=== PATIENT | male | born 1945 | race Two or more races ===

== ENCOUNTER 2024-09-05 10:54 | Inpatient (IN) | payer MEDICARE, MEDICAID, SELFPAY ==
[2024-09-05] VITALS (16 sets, daily range): BP systolic 91–151; BP diastolic 48–78; PULSE 74–92; RESP 10–18; TEMP 36.3–36.9; O2SAT 96–100
--- NOTE | 2024-09-05 11:40 | XR_ITS ---
Examination: AP chest single view Technique: AP semiupright portable chest single view Exam date and time: September 01, 2024 1148 hrs. Comparison August 13, 2024 Indications: Failure to thrive Findings: Normal heart size No lobar pneumonia or pulmonary edema Prominent osteopenia Impression: No pneumonia or pulmonary edema
--- NOTE | 2024-09-05 11:41 | EKG_ITS ---
[facility] Test Date: 2024-09-05 Pat Name: DASIA ALEXIS Department: Room: - Gender: Male Barker Operator: : 1945 Requested By: Oumar Larkin Order Number: [id number] Reading MD: Oumar Larkin Measurements Intervals [place] Rate: 84 P: 97 AK: 171 QRS: -7 QRSD: 91 T: 89 QT: 382 QTc: 452 Interpretive Statements SINUS RHYTHM MODERATE ST DEPRESSION [0.05+ mV ST DEPRESSION] No previous ECG available for comparison /store/S0/[id number].pdf
--- NOTE | 2024-09-05 11:41 | PD.EDADULT ---
ED General RME/HPI General Chief complaint: General Adult/Misc Complain Stated complaint: ILL Time Seen by Provider: 09/05/24 11:14 Arrival date/time: 09/05/24 10:54 RME / HPI RME / HPI narrative: 79-year-old male patient with significant history of hypertension, chronic debility, diabetes mellitus, chronic Tracy catheter, was brought in by EMS from senior care regarding failure to thrive. According to the EMS, patient's been refusing to eat for several weeks, and drinking less fluid. Currently patient told me that he is not hungry and not thirsty. Patient denies any chest pain cough fever or any complaints. Patient also denies any abdominal pain. Patient was sent to us by family and facility for PEG tube placement. Patient is full code Related Data Home Medications ?Medication ?Instructions ?Recorded ?Confirmed linagliptin 5 mg tablet (Tradjenta) 5 mg PO QDAY 11/06/21 11/25/23 bisacodyl 10 mg rectal suppository 10 mg MA QDAY PRN 11/25/23 11/25/23 (Dulcolax (bisacodyl)) ferrous sulfate 325 mg (65 mg 325 mg PO BID 11/25/23 11/25/23 iron) tablet glucagon HCl 1 mg solution for 1 mg subcut Q15M PRN 11/25/23 11/25/23 injection (Glucagon (HCl) Emergency Kit) Previous Rx's ?Medication ?Instructions ?Recorded tamsulosin 0.4 mg capsule 0.4 mg PO QDAY #0 caps 09/02/23 ciprofloxacin HCl 500 mg tablet 500 mg PO BID #14 tabs 12/22/23 (Cipro) ciprofloxacin HCl 500 mg tablet 500 mg PO BID #14 tabs 12/22/23 (Cipro) cefuroxime axetil 500 mg tablet 500 mg PO BID #14 tabs 08/13/24 Allergies Allergy/AdvReac Type Severity Reaction Status Date / Time No Known Allergies Allergy Verified 11/25/23 15:04 Review of Systems Review of Systems Narrative Review of Systems: Review of system reviewed and within normal limits except mentioned in HPI ED Exam Narrative Physical exam: VITAL SIGNS: Reviewed. GENERAL APPEARANCE: Alert and interactive, follows commands, no acute distress, cachectic HEAD AND FACE: Non-traumatic. ENT: PERRL, pale conjunctiva, eyelid no trauma, Mucous membrane moist. NECK: Supple, nontender, no nuchal rigidity. CHEST: No tenderness, no crepitus, no paradoxical movement, no retractions. LUNGS: Clear, well ventilated, symmetric, no rales, no wheezing, no ronchi, no stridor, good breath sounds bilaterally. HEART: Regular rate, regular rhythm, no murmur, no gallops. ABDOMEN: Soft, positive bowel sounds, nondistended, no guarding, nontender, no rebound, no masses, RECTAL: Deferred. GENITAL: Deferred. NEUROLOGICAL: Gross motor function intact sensory function intact, Appropriate for age. MUSCULOSKELETAL: low back nontender, full range of motion. 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 SKIN: Color pale, dry, no rash, no lacerations, no abrasions, no contusions. LYMPHATICS: Deferred. Course Quality Measures none Orders Category Date Time Status Patient Condition Routine Admission 09/05/24 13:34 Ordered Bedrest NOW Care 09/05/24 13:39 Active COVID-19 Screening Questionnaire NOW Care 09/05/24 12:50 Active Decision to Admit X1 Care 09/05/24 12:50 Completed EKG (ED ONLY) *Do not use* NOW Care 09/05/24 11:41 Completed NPO NOW Care 09/05/24 12:48 Active Notify provider NEEDED Care 09/05/24 13:34 Active Obtain Written Consent For: .NOW Care 09/05/24 13:26 Active Urinary Catheter QS Care 09/05/24 13:34 Active Consult to Gastroenterology Stat Cons 09/05/24 11:46 Ordered Diet NPO (NOW) Diet 09/05/24 12:48 Completed EKG (ED Only) Stat Exams 09/05/24 11:41 Draft XR chest 1V Stat Exams 09/05/24 11:40 Completed CBC [CBC] Stat Lab 09/05/24 11:49 Completed CMP [Comprehensive Metabolic Panel] Stat Lab 09/05/24 11:49 Completed Mag [Magnesium] Stat Lab 09/05/24 11:49 Completed PTT [Partial Thromboplastin Time] Stat Lab 09/05/24 11:49 Completed UA, C/S IF [Urinalysis, C/S if Indicated] Stat Lab 09/05/24 12:24 Completed Urine Culture Stat Lab 09/05/24 12:24 Received Sodium Chloride 0.9% 1000 ml [Ns] 1,000 ml Med 09/05/24 12:48 Active IV 125 mls/hr Sodium Chloride 0.9% 1000 ml [Ns] 1,000 ml Med 09/05/24 12:48 Discontinued IV 999 mls/hr Code Status Routine Oth 09/05/24 13:34 Ordered Oxygen Delivery PRN RT 09/05/24 13:39 Active Vital Signs Vital signs: Vital Signs Temperature 98.5 F 09/05/24 10:56 Pulse Rate 92 09/05/24 10:56 Respiratory Rate 17 09/05/24 10:56 Blood Pressure 151/78 H 09/05/24 10:56 Pulse Oximetry (%) 99 09/05/24 10:56 Oxygen Delivery Method Room Air 09/05/24 10:56 [facility] Patient data External records reviewed:: [facility] previous records Clinical information provided by:: patient Social determinants that could affect healthcare access:: none Patient has the following chronic illnesses:: Hypertension diabetes mellitus How is presenting disease/condition affected by chronic disease/condition?: exacerbated by Evaluation data The following diagnostics were reviewed and interpreted by me:: lab results, radiology exam(s) and EKG tracing(s) Lab and/or radiology exams considered but not ordered:: None Interpretation Summary: EKG as interpreted by me shows sinus rhythm, ventricular rate of 84 bpm, MA interval 171 MS, no ST segment elevation or depression noted. Urinalysis significant for UTI. CMP significant for chronic kidney disease creatinine today was noted to be 2.8 BUN of 57. I personally reviewed and interpreted the x-ray of this patient. There is no acute abnormalities found, no infiltrates no pneumothorax no hemothorax normal chest x-ray. Review of other structures was without significant abnormal findings also. I additionally reviewed the radiologist report and agree with the interpretation. Medications Medications considered but not ordered:: None Medication administrations:: Medication Administration History Acetaminophen (Acetaminophen 325 Mg Tablet) 650 mg PO Q6H PRN PRN Reason: Fever >101.5 Stop: 10/05/24 13:38 Acetaminophen (Acetaminophen 500 Mg Tablet) 1,000 mg PO Q6H PRN PRN Reason: PAIN SCALE 1-3 (mild Stop: 10/05/24 13:43 Sodium Chloride (Ns) 1,000 mls @ 125 mls/hr IV .Q8H ONE Stop: 09/05/24 20:47 Last Infusion: 09/05/24 14:31 Dose: 0 mls/hr Documented By: Admin: 09/05/24 13:22 Dose: 125 mls/hr Documented By: NANCY Dextrose/Sodium Chloride (D5-Ns) 1,000 mls @ 50 mls/hr IV .Q20H AMANDA Stop: 10/05/24 13:44 Last Admin: 09/05/24 14:29 Dose: 50 mls/hr Documented By: NANCY Ceftriaxone Sodium/Dextrose (Rocephin/D5w 1gm Iv Premix) 50 mls @ 100 mls/hr IV X1 ONE Stop: 09/05/24 15:05 Magnesium Hydroxide (Milk Of Magnesia Susp 30 Ml Udc) 30 ml PO QDAY PRN; Protocol PRN Reason: CONSTIPATION Stop: 10/05/24 13:38 Ondansetron HCl (Ondansetron Inj 2 Mg/Ml Inj 2 Ml) 4 mg IV Q6H PRN; Protocol PRN Reason: NAUSEA OR VOMITING Stop: 10/05/24 13:38 Pantoprazole Sodium (Pantoprazole Inj 40 Mg Vial) 40 mg IVP QDAY AMANDA Stop: 10/06/24 08:59 Discontinued Medications Sodium Chloride (Ns) 1,000 mls @ 999 mls/hr IV .Q1H1M ONE Stop: 09/05/24 13:48 Last Admin: 09/05/24 13:05 Dose: Not Given Documented By: NANCY Non-Admin Reason: Discontinued IV fluid hydration, IV ceftriaxone, patient was placed on n.p.o. Consultations Consultation(s) initiated? (list below): Yes Consultation #1 (Physician, Specialty, Details): Dr. Raymond, GI specialist on-call thank you Dr. Raymond Diagnosis Differential Diagnosis ED Complaint MDM: Dehydration, UTI, failure to thrive Most likely diagnosis given after review of the tests above:: Dehydration UTI failure to thrive chronic kidney disease Admission Indicated Admission indicated?: indicated Explain why admission is indicated or not indicated:: For further management Admission Request Was there a request for admission?: Yes Admission Attestation Admission request attestation: Discussed case with Dr. Fisher] from Hospitalist service regarding admission. Discussed patients ED course, exam findings, labs, and radiology results. The Hospitalist [agrees] to accept the patient for admission. Disposition Plan Disposition Plan: Admit Medical Decision Making MDM Narrative MDM Narrative: 79-year-old male patient with significant history of hypertension, chronic debility, diabetes mellitus, chronic Tracy catheter, was brought in by EMS from senior care regarding failure to thrive. According to the EMS, patient's been refusing to eat for several weeks, and drinking less fluid. Currently patient told me that he is not hungry and not thirsty. Patient denies any chest pain cough fever or any complaints. Patient also denies any abdominal pain. Patient was sent to us by family and facility for PEG tube placement. Patient is full code Patient was seen by Dr. Raymond in the emergency room, and for PEG tube placement. At 5:00 today patient was placed on n.p.o. Differential Diagnosis Differential Diagnosis: Dehydration, UTI, failure to thrive Lab Data 09/05/24 11:49 09/05/24 11:49 Labs: Lab Results 09/05/24 09/05/24 Range/Units 11:49 12:24 WBC 9.5 (3.8-10.6) Thou/mm3 RBC 3.27 L (4.50-5.90) Miln/mm3 Hgb 9.2 L (13.5-16.0) g/dL Hct 28.3 L (41.0-53.0) % MCV 87 (80-100) fL MCH 28.1 (25.0-35.0) pg MCHC 32.5 (31.0-37.0) g/dl RDW Std Deviation 54.8 H (35.1-43.9) fL Plt Count 126 L D (140-440) Thou/mm3 Neut % (Auto) 68 (37-80) % Lymph % (Auto) 23 (10-50) % [place] % (Auto) 6 (0-12) % Eos % (Auto) 2 (0-10) % Baso % (Auto) 1 (0-2.5) % Neut # (Auto) 6.4 (1.8-7.7) Thou/mm3 Lymph # (Auto) 2.2 (1.0-4.8) Thou/mm3 Beckham # (Auto) 0.6 (0.0-0.8) Thou/mm3 Eos # (Auto) 0.2 (0.0-0.5) Thou/mm3 Baso # (Auto) 0.1 (0.0-0.2) Thou/mm3 Immature Gran # (Auto) 0.09 H (0.00-0.00) Thou/mm3 Absolute Nucleated RBC 0.00 (0.00-0.00) Thou/mm3 Immature Gran % 1 H (0-0) % Nucleated RBC % 0 (0) /100 WBC APTT 30.9 (22.0-36.0) Seconds Sodium 139 (136-145) mMol/L Potassium 4.8 (3.4-5.1) mMol/L Chloride 112 H (98-107) mMol/L Carbon Dioxide 15.9 L (20.0-31.0) mMol/L Anion Gap 11 (7-16) BUN 57 H (9-23) mg/dL Creatinine 2.8 H (0.6-1.3) mg/dL Estim Creat Clear Calc Not Performed. eGFR 22 L (60 - ) See Note BUN/Creatinine Ratio 20 (12-20) Ratio Glucose 59 L (74-106) mg/dL Calculated Osmolality 291 (275-295) Calcium 8.9 (8.3-10.6) mg/dL Corrected Calcium 9.6 (8.5-10.1) mg/dL Magnesium 2.0 (1.6-2.6) mg/dL Total Bilirubin 0.3 (0.3-1.2) mg/dL AST < 8 (0-34) U/L ALT < 7 L (10-49) U/L Alkaline Phosphatase 103 (46-116) U/L Total Protein 6.7 (5.7-8.2) gm/dL Albumin 3.1 L (3.4-4.8) gm/dL Globulin 3.6 H (2.3-3.5) gm/dL Albumin/Globulin Ratio 0.9 L (1.2-2.2) Ur Collection Type Catheter Urine Color Yellow (Lt Yel-Yel) Urine Clarity Turbid A (Clear/Hazy) Urine pH 6.0 (5.0-7.0) Ur Specific [place] 1.015 (1.001-1.035) Urine Protein 2+ A (Neg - Trace) Urine Glucose (UA) Negative (Negative) Urine Ketones Trace (Negative) Urine Blood 1+ A (Negative) Urine Nitrite Negative (Negative) Urine Bilirubin Negative (Negative) Urine Urobilinogen (Auto) Negative (0.0-1.0) mg/dL Ur Leukocyte Esterase Positive (Negative) Urine RBC 10 H (0-3) /hpf Urine WBC 359 H (0-5) /hpf Ur Squamous Epith Cells 0 (0-5) /hpf Urine Bacteria Rare (None) Ur Yeast w Hyphae Present A (None) Urine Yeast (Budding) Present A (None) Ur Culture Indicated? Yes Discharge Plan Plan Patient Disposition: Admit Acute Care w/in Hospital Problem List Clinical Impression: Adult failure to thrive, UTI (urinary tract infection), Dehydration
[2024-09-05 11:58] LABS: Basophils # (Auto) 0.1 Thou/mm3 (0.0-0.2); Basophils % (Auto) 1 % (0-2.5); Eosinophils # (Auto) 0.2 Thou/mm3 (0.0-0.5); Eosinophils % (Auto) 2 % (0-10); Hematocrit 28.3 % (41.0-53.0); Hemoglobin 9.2 g/dL (13.5-16.0); Immature Granulocytes % (Auto) 1 % (0-0); Immature Granulocytes Auto 0.09 Thou/mm3 (0.00-0.00); Lymphocytes # (Auto) 2.2 Thou/mm3 (1.0-4.8); Lymphocytes % (Auto) 23 % (10-50); Mean Corpuscular HGB Conc 32.5 g/dl (31.0-37.0); Mean Corpuscular Hemoglobin 28.1 pg (25.0-35.0); Mean Corpuscular Volume 87 fL (80-100); Monocytes # (Auto) 0.6 Thou/mm3 (0.0-0.8); Monocytes % (Auto) 6 % (0-12); Neutrophils # (Auto) 6.4 Thou/mm3 (1.8-7.7); Neutrophils % (Auto) 68 % (37-80); Nucleated Red Blood Cell % 0 /100 WBC (0); Platelet Count 126 Thou/mm3 (140-440); RDW Standard Deviation 54.8 fL (35.1-43.9); Red Blood Count 3.27 Miln/mm3 (4.50-5.90); White Blood Count 9.5 Thou/mm3 (3.8-10.6)
[2024-09-05 12:19] LABS: Partial Thromboplastin Time 30.9 Seconds (22.0-36.0)
[2024-09-05 12:25] LABS: Alanine Aminotransferase < 7 U/L (10-49); Albumin, Serum 3.1 gm/dL (3.4-4.8); Albumin/Globulin Ratio 0.9 (1.2-2.2); Alkaline Phosphatase 103 U/L (46-116); Anion Gap 11 (7-16); Aspartate Amino Transferase < 8 U/L (0-34); BUN/Creatinine Ratio 20 Ratio (12-20); Bilirubin,Total 0.3 mg/dL (0.3-1.2); Blood Urea Nitrogen 57 mg/dL (9-23); Calcium 8.9 mg/dL (8.3-10.6); Calcium (Corrected) 9.6 mg/dL (8.5-10.1); Carbon Dioxide 15.9 mMol/L (20.0-31.0); Chloride 112 mMol/L (98-107); Creatinine (Component) 2.8 mg/dL (0.6-1.3); Globulin 3.6 gm/dL (2.3-3.5); Glucose 59 mg/dL (74-106); Osmolality,Calculated 291 (275-295); Potassium 4.8 mMol/L (3.4-5.1); Sodium 139 mMol/L (136-145); Total Protein 6.7 gm/dL (5.7-8.2); eGFR 22 See Note
[2024-09-05 12:38] LABS: Collection Type, Urine Catheter; Squamous Epithelial Cell,Urine 0 /hpf (0-5)
[2024-09-05] MEDS: SODIUM CHLORIDE 0.9% 1000 ML 1,000 ML 125 ML IV (13:22)
[2024-09-05 13:30] LABS: Bacteria,Urine Rare; Bilirubin,Urine Negative (Negative); Blood,Urine 1+ (Negative); Budding Yeast,Urine Present; Clarity,Urine Turbid (Clear/Hazy); Color,Urine Yellow (Lt Yel-Yel); Culture Indicated,Urine Yes; Glucose, Urine Negative (Negative); Hyphae Yeast Present; Ketones,Urine Trace (Negative); Leukocyte Esterase,Urine Positive (Negative); Nitrite,Urine Negative (Negative); Protein,Urine 2+ (Neg - Trace); RBC,Urine 10 /hpf (0-3); Specific Gravity,Urine 1.015 (1.001-1.035); Urobilinogen,Urine Negative mg/dL (0.0-1.0); WBC,Urine 359 /hpf (0-5)
--- NOTE | 2024-09-05 13:56 | PD.IMCONS ---
HPI Data of Consult Primary Care Provider: Hoa Jeff MD Consult Narrative Reason for consult: Dehydration, acute kidney injury, failure to thrive History of present illness: 79 years old male evaluated at the request of the physician marketing administrative assistant Boby in the emergency room Patient has been not eating at all was transferred from care home to the emergency room He is very dehydrated and cachectic appearing with a BUN of 57 and creatinine of 2.8 and albumin of 3.1 He also has anemia with a hemoglobin 9.2 hematocrit 28.3 and a platelet count 126,000 with a WBC count of 9.5 Patient has a history of hypertension diabetes mellitus type 2 and chronic Tracy catheter and a resident of care home cc:: cc: Review of Systems Review of Systems ROS Unobtainable: unobtainable due to medical condition Past Medical History Surgical History OTHER SURGICAL HX: As in the history of present illness Meds Home Medications and Allergies Home Medications ?Medication ?Instructions ?Recorded ?Confirmed ?Type linagliptin 5 mg tablet (Tradjenta) 5 mg PO QDAY 11/06/21 11/25/23 History bisacodyl 10 mg rectal suppository 10 mg NE QDAY PRN 11/25/23 11/25/23 History (Dulcolax (bisacodyl)) ferrous sulfate 325 mg (65 mg 325 mg PO BID 11/25/23 11/25/23 History iron) tablet glucagon HCl 1 mg solution for 1 mg subcut Q15M PRN 11/25/23 11/25/23 History injection (Glucagon (HCl) Emergency Kit) Allergies Allergy/AdvReac Type Severity Reaction Status Date / Time No Known Allergies Allergy Verified 11/25/23 15:04 Exam Vital Signs Temp Pulse Resp BP Pulse Ox O2 Del Method 98.4 F 82 16 110/61 100 Room Air 09/05/24 12:50 09/05/24 12:50 09/05/24 12:50 09/05/24 12:50 09/05/24 12:50 09/05/24 12:50 Constitutional Comments: Very cachectic appearing dehydrated male patient with scaphoid abdomen and very poor skin turgor Routine Respiratory Exam Comments: Normal to auscultation Routine Abdominal Exam Comments: Soft nontender and scaphoid Results Labs 09/05/24 11:49 09/05/24 11:49 Labs: Short CBC 11/23/24 Range/Units 11:49 WBC 9.5 (3.8-10.6) Thou/mm3 Hgb 9.2 L (13.5-16.0) g/dL Hct 28.3 L (41.0-53.0) % Plt Count 126 L D (140-440) Thou/mm3 BMP 09/05/24 11:49 Sodium 139 Potassium 4.8 Chloride 112 H Carbon Dioxide 15.9 L BUN 57 H Creatinine 2.8 H Glucose 59 L Calcium 8.9 Liver Function 09/05/24 Range/Units 11:49 Total Bilirubin 0.3 (0.3-1.2) mg/dL AST < 8 (0-34) U/L ALT < 7 L (10-49) U/L Alkaline Phosphatase 103 (46-116) U/L Albumin 3.1 L (3.4-4.8) gm/dL Urine 09/05/24 Range/Units 12:24 Urine Color Yellow (Lt Yel-Yel) Urine Clarity Turbid A (Clear/Hazy) Urine pH 6.0 (5.0-7.0) Ur Specific [place] 1.015 (1.001-1.035) Urine Protein 2+ A (Neg - Trace) Urine Glucose (UA) Negative (Negative) Assessment and Plan Additional Assessment & Plan Additional Plan: # Failure to thrive # Acute dehydration # Acute renal failure # Hypoalbuminemia # Chronically ill patient Who is bedridden and not eating Plan Consent will be obtained for percutaneous insertion of gastrostomy tube via fiberoptic esophagus gastroduodenoscopy under intravenous moderate sedation Which has been scheduled for this evening Further evaluation after above Other medical problems include # Essential hypertension # Diabetes mellitus type 2 # Chronic Tracy catheter Thank you once again for the opportunity to participate in the care of this patient
--- NOTE | 2024-09-05 13:58 | PD.RESHP ---
Documentation for date of: 09/05/24 HPI History of Present Illness Chief complaint: Decreased PO intake History of present illness: Mr. Bertin Parry is a 79-year-old male with past medical history significant for diabetes type 2, hypertension, hyperlipidemia, peripheral artery disease with complication of RLE AKA, chronic kidney disease IIIB, BPH, depression who was sent to the ED from SNF due to several weeks duration of decreased PO intake. Due to patient being a poor historian, collateral information was obtained through chart review. Per ED documentation, patient has Patient was sent to ED by family and facility for PEG tube placement for nutritional support. ED course: Vitals on arrival were within normal limits except for a mildly elevated blood pressure 151/78. Labs including a CBC were notable for a H&H of 9.2/28.3%, and a platelet count of 126. Metabolic panel notable for a chloride of 112 and HCO3 of 15.9 and BUN/CR of 57 and 2.8 respectively. eGFR 22. Glucose 59. Albumin low at 3.1. UA positive 1+ blood, 10+ RBC, pyuria of 359 with yeast present. EKG was NSR. Imaging including a chest x-ray was negative for pneumonia or pulmonary edema. GI services were consulted who recommended to keep the patient n.p.o. and will perform a PEG tube placement. Patient was subsequently admitted for failure to thrive and protein-calorie malnutrition. Past Medical History diabetes type 2, hypertension, hyperlipidemia, peripheral artery disease, chronic kidney disease IIIB, BPH, depression: Past Surgical History: s/p RLE AKA 2020, prior urological procedures Allergies: NKDA Family History: Noncontributory Social History: EtOH usage: None Smoking History: None Illicit drug usage: None Living situation: Bed bound, resident at [facility] Review of Systems Review of Systems Systems Reviewed: All systems reviewed, normal except as documented Exam Vital Signs Temp Pulse Resp BP Pulse Ox O2 Del Method 98.4 F 82 16 110/61 100 Room Air 09/05/24 12:50 09/05/24 12:50 09/05/24 12:50 09/05/24 12:50 09/05/24 12:50 09/05/24 12:50 Narrative Exam General: Not in any visible or apparent acute distress, frail and cachectic appearing, alert, pleasant and interactive, hard of hearing HEENT: NC/AT, EOMI, good conjugate gaze, dry mucous membranes CVS: S1S2 Regular rate and rhythm, No murmurs, rubs or gallops Lungs: Normal respiratory effort, no wheezing rhonchi or rales, CTAB Abd: Soft, non-distended, decreased abdominal wall fat pad, scaphoid abdomen Ext: No edema, warm well perfused, decreased muscle tone, RLE AKA Skin: Intact, no rashes, no lesions, no erythema Neuro: AOx3, no gross focal neurological deficits Results: Labs 09/06/24 05:18 09/06/24 05:18 Labs: Short CBC 09/05/24 Range/Units 11:49 WBC 9.5 (3.8-10.6) Thou/mm3 Hgb 9.2 L (13.5-16.0) g/dL Hct 28.3 L (41.0-53.0) % Plt Count 126 L D (140-440) Thou/mm3 BMP 09/05/24 11:49 Sodium 139 Potassium 4.8 Chloride 112 H Carbon Dioxide 15.9 L BUN 57 H Creatinine 2.8 H Glucose 59 L Calcium 8.9 Liver Function 09/05/24 Range/Units 11:49 Total Bilirubin 0.3 (0.3-1.2) mg/dL AST < 8 (0-34) U/L ALT < 7 L (10-49) U/L Alkaline Phosphatase 103 (46-116) U/L Albumin 3.1 L (3.4-4.8) gm/dL Urine 09/05/24 Range/Units 12:24 Urine Color Yellow (Lt Yel-Yel) Urine Clarity Turbid A (Clear/Hazy) Urine pH 6.0 (5.0-7.0) Ur Specific [place] 1.015 (1.001-1.035) Urine Protein 2+ A (Neg - Trace) Urine Glucose (UA) Negative (Negative) Quality Measures Quality Measures VTE prophylaxis Advance care planning discussed with:: patient Medications Home Medications and Allergies Home Medications ?Medication ?Instructions ?Recorded ?Confirmed ?Type linagliptin 5 mg tablet (Tradjenta) 5 mg PO QDAY 11/06/21 09/06/24 History bisacodyl 10 mg rectal suppository 10 mg SC QDAY PRN Constipation 11/25/23 09/06/24 History (Dulcolax (bisacodyl)) ferrous sulfate 325 mg (65 mg 325 mg PO BID 11/25/23 09/06/24 History iron) tablet glucagon HCl 1 mg solution for 1 mg subcut Q15M PRN Hypoglycemia 11/25/23 09/06/24 History injection (Glucagon (HCl) Emergency Kit) mirtazapine 30 mg tablet (Remeron) 30 mg PO HS appetite stimulant 09/06/24 09/06/24 History ondansetron HCl 4 mg tablet 4 mg PO Q6H PRN Nausea And Vomiting 09/06/24 09/06/24 History Allergies Allergy/AdvReac Type Severity Reaction Status Date / Time No Known Allergies Allergy Verified 09/05/24 17:39 Visit Medications Acetaminophen (Acetaminophen 325 Mg Tablet) 650 mg PO Q6H PRN PRN Reason: Fever >101.5 Stop: 10/05/24 13:38 Acetaminophen (Acetaminophen 500 Mg Tablet) 1,000 mg PO Q6H PRN PRN Reason: PAIN SCALE 1-3 (mild Stop: 10/05/24 13:43 Sodium Chloride (Ns) 1,000 mls @ 125 mls/hr IV .Q8H ONE Stop: 09/05/24 20:47 Last Admin: 09/05/24 13:22 Dose: 125 mls/hr Dextrose/Sodium Chloride (D5-Ns) 1,000 mls @ 50 mls/hr IV .Q20H AMANDA Stop: 10/05/24 13:44 Magnesium Hydroxide (Milk Of Magnesia Susp 30 Ml Udc) 30 ml PO QDAY PRN; Protocol PRN Reason: CONSTIPATION Stop: 10/05/24 13:38 Ondansetron HCl (Ondansetron Inj 2 Mg/Ml Inj 2 Ml) 4 mg IV Q6H PRN; Protocol PRN Reason: NAUSEA OR VOMITING Stop: 10/05/24 13:38 Pantoprazole Sodium (Pantoprazole Inj 40 Mg Vial) 40 mg IVP QDAY AMANDA Stop: 10/06/24 08:59 Discontinued Medications Sodium Chloride (Ns) 1,000 mls @ 999 mls/hr IV .Q1H1M ONE Stop: 09/05/24 13:48 Last Admin: 09/05/24 13:05 Dose: Not Given Assessment & Plan Plan Assessment: Mr. Bertin Parry is a 79-year-old male with past medical history significant for diabetes type 2, hypertension, hyperlipidemia, peripheral artery disease with complication of RLE AKA, chronic kidney disease IIIB, BPH, depression who was sent to the ED from SNF due to several weeks duration of decreased PO intake. GI services were consulted due to failure to thrive who recommended the patient be admitted for PEG tube placement for nutritional support. Plan: #Failure to thrive #Protein calorie malnutrition #Severe dehydration #Metabolic acidosis Patient with decreased p.o. intake for several weeks. On exam patient appears to be severely cachectic with decreased muscle wasting. Decreased albumin of 3.1 and BUNs/CR of 57/2.8. Sent from SNF to ED where he was evaluated by GI services who recommended the patient be admitted for PEG tube placement. Plan: N.p.o. in anticipation of PEG tube placement IV fluids (D5 NS at 50 cc/h) Hold anticoagulation until after PEG tube placement. #Acute Kidney Injury on CKD stage 4 Creatinine: 2.8 (baseline is 2.2), likely secondary to dehydration/poor p.o. intake; prerenal etiology (decreased renal perfusion) For essential medications that are renally cleared, adjust dosing daily Avoid Iodinated contrast media to prevent contrast induced nephropathy Avoid Gadolinium-based contrast agents to prevent?nephrogenic systemic fibrosis Avoid Nephrotoxic medications and drugs that may have a detrimental effect on glomerular pefusion Continue fluid resuscitation with D5 NS at 50 cc/h #Asymptomatic Bacteruria Pyuria of 359, patient denies any current symptoms, will defer abx treatment at this time #Normocytic Anemia #Thrombocytopenia H/H on admission:9.2X/28.3%; MCV: 87; Platelets 126 No active bleeding at this time DDX: acute blood loss, hemolysis, chronic inflammation -Continue to monitor, if Hgb < 7.0, consider transfusion #History of Type II Diabetes Mellitus Patient is hypoglycemic with glucose of 59 on admission. - Hold patient's home Diabetes Medications - Follow up QAM CMP glucose level #Hypertension Patient is normotensive. No documented home medications. Will consider starting antihypertensive if patient becomes hypertensive. #BPH -Restart home Tamsulosin #Peripheral Artery Disease with complication of RLE AKA Health Maintenance Fluids Electrolytes Nutrition: D5NS at 50 cc/hr NPO in anticipation of PEG tube Code Status: Full Code DVT Prophylaxis: no chemical anticoagulation GI Prophylaxis: Pantoprazole 40 mg IV qday Disposition: Patient admitted for FTT requiring PEG tube placement I discussed with and supervised the email marketing intern physician who took care of this patient. I personally saw and examined the patient and discussed the assessment and plan with the entire medicine team, including my attending Dr. Linda ELIAS. I agree with the assessment and plan as documented above. Juan C Fisher M.D. Internal Medicine PGY-3 Attending Provider Attestation/Addendum I, Lin Mckeon DO, attest that I was physically present for the osuna portions of the service and evaluated the patient with the resident and I reviewed and discussed the case with the resident and agree with the resident's findings and plans of care as documented above Patient is a 79-year-old male with past medical history of type II diabetes, hypertension, hyperlipidemia, PAD status post right lower extremity above-knee amputation, CKD stage III, BPH [facility] due to decreased oral intake. Patient states that he is not hungry. However, per chart review, family and nursing facility sent patient over for PEG tube placement due to cachexia and poor oral intake. Patient appears very dehydrated with dry oral mucosa. He complains of some pain in his right back due to positioning in bed. However, patient is noted to have cachexia and abdomen is concave. Ribs are prominent. He does not appear to be in any acute distress. Skin turgor is poor. Patient is ANO x 2. He appears to be at baseline. Patient is afebrile and noted to have an acute kidney injury with creatinine of 3.4, baseline is 2.2. He is also noted to have a metabolic acidosis, likely due to starvation ketoacidosis. He is also noted to have some yeast in urine, but he has a urinary catheter and UTI less likely. GI was consulted from ED and plans to place PEG tube at 5 PM. Will keep patient n.p.o. at this time. Admit to [facility]. Continue with IV fluid hydration.
[2024-09-05] MEDS: DEXTROSE 5%-NS 1,000 ML 50 ML IV (14:29)
[2024-09-05] MEDS: cefTRIAXone/D5w 1gm IV premix 50 ML IV (15:27)
--- NOTE | 2024-09-05 17:17 | PC.NURSE ---
got report at 1630 from ED FROM [facility] .AND THEY TRANSFER PATIENT TO OR for peg tube placement patient will come to [facility] floor after he done with peg TUBE PLACEMENT.
--- NOTE | 2024-09-05 17:53 | SUR.PHASEI ---
1747 To PACU able to lift head off of pillow, following simple commands continue to monitor pt vital signs and status.
--- NOTE | 2024-09-05 18:37 | SUR.PHASEI ---
1830 Transfer to room 381 in stable condition, awake and alert tolerating sips of H20, no complaints, no s/s of distress noted , no change to abdomen PEG tube/dressing gauze.
--- NOTE | 2024-09-05 22:18 | PC.NURSE ---
Jevity 1.5 for pt @ 20mls/hr per Dr. Raymond
[2024-09-06] VITALS: BP 129/60; PULSE 73; RESP 15; TEMP 36.6; O2SAT 98
[2024-09-06 04:00] VITALS: BP 121/58; PULSE 76; RESP 16; TEMP 36.3; O2SAT 97
[2024-09-06 05:46] LABS: Basophils % (Auto) 0 % (0-2.5); Eosinophils # (Auto) 0.1 Thou/mm3 (0.0-0.5); Eosinophils % (Auto) 1 % (0-10); Hematocrit 25.6 % (41.0-53.0); Immature Granulocytes % (Auto) 1 % (0-0); Immature Granulocytes Auto 0.09 Thou/mm3 (0.00-0.00); Lymphocytes # (Auto) 1.4 Thou/mm3 (1.0-4.8); Lymphocytes % (Auto) 16 % (10-50); Mean Corpuscular HGB Conc 32.8 g/dl (31.0-37.0); Mean Corpuscular Hemoglobin 28.8 pg (25.0-35.0); Mean Corpuscular Volume 88 fL (80-100); Monocytes # (Auto) 0.5 Thou/mm3 (0.0-0.8); Monocytes % (Auto) 6 % (0-12); Neutrophils # (Auto) 6.4 Thou/mm3 (1.8-7.7); Neutrophils % (Auto) 75 % (37-80); Nucleated Red Blood Cell % 0 /100 WBC (0); Platelet Count 111 Thou/mm3 (140-440); RDW Standard Deviation 55.5 fL (35.1-43.9); Red Blood Count 2.92 Miln/mm3 (4.50-5.90); White Blood Count 8.5 Thou/mm3 (3.8-10.6)
[2024-09-06 06:00] LABS: Hemoglobin 8.4 g/dL (13.5-16.0)
[2024-09-06 06:10] LABS: Anion Gap 9 (7-16); BUN/Creatinine Ratio 19 Ratio (12-20); Blood Urea Nitrogen 49 mg/dL (9-23); Calcium 8.4 mg/dL (8.3-10.6); Carbon Dioxide 18.1 mMol/L (20.0-31.0); Chloride 113 mMol/L (98-107); Creatinine (Component) 2.6 mg/dL (0.6-1.3); Glucose 149 mg/dL (74-106); Magnesium 1.9 mg/dL (1.6-2.6); Osmolality,Calculated 295 (275-295); Phosphorous 3.2 mg/dL (2.4-5.1); Potassium 4.7 mMol/L (3.4-5.1); Sodium 140 mMol/L (136-145); eGFR 24 See Note
[2024-09-06 08:00] VITALS: BP 102/52; PULSE 75; RESP 17; TEMP 36.3; O2SAT 98
[2024-09-06] MEDS: PANTOPRAZOLE INJ 40 MG VIAL IVP (08:18)
[2024-09-06] MEDS: TAMSULOSIN HCL 0.4 MG CAPSULE PO (08:18)
[2024-09-06] MEDS: DEXTROSE 5%-NS 1,000 ML 50 ML IV (08:18)
[2024-09-06 12:00] VITALS: BP 111/55; PULSE 83; RESP 16; TEMP 36.7; O2SAT 98
--- NOTE | 2024-09-06 12:36 | ESPR_ITS ---
<Statement entered by Naresh Davenport MD - 09/06/24 13:52> Senior Resident Attestation: I supervised/discussed management plan with international trade compliance manager physician Dr. Adan, and was involved in the care of this patient. I personally saw and examined the patient and discussed the assessment and plan with the entire medicine team, including my attending. I agree with the assessment and plan as documented. Patient was seen and examined at bedside. No acute overnight events. Patient received PEG tube yesterday and was started on tube feeding. Patient will stay 1 more day for IV fluids hydration due to dehydrated state on arrival. Anticipate discharge tomorrow. Patient's care was discussed with attending physician, Dr. Mckeon. Naresh Davenport MD PGY-2. Documentation for date of: 09/06/24 Subjective Subjective Interval history: Patient seen at bedside this morning. No overnight events. Patient's PEG tube is functional and is currently on tube feeds and getting medication through the PEG tube. Endorse her device given to the patient as he would like some ice cream and he could have some oral intake as well. No other complaints at this time. Will continue to give IV fluid hydration and tube feeds. Exam Vital Signs Temp Pulse Resp BP Pulse Ox O2 Del Method O2 Flow Rate 98.1 F 83 16 111/55 L 98 Room Air 3 09/06/24 12:00 09/06/24 12:00 09/06/24 12:00 09/06/24 12:00 09/06/24 12:00 09/06/24 12:00 09/05/24 17:35 Narrative Exam General: A/O x3, no acute distress, frail, thin, temporal wasting Eyes: PERRL, EOMI. Anicteric, vision grossly intact. Ears: No ear pain, no ear discharge, Hearing grossly intact. Nose: No nasal discharge. Mouth/Throat: Dry mucous membranes, no dentation Neck: Neck supple, non-tender, no cervical lymphadenopathy. Lungs: Clear JOE to auscultation and percussion, No accessory muscle use. Cardio: Normal S1/S2, regular rhythm, no murmurs, no JVD Abdomen: Soft, non-tender, no palpable masses, peristalsis present, no guarding or rebound. PEG tube with abdominal binder covering Extremities: R AKA, no peripheral edema , non-tender, peripheral pulse present L, decreased muscle tone. Skin: No rashes, no lesions, warm to touch. Neuro: No focal neurological deficits. able to move all extremities Objective Labs 09/06/24 05:18 09/06/24 05:18 Labs: Laboratory Results - last 24 hr 09/05/24 09/06/24 12:24 05:18 WBC 8.5 RBC 2.92 L Hgb 8.4 L Hct 25.6 L MCV 88 MCH 28.8 MCHC 32.8 RDW Std Deviation 55.5 H Plt Count 111 L Neut % (Auto) 75 Lymph % (Auto) 16 [place] % (Auto) 6 Eos % (Auto) 1 Baso % (Auto) 0 Neut # (Auto) 6.4 Lymph # (Auto) 1.4 [place] # (Auto) 0.5 Eos # (Auto) 0.1 Baso # (Auto) 0.0 Immature Gran # (Auto) 0.09 H Absolute Nucleated RBC 0.00 Immature Gran % 1 H Nucleated RBC % 0 Sodium 140 Potassium 4.7 Chloride 113 H Carbon Dioxide 18.1 L Anion Gap 9 BUN 49 H Creatinine 2.6 H Estim Creat Clear Calc Not Performed. eGFR 24 L BUN/Creatinine Ratio 19 Glucose 149 H D Calculated Osmolality 295 Calcium 8.4 Phosphorus 3.2 Magnesium 1.9 Ur Collection Type Catheter Urine Color Yellow Urine Clarity Turbid A Urine pH 6.0 Ur Specific [place] 1.015 Urine Protein 2+ A Urine Glucose (UA) Negative Urine Ketones Trace Urine Blood 1+ A Urine Nitrite Negative Urine Bilirubin Negative Urine Urobilinogen (Auto) Negative Ur Leukocyte Esterase Positive Urine RBC 10 H Urine WBC 359 H Ur Squamous Epith Cells 0 Urine Bacteria Rare Ur Yeast w Hyphae Present A Urine Yeast (Budding) Present A Ur Culture Indicated? Yes Quality Measures Quality Measures VTE prophylaxis Advance care planning discussed with:: patient Assessment & Plan Assessment Current Active Medications: Generic Name Dose Route Start Last Admin Trade Name Freq PRN Reason Stop Dose Admin Acetaminophen 650 mg 09/05/24 13:39 Acetaminophen 325 Mg Tablet PO 10/05/24 13:38 Q6H PRN Fever >101.5 Acetaminophen 1,000 mg 09/05/24 13:49 Acetaminophen 500 Mg Tablet PO 10/05/24 13:43 Q6H PRN PAIN SCALE 1-3 (mild Dextrose/Sodium Chloride 1,000 mls @ 50 mls/hr 09/05/24 13:45 11/24/24 08:18 D5-Ns IV 10/05/24 13:44 50 mls/hr .Q20H AMANDA Administration Magnesium Hydroxide 30 ml 09/05/24 13:39 Milk Of Magnesia Susp 30 Ml Udc PO 10/05/24 13:38 QDAY PRN CONSTIPATION Protocol Ondansetron HCl 4 mg 09/05/24 13:39 Ondansetron Inj 2 Mg/Ml Inj 2 Ml IV 10/05/24 13:38 Q6H PRN NAUSEA OR VOMITING Protocol Pantoprazole Sodium 40 mg 09/06/24 09:00 09/06/24 08:18 Pantoprazole Inj 40 Mg Vial IVP 10/06/24 08:59 40 mg QDAY AMANDA Administration Tamsulosin HCl 0.4 mg 09/06/24 09:00 09/06/24 08:18 Tamsulosin Hcl 0.4 Mg Capsule PO 10/06/24 08:59 0.4 mg QDAY AMANDA Administration Plan 79-year-old male with past medical history of BPH, hypertension CKD stage IIIb, DM2, hyperlipidemia, depression, and peripheral artery disease (right lower extremity AKA) was admitted to the hospital on 09/05/2024 for placement of PEG tube given to poor oral intake for the past few weeks and failure to thrive. #Failure to thrive #Dehydration #cachexia ?Patient has had decreased oral intake for the past several weeks ?Patient got PEG tube placed yesterday by GI Plan: ?Will continue IV fluids (D5 at 50 ml/hr) ?Continue tube feeds -Encourage oral intake ?Referral to Registered dietitian ?GI consulted, appreciate recommendations ?Will continue to monitor #ENOC on CKD ?Patient's baseline BUN is around 50 and creatinine 3.4 ?Creatinine 2.6 today and BUN 49 Plan: ?Continue IV fluids (D5 at 50 ml/hr) ?Avoid nephrotoxic agents ?Renally dose medication ?Will continue to monitor #Asymptomatic bacteriuria ?UA was positive for leukocyte esterase and bacteria, but patient has no UTI symptoms ?No need for antibiotics as patient is asymptomatic Plan: ?Will continue to monitor #Normocytic, chronic anemia #Thrombocytopenia ?Patient's baseline hemoglobin is around 8-9 ?Hemoglobin today is 8.4 and platelets 111 Plan: ?Will transfuse if hemoglobin less than 7 ?Will continue to monitor #Hx of DM2 ?Patient's blood sugars have been on the lower end during hospital admission given that he has been having poor oral intake. Plan: ?D5 at 50 mL/h ?will continue to monitor #Hx of HTN ?During hospital admission patient has been normotensive therefore we will hold off on any antihypertensive medication #Hx of depression ?patient's is on mirtazapine 30 mg at bedtime #Hx of hyperlipidemia ?Patient is not on any statin at this time at home #Hx of BPH ?Continue tamsulosin 0.4 mg daily #Hx of peripheral artery disease ?Patient has right lower extremity AKA given to complications from peripheral artery disease Disposition: Patient seen in med surg, continuing IV hydration and tube feeds. Diet: Jevity GI prophylaxis: protonix DVT prophylaxis: SCD Code: Full Case disclosed with Attending Dr. Mckeon and My senior Dr. Davenport PGY2. Jerry Talbert PGY1 Attending Provider Attestation/Addendum Lin Yañez, DO, attest that I was physically present for the osuna portions of the service and evaluated the patient with the resident and I reviewed and discussed the case with the resident and agree with the resident's findings and plans of care as documented above Patient seen and evaluated this AM. Patient states he is doing well, but he also is not hungry. He denies any pain. PEG tube was placed yesterday, tolerated procedure well. PEG tube feeds started and will advance as per RD recs. Will continue with IV fluid hydration. Anticipate DC within next 24- 48hrs
--- NOTE | 2024-09-06 14:57 | PC.SS ---
BRANCH SALES MANAGER met with pt at bedside introduced self and reason for consult. Pt confirmed all demographics on face sheet. Pt stated that he lives with his son Elias Rodriguez who is his medical decision maker [phone], and also helps pt with his ADL's. Pt stated that he is diabetic but not on dialysis, uses wheel chair and a shower chair as a form of DME. Pt stated that his PCP is and would like to go back to [facility] for his SNF.
--- NOTE | 2024-09-06 15:11 | PCS.ST ---
PLATER APPRENTICE conducted swallow eval. PLATER APPRENTICE recommends initiate D1 diet and thin liquids. See report for more details
[2024-09-06 16:00] VITALS: BP 117/57; PULSE 74; RESP 17; TEMP 36.6; O2SAT 100
--- NOTE | 2024-09-06 18:28 | ESPR_ITS ---
Documentation for date of: 09/06/24 Subjective Subjective Interval history: Drop in hemoglobin hematocrit to 8.4 and 25.6 basically from hydration BUN/creatinine improving to 49 and 2.6 PEG tube is working fine and the abdominal site looks good Exam Vital Signs Temp Pulse Resp BP Pulse Ox O2 Del Method O2 Flow Rate 97.8 F 74 17 117/57 L 100 Room Air 3 09/06/24 16:00 09/06/24 16:00 09/06/24 16:00 09/06/24 16:00 09/06/24 16:00 09/06/24 16:00 09/05/24 17:35 Objective Labs 09/06/24 05:18 09/06/24 05:18 Labs: Laboratory Results - last 24 hr 09/06/24 05:18 WBC 8.5 RBC 2.92 L Hgb 8.4 L Hct 25.6 L MCV 88 MCH 28.8 MCHC 32.8 RDW Std Deviation 55.5 H Plt Count 111 L Neut % (Auto) 75 Lymph % (Auto) 16 [place] % (Auto) 6 Eos % (Auto) 1 Baso % (Auto) 0 Neut # (Auto) 6.4 Lymph # (Auto) 1.4 [place] # (Auto) 0.5 Eos # (Auto) 0.1 Baso # (Auto) 0.0 Immature Gran # (Auto) 0.09 H Absolute Nucleated RBC 0.00 Immature Gran % 1 H Nucleated RBC % 0 Sodium 140 Potassium 4.7 Chloride 113 H Carbon Dioxide 18.1 L Anion Gap 9 BUN 49 H Creatinine 2.6 H Estim Creat Clear Calc Not Performed. eGFR 24 L BUN/Creatinine Ratio 19 Glucose 149 H D Calculated Osmolality 295 Calcium 8.4 Phosphorus 3.2 Magnesium 1.9 Impressions Impression: # Failure to thrive requiring PEG placement on enteral hyperalimentation # ENOC on IV hydration improving # Drop in hemoglobin hematocrit due to dehydration Assessment & Plan A&P Narrative # Failure to thrive # Acute dehydration # Acute renal failure # Hypoalbuminemia # Chronically ill patient Who is bedridden and not eating Plan Consent will be obtained for percutaneous insertion of gastrostomy tube via fiberoptic esophagus gastroduodenoscopy under intravenous moderate sedation Which has been scheduled for this evening Further evaluation after above Other medical problems include # Essential hypertension # Diabetes mellitus type 2 # Chronic [place] catheter Thank you once again for the opportunity to participate in the care of this patient Time Spent With Patient Time: Total time spent is greater than 50% in coordination of care (as documented) at patient's floor/unit and/or counseling patient:
[2024-09-06 20:00] VITALS: BP 131/56; PULSE 73; RESP 16; TEMP 36.6; O2SAT 93
[2024-09-06] MEDS: MIRTAZAPINE 15 MG TABLET 30 MG GT (20:17)
[2024-09-07] VITALS: BP 103/58; PULSE 81; RESP 17; TEMP 37.1; O2SAT 95
[2024-09-07] MEDS: DEXTROSE 5%-NS 1,000 ML 50 ML IV (02:03)
[2024-09-07 04:00] VITALS: BP 111/52; PULSE 78; RESP 16; TEMP 36.6; O2SAT 95
[2024-09-07 05:39] LABS: Basophils % (Auto) 0 % (0-2.5); Eosinophils # (Auto) 0.1 Thou/mm3 (0.0-0.5); Eosinophils % (Auto) 1 % (0-10); Hematocrit 24.3 % (41.0-53.0); Immature Granulocytes % (Auto) 1 % (0-0); Immature Granulocytes Auto 0.06 Thou/mm3 (0.00-0.00); Lymphocytes # (Auto) 1.3 Thou/mm3 (1.0-4.8); Lymphocytes % (Auto) 16 % (10-50); Mean Corpuscular HGB Conc 32.5 g/dl (31.0-37.0); Mean Corpuscular Hemoglobin 28.6 pg (25.0-35.0); Mean Corpuscular Volume 88 fL (80-100); Monocytes # (Auto) 0.6 Thou/mm3 (0.0-0.8); Monocytes % (Auto) 7 % (0-12); Neutrophils # (Auto) 6.1 Thou/mm3 (1.8-7.7); Neutrophils % (Auto) 75 % (37-80); Nucleated Red Blood Cell % 0 /100 WBC (0); Platelet Count 89 Thou/mm3 (140-440); RDW Standard Deviation 56.6 fL (35.1-43.9); Red Blood Count 2.76 Miln/mm3 (4.50-5.90); White Blood Count 8.1 Thou/mm3 (3.8-10.6)
[2024-09-07 05:53] LABS: Hemoglobin 7.9 g/dL (13.5-16.0)
[2024-09-07 06:20] LABS: Anion Gap 7 (7-16); BUN/Creatinine Ratio 18 Ratio (12-20); Blood Urea Nitrogen 39 mg/dL (9-23); Carbon Dioxide 16.7 mMol/L (20.0-31.0); Chloride 114 mMol/L (98-107); Creatinine (Component) 2.2 mg/dL (0.6-1.3); Glucose 123 mg/dL (74-106); Magnesium 1.8 mg/dL (1.6-2.6); Osmolality,Calculated 286 (275-295); Phosphorous 1.7 mg/dL (2.4-5.1); Potassium 4.5 mMol/L (3.4-5.1); Sodium 138 mMol/L (136-145); eGFR 30 See Note
[2024-09-07 08:00] VITALS: BP 125/55; PULSE 75; RESP 17; TEMP 36.2; O2SAT 100
[2024-09-07] MEDS: SODIUM BICARB INJ 8.4% 1 mEq/ML VIAL 50 ML 50 MEQ IV (08:54)
[2024-09-07] MEDS: NAPH,KPH MBDB 1 PACKET (1.5 GM) GT (08:54)
[2024-09-07] MEDS: TAMSULOSIN HCL 0.4 MG CAPSULE PO (08:55)
[2024-09-07] MEDS: PANTOPRAZOLE INJ 40 MG VIAL IVP (08:55)
[2024-09-07 09:41] VITALS: BMI 12.2
--- NOTE | 2024-09-07 11:17 | PC.DIETICIAN ---
Dietitian recommendation: Jevity 1.2 start at 20ml/hr, increase as tolerated by 10ml/hr Q10hrs to goal of 50ml/hr via Gtube by pump x24hrs to provide: 1200ml total vol, 1440kcal, 66g protein. If no IVF, give 150ml Q 4hrs water flush and consider reduce to 75ml Q4hrs when TF closer to goal or per MD. Pt currently vomiting today when TF @20ml/hr.
--- NOTE | 2024-09-07 11:17 | PC.NURSE ---
Per discharge will be held today due to patient vomiting
[2024-09-07] MEDS: ONDANSETRON INJ 2 MG/ML INJ 2 ML 4 MG IV (11:27)
[2024-09-07 12:00] VITALS: BP 110/51; PULSE 82; RESP 15; TEMP 36.9; O2SAT 100
--- NOTE | 2024-09-07 13:12 | ESPR_ITS ---
<Statement entered by Naresh Davenport MD - 09/07/24 14:23> Senior Resident Attestation: I supervised/discussed management plan with data analysis intern physician Dr. Adan, and was involved in the care of this patient. I personally saw and examined the patient and discussed the assessment and plan with the entire medicine team, including my attending. I agree with the assessment and plan as documented. Patient was seen and examined at the bedside. No acute overnight events. Yesterday patient was started on PEG tube feeding and was tolerating it well overnight, today morning patient had some minimal oral diet after which he started vomiting, Therefore his discharge was held. Patient's care was discussed with attending physician, Dr. Mckeon. Naresh Davenport MD PGY-2. Documentation for date of: 09/07/24 Subjective Subjective Interval history: Patient was seen at bedside this morning. No overnight events. Patient had some vomiting episodes today later on the morning, therefore his discharge was held to monitor patient. Exam Vital Signs Temp Pulse Resp BP Pulse Ox O2 Del Method O2 Flow Rate 98.4 F 82 15 110/51 L 100 Room Air 3 09/07/24 12:00 09/07/24 12:00 09/07/24 12:00 09/07/24 12:00 09/07/24 12:00 09/07/24 12:00 09/05/24 17:35 Narrative Exam General: A/O x3, no acute distress, frail, thin, temporal wasting Eyes: PERRL, EOMI. Anicteric, vision grossly intact. Ears: No ear pain, no ear discharge, Hearing grossly intact. Nose: No nasal discharge. Mouth/Throat: Dry mucous membranes, no dentation Neck: Neck supple, non-tender, no cervical lymphadenopathy. Lungs: Clear JOE to auscultation and percussion, No accessory muscle use. Cardio: Normal S1/S2, regular rhythm, no murmurs, no JVD Abdomen: Soft, non-tender, no palpable masses, peristalsis present, no guarding or rebound. PEG tube without any bleeding and abdominal binder covering Extremities: R AKA, no peripheral edema , non-tender, peripheral pulse present L, decreased muscle tone. Skin: No rashes, no lesions, warm to touch. Neuro: No focal neurological deficits. able to move all extremities Objective Labs 09/07/24 04:52 09/07/24 04:52 Labs: Laboratory Results - last 24 hr 09/07/24 04:52 WBC 8.1 RBC 2.76 L Hgb 7.9 L Hct 24.3 L MCV 88 MCH 28.6 MCHC 32.5 RDW Std Deviation 56.6 H Plt Count 89 L Neut % (Auto) 75 Lymph % (Auto) 16 [place] % (Auto) 7 Eos % (Auto) 1 Baso % (Auto) 0 Neut # (Auto) 6.1 Lymph # (Auto) 1.3 [place] # (Auto) 0.6 Eos # (Auto) 0.1 Baso # (Auto) 0.0 Immature Gran # (Auto) 0.06 H Absolute Nucleated RBC 0.00 Immature Gran % 1 H Nucleated RBC % 0 Sodium 138 Potassium 4.5 Chloride 114 H Carbon Dioxide 16.7 L Anion Gap 7 BUN 39 H Creatinine 2.2 H Estim Creat Clear Calc Not Performed. eGFR 30 L BUN/Creatinine Ratio 18 Glucose 123 H Calculated Osmolality 286 Calcium 8.0 L Phosphorus 1.7 L Magnesium 1.8 Quality Measures Quality Measures VTE prophylaxis Advance care planning discussed with:: patient Assessment & Plan Assessment Current Active Medications: Generic Name Dose Route Start Last Admin Trade Name Freq PRN Reason Stop Dose Admin Acetaminophen 650 mg 09/05/24 13:39 Acetaminophen 325 Mg Tablet PO 10/05/24 13:38 Q6H PRN Fever >101.5 Acetaminophen 1,000 mg 09/05/24 13:49 Acetaminophen 500 Mg Tablet PO 10/05/24 13:43 Q6H PRN PAIN SCALE 1-3 (mild Dextrose/Sodium Chloride 1,000 mls @ 50 mls/hr 09/05/24 13:45 09/07/24 02:03 D5-Ns IV 10/05/24 13:44 50 mls/hr .Q20H AMANDA Administration Magnesium Hydroxide 30 ml 09/05/24 13:39 Milk Of Magnesia Susp 30 Ml Udc PO 10/05/24 13:38 QDAY PRN CONSTIPATION Protocol Metoclopramide HCl 5 mg 09/07/24 14:00 Metoclopramide Inj 5 Mg/Ml Vial 2 Ml IVP 10/07/24 13:59 Q8HR AMANDA Protocol Mirtazapine 30 mg 09/06/24 21:00 09/06/24 20:17 Mirtazapine 15 Mg Tablet GT 10/06/24 20:59 30 mg HS AMANDA Administration Ondansetron HCl 4 mg 09/05/24 13:39 09/07/24 11:27 Ondansetron Inj 2 Mg/Ml Inj 2 Ml IV 10/05/24 13:38 4 mg Q6H PRN Administration NAUSEA OR VOMITING Protocol Pantoprazole Sodium 40 mg 09/06/24 09:00 09/07/24 08:55 Pantoprazole Inj 40 Mg Vial IVP 10/06/24 08:59 40 mg QDAY AMANDA Administration Tamsulosin HCl 0.4 mg 09/06/24 09:00 09/07/24 08:55 Tamsulosin Hcl 0.4 Mg Capsule PO 10/06/24 08:59 0.4 mg QDAY AMANDA Administration Plan 79-year-old male with past medical history of BPH, hypertension CKD stage IIIb, DM2, hyperlipidemia, depression, and peripheral artery disease (right lower extremity AKA) was admitted to the hospital on 09/05/2024 for placement of PEG tube given to poor oral intake for the past few weeks and failure to thrive. #Failure to thrive #Severe protein calorie malnutrition #Dehydration #cachexia ?Patient has had decreased oral intake for the past several weeks ?Patient got PEG tube placed by GI Plan: ?Stopped IV fluids, continuing tube feeds and free water flushes ?Continue tube feeds -Encourage oral intake ?Referral to Registered dietitian ?GI consulted, appreciate recommendations ?Will continue to monitor #ENOC on CKD ?Patient's baseline BUN is around 50 and creatinine 3.4 ?Creatinine 2.2 today and BUN 39 Plan: ?Stopped IV fluids as patient getting tube feeds and free water flushes ?Avoid nephrotoxic agents ?Renally dose medication ?Will continue to monitor #Non anion gap metabolic acidosis #hypophosphatemia -Bicarb 16.7 and AG 7 -Phos 1.7 Plan: -Sodium bicarb x1 -Neutra phos x1 -Will conitnue to monitor #Asymptomatic bacteriuria ?UA was positive for leukocyte esterase and bacteria, but patient has no UTI symptoms ?No need for antibiotics as patient is asymptomatic Plan: ?Will continue to monitor #Normocytic, chronic anemia #Thrombocytopenia ?Patient's baseline hemoglobin is around 8-9 ?Hemoglobin today is 7.9 and platelets 89 Plan: ?Will transfuse if hemoglobin less than 7 ?Will continue to monitor #Hx of DM2 ?Patient's blood sugars have been on the lower end during hospital admission given that he has been having poor oral intake. Plan: ?Stopped D5 at 50 mL/h -Continue tube feeds ?will continue to monitor #Hx of HTN ?During hospital admission patient has been normotensive therefore we will hold off on any antihypertensive medication #Hx of depression ?patient's is on mirtazapine 30 mg at bedtime #Hx of hyperlipidemia ?Patient is not on any statin at this time at home #Hx of BPH ?Continue tamsulosin 0.4 mg daily #Hx of peripheral artery disease ?Patient has right lower extremity AKA given to complications from peripheral artery disease Disposition: Patient seen in med surg, continuing tube feeds. Diet: Jevity GI prophylaxis: protonix DVT prophylaxis: SCD Code: Full Case disclosed with Attending Dr. Mckeon and My senior Dr. Davenport PGY2. Jerry Talbert PGY1 Attending Provider Attestation/Addendum ILin, DO, attest that I was physically present for the osuna portions of the service and evaluated the patient with the resident and I reviewed and discussed the case with the resident and agree with the resident's findings and plans of care as documented above Patient seen and eval this a.m. Patient was vomiting this morning despite being only on 20 mL/h of PEG tube feedings. Will continue with IV fluids at this time. Will start on Reglan for nausea. Will continue to monitor the patient tolerates PEG tube feedings. Patient is otherwise receiving food for pleasure feeding.
[2024-09-07] MEDS: METOCLOPRAMIDE INJ 5 MG/ML VIAL 2 ML IVP ×2 (13:39→21:28)
--- NOTE | 2024-09-07 15:28 | PC.SS ---
Rounding note: patient not ready for d/c due to nausea and vomiting.
[2024-09-07 16:00] VITALS: BP 106/46; PULSE 89; RESP 18; TEMP 36.5; O2SAT 100
[2024-09-07 20:00] VITALS: BP 138/69; PULSE 95; RESP 19; TEMP 36.9; O2SAT 98
--- NOTE | 2024-09-07 20:56 | PD.IMPROG ---
Documentation for date of: 09/07/24 Subjective Subjective Interval history: Drop in hemoglobin hematocrit is due to hydration with improving BUN/creatinine to 39 and 2.2 Current hemoglobin hematocrit is 7.9 and 24.3 Exam Vital Signs Temp Pulse Resp BP Pulse Ox O2 Del Method O2 Flow Rate 98.5 F 95 19 138/69 H 98 Room Air 3 09/07/24 20:00 09/07/24 20:00 09/07/24 20:00 09/07/24 20:00 09/07/24 20:00 09/07/24 20:00 09/05/24 17:35 Objective Labs 09/07/24 04:52 09/07/24 04:52 Labs: Laboratory Results - last 24 hr 09/07/24 04:52 WBC 8.1 RBC 2.76 L Hgb 7.9 L Hct 24.3 L MCV 88 MCH 28.6 MCHC 32.5 RDW Std Deviation 56.6 H Plt Count 89 L Neut % (Auto) 75 Lymph % (Auto) 16 [place] % (Auto) 7 Eos % (Auto) 1 Baso % (Auto) 0 Neut # (Auto) 6.1 Lymph # (Auto) 1.3 [place] # (Auto) 0.6 Eos # (Auto) 0.1 Baso # (Auto) 0.0 Immature Gran # (Auto) 0.06 H Absolute Nucleated RBC 0.00 Immature Gran % 1 H Nucleated RBC % 0 Sodium 138 Potassium 4.5 Chloride 114 H Carbon Dioxide 16.7 L Anion Gap 7 BUN 39 H Creatinine 2.2 H Estim Creat Clear Calc Not Performed. eGFR 30 L BUN/Creatinine Ratio 18 Glucose 123 H Calculated Osmolality 286 Calcium 8.0 L Phosphorus 1.7 L Magnesium 1.8 Impressions Impression: # Failure to thrive # Dehydration # ENOC # Hypoalbuminemia Continue enteral hyperalimentation Assessment & Plan A&P Narrative # Failure to thrive # Acute dehydration # Acute renal failure # Hypoalbuminemia # Chronically ill patient Who is bedridden and not eating Plan Consent will be obtained for percutaneous insertion of gastrostomy tube via fiberoptic esophagus gastroduodenoscopy under intravenous moderate sedation Which has been scheduled for this evening Further evaluation after above Other medical problems include # Essential hypertension # Diabetes mellitus type 2 # Chronic Tracy catheter Thank you once again for the opportunity to participate in the care of this patient Time Spent With Patient Time: Total time spent is greater than 50% in coordination of care (as documented) at patient's floor/unit and/or counseling patient:
[2024-09-07] MEDS: MIRTAZAPINE 15 MG TABLET 30 MG GT (20:57)
[2024-09-08] VITALS: BP 113/60; PULSE 94; RESP 16; TEMP 37.2; O2SAT 98
[2024-09-08 04:00] VITALS: BP 107/58; PULSE 76; RESP 16; TEMP 37; O2SAT 99
[2024-09-08 05:57] LABS: Basophils % (Auto) 0 % (0-2.5); Eosinophils # (Auto) 0.1 Thou/mm3 (0.0-0.5); Eosinophils % (Auto) 2 % (0-10); Immature Granulocytes % (Auto) 1 % (0-0); Immature Granulocytes Auto 0.07 Thou/mm3 (0.00-0.00); Lymphocytes # (Auto) 1.6 Thou/mm3 (1.0-4.8); Lymphocytes % (Auto) 19 % (10-50); Mean Corpuscular HGB Conc 33.5 g/dl (31.0-37.0); Mean Corpuscular Hemoglobin 29.4 pg (25.0-35.0); Mean Corpuscular Volume 88 fL (80-100); Monocytes # (Auto) 0.6 Thou/mm3 (0.0-0.8); Monocytes % (Auto) 7 % (0-12); Neutrophils # (Auto) 6.2 Thou/mm3 (1.8-7.7); Neutrophils % (Auto) 72 % (37-80); Nucleated Red Blood Cell % 0 /100 WBC (0); Platelet Count 85 Thou/mm3 (140-440); RDW Standard Deviation 55.5 fL (35.1-43.9); Red Blood Count 2.48 Miln/mm3 (4.50-5.90); White Blood Count 8.5 Thou/mm3 (3.8-10.6)
[2024-09-08 06:01] LABS: Hematocrit 21.8 % (41.0-53.0); Hemoglobin 7.3 g/dL (13.5-16.0)
[2024-09-08 06:29] LABS: Anion Gap 6 (7-16); BUN/Creatinine Ratio 21 Ratio (12-20); Blood Urea Nitrogen 40 mg/dL (9-23); Calcium 7.4 mg/dL (8.3-10.6); Carbon Dioxide 20.5 mMol/L (20.0-31.0); Chloride 111 mMol/L (98-107); Creatinine (Component) 1.9 mg/dL (0.6-1.3); Estimated Creatinine Clearance 15.4 mL/min (>60); Glucose 119 mg/dL (74-106); Magnesium 1.5 mg/dL (1.6-2.6); Osmolality,Calculated 284 (275-295); Phosphorous 1.3 mg/dL (2.4-5.1); Potassium 5.1 mMol/L (3.4-5.1); Sodium 137 mMol/L (136-145); eGFR 35 See Note
[2024-09-08] MEDS: METOCLOPRAMIDE INJ 5 MG/ML VIAL 2 ML IVP ×2 (06:29→13:02)
[2024-09-08 08:00] VITALS: BP 100/50; PULSE 75; RESP 16; TEMP 36.8; O2SAT 99
[2024-09-08] MEDS: TAMSULOSIN HCL 0.4 MG CAPSULE PO (08:36)
[2024-09-08] MEDS: PANTOPRAZOLE INJ 40 MG VIAL IVP (08:36)
[2024-09-08] MEDS: SOD PHOS ADDITIVE 22.5 MMOL in SODIUM CHLORIDE 0.9% 500 ML 500 ML 82.778 MMOL IV (08:36)
[2024-09-08] MEDS: Magnesium Sulfate 2 GM Ivpb 2 GM/50 ML BAG IV ×2 (08:37→10:40)
--- NOTE | 2024-09-08 10:25 | ESDS_ITS ---
<Statement entered by Lin Mckeon DO - 09/08/24 14:56> I, Lin Mckeon DO, attest that I was physically present for the osuna portions of the service and evaluated the patient with the resident and I reviewed and discussed the case with the resident and agree with the resident's findings and plans of care as documented above Planned Discharge Date 09/08/24 DS: Providers Provider Date of admission: 09/05/24 13:39 Primary care physician: Hoa Jeff MD Admitting Provider: Lin Mckeon DO Attending Provider on Admission: Lin Mckeon DO Consults: 09/05/24 11:46 Consult to Gastroenterology Stat Comment: Failure to thrive, for PEG tube placement Consulting Provider: Mandeep Raymond 09/05/24 18:17 Referral Nutritional Services Stat Comment: 09/06/24 07:36 Referral Registered Dietitian Stat Comment: Attending Provider on DC: Lin Mckeon DO Discharging Provider: Lin Mckeon DO DS: Diagnosis Problem List Completed Was Problem List Reviewed/Reconciled?: Yes Hospital Course Hospital Course Hospital course: 79-year-old male with past medical history of BPH, hypertension CKD stage IIIb, DM2, hyperlipidemia, depression, and peripheral artery disease (right lower extremity AKA) was admitted to the hospital on 09/05/2024 for placement of PEG tube given to poor oral intake for the past few weeks and failure to thrive. In the ED patient came in with complaints of decreased oral intake for the past few weeks. Initially patient was mildly hypertensive and afebrile. Initial labs were relevant for normocytic normochromic anemia, thrombocytopenia, non-anion gap metabolic acidosis, azotemia, and bacteriuria. Initial imaging included chest x-ray which showed no pneumonia or pulmonary edema, and EKG showed sinus rhythm. GI specialist was consulted for placement of PEG tube which she placed on 09/05/2024 patient tolerated the procedure well. PEG tube was then used for medications and tube feeds. On third day of admission patient experienced some vomiting therefore there was some delay in reaching the goal tube feed rate at this time. After this episode patient did not have any other remained stable throughout his hospital stay. He received IV fluids for his dehydration and goal tube feeds were reached. His electrolytes were corrected. At the time of discharge patient was stable enough to be discharged to a alf facility. Discharge plan: Continue home medications as prescribed. Continue feeding via PEG tube: Jevity 1.2 start at 20ml/hr, increase as tolerated by 10ml/hr Q10hrs to goal of 50ml/hr via Gtube by pump x24hrs to provide: 1200ml total vol, 1440kcal, 66g protein. If no IVF, give 150ml Q 4hrs water flush and consider reduce to 75ml Q4hrs when TF closer to goal or per MD. Pt currently vomiting today when TF @20ml/hr. Follow up with PCP within 2 weeks. Problems list: #Failure to thrive #Severe protein calorie malnutrition #Dehydration #cachexia #ENOC on CKD #Non anion gap metabolic acidosis #hyphosphatemia #Asymptomatic bacteriuria #Normocytic, chronic anemia #Thrombocytopenia #Hx of DM2 #Hx of HTN #Hx of depression #Hx of hyperlipidemia #Hx of BPH #Hx of peripheral artery disease Case disclosed with Attending Dr. Mckeon and My senior Dr. Davenport PGY2. Jerry Talbert PGY1 Status at Discharge Overall status at discharge: patient is progressing back to baseline Time Spent with Patient Time attestation: Total time spent providing and/or coordinating discharge services:>35 min Exam Vital Signs Temp Pulse Resp BP Pulse Ox O2 Del Method O2 Flow Rate 98.2 F 75 16 100/50 L 99 Room Air 3 09/08/24 08:00 09/08/24 08:00 09/08/24 08:00 09/08/24 08:00 09/08/24 08:00 09/08/24 08:00 09/05/24 17:35 Narrative Exam General: A/O x3, no acute distress, frail, thin, temporal wasting Eyes: PERRL, EOMI. Anicteric, vision grossly intact. Ears: No ear pain, no ear discharge, Hearing grossly intact. Nose: No nasal discharge. Mouth/Throat: Dry mucous membranes, no dentation Neck: Neck supple, non-tender, no cervical lymphadenopathy. Lungs: Clear JOE to auscultation and percussion, No accessory muscle use. Cardio: Normal S1/S2, regular rhythm, no murmurs, no JVD Abdomen: Soft, non-tender, no palpable masses, peristalsis present, no guarding or rebound. PEG tube without any bleeding and abdominal binder covering Extremities: R AKA, no peripheral edema , non-tender, peripheral pulse present L, decreased muscle tone. Skin: No rashes, no lesions, warm to touch. Neuro: No focal neurological deficits. able to move all extremities Discharge Plan Plan Patient Disposition: Xfer Skilled Nsg Fac (SNF) Patient condition on transfer: Stable Care Plan Goals: Continue home medications as prescribed. Zofran for nausea as needed every 8 hours. Continue feeding via PEG tube. Follow up with PCP within 2 weeks. Prescriptions/Referrals Prescriptions/Med Rec: New ondansetron 4 mg tablet,disintegrating 4 mg PO Q8H PRN (Reason: nausea and vomiting) Qty: 30 0RF Continued bisacodyl [Dulcolax (bisacodyl)] 10 mg suppository 10 mg SC QDAY PRN (Reason: Constipation) ferrous sulfate 325 mg (65 mg iron) tablet 325 mg PO BID glucagon HCl [Glucagon (HCl) Emergency Kit] 1 mg recon soln 1 mg subcut Q15M PRN (Reason: Hypoglycemia) Rx Instructions: until target blood sugar attained Tradjenta 5 mg tablet 5 mg PO QDAY Patient Comments: take 1 tablet by mouth once daily tamsulosin 0.4 mg Capsule 0.4 mg PO QDAY Qty: 0 0RF mirtazapine [Remeron] 30 mg Tablet 30 mg PO HS ondansetron HCl 4 mg Tablet 4 mg PO Q6H PRN (Reason: Nausea And Vomiting) Referrals: Hoa Jeff MD [Primary Care Provider] - Patient/Caregiver Discharge Instructions Education Materials: Urinary Tract Infections in Men, Dehydration Print Language: Lithuanian Stand Alone Forms: [facility] Award Info., Patient Portal Info Letter Discharge Order Discharge Orders: Discharge (Routine); Ordered 09/08/24 Ordered By: Naresh Davenport Quality Discharge Quality Measures VTE prophylaxis
[2024-09-08 12:00] VITALS: BP 133/60; PULSE 74; RESP 15; TEMP 36.2; O2SAT 99
--- NOTE | 2024-09-08 12:36 | PC.SS ---
Addendum entered by PAPA Hodge 09/08/24 15:13: [facility] confirmed molded goods spot picker time 5pm. Addendum entered by PAPA Hodge 09/08/24 14:32: Contacted [employer] transport services, inform no identified transport company yet. ETA to be 5pm. Updated Angie at [facility]. Sent updated notes via [employer]. Updated special investigation unit investigator as nurse not available. Addendum entered by PAPA Hodge 09/08/24 13:24: Transportation for patient arranged via [employer] reference number:[id number]. Pending ETA. Addendum entered by PAPA Hodge 09/08/24 13:18: Spoke with patient's son Elias, he is agreeable with D/c to [facility] today. Original Note: SS update: patient has d/c orders. Spoke with bed side nurse wants to arrange transport after 4pm back to [facility] as patient was given medications. Updated Angie at [facility]. She is requesting updated notes as patient is a new peg tube. Angie is aware of plan for discharge this evening.
[2024-09-08 16:00] VITALS: BP 122/64; PULSE 83; RESP 17; TEMP 36.7; O2SAT 99
== END 2024-09-08 18:00 | disposition skilled nursing facility (03) | DRG 641 ==
LOC: SERX 13:05 → SERHOLD 14:34 → S3SX 09-07 07:47
PROVIDERS: Nurse Practitioner Family; Specialist; Student in an Organized Health Care Education/Training Program; Admitting Provider Internal Medicine; Emergency Provider Emergency Medicine; PCP Hospitalist; Visit Provider Internal Medicine
PROC: 0DH63UZ Insertion of Feeding Device into Stomach, Percutaneous Approach (ICD-10-PCS; CPT 43246; principal; 2024-09-05 17:30)
DX: E43 Unspecified severe protein-calorie malnutrition (principal); R64 Cachexia; E87.20 Acidosis, unspecified; N17.9 Acute kidney failure, unspecified; N18.4 Chronic kidney disease, stage 4 (severe); E11.22 Type 2 diabetes mellitus with diabetic chronic kidney disease; E11.51 Type 2 diabetes mellitus with diabetic peripheral angiopathy without gangrene; E78.5 Hyperlipidemia, unspecified; F32.A Depression, unspecified; N40.0 Benign prostatic hyperplasia without lower urinary tract symptoms; I12.9 Hypertensive chronic kidney disease with stage 1 through stage 4 chronic kidney disease, or unspecified chronic kidney disease; D63.1 Anemia in chronic kidney disease; Z93.1 Gastrostomy status; D69.6 Thrombocytopenia, unspecified; E86.0 Dehydration; R62.7 Adult failure to thrive; Z89.611 Acquired absence of right leg above knee; E88.09 Other disorders of plasma-protein metabolism, not elsewhere classified; Z74.01 Bed confinement status
CPT/HCPCS: 36415; 71045; 80048; 80053; 81001; 83036; 83735; 84100; 85025; 85730; 87077; 87081; 87086; 87186; 92526; 92610; 93005; 96361; 96365; 99285; A4649; J0689; J0696; J1200; J2250; J2405; J2470; J2765; J3010; J3475; J7030; J7040; J7042; A9270; J0690

== ENCOUNTER → 2024-11-24 | Outpatient (BNVA) | payer MEDICARE, MEDICAID, SELFPAY | END | disposition home or self-care (01) | PROVIDERS: PCP Family Medicine; Referring Provider Family Medicine; Visit Provider Urology | DX: N40.1 Benign prostatic hyperplasia with lower urinary tract symptoms (principal); N13.8 Other obstructive and reflux uropathy; R33.8 Other retention of urine; I12.9 Hypertensive chronic kidney disease with stage 1 through stage 4 chronic kidney disease, or unspecified chronic kidney disease; E11.22 Type 2 diabetes mellitus with diabetic chronic kidney disease; N18.30 Chronic kidney disease, stage 3 unspecified; E78.5 Hyperlipidemia, unspecified; M15.0 Primary generalized (osteo)arthritis; Z99.3 Dependence on wheelchair; K21.9 Gastro-esophageal reflux disease without esophagitis | CPT/HCPCS: 99212; G0463 ==

== ENCOUNTER 2024-11-27 08:28 | Emergency (ER) | payer MEDICARE, MEDICAID, SELFPAY ==
[2024-11-27 08:36] VITALS: BP 175/78; PULSE 81; RESP 16; TEMP 36.8; O2SAT 99
[2024-11-27 09:05] VITALS: PULSE 78; RESP 18; O2SAT 98; BMI 17.2
--- NOTE | 2024-11-27 09:47 | PD.EDMALE ---
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 for evaluation of barrios catheter. Per medics, [facility] staff reported patients urine is cloudy and concerned there may be an infection. While in the ED patient has no complaints. Denies fevers, chills, chest pain, cough, shortness of breath, abdominal pain, nausea, vomiting, diarrhea, or blood in urine. Related Data Home Medications ?Medication ?Instructions ?Recorded ?Confirmed linagliptin 5 mg tablet (Tradjenta) 5 mg PO QDAY 11/06/21 11/24/24 bisacodyl 10 mg rectal suppository 10 mg LA QDAY PRN Constipation 11/25/23 11/24/24 (Dulcolax (bisacodyl)) ferrous sulfate 325 mg (65 mg 325 mg PO BID 11/25/23 11/24/24 iron) tablet glucagon HCl 1 mg solution for 1 mg subcut Q15M PRN Hypoglycemia 11/25/23 11/24/24 injection (Glucagon (HCl) Emergency Kit) mirtazapine 30 mg tablet (Remeron) 30 mg PO HS appetite stimulant 09/06/24 11/24/24 ondansetron HCl 4 mg tablet 4 mg PO Q6H PRN Nausea And Vomiting 09/06/24 11/24/24 Previous Rx's ?Medication ?Instructions ?Recorded ondansetron 4 mg disintegrating 4 mg PO Q8H PRN nausea and 09/08/24 tablet vomiting #30 tabs Allergies Allergy/AdvReac Type Severity Reaction Status Date / Time No Known Allergies Allergy Verified 11/24/24 13:12 Review of Systems Review of Systems Narrative Review of Systems: GEN: No fever, no chills, no weight loss EYES: No discharge, no visual changes, no pain HEENT: No ear pain, no congestion, no sore throat PULM: No shortness of breath, no cough, no congestion CV: No chest pain, no dyspnea on exertion, no palpitations GI: No nausea, no vomiting, no diarrhea, no pain, no constipation : + cloudy urine per NH staff. No frequency, no urgency and no dysuria MUSC/SKEL No joint pain, no back pain SKIN: No rash NEURO: No weakness, no headache Past Medical History Past Medical History CARDIAC: Positive Cardiac Disorders, Peripheral Vascular Disease, Hypercholesterolemia, Aneurysm and Hypertension GASTROINTESTINAL: Positive Gastrointestinal Disorders and Gastroesophageal Reflux Disease GENITOURINARY: Positive Genitourinary Disorders and Benign Prostatic Hyperplasia MUSCULOSKELETAL: Positive Musculoskeletal Disorders, Arthritis and Osteomyelitis ENDOCRINE: Positive Endocrine Disorders and Diabetes Mellitus Type 2 HEMATOLOGIC: Positive Anemia PSYCHO/SOCIAL: Positive Depression Surgical History SURGICAL: Positive Amputation ED Exam Narrative Physical exam: GENERAL APPEARANCE: Well hydrated, well nourished, in no acute distress. VITALS: All vitals were reviewed and the pulse ox is 99% on room air which is normal according to my interpretation. HEENT: Normocephalic, atramatic, EOMI, EACs are patent. There is no bulge or retraction. Throat without erythema or exudate. Moist oromucosa. No jaundice NECK: Supple, no JVD or bruits. CARDIOVASCULAR: Heart regular without S3-S4 or murmur. No rubs or gallops. LUNGS/CHEST: Clear to auscultation bilaterally. No rales, rhonchi, or wheezing. Normal inspection. ABDOMEN: Soft, g-tube in place, nontender, with normal bowel sounds. No pulsatile masses. No rebound, rigidity, or guarding. No incarcerated hernia. Normal inspection and palpation. : Patient had a barrios catheter with about 1,000ml of yellow cloudy urine. EXTREMITIES: No edema, clubbing, or cyanosis. Intact CSM SKIN: Warm and dry without rashes. Normal inspection. MUSCULOSKELETAL: Right AKA. full ROM all extremities. NEURO: Alert and oriented x3. Cranial nerves II through XII grossly intact. There are no other motor or sensory deficits noted. PSYCHIATRIC: Normal mood and affect. No psychosis. Course Quality Measures none Orders Category Date Time Status Barrios [Urinary Catheter] QS Care 11/27/24 11:22 Active Barrios to Hazel Routine Care 11/27/24 09:17 Ordered Saline [Insert IV] NOW Care 11/27/24 09:16 Active ABO/RH Type Stat Lab 11/27/24 10:05 Completed BMP [Basic Metabolic Panel] Stat Lab 11/27/24 10:05 Completed CBC Stat Lab 11/27/24 10:05 Completed PT [Prothrombin Time with INR] Stat Lab 11/27/24 10:05 Completed PTT [Partial Thromboplastin Time] Stat Lab 11/27/24 10:05 Completed UA, C/S IF [Urinalysis, C/S if Indicated] Stat Lab 11/27/24 11:29 Completed Urine Culture Stat Lab 11/27/24 11:29 Received Sodium Chloride 0.9% 500 ml [Ns] 500 ml Med 11/27/24 11:42 Discontinued IV 999 mls/hr Vital Signs Vital signs: Vital Signs Temperature 98.3 F 11/27/24 08:36 Pulse Rate 81 11/27/24 08:36 Respiratory Rate 16 11/27/24 08:36 Blood Pressure 175/78 H 11/27/24 08:36 Pulse Oximetry (%) 99 11/27/24 08:36 Oxygen Delivery Method Room Air 11/27/24 08:36 Urogenital - Male MDM Narrative MDM Narrative:: I, Pauline Melendez, andrew scribing for and in the presence of Dr. Quinteros. WBC count is normal. Hemoglobin of 7.7 and hematocrit of 23.8 which is baseline for him. He also had a chronic renal insufficiency with a BUN of 56 creatinine of 2.1. UA showing pyuria secondary to the indwelling Barrios. But otherwise urine analysis showing rare bacteria. The patient also denied having any bleeding from anywhere. In the emergency department the old Barrios was discontinued and the new Barrios was inserted. By the nursing staff. And it is working very well. I sense that the patient is a little dehydrated. Therefore giving the patient 500 normal saline bolus IV before he is being discharged back to the retirement. Patient data External records reviewed:: [facility] previous records (I reviewed admission from 09/05/2024 through 09/08/2024), EMS form and Shelter records (I reviewed txfer packet from [facility] ) Clinical information provided by:: patient and EMS Social determinants that could affect healthcare access:: housing ([facility] patient ) Patient has the following chronic illnesses:: CHF, CKD, BPH, barrios catheter in place, s/p G-tube, hypertension, diabetes, hyperlipidemia, osteoarthritis How is presenting disease/condition affected by chronic disease/condition?: exacerbated by Evaluation data The following diagnostics were reviewed and interpreted by me:: lab results Lab and/or radiology exams considered but not ordered:: None Interpretation Summary: As noted above Medications / Prescriptions Medications or Prescriptions considered but not ordered:: None Medication administrations:: Medication Administration History Discontinued Medications Sodium Chloride (Ns) 500 mls @ 999 mls/hr IV .Q31M ONE Stop: 11/27/24 12:12 Last Infusion: 11/27/24 12:58 Dose: Infused Documented By: Admin: 11/27/24 11:56 Dose: 999 mls/hr Documented By: RADHA See above Consultations Consultation(s) initiated? (list below): No Diagnosis Urogenital Male Differential Diagnosis: urinary tract infection and other (Barrios catheter malfunction, pyelonephritis) Most likely diagnosis given after review of the tests above:: Malfunction of barrios catheter Chronic kidney insufficiency Chronic anemia Admission Indicated Admission indicated?: not indicated Admission Request Was there a request for admission?: No Disposition Plan Disposition Plan: Discharge (to SNF ) Discharge Attestation Discharge Attestation: The patient and all family members were given an opportunity to ask questions and understood the discharge instructions. Discharge instructions specifically effects, indications for sooner follow up or return to the emergency department, and the expected course of current diagnosis. Patient condition: Stable Discharge Plan Plan Patient Disposition: HOME (Self Care) Disposition Comment: Stable Prescriptions/Referrals Prescriptions/Med Rec: No Action bisacodyl [Dulcolax (bisacodyl)] 10 mg suppository 10 mg LA QDAY PRN (Reason: Constipation) ferrous sulfate 325 mg (65 mg iron) tablet 325 mg PO BID glucagon HCl [Glucagon (HCl) Emergency Kit] 1 mg recon soln 1 mg subcut Q15M PRN (Reason: Hypoglycemia) Rx Instructions: until target blood sugar attained Tradjenta 5 mg tablet 5 mg PO QDAY Patient Comments: take 1 tablet by mouth once daily mirtazapine [Remeron] 30 mg Tablet 30 mg PO HS ondansetron HCl 4 mg Tablet 4 mg PO Q6H PRN (Reason: Nausea And Vomiting) ondansetron 4 mg tablet,disintegrating 4 mg PO Q8H PRN (Reason: nausea and vomiting) Qty: 30 0RF Problem List Clinical Impression: Malfunction of Barrios catheter, Chronic kidney insufficiency, Chronic anemia Patient/Caregiver Discharge Instructions Education Materials: Anemia, CKD Dc, ED Barrios Catheter, Care Additional Instructions: Continue Barrios care per retirement. Follow-up with PMD if any problem. Return to ER if any problem Print Language: Haitian Stand Alone Forms: [employer] Award Info., Patient Portal Info Letter
[2024-11-27 10:12] LABS: Basophils # (Auto) 0.1 Thou/mm3 (0.0-0.2); Basophils % (Auto) 1 % (0-2.5); Eosinophils # (Auto) 0.3 Thou/mm3 (0.0-0.5); Eosinophils % (Auto) 3 % (0-10); Hematocrit 23.8 % (41.0-53.0); Immature Granulocytes % (Auto) 1 % (0-0); Immature Granulocytes Auto 0.04 Thou/mm3 (0.00-0.00); Lymphocytes # (Auto) 2.2 Thou/mm3 (1.0-4.8); Lymphocytes % (Auto) 26 % (10-50); Mean Corpuscular HGB Conc 32.4 g/dl (31.0-37.0); Mean Corpuscular Hemoglobin 29.3 pg (25.0-35.0); Mean Corpuscular Volume 91 fL (80-100); Monocytes # (Auto) 0.6 Thou/mm3 (0.0-0.8); Monocytes % (Auto) 7 % (0-12); Neutrophils # (Auto) 5.3 Thou/mm3 (1.8-7.7); Neutrophils % (Auto) 63 % (37-80); Nucleated Red Blood Cell % 0 /100 WBC (0); Platelet Count 200 Thou/mm3 (140-440); RDW Standard Deviation 46.1 fL (35.1-43.9); Red Blood Count 2.63 Miln/mm3 (4.50-5.90); White Blood Count 8.4 Thou/mm3 (3.8-10.6)
[2024-11-27 10:27] LABS: Anion Gap 7 (7-16); BUN/Creatinine Ratio 27 Ratio (12-20); Blood Urea Nitrogen 56 mg/dL (9-23); Calcium 8.8 mg/dL (8.3-10.6); Carbon Dioxide 20.6 mMol/L (20.0-31.0); Chloride 112 mMol/L (98-107); Creatinine (Component) 2.1 mg/dL (0.6-1.3); Estimated Creatinine Clearance 18.3 mL/min (>60); Glucose 102 mg/dL (74-106); Osmolality,Calculated 294 (275-295); Potassium 5.1 mMol/L (3.4-5.1); Sodium 140 mMol/L (136-145); eGFR 31 See Note
[2024-11-27 10:28] LABS: INR 1.1 (0.9-1.3); Partial Thromboplastin Time 28.2 Seconds (22.0-36.0); Prothrombin Time 11.5 Seconds (9.0-12.2)
[2024-11-27 10:32] LABS: Hemoglobin 7.7 g/dL (13.5-16.0)
[2024-11-27 11:18] VITALS: BP 173/74; PULSE 81; RESP 18; O2SAT 99
[2024-11-27 11:43] LABS: Collection Type, Urine Catheter; Squamous Epithelial Cell,Urine 0 /hpf (0-5)
[2024-11-27] MEDS: SODIUM CHLORIDE 0.9% 500 ML 500 ML 999 ML IV (11:56)
[2024-11-27 12:15] LABS: Bacteria,Urine Rare; Bilirubin,Urine Negative (Negative); Blood,Urine 1+ (Negative); Color,Urine Yellow (Lt Yel-Yel); Glucose, Urine Negative (Negative); Ketones,Urine Negative (Negative); Leukocyte Esterase,Urine Positive (Negative); Nitrite,Urine Negative (Negative); Protein,Urine 2+ (Neg - Trace); RBC,Urine 39 /hpf (0-3); Specific Gravity,Urine 1.013 (1.001-1.035); Urobilinogen,Urine Negative mg/dL (0.0-1.0); WBC,Urine 995 /hpf (0-5)
[2024-11-27 12:47] LABS: Clarity,Urine Cloudy (Clear/Hazy); Culture Indicated,Urine Yes
--- NOTE | 2024-11-27 14:06 | PC.CC ---
Alena LINDSEY was consulted by test and research reactor operator Sara to arrange transportation for the patient back to [facility]. ASW made contact with [facility] and [facility] [phone].
[2024-11-27 15:07] VITALS: BP 174/88; PULSE 83; RESP 18; TEMP 36.6; O2SAT 99
--- NOTE | 2024-11-27 15:17 | PC.NURSE ---
REPORT CALLED TO [facility] AND SPOKE WITH JOSE. TRANSPORT ETA OF 1700.
[2024-11-27 16:59] VITALS: BP 179/80; PULSE 86; RESP 18; TEMP 36.6; O2SAT 98
== END 2024-11-27 17:15 | disposition home or self-care (01) ==
PROVIDERS: Emergency Provider Emergency Medicine; PCP Family Medicine
DX: T83.091A Other mechanical complication of indwelling urethral catheter, initial encounter (principal); I13.0 Hypertensive heart and chronic kidney disease with heart failure and stage 1 through stage 4 chronic kidney disease, or unspecified chronic kidney disease; E11.22 Type 2 diabetes mellitus with diabetic chronic kidney disease; N18.9 Chronic kidney disease, unspecified; D63.1 Anemia in chronic kidney disease; Y84.6 Urinary catheterization as the cause of abnormal reaction of the patient, or of later complication, without mention of misadventure at the time of the procedure
CPT/HCPCS: 51702; 36415; 80048; 81001; 85025; 85610; 85730; 86900; 86901; 87077; 87086; 87186; 96360; 99284; J7040

== ENCOUNTER 2025-03-29 18:59 | Inpatient (IN) | payer MEDICARE, MEDICAID, SELFPAY ==
[2025-03-29 19:06] VITALS: BP 121/65; PULSE 101; RESP 20; TEMP 36.7; O2SAT 96
[2025-03-29 19:08] VITALS: BMI 14.5
[2025-03-29 19:27] VITALS: PULSE 98; RESP 20; O2SAT 97
[2025-03-29 19:30] VITALS: BP 128/76; PULSE 113; RESP 20; TEMP 37.6; O2SAT 95
--- NOTE | 2025-03-29 19:30 | PD.EDWEAK ---
ED Weakness RME/HPI General Chief complaint: Weakness Stated complaint: TREMORS Time Seen by Provider: 03/29/25 19:32 Arrival date/time: 03/29/25 18:59 RME / HPI RME / HPI Narrative: Dr. Fulton?s Main ED Evaluation: 80yo male with a history of CKD, BPH with barrios catheter, DM BIBA from [facility] presents to the ED for a chief complaint of left flank pain. Patient states he started having left flank pain today, reporting he feels constipated. Patient states his last bowel movement was yesterday. Patient denies any N/V, fever, chills or any other associated symptoms. NKA. Related Data Home Medications ?Medication ?Instructions ?Recorded ?Confirmed linagliptin 5 mg tablet (Tradjenta) 5 mg PO QDAY 11/06/21 11/24/24 bisacodyl 10 mg rectal suppository [address] QDAY PRN Constipation 11/25/23 11/24/24 (Dulcolax (bisacodyl)) ferrous sulfate 325 mg (65 mg 325 mg PO BID 11/25/23 11/24/24 iron) tablet glucagon HCl 1 mg solution for 1 mg subcut Q15M PRN Hypoglycemia 11/25/23 11/24/24 injection (Glucagon (HCl) Emergency Kit) mirtazapine 30 mg tablet (Remeron) 30 mg PO HS appetite stimulant 09/06/24 11/24/24 ondansetron HCl 4 mg tablet 4 mg PO Q6H PRN Nausea And Vomiting 09/06/24 11/24/24 Previous Rx's ?Medication ?Instructions ?Recorded ondansetron 4 mg disintegrating 4 mg PO Q8H PRN nausea and 09/08/24 tablet vomiting #30 tabs Allergies Allergy/AdvReac Type Severity Reaction Status Date / Time No Known Allergies Allergy Verified 11/24/24 13:12 Review of Systems Review of Systems Systems Reviewed: All systems reviewed, normal except as documented Past Medical History Past Medical History NEUROLOGIC: Negative Neurological Disorders or Seizures CARDIAC: Positive Cardiac Disorders, Peripheral Vascular Disease, Hypercholesterolemia, Aneurysm and Hypertension; Negative Congestive Heart Failure RESPIRATORY: Negative Chronic Obstructive Pulmonary Disease (COPD) or Asthma GASTROINTESTINAL: Positive Gastrointestinal Disorders and Gastroesophageal Reflux Disease GENITOURINARY: Positive Genitourinary Disorders and Benign Prostatic Hyperplasia; Negative Renal Disease MUSCULOSKELETAL: Positive Musculoskeletal Disorders, Arthritis and Osteomyelitis ENDOCRINE: Positive Endocrine Disorders and Diabetes Mellitus Type 2; Negative Diabetes Mellitus Type 1 HEMATOLOGIC: Positive Anemia; Negative Sickle Cell Disease PSYCHO/SOCIAL: Positive Depression OTHER HISTORY: Negative Blood Transfusions, Blood Transfusion Reaction or Anesthesia Reactions Family History FAMILY HISTORY: Negative Family Cardiac Disorders Surgical History SURGICAL: Positive Amputation Social History SMOKING STATUS: Never smoker SUBSTANCE USE: does not use ED Exam Narrative Physical exam: GEN. APPEARANCE: The patient is alert awake oriented x person, place, situation, but not time; in no distress, lying down comfortably, does not look ill/toxic. Patient has good eye contact. Patient is cooperative. VITALS: All vitals were reviewed and the pulse ox is 96% on room air which is normal according to my interpretation. HEENT: Normocephalic, atraumatic. Pupils are equal and reactive. Oral mucosa is moist. Patent Nares NECK: Supple, nontender, no thyromegaly, no meningismus, no JVD, no step offs CHEST: Symmetrical, atraumatic, and with equal expansion , Nontender on palpation no deformity and no crepitus. CARDIOVASCULAR: Heart regular rhythm no murmur or gallop rub or extra beats. LUNGS: Clear to auscultation bilaterally with symmetrical chest rise. No laboring tachypnea or wheezing. No intercostal subcostal retraction. No rales and no rhonchi. ABDOMEN: Soft, flat, nontender to palpation, no guarding or rebound tenderness. There are no abnormal masses palpated. Active and normal bowel sounds. Barrios catheter adjacent to the scrotum. EXTREMITIES: Nontender. No edema. No cyanosis. Right AKA. SKIN: Warm and dry, no jaundice or rashes noted. MUSCULOSKELETAL: No lubar or midline bony tenderness. There is no CVA tenderness. No paraspinal muscle spasm or tenderness. NEURO: Patient is alert awake oriented x person, place, situation, Cranial nerves II through XII grossly intact. There is no focal neurologic deficits noted. GCS is 15, PNS and [employer] appear grossly intact. PSYCHIATRIC: Patient is in normal mood and affect. Course Quality Measures Possible source: GI tract/intra-abdominal Blood cultures ordered: yes Antibiotic ordered: Yes Pertinent labs: 03/30/25 03/30/25 02:38 04:45 Lactic Acid 5.2 H* mMol/L 4.0 H mMol/L (0.4-2.0) (0.4-2.0) Procalcitonin 33.94 H ng/ml (0.0-0.49) sepsis Orders Category Date Time Status CT Screening NOW Care 03/29/25 20:57 Active Enema Administration NOW Care 03/30/25 00:25 Active Barrios [Urinary Catheter] NOW Care 03/29/25 20:[address] abdomen pelvis w con Stat Exams 03/29/25 20:[address] abdomen pelvis wo con Stat Exams 03/29/25 21:50 Completed KUB [XR abdomen 1V] Stat Exams 03/29/25 19:59 Completed Blood Culture (Lab) Stat Lab 03/30/25 02:43 Received CBC Stat Lab 03/29/25 20:25 Completed CBC Stat Lab 03/30/25 04:45 Results CMP [Comprehensive Metabolic Panel] Stat Lab 03/30/25 04:45 Received Comprehensive Metabolic Panel Stat Lab 03/29/25 20:25 Completed Lactate (Lactic Acid) Stat Lab 03/30/25 02:38 Results Lactate (Lactic Acid) Stat Lab 03/30/25 04:45 Results Partial Thromboplastin Time Stat Lab 03/29/25 20:25 Completed Procalcitonin Stat Lab 03/30/25 02:38 Completed Prothrombin Time with INR Stat Lab 03/29/25 20:25 Completed Troponin I Stat Lab 03/29/25 20:25 Completed Urinalysis Stat Lab 03/29/25 23:00 Completed Acetaminophen Tab [Tylenol ES Tab] Med 03/30/25 04:20 Discontinued 1,000 mg PO X1 ONE Acetaminophen Tab [Tylenol ES Tab] Med 03/30/25 02:24 Discontinued 500 mg PO X1 ONE Magnesium Citrate Liqd [Citrate of Magnesia Liqd] Med 03/30/25 04:26 Discontinued 300 ml PO X1 ONE Piper/Tazo Inj [Zosyn Inj] 4.5 gm Med 03/30/25 05:13 Discontinued Sodium Chloride 0.9% (Pop) [NS 0.9% mini bag] 100 ml IV NOW Ringers Lactated 1000 ml [Lactated Ringers] 1,000 ml Med 03/30/25 05:15 Active IV 125 mls/hr Ringers Lactated 1000 ml [Lactated Ringers] 1,000 ml Med 03/30/25 02:24 Discontinued IV 999 mls/hr Ringers Lactated 500 ml [Lactated Ringers] 500 ml Med 03/29/25 21:48 Discontinued IV 500 mls/hr Ringers Lactated 500 ml [Lactated Ringers] 500 ml Med 03/29/25 23:14 Discontinued IV 500 mls/hr Vancomycin Inj 500 mg Med 03/30/25 05:45 Active Sodium Chloride 0.9% 250 ml [Ns] 250 ml IV X1 Vancomycin Pharmacy to Dose Med 03/30/25 05:15 Pending 1 each IV NOW ONE cefTRIAXone/D5w 1gm IV premix [Rocephin/D5w 1gm IV Med 03/30/25 01:57 Discontinued premix] 1 gm in 50 ml IV NOW Vital Signs Vital signs: Vital Signs Temperature 98.1 F 03/29/25 19:06 Pulse Rate 101 H 03/29/25 19:06 Respiratory Rate 20 03/29/25 19:06 Blood Pressure 121/65 03/29/25 19:06 Pulse Oximetry (%) 96 03/29/25 19:06 Oxygen Delivery Method Room Air 03/29/25 19:06 Weakness MDM Narrative MDM Narrative:: Scribe Attestation: 03/29/25 - Anette Yañez am scribing for and in the presence of Dr. Fulton. CT abdomen pelvis without contrast ordered due to the patient's Creatinine being elevated at 3.4. 0103: Discussed case with Dr. Adan the resident physician, attending Dr. Ocampo from Hospitalist service regarding admission. Discussed patients ED course, exam findings, labs, and radiology results. The Hospitalist requests urology consult. 0214: Patient is now febrile at 101.6 and hypotensive after receiving an enema. 1L LR IVF and Tylenol 500mg PO ordered. 0229: Sepsis alert initiated. Orders made at this time are congruent with ED Adult Sepsis Order List. Re-evaluation is to be completed. 2nd liter of LR started at 0245. Abdomen is still soft. Patient did receive an enema and had a bowel movement, but due to the CT showing stool burden, additional bowel regimen ordered. Repeat labs and blood cultures have been sent. Repeat labs show normal WBC count, HnH 8.0/24.3, and Lactic Acid went down to 4.0. Maintenance IVF, Zosyn, and Vancomycin ordered. We made an attempt to reach out to Dr. Parham for urology consult, but he did not answer. Transfer process initiated. Patient will be signed out to the oncoming team pending transfer for urology, and will likely need GI services for management of patient's severe constipation Patient data External records reviewed:: [facility] previous records (Per chart review, patient was seen here on 11/27/24 for chronic anemia.) Clinical information provided by:: patient Social determinants that could affect healthcare access:: housing (SNF resident) Patient has the following chronic illnesses:: HTN, HLD, PVD, DMII How is presenting disease/condition affected by chronic disease/condition?: uneffected by Evaluation data The following diagnostics were reviewed and interpreted by me:: lab results and radiology exam(s) Lab and/or radiology exams considered but not ordered:: none Interpretation Summary: HnH 9.0/27.8, Creatinine 3.4, BUN 46, Glucose 121, Lactic Acid 5.2, Procalcitonin 33.94, UA positive for UTI. ------- [place] Imaging Report Signed Patient: DASIA ALEXIS [facility]. Record#: [id number] Birthdate: 1945 Age/Sex: 80 / M Location: [facility] ([facility] Attending Dr: Ordering Physician: Courtney Fulton MD Date of Service: 03/29/25 Procedure(s): XR abdomen 1V Accession Number(s): [id number] cc: Harvinder Moore MD; NO PRIMARY/FAMILY,PHYSICIAN; Courtney Fulton MD~ Examination: Abdomen AP single view Technique: AP portable supine abdomen, single view Exam date and time: March 29, 2025 203 hours INDICATIONS: Abdominal pain beginning 2 days ago. FINDINGS: Abundant stool in the right colon and rectosigmoid Small bowel ileus with air distended small bowel loops in the left upper abdomen No free air Severe osteopenia IMPRESSION: Abundant stool in the right colon and rectosigmoid Small bowel ileus Dictated By: Harvinder Moore MD Signed By: <Electronically signed by Harvinder Moore MD in OV> 03/29/25 210 --------- [place] [facility] Report Signed Patient: DASIA ALEXIS [employer]. Record#: [id number] Birthdate: 1945 Age/Sex: 80 / M Location: [facility] Attending Dr: Ordering Physician: Courtney Fulton MD Date of Service: 03/29/25 Procedure(s): CT abdomen pelvis wo con Accession Number(s): [id number] cc: Harvinder Moore MD; NO PRIMARY/FAMILY,PHYSICIAN; Courtney Fulton MD~ Examination: CT abdomen and pelvis without contrast. Coronal 3-D reconstructions. Sagittal 2-D reconstructions. Date and time of exam:March 29, 2025 tensor 9:00 PM Comparison September 03, 2023 INDICATIONS: Tremors abdominal pain today CTDI: vol (mGy): 4.50 DLP: (mGycm): 229 Technique: Axial images of the abdomen have been obtained, 3 mm slice thickness Intravenous contrast material has not been administered. Low dose protocols were performed. One or more of the following dose reduction techniques were used; automated exposure control, adjustment of the mA and/or KV according to patient size, use of iterative reconstruction technique. Findings: No focal liver or splenic lesions Suspicious for tiny gallstones No pancreatic mass Qjwq-is-dhorkcln left hydronephrosis with hyperdense enlarged left ureter axial image 92 History abdominal aortic calcification No pericecal inflammatory change No diverticulitis Large amounts of stool in the rectum with thickening of the rectal wall Transverse prostate dimension 4.5 cm Marked eccentric thickening of the urinary bladder wall on the right side laterally measuring up to 12 mm Severe osteopenia with advanced disc narrowing L5-S1 IMPRESSION: Hjio-yd-swjwvwus left hydronephrosis with sludgelike calculi in the proximal left ureter Large amounts of stool in the rectum with thickening of the rectal wall, differential would include proctitis Moderate prostatomegaly. Marked abnormal eccentric thickening of the urinary bladder wall, consider urinary tract outflow obstruction secondary to prostatomegaly as well as bladder carcinoma Recommend urology consultation Dictated By: Harvinder Moore MD Signed By: <Electronically signed by Harvinder Moore MD in OV> 03/29/25 4913 Medications / Prescriptions Medications or Prescriptions considered but not ordered:: none Medication administrations:: Medication Administration History Lactated Ringer's (Lactated Ringers) 1,000 mls @ 125 mls/hr IV .Q8H ONE Stop: 03/30/25 13:14 Vancomycin HCl 500 mg/ Sodium (Chloride) 250 mls @ 250 mls/hr IV X1 ONE Stop: 03/30/25 06:44 Pharmacy Consult (Vancomycin Pharmacy To Dose 1 Each Each) 1 each IV NOW ONE Stop: 03/30/25 05:16 Discontinued Medications Acetaminophen (Acetaminophen 500 Mg Tablet) 500 mg PO X1 ONE Stop: 03/30/25 02:25 Last Admin: 03/30/25 02:44 Dose: 500 mg Documented By: CG Acetaminophen (Acetaminophen 500 Mg Tablet) 1,000 mg PO X1 ONE Stop: 03/30/25 04:21 Last Admin: 03/30/25 05:38 Dose: 1,000 mg Documented By: CG Lactated Ringer's (Lactated Ringers) 500 mls @ 500 mls/hr IV .Q1H ONE Stop: 03/29/25 22:47 Last Infusion: 03/29/25 23:35 Dose: Infused Documented By: Admin: 03/29/25 22:29 Dose: 500 mls/hr Documented By: CG Lactated Ringer's (Lactated Ringers) 500 mls @ 500 mls/hr IV .Q1H ONE Stop: 03/30/25 00:13 Last Infusion: 03/30/25 00:40 Dose: Infused Documented By: Admin: 03/29/25 23:40 Dose: 500 mls/hr Documented By: CG Ceftriaxone Sodium/Dextrose (Rocephin/D5w 1gm Iv Premix) 1 gm in 50 mls @ 100 mls/hr IV NOW ONE Stop: 03/30/25 02:26 Last Infusion: 03/30/25 03:14 Dose: Infused Documented By: Admin: 03/30/25 02:44 Dose: 100 mls/hr Documented By: CG Lactated Ringer's (Lactated Ringers) 1,000 mls @ 999 mls/hr IV .Q1H1M ONE Stop: 03/30/25 03:24 Last Infusion: 03/30/25 03:46 Dose: Infused Documented By: Admin: 03/30/25 02:45 Dose: 999 mls/hr Documented By: CG Piperacillin Sod/Tazobactam (Sod 4.5 gm/ Sodium Chloride) 100 mls @ 200 mls/hr IV NOW ONE Stop: 03/30/25 05:42 Magnesium Citrate (Magnesium Citrate 300 Ml Btl) 300 ml PO X1 ONE Stop: 03/30/25 04:27 see above Consultations Consultation(s) initiated? (list below): Yes Diagnosis Weakness Differential Diagnosis: other (constipation, obstruction, UTI, less likely ACS due to lack of chest pain) Most likely diagnosis given after review of the tests above:: see clinical impression below Admission Indicated Admission indicated?: not indicated Admission Request Was there a request for admission?: No Disposition Plan Disposition Plan: other (specify) (Signed out to Dr. Bailey at 0600 pending transfer.) Critical Care Time Critical Care Time Critical Care Time: Yes Total Critical Care Time (min.): 40 Attestation: The high probability of sudden, clinically significant deterioration in the patient?s condition required the highest level of my preparedness to intervene urgently. The services I provided to this patient were to treat and/or prevent clinically significant deterioration. Services included the following: chart data review, reviewing nursing notes and/or old charts, documentation time, change management consultant collaboration regarding findings and treatment options, medication orders and management, direct patient care, vital sign assessments and ordering, interpreting and reviewing diagnostic studies and lab tests. Aggregate critical care time includes only time during which I was engaged in work directly related to the patient?s care, as described above, whether at bedside or elsewhere in the Emergency Department. It did not include time spent performing other reported procedures or the services of residents, students, nurses or physician assistants. Discharge Plan Prescriptions/Referrals Prescriptions/Med Rec: No Action bisacodyl [Dulcolax (bisacodyl)] 10 mg suppository [address] QDAY PRN (Reason: Constipation) ferrous sulfate 325 mg (65 mg iron) tablet 325 mg PO BID glucagon HCl [Glucagon (HCl) Emergency Kit] 1 mg recon soln 1 mg subcut Q15M PRN (Reason: Hypoglycemia) Rx Instructions: until target blood sugar attained Tradjenta 5 mg tablet 5 mg PO QDAY Patient Comments: take 1 tablet by mouth once daily mirtazapine [Remeron] 30 mg Tablet 30 mg PO HS ondansetron HCl 4 mg Tablet 4 mg PO Q6H PRN (Reason: Nausea And Vomiting) ondansetron 4 mg tablet,disintegrating 4 mg PO Q8H PRN (Reason: nausea and vomiting) Qty: 30 0RF Referrals: No Primary/Family,Physician [Primary Care Provider] - In 1 week Problem List Clinical Impression: UTI (urinary tract infection), Constipation, Sepsis, Hydronephrosis, Acidosis, Acute on chronic renal failure, Nephrolithiasis, Proctitis Patient/Caregiver Discharge Instructions Print Language: Slovenian
--- NOTE | 2025-03-29 19:59 | XR_ITS ---
Examination: Abdomen AP single view Technique: AP portable supine abdomen, single view Exam date and time: March 29, 20252030 hours INDICATIONS: Abdominal pain beginning 2 days ago. FINDINGS: Abundant stool in the right colon and rectosigmoid Small bowel ileus with air distended small bowel loops in the left upper abdomen No free air Severe osteopenia IMPRESSION: Abundant stool in the right colon and rectosigmoid Small bowel ileus
[2025-03-29 20:46] LABS: Basophils % (Auto) 0 % (0-2.5); Eosinophils % (Auto) 0 % (0-10); Hematocrit 27.8 % (41.0-53.0); Immature Granulocytes % (Auto) 0 % (0-0); Immature Granulocytes Auto 0.03 Thou/mm3 (0.00-0.00); Lymphocytes # (Auto) 0.4 Thou/mm3 (1.0-4.8); Lymphocytes % (Auto) 4 % (10-50); Mean Corpuscular HGB Conc 32.4 g/dl (31.0-37.0); Mean Corpuscular Hemoglobin 28.3 pg (25.0-35.0); Mean Corpuscular Volume 87 fL (80-100); Monocytes # (Auto) 0.1 Thou/mm3 (0.0-0.8); Monocytes % (Auto) 1 % (0-12); Neutrophils # (Auto) 8.5 Thou/mm3 (1.8-7.7); Neutrophils % (Auto) 94 % (37-80); Nucleated Red Blood Cell % 0 /100 WBC (0); Platelet Count 125 Thou/mm3 (140-440); RDW Standard Deviation 50.6 fL (35.1-43.9); Red Blood Count 3.18 Miln/mm3 (4.50-5.90)
[2025-03-29 21:06] LABS: INR 1.1 (0.9-1.3); Partial Thromboplastin Time 30.2 Seconds (22.0-36.0); Prothrombin Time 12.3 Seconds (9.0-12.2)
[2025-03-29 21:09] LABS: Alanine Aminotransferase < 7 U/L (10-49); Albumin/Globulin Ratio 1.2 (1.2-2.2); Alkaline Phosphatase 74 U/L (46-116); Anion Gap 11 (7-16); Aspartate Amino Transferase < 10 U/L (0-34); BUN/Creatinine Ratio 14 Ratio (12-20); Bilirubin,Total 0.6 mg/dL (0.3-1.2); Blood Urea Nitrogen 46 mg/dL (9-23); Calcium 8.3 mg/dL (8.3-10.6); Calcium (Corrected) 9.1 mg/dL (8.5-10.1); Carbon Dioxide 15.3 mMol/L (20.0-31.0); Chloride 113 mMol/L (98-107); Creatinine (Component) 3.4 mg/dL (0.6-1.3); Globulin 2.6 gm/dL (2.3-3.5); Glucose 121 mg/dL (74-106); Osmolality,Calculated 290 (275-295); Potassium 4.6 mMol/L (3.4-5.1); Sodium 139 mMol/L (136-145); Total Protein 5.6 gm/dL (5.7-8.2); Troponin I < 0.020 ng/mL (0.0-0.045); eGFR 18 See Note
--- NOTE | 2025-03-29 21:50 | XR_ITS ---
Examination: CT abdomen and pelvis without contrast. Coronal 3-D reconstructions. Sagittal 2-D reconstructions. Date and time of exam:March 29, 2025 tensor 9:00 PM Comparison September 03, 2023 INDICATIONS: Tremors abdominal pain today CTDI: vol (mGy): 4.50 DLP: (mGycm): 229 Technique: Axial images of the abdomen have been obtained, 3 mm slice thickness Intravenous contrast material has not been administered. Low dose protocols were performed. One or more of the following dose reduction techniques were used; automated exposure control, adjustment of the mA and/or KV according to patient size, use of iterative reconstruction technique. Findings: No focal liver or splenic lesions Suspicious for tiny gallstones No pancreatic mass Xcvo-zx-[id number] left hydronephrosis with hyperdense enlarged left ureter axial image 92 History abdominal aortic calcification No pericecal inflammatory change No diverticulitis Large amounts of stool in the rectum with thickening of the rectal wall Transverse prostate dimension 4.5 cm Marked eccentric thickening of the urinary bladder wall on the right side laterally measuring up to 12 mm Severe osteopenia with advanced disc narrowing L5-S1 IMPRESSION: Slri-bb-dlugmqzb left hydronephrosis with sludgelike calculi in the proximal left ureter Large amounts of stool in the rectum with thickening of the rectal wall, differential would include proctitis Moderate prostatomegaly. Marked abnormal eccentric thickening of the urinary bladder wall, consider urinary tract outflow obstruction secondary to prostatomegaly as well as bladder carcinoma Recommend urology consultation
[2025-03-29] MEDS: RINGERS LACTATED 500 ML 500 ML IV ×2 (22:29→23:40)
--- NOTE | 2025-03-29 22:44 | PC.NURSE ---
barrios bag changed at this time, urine collected and sent to lab
[2025-03-29 23:34] LABS: Collection Type, Urine Catheter; Squamous Epithelial Cell,Urine 0 /hpf (0-5)
[2025-03-29 23:46] LABS: Bacteria,Urine 4+; Bilirubin,Urine Negative (Negative); Blood,Urine 3+ (Negative); Glucose, Urine Negative (Negative); Ketones,Urine Negative (Negative); Leukocyte Esterase,Urine Positive (Negative); Nitrite,Urine Negative (Negative); Protein,Urine 3+ (Neg - Trace); RBC,Urine 365 /hpf (0-3); Specific Gravity,Urine 1.013 (1.001-1.035); Urobilinogen,Urine Negative mg/dL (0.0-1.0); WBC,Urine 282 /hpf (0-5)
[2025-03-29 23:52] LABS: Color,Urine Brown (Lt Yel-Yel)
[2025-03-29 23:53] LABS: Clarity,Urine Cloudy (Clear/Hazy)
[2025-03-30] VITALS (102 sets, daily range): BP systolic 61–131; BP diastolic 39–77; PULSE 73–133; RESP 7–99; TEMP 36.7–38.9; O2SAT 75–100
--- NOTE | 2025-03-30 | XR_ITS ---
Examination: IR fluoroscopically guided placement percutaneous nephrostomy drainage catheter, left Ultrasound guided needle access left renal collecting system Fluoroscopy Left nephrostogram AP abdomen single view Date and time of procedure: March 30, 2025 1246 hours INDICATIONS: Left hydronephrosis sepsis secondary to proximal left ureteral calculi Informed consent provided. A timeout was completed verifying correct patient, procedure, site and positioning. Technique: Appropriate area is marked. The patient's site was prepped and draped in sterile fashion Maximal sterile barrier technique utilized, including hand hygiene Local anesthesia was obtained with 1% lidocaine. Ultrasound utilized to confirm dilated left renal collecting system Utilizing ultrasonographic guidance successful 21-gauge needle puncture into the left renal collecting system 0.18 wire guide is introduced through the needle into the dilated left renal collecting system 5 [place] catheter placed over the wire guide 0.35 wire guide then introduced into the renal collecting system followed by dilators and a 10 [place] percutaneous nephrostomy drainage catheter Hand-injection 10 cc Cystografin demonstrates satisfactory position of the nephrostomy catheter Estimated blood loss 2 cc Impression: Successful IR fluoroscopically guided placement of nephrostomy drainage catheter, left Fluoroscopy 1.3 minutes seconds 1 spot fluoroscopic abdomen films
--- NOTE | 2025-03-30 00:56 | PC.NURSE ---
Rectal temp checked- 101.6. Pericare provided and new brief.
[2025-03-30] MEDS: ACETAMINOPHEN 500 MG TABLET PO (02:44)
[2025-03-30] MEDS: cefTRIAXone/D5w 1gm IV premix 1 GM/50 ML BAG IV (02:44)
[2025-03-30] MEDS: RINGERS LACTATED 1000 ML 1,000 ML 999 ML IV (02:45)
[2025-03-30 03:10] LABS: Lactate (Lactic Acid) 5.2 mMol/L (0.4-2.0)
[2025-03-30 03:29] LABS: Procalcitonin 33.94 ng/ml (0.0-0.49)
[2025-03-30 05:07] LABS: Basophils % (Auto) 0 % (0-2.5); Eosinophils % (Auto) 0 % (0-10); Hematocrit 24.3 % (41.0-53.0); Immature Granulocytes % (Auto) 0 % (0-0); Immature Granulocytes Auto 0.03 Thou/mm3 (0.00-0.00); Lymphocytes # (Auto) 0.2 Thou/mm3 (1.0-4.8); Lymphocytes % (Auto) 4 % (10-50); Mean Corpuscular HGB Conc 32.9 g/dl (31.0-37.0); Mean Corpuscular Hemoglobin 28.8 pg (25.0-35.0); Mean Corpuscular Volume 87 fL (80-100); Monocytes # (Auto) 0.1 Thou/mm3 (0.0-0.8); Monocytes % (Auto) 1 % (0-12); Neutrophils # (Auto) 6.4 Thou/mm3 (1.8-7.7); Neutrophils % (Auto) 95 % (37-80); Nucleated Red Blood Cell % 0 /100 WBC (0); RDW Standard Deviation 50.2 fL (35.1-43.9); Red Blood Count 2.78 Miln/mm3 (4.50-5.90); White Blood Count 6.7 Thou/mm3 (3.8-10.6)
[2025-03-30 05:08] LABS: Platelet Count 72 Thou/mm3 (140-440)
[2025-03-30] MEDS: ACETAMINOPHEN 500 MG TABLET 1000 MG PO (05:38)
--- NOTE | 2025-03-30 05:54 | PC.NURSE ---
[facility] CONTACTED FOR POSSIBLE TRANSFER INQUIRED IF THEY HAVE UROLOGY THEY STATED THEY DID- FAXED OVER PROVIDER NOTES AND IMAGING REPORT. TRANSFER CENTER STATED THEY RECEIVED PACKET. ROSEY FROM TRANSFER CENTER REQUESTING TO SPEAK TO MD MARIE. CALL FORWARDED
[2025-03-30 05:58] LABS: Reflex Lactate? Y
[2025-03-30] MEDS: MAGNESIUM CITRATE 300 ML BTL PO (06:05)
[2025-03-30] MEDS: PIPER/TAZO INJ 4.5 GM in SODIUM CHLORIDE 0.9% (POP) 100 ML IV (06:08)
[2025-03-30 06:12] LABS: Alanine Aminotransferase < 7 U/L (10-49); Albumin, Serum 2.4 gm/dL (3.4-4.8); Alkaline Phosphatase 79 U/L (46-116); Anion Gap 14 (7-16); Aspartate Amino Transferase 15 U/L (0-34); BUN/Creatinine Ratio 14 Ratio (12-20); Bilirubin,Total 0.4 mg/dL (0.3-1.2); Blood Urea Nitrogen 46 mg/dL (9-23); Calcium 7.4 mg/dL (8.3-10.6); Calcium (Corrected) 8.7 mg/dL (8.5-10.1); Chloride 115 mMol/L (98-107); Creatinine (Component) 3.4 mg/dL (0.6-1.3); Globulin 2.3 gm/dL (2.3-3.5); Glucose 72 mg/dL (74-106); Osmolality,Calculated 295 (275-295); Potassium 4.5 mMol/L (3.4-5.1); Sodium 143 mMol/L (136-145); Total Protein 4.7 gm/dL (5.7-8.2); eGFR 18 See Note
[2025-03-30] MEDS: RINGERS LACTATED 1000 ML 1,000 ML 125 ML IV (06:26)
[2025-03-30 06:33] LABS: Carbon Dioxide 13.8 mMol/L (20.0-31.0)
--- NOTE | 2025-03-30 06:37 | PD.EDADDENDU ---
Emergency Room Addendum Addendum Narrative: 0600: Care assumed from Dr. Fulton, the previous shift emergency physician. Past medical, surgical, social and family history reviewed. Vitals and home medications reviewed. I will assume the care of the patient at this time, pending urology transfer. Please refer to the emergency department record for history and examination from initial visit.?The following addendum documentation note is intended to reflect any pending information, findings, or radiology results not included in the patient?s initial chart. EMS notes reviewed by me. During transport, vital signs were within normal limits, BS 135. Nursing notes reviewed by me. Vital signs reviewed by me. [facility] medical records reviewed by me. Patient has known history of BPH with urinary obstruction and LUTS, barrios catheter, CKD, diabetes, hypertension, hyperlipidemia, osteoarhtitis. 0648: A Sepsis alert was initiated at 0229 hours and patient has received 2.5L of IV Lactated Ringers. At this time patients blood pressure is 75/45. Plan to start Levophed. 0841: I spoke with urologist Dr. Parham. Discussed patients PMHx, HPI, ED course, exam findings, labs, and radiology results. States he will review patients chart. 1125: I spoke with urologist Dr. Parham. States he has yet to review patient chart and will call back. 1135: I spoke with linen supervisor Dr. Dumont. Discussed patients PMHx, HPI, ED course, exam findings, labs, and radiology results. States he will discuss case with urologist Dr. Parham and assess the patient in the ED. 1205: Broomcorn Grader Dr. Dumont reports discussing the case with urologist Dr. Parham, who recommended placement of a nephrostomy tube. IR Dr. Moore has been consulted and agrees with nephrostomy tube placement. The patient will be admitted to the ICU for further management. Critical Care Time Critical Care Time Critical Care Time: Yes Total Critical Care Time (min.): 90 Attestation: The high probability of sudden, clinically significant deterioration in the patient's condition required the highest level of my preparedness to intervene urgently. The services I provided to this patient were to treat and/or prevent clinically significant deterioration. Services included the following: chart data review, reviewing nursing notes and/or old charts, documentation time, car sales consultant collaboration regarding findings and treatment options, medication orders and management, direct patient care, vital sign assessments and ordering, interpreting and reviewing diagnostic studies and lab tests. Aggregate critical care time includes only time during which I was engaged in work directly related to the patient's care, as described above, whether at bedside or elsewhere in the Emergency Department. It did not include time spent performing other reported procedures or the services of residents, students, nurses or physician assistants.
--- NOTE | 2025-03-30 06:38 | PC.NURSE ---
vs taken. RN at bedside when bp was checked. kalia care provided. nw brief and linen change. pt having small soft dark bm
[2025-03-30] MEDS: VANCOMYCIN/NS 750 MG IVPB 750 MG/150 ML BAG 120 MG IV (06:50)
--- NOTE | 2025-03-30 07:23 | PC.NURSE ---
notified that SBP was less than 90, new orders received
--- NOTE | 2025-03-30 07:41 | PC.NURSE ---
Patient BP 61/39. Patient arousable to name. Dr. Bailey informed of BP and negative stool occult. Per MD man to start sepsis protocol levophed drip. Verified drip with pharmacy
[2025-03-30] MEDS: Norepinephrine/D5W 8mg/250ml 8 MG/250 ML BAG 3.827 MG IV (07:44)
[2025-03-30] MEDS: ONDANSETRON INJ 2 MG/ML INJ 2 ML 4 MG IVP (07:45)
[2025-03-30 07:50] LABS: Base Excess -14 (-3-3); HCO3 11 mEq/L (20-26); Inspired Oxygen, FIO2 21 %; O2 Saturation 99 % (91-98); PCO2 21 mmHg (32.0-48.0); PO2 109 mmHg (83-108); pH, Arterial 7.31 (7.35-7.45)
[2025-03-30 07:54] LABS: Allen Test Not Performed; Puncture Site Site Not Noted
[2025-03-30 08:02] LABS: Reflex Lactate? Y
[2025-03-30 08:07] LABS: Lactic Acid, 3 HR 2.8 mMol/L (0.4-2.0)
[2025-03-30 08:45] LABS: OBS Performed By LOPEV7; OBS QC OK? Yes; Occult Blood, Stool Negative (Negative)
--- NOTE | 2025-03-30 09:27 | PC.NURSE ---
Emergency titration ended. Patient maintaining BP with MAP >65. Patient is alert and oriented, responds to name. Blood pressure 105/51 currently, heart rate 94. Dr. Parham has been consulted for patient. Plan of care ongoing.
[2025-03-30 10:56] LABS: Slide Review Platelets confirmed
--- NOTE | 2025-03-30 12:52 | XR_ITS ---
Examination: AP chest single view Technique one AP portable upright chest single view Date and time: March 30, 2025 1450 hours Comparison September 05, 2024 INDICATIONS: Post central line placement FINDINGS: Left internal jugular central line tip SVC satisfactory position No significant cardiac enlargement No pneumothorax Minor atelectasis at the right lung base IMPRESSION: Left internal jugular central line tip SVC satisfactory position
--- NOTE | 2025-03-30 12:54 | PC.NURSE ---
Central line placed by Resident Sabine, with Dr. Dumont at bedside. 20cm 3lumen central line placed to left IJ. Patient tolerated procedure well. Patient to have Chest Xray to verify placement. Patient going to IR for nephrostomy tube insertion.
--- NOTE | 2025-03-30 13:00 | ESOP_ITS ---
<Statement entered by Bianca Dumont MD - 03/31/25 19:54> I was present for the critical and osuna portions of the procedure and was immediately available to provide assistance. Procedures Procedure Date / Time 03/30/25 832 Procedure Narrative Procedure Narrative: PROCEDURE: Left IJ vascular catheter INDICATION: Septic shock requiring high dose Norepinephrine infusin PROCEDURE LEAD SOFTWARE TEST ENGINEER : Dr Acevedo ATTENDING PHYSICIAN : Dr Dumont CONSENT : Informed consent was obtained from sonElias, with discussion regarding the procedure, or treatment. I explained the following to the designee: a. Nature of the procedure or treatment and who will perform the procedure or treatment b. Necessity for procedure and the possible benefits. c. Risks and complications (most common and serious) d. Alternative treatments and the risks, benefits and side effects of each (including no treatment). e. Likelihood of the patient achieving his/her goals without this procedure and surgery treatment f. Problems that might occur during the recuperation g. Conflicts of interest, if any PROCEDURE SUMMARY: The Central Line Venous Catheter Insertion Practices form was completed. Starting with the first handwash prior to starting sterile technique. A time out was performed . My hands were washed immediately prior to the procedure. I wore a surgical cap, mask with protective eyewear, full gown and sterile gloves throughout the procedure. The patient was placed in Trendelenburg position. Using ultrasound right IJ was visualised, but non-compressible, possible thrombus or stenosis. Left IJ was subsequently visualised and compressible. LEFT neck region was prepped using chlorhexidine scrub and draped in sterile fashion using a full drape and sterile probe cover and sterile gel employed. The medial and lateral heads of the sternocliedomastoid muscle were identified as was the carotid pulse. The Left Internal Jugular vein was identified using the ultrasound. Anesthesia was achieved over the vein using 1% lidocaine. Using real-time out of plane guidance, the introducer needle was inserted into the Left Internal Jugular Vein by ultrasound. A small incision was made at the skin surface with a scalpel and the introducer needle was exchanged for a dilator over the guidewire. After appropriate dilation was obtained, the dilator was exchanged over the wire for a central venous catheter. The wire was removed and the catheter was sutured in place at 0.2 - 0.3 cm. A sterile sobraview shield was placed over the catheter at the insertion site. The patient tolerated the procedure without any hemodynamic compromise. At time of procedure completion, all ports aspirated and flushed properly. Estimated blood loss is ~ 2 ml. Post-procedure chest x-ray confirmed appropriate placement Under the supervision of my attending Dr Julia Acevedo MD (PGY1)
--- NOTE | 2025-03-30 13:24 | ESHP_ITS ---
<Statement entered by Bianca Dumont MD - 03/30/25 18:27> TOTAL CC TIME: 65 MIN I saw and evaluated the patient. I reviewed the resident?s note and agree with findings and plan as documented in the resident?s note. Upon my evaluation, this patient had a high probability of imminent or life- threatening deterioration due to septi shokc cwhich required my direct attention, intervention, and personal management. This time is exclusive of time spent on procedures, which are documented separately if performed. due to pyelonephritis and obstructive hydro of L kidney d/w urology and radiologist radiologist will place nephrostomy tube ICU will admit - place on merrem pt has received 3l IVF check SVI on NICOM and will consider additional IVFs depending on response to bolus f/u clx results trend serial LAs Documentation for date of: 03/30/25 HPI History of Present Illness Chief complaint: Left Flank Pain History of present illness: HPI: Patient is Mosotho-speaking and history facilitated by registered healthcare director script. 80-year-old male with past medical history of BPH with indwelling barrios catheter, primary hypertension, CKD stage IIIb, NIDDM type 2, hyperlipidemia, depression,peripheral artery disease (right lower extremity AKA) and PEG tube insitu presenting with left flank pain. Patient is a resident at [facility]. According to patient yesterday night he began having left flank pain 9/10, constant, no radiation, and no relief with Tylenol. Denied any fever, sick contacts, recent travel, vomiting, diarrhea, chest pain/pressure and palpitations. He has monthly barrios catheter changes at Dr. Parham's office Patient was hospitalized August last year for failure to thrive and PEG tube was placed for nutritional needs. ED course: BP 121/65, pulse 1 1, RR 20, temp 101.6 F, SpO2 96% on room air Labs significant for Hb 8, PLT 72, BUN 46, CR 3.4, lactic acid 5.2, Pro-Jeffy 33.94. Urinalysis significant for cloudy, brown, 3+ blood, leukocyte esterase +9-82 WBC. Abdomen x-ray showed abundant stool in colon and small bowel ileus. Abdomen/pelvis CT showed mild to moderate left hydronephrosis with sludge like calculi in proximal left ureter. In the ED patient received Ringer's lactate 2L IVF bolus, acetaminophen 1.53 p.o. x 1, magnesium citrate 300 mL p.o. x 1, Zosyn 4.5G IV x 1, vancomycin 750 Mg IV x 1 and norepinephrine infusion. Patient will be admitted to the ICU for treatment of management of urosepsis requiring IV vasopressors. Past medical history: BPH s/p indwelling Barrios catheter Primary hypertension CKD stage IIIb NIDDM type 2 Hyperlipidemia Depression PAD s/p right AKA Protein calorie malnutrition s/p PEG tube Medication list: Bisacodyl as needed Ferrous sulfate Mirtazapine 30 Mg p.o. 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 Patient is a resident at [facility]. Bedbound at baseline since right 2019. Denied any drug, alcohol and smoking history Family History: No significant Review of Systems Review of Systems Narrative Review of Systems: GENERAL: Denies fever/chills or diaphoresis. HEENT: Denies headaches or visual changes. Denies discharge. Neuro: Denies unusual weakness or difficulty speaking. CARDIO: Denies chest pain or palpitations. PULM: Denies SOB, coughing or wheezing. GI: Denies abdominal pain, N/V/C/D. Constipation URO: Denies burning/itching/pain/urinary changes. MSK/EXT/SKIN: Denies joint/skeletal/muscle pain, issues/changes in upper or lower extremities, itchiness, or superficial pain. PSYCH: Cooperative, pleasant mood & affect. The rest of the review of systems is otherwise negative. Exam Vital Signs Temp Pulse Resp BP Pulse Ox O2 Del Method 98.1 F 94 18 121/60 96 Room Air 03/30/25 11:35 03/30/25 13:20 03/30/25 13:20 03/30/25 13:20 03/30/25 13:20 03/30/25 13:20 Narrative Exam Constitutional Alert, oriented x 2, Person and place and mild distress. Elderly male, bitemporal wasting, cachectic. HEENT Vision grossly intact. Patent nares. Trachea midline Respiratory Chest normal on inspection and clear auscultation bilaterally on anterior and posterior chest wall. Left IJ catheter. Exit site clean Cardiovascular S1 and S2 audible, RRR. No murmurs carotid bruit. No gross JVD. Abdominal Soft and non tender to palpation in all quadrants. BS + PEG tube in situ, exit site clean. Genitourinary No bladder tenderness, no flank pain. Normal to palpation Musculoskeletal Extremities tone within normal limits. No LE edema. Right AKA noted Neurological CN II - XII grossly intact. Extremity motor and sensation grossly intact. Skin Warm, dry and intact. Right buttock pressure ulcer. Psychiatric Patient has good affect, is cooperative Results: Labs 03/30/25 04:45 03/30/25 04:45 Labs: Short CBC 03/29/25 03/30/25 Range/Units 20:25 04:45 WBC 9.0 6.7 (3.8-10.6) Thou/mm3 Hgb 9.0 L 8.0 L (13.5-16.0) g/dL Hct 27.8 L 24.3 L (41.0-53.0) % Plt Count 125 L 72 L D (140-440) Thou/mm3 BMP 03/29/25 03/30/25 20:25 04:45 Sodium 139 143 Potassium 4.6 4.5 Chloride 113 H 115 H Carbon Dioxide 15.3 L 13.8 L* BUN 46 H 46 H Creatinine 3.4 H 3.4 H Glucose 121 H 72 L Calcium 8.3 7.4 L Cardiac Enzymes 03/29/25 Range/Units 20:25 Troponin I < 0.020 (0.0-0.045) ng/mL Liver Function 03/29/25 03/30/25 Range/Units 20:25 04:45 Total Bilirubin 0.6 0.4 (0.3-1.2) mg/dL AST < 10 15 (0-34) U/L ALT < 7 L < 7 L (10-49) U/L Alkaline Phosphatase 74 79 (46-116) U/L Albumin 3.0 L 2.4 L D (3.4-4.8) gm/dL Urine 03/29/25 Range/Units 23:00 Urine Color Brown A (Lt Yel-Yel) Urine Clarity Cloudy A (Clear/Hazy) Urine pH 8.0 H (5.0-7.0) Ur Specific Hayden 1.013 (1.001-1.035) Urine Protein 3+ A (Neg - Trace) Urine Glucose (UA) Negative (Negative) ABG Interpretation ABG results: 03/30/25 07:35 ABG pH 7.31 L ABG pCO2 21 L ABG pO2 109 H ABG HCO3 11 L ABG O2 Saturation 99 H ABG Base Excess -14 L Quality Measures Quality Measures sepsis Current suspected stage: septic shock (LA >4 and/or hypotension) Sepsis reassessment completed at (date): 03/30/25 Sepsis reassessment completed at (time): 17:42 Possible source: GI tract/intra-abdominal Blood cultures ordered: yes Antibiotic ordered: Yes Advance care planning discussed with:: patient and other Medications Home Medications and Allergies Home Medications ?Medication ?Instructions ?Recorded ?Confirmed ?Type linagliptin 5 mg tablet (Tradjenta) 5 mg PO QDAY 11/0611/24/24 History bisacodyl 10 mg rectal suppository [address] QDAY PRN C onstipation 11/25/23 11/24/24 History (Dulcolax (bisacodyl)) ferrous sulfate 325 mg (65 mg 325 mg PO BID 11/25/23 0 11/24/24 History iron) tablet glucagon HCl 1 mg solution for 1 mg subcut Q15M PRN Hy poglycemia 11/25/23 11/24/24 History injection (Glucagon (HCl) Emergency Kit) mirtazapine 30 mg tablet (Remeron) 30 mg PO HS appetit e stimulant 09/06/24 11/24/24 History ondansetron HCl 4 mg tablet 4 mg PO Q6H PRN Nausea And Vomiting 09/06/24 11/24/24 History Allergies Allergy/AdvReac Type Severity Reaction Status Date / Time No Known Allergies Allergy Verified 11/24/24 13:12 Visit Medications Norepinephrine/Dextrose (Levophed In D5w 8mg/250ml) 8 mg in 250 mls @ 3.827 mls/hr IV .Q24H PRN; Protocol PRN Reason: PER PROTOCOL Stop: 04/29/25 07:37 Last Titration: 03/30/25 10:00 Dose: 0.13 mcg/kg/min, 9.951 mls/hr Lactated Ringer's (Lactated Ringers) 1,000 mls @ 150 mls/hr IV .Q6H40M AMANDA Stop: 04/29/25 12:14 Meropenem 500 mg/ Sodium (Chloride) 50 mls @ 100 mls/hr IV Q12HR AMANDA Stop: 04/06/25 20:59 Ondansetron HCl (Ondansetron Inj 2 Mg/Ml Inj 2 Ml) 4 mg IVP Q6H PRN; Protocol PRN Reason: NAUSEA OR VOMITING Stop: 04/29/25 12:14 Pharmacy Consult (Vancomycin Pharmacy To Dose 1 Each Each) 1 each IV X1 PRN PRN Reason: PROTOCOL Stop: 04/29/25 05:14 Pharmacy Consult (Pharmacy Renal Dose Adjustment 1 Ea) 1 each XX PRN PRN PRN Reason: CONSULT Stop: 04/29/25 12:14 Discontinued Medications Acetaminophen (Acetaminophen 500 Mg Tablet) 500 mg PO X1 ONE Stop: 03/30/25 02:25 Last Admin: 03/30/25 02:44 Dose: 500 mg Acetaminophen (Acetaminophen 500 Mg Tablet) 1,000 mg PO X1 ONE Stop: 03/30/25 04:21 Last Admin: 03/30/25 05:38 Dose: 1,000 mg Lactated Ringer's (Lactated Ringers) 500 mls @ 500 mls/hr IV .Q1H ONE Stop: 03/29/25 22:47 Last Infusion: 03/29/25 23:35 Dose: Infused Lactated Ringer's (Lactated Ringers) 500 mls @ 500 mls/hr IV .Q1H ONE Stop: 03/30/25 00:13 Last Infusion: 03/30/25 00:40 Dose: Infused Ceftriaxone Sodium/Dextrose (Rocephin/D5w 1gm Iv Premix) 1 gm in 50 mls @ 100 mls/hr IV NOW ONE Stop: 03/30/25 02:26 Last Infusion: 03/30/25 03:14 Dose: Infused Lactated Ringer's (Lactated Ringers) 1,000 mls @ 999 mls/hr IV .Q1H1M ONE Stop: 03/30/25 03:24 Last Infusion: 03/30/25 03:46 Dose: Infused Piperacillin Sod/Tazobactam (Sod 4.5 gm/ Sodium Chloride) 100 mls @ 200 mls/hr IV NOW ONE Stop: 03/30/25 05:42 Last Infusion: 03/30/25 07:00 Dose: Infused Lactated Ringer's (Lactated Ringers) 1,000 mls @ 125 mls/hr IV .Q8H ONE Stop: 03/30/25 13:14 Last Infusion: 03/30/25 11:21 Dose: Infused Vancomycin HCl 500 mg/ Sodium (Chloride) 250 mls @ 250 mls/hr IV X1 ONE Stop: 03/30/25 06:44 Last Admin: 03/30/25 10:01 Dose: Not Given Vancomycin/Sodium Chloride (Vancomycin/Ns 750 Mg Ivpb) 750 mg in 150 mls @ 120 mls/hr IV X1 ONE Stop: 03/30/25 07:44 Last Infusion: 03/30/25 08:05 Dose: Infused Norepinephrine/Dextrose (Levophed In D5w 8mg/250ml) 8 mg in 250 mls @ 3.827 mls/hr IV .Q24H PRN; Protocol PRN Reason: PER PROTOCOL Stop: 04/29/25 06:47 Norepinephrine Bitartrate (Levophed In Ns 16mg/250ml) 16 mg in 250 mls @ 1.914 mls/hr IV .Q24H PRN; Protocol PRN Reason: PER PROTOCOL Stop: 04/29/25 12:18 Magnesium Citrate (Magnesium Citrate 300 Ml Btl) 300 ml PO X1 ONE Stop: 03/30/25 04:27 Last Admin: 03/30/25 06:05 Dose: 300 ml Ondansetron HCl (Ondansetron Inj 2 Mg/Ml Inj 2 Ml) 4 mg IVP X1 ONE; Protocol Stop: 03/30/25 07:39 Last Admin: 03/30/25 07:45 Dose: 4 mg Assessment & Plan Plan 80-year-old male with past medical history of BPH with indwelling barrios catheter, primary hypertension, CKD stage IIIb, NIDDM type 2, hyperlipidemia, depression,peripheral artery disease (right lower extremity AKA) and PEG tube insitu presenting with left flank pain. Patient will be admitted to the ICU for treatment of management of urosepsis requiring IV vasopressors. NEURO Likely Dementia Dx: Patient oriented to person and place, but appears confused at times Rx: General measures to prevent hospital induced delirium. History of Depression Pending medication reconciliation CVS Septic shock Dx: MAP less than 65 requiring vasopressors and source of infection UTI. Lactic acid 5.2 Rx: Titrate norepinephrine for MAP >65, Ringer's lactate at 150 cc/hour, meropenem 500 Mg IV every 12 hourly [renally dosed] RRx: NICOM, fluid bolus as necessary History of primary hypertension Antihypertensives on hold in setting of shock. PULM No acute problems GI/Hep Protein calorie malnutrition s/p PEG tube Dx: Albumin 2.4. Patient chronically on tube feeds Rx: Dietitian referral. Free water flushes via PEG tube at 50 cc/oh RENAL Obstructive uropathy DDx: Secondary to sludgelike calculi proximal left ureter Dx: CT abdomen pelvis fluids solitary calculus proximal left ureter Rx: Percutaneous nephrostomy placement by IR. Urine culture. Urology, Dr. Parham consulted RRX: Monitor nephrostomy for output. Follow-up on urology recommendations. ENOC on CKD stage IIIb DDx: Secondary to obstructive uropathy Dx: Baseline CR 1.9?2.1. On admission CR 3.4 Rx: Lactated Ringer's IVF at 150 cc/hour. Nephrology, Dr Shay consulted. Appreciate recommendations Lactic acidosis NAGMA DDx: Sepsis, laxative use, large-volume IVF Dx: Lactic acid 5.2 down trended to 2.8. pH 7.31, pCO2 21, bicarb 11 Rx: Trend lactic acid RRX: Follow-up on lactic acid and give IVF bolus as necessary. HEME/ONC Normocytic Anemia DDx: CHARBEL, malnutrition, anemia of chronic disease Dx: Hb 8 Rx: Monitor for signs of bleeding on CBC Thrombocytopenia DDx: Chronic inflammation Rx: Monitor for signs of bleeding and CBC ENDO T2 IDDM Rx: Sliding scale q6hrly HLD Rx: Medication on hold as patient NPO ID Septic Shock secondary to UTI See CVS and renal MSK/DERM Gluteal ulcer Rx: Wound care referral. ICU Health maintenance: Dispo: Admit to ICU for septic shock secondary to obstructive uropathy Diet: N.p.o. DVT ppx: SCDs GI ppx: Protonix 40mg qD IV lines: 2 pIV Central line: Left IJ [ placed on 03/30/25 Arterial line: No Barrios: Yes Code status: FULL CODE Plan of care discussed with Attending Dr. Julia Acevedo MD PGY 1 Disclaimer: This note was dictated by speech recognition. Minor errors in textile machinery sales representative may be present due to voice recognition software.
--- NOTE | 2025-03-30 13:26 | XR_ITS ---
Examination: Ultrasound-guided needle access right renal collecting system Date and Time: March 30, 2025 1333 hours INDICATIONS: Obstructive left hydronephrosis, need for percutaneous nephrostomy drainage tube placement today. Technique: Informed consent provided. Timeout performed. Skin prepped over the left flank and sterile drape applied. Maximum sterile barrier technique utilized, hand hygiene, sterile ultrasound technique 1% lidocaine administered for local anesthesia. Ultrasound thyroid apparatus utilized to confirm dilated left renal collecting system Utilizing ultrasonographic guidance successful 21-gauge needle placement into the dilated left renal collecting system Ultrasound images recorded and stored. Estimated blood loss 0 cc The patient tolerated the procedure well, in satisfactory and stable condition a completion of the procedure Impression: Successful ultrasound guided needle access left renal collecting system
--- NOTE | 2025-03-30 13:38 | PC.NURSE ---
Called Report to LESIA Barney in ICU. Patient to be transferred to ICU after IR left nephrostomy tube placement. IR made aware. No further questions
[2025-03-30] MEDS: LIDOCAINE INJ PF 1% 30 ML VIAL INFL (13:48)
[2025-03-30] MEDS: RINGERS LACTATED 1000 ML 1,000 ML 150 ML IV (15:14)
[2025-03-30] MEDS: RINGERS LACTATED 1000 ML 500 ML 999 ML IV (18:29)
[2025-03-30] MEDS: DEXTROSE 50%-WATER INJ 50 ML SYRINGE IVP (18:42)
[2025-03-30] MEDS: MEROPENEM INJ 500 MG in SODIUM CHLORIDE 0.9% (Popper) 50 ML 100 MG IV (20:43)
[2025-03-31] VITALS (113 sets, daily range): BP systolic 70–146; BP diastolic 38–75; PULSE 87–116; RESP 10–95; TEMP 36.2–37; O2SAT 86–100; BMI 14.7
--- NOTE | 2025-03-31 01:00 | PC.NURSE ---
Updated Dr Lidia Marx on pt condition and lack of urine output and increasing levophed dose. No further orders at this time
[2025-03-31] MEDS: DEXTROSE 50%-WATER INJ 50 ML SYRINGE IVP (05:51)
[2025-03-31 06:00] LABS: Alanine Aminotransferase 16 U/L (10-49); Albumin, Serum 2.6 gm/dL (3.4-4.8); Alkaline Phosphatase 65 U/L (46-116); Anion Gap 12 (7-16); Aspartate Amino Transferase 41 U/L (0-34); BUN/Creatinine Ratio 13 Ratio (12-20); Bilirubin,Total 0.5 mg/dL (0.3-1.2); Blood Urea Nitrogen 52 mg/dL (9-23); Calcium 7.5 mg/dL (8.3-10.6); Calcium (Corrected) 8.6 mg/dL (8.5-10.1); Carbon Dioxide 15.5 mMol/L (20.0-31.0); Chloride 112 mMol/L (98-107); Creatinine (Component) 3.9 mg/dL (0.6-1.3); Estimated Creatinine Clearance 8.7 mL/min (>60); Globulin 2.6 gm/dL (2.3-3.5); Glucose 68 mg/dL (74-106); Magnesium 1.9 mg/dL (1.6-2.6); Osmolality,Calculated 289 (275-295); Phosphorous 3.5 mg/dL (2.4-5.1); Potassium 4.5 mMol/L (3.4-5.1); Sodium 139 mMol/L (136-145); Total Protein 5.2 gm/dL (5.7-8.2); Vancomycin,Random 10.4 mcg/mL; eGFR 15 See Note
[2025-03-31 06:03] LABS: Basophils # (Auto) 0.1 Thou/mm3 (0.0-0.2); Basophils % (Auto) 0 % (0-2.5); Eosinophils % (Auto) 0 % (0-10); Hematocrit 27.8 % (41.0-53.0); Hemoglobin 9.2 g/dL (13.5-16.0); Immature Granulocytes % (Auto) 6 % (0-0); Immature Granulocytes Auto 2.03 Thou/mm3 (0.00-0.00); Lymphocytes # (Auto) 0.9 Thou/mm3 (1.0-4.8); Lymphocytes % (Auto) 3 % (10-50); Mean Corpuscular HGB Conc 33.1 g/dl (31.0-37.0); Mean Corpuscular Hemoglobin 28.5 pg (25.0-35.0); Mean Corpuscular Volume 86 fL (80-100); Monocytes # (Auto) 0.5 Thou/mm3 (0.0-0.8); Monocytes % (Auto) 2 % (0-12); Neutrophils # (Auto) 29.9 Thou/mm3 (1.8-7.7); Neutrophils % (Auto) 89 % (37-80); Nucleated Red Blood Cell % 0 /100 WBC (0); RDW Standard Deviation 50.4 fL (35.1-43.9); Red Blood Count 3.23 Miln/mm3 (4.50-5.90); White Blood Count 33.6 Thou/mm3 (3.8-10.6)
[2025-03-31 06:05] LABS: Platelet Count 40 Thou/mm3 (140-440)
[2025-03-31] MEDS: Norepinephrine/D5W 8mg/250ml 8 MG/250 ML BAG 16.074 MG IV (06:45)
[2025-03-31] MEDS: MEROPENEM INJ 500 MG in SODIUM CHLORIDE 0.9% (Popper) 50 ML 100 MG IV ×2 (08:50→20:51)
[2025-03-31] MEDS: CITRIC ACID/SODIUM CITR 15 ML UDC (BICITRA) 30 ML GT ×2 (08:50→20:51)
--- NOTE | 2025-03-31 09:57 | PC.NURSE ---
Unable to do nephrostogram due to Dr. Moore being out. RN notified.
--- NOTE | 2025-03-31 10:05 | ESPR_ITS ---
Documentation for date of: 03/31/25 Subjective Subjective Interval history: Patient is Armenian-speaking and history facilitated by registered healthcare sustainable design coordinator. 80-year-old male with past medical history of BPH with indwelling barrios catheter, primary hypertension, CKD stage IIIb, NIDDM type 2, hyperlipidemia, depression,peripheral artery disease (right lower extremity AKA) and PEG tube insitu presenting with left flank pain. Patient is a resident at [facility]. According to patient yesterday night he began having left flank pain 9/10, constant, no radiation, and no relief with Tylenol. Denied any fever, sick contacts, recent travel, vomiting, diarrhea, chest pain/pressure and palpitations. He has monthly barrios catheter changes at Dr. Parham's office Patient was hospitalized August last year for failure to thrive and PEG tube was placed for nutritional needs. ED course: BP 121/65, pulse 1 1, RR 20, temp 101.6 F, SpO2 96% on room air Labs significant for Hb 8, PLT 72, BUN 46, CR 3.4, lactic acid 5.2, Pro-Jeffy 33.94. Urinalysis significant for cloudy, brown, 3+ blood, leukocyte esterase +9-82 WBC. Abdomen x-ray showed abundant stool in colon and small bowel ileus. Abdomen/pelvis CT showed mild to moderate left hydronephrosis with sludge like calculi in proximal left ureter. In the ED patient received Ringer's lactate 2L IVF bolus, acetaminophen 1.53 p.o. x 1, magnesium citrate 300 mL p.o. x 1, Zosyn 4.5G IV x 1, vancomycin 750 Mg IV x 1 and norepinephrine infusion. Patient will be admitted to the ICU for treatment of management of urosepsis requiring IV vasopressors. 03/31/2025: No events overnight. Levophed infusion ongoing. This morning patient alert and oriented x 3, denies any flank pain, nausea, vomiting. WBC increased to 33.6 from 6.7, PLT decreased to 40 from 72, bicarb improved to 15.5 from 13.8, LA downtrended to 2.8 from 4, CR increased to 3.9 from 3.3. Blood culture grew GNR preliminary, urine culture pending. Minimal output from left nephrostomy in past 24 hours. Started on Bicitra 30 mL GT twice daily, Ringer's lactate 500 cc IVF bolus, continue meropenem 500 Mg IV twice daily, continue to wean Levophed as tolerated, for left nephrostogram as per urology recommendations. Exam Vital Signs Temp Pulse Resp BP Pulse Ox O2 Del Method 98.1 F 90 28 H 113/63 96 Room Air 03/31/25 08:00 03/31/25 08:00 03/31/25 08:00 03/31/25 08:00 03/31/25 08:00 03/31/25 08:00 Narrative Exam Constitutional Alert, oriented x 3, Person and place and comfortable. Elderly male, bitemporal wasting, cachectic. HEENT Vision grossly intact. Patent nares. Trachea midline Respiratory Chest normal on inspection and clear auscultation bilaterally on anterior and posterior chest wall. Left IJ catheter. Exit site clean Cardiovascular S1 and S2 audible, RRR. No murmurs carotid bruit. No gross JVD. Abdominal Soft and non tender to palpation in all quadrants. BS + PEG tube in situ, exit site clean. Genitourinary No bladder tenderness, no flank pain. Normal to palpation. Left nephrostomy tube in situ, minimal purulent/sanguinous drainage Musculoskeletal Extremities tone within normal limits. No LE edema. Right AKA noted Neurological CN II - XII grossly intact. Extremity motor and sensation grossly intact. Skin Warm, dry and intact. Right buttock pressure ulcer. Psychiatric Patient has good affect, is cooperative Objective Labs 03/31/25 04:39 03/31/25 04:48 Labs: Laboratory Results - last 24 hr 03/30/25 03/31/25 03/31/25 04:45 04:39 04:48 WBC 33.6 H D RBC 3.23 L Hgb 9.2 L Hct 27.8 L MCV 86 MCH 28.5 MCHC 33.1 RDW Std Deviation 50.4 H Plt Count 40 L D Neut % (Auto) 89 H Lymph % (Auto) 3 L [place]illion % (Auto) 2 Eos % (Auto) 0 Baso % (Auto) 0 Neut # (Auto) 29.9 H Lymph # (Auto) 0.9 L [place]illion # (Auto) 0.5 Eos # (Auto) 0.0 Baso # (Auto) 0.1 Immature Gran # (Auto) 2.03 H Absolute Nucleated RBC 0.00 Immature Gran % 6 H Nucleated RBC % 0 Sodium 139 Potassium 4.5 Chloride 112 H Carbon Dioxide 15.5 L Anion Gap 12 BUN 52 H Creatinine 3.9 H D Estim Creat Clear Calc 8.7 L eGFR 15 L BUN/Creatinine Ratio 13 Glucose 68 L Calculated Osmolality 289 Calcium 7.5 L Corrected Calcium 8.6 Phosphorus 3.5 Magnesium 1.9 Total Bilirubin 0.5 AST 41 H ALT 16 Alkaline Phosphatase 65 Total Protein 5.2 L Albumin 2.6 L Globulin 2.6 Albumin/Globulin Ratio 1.0 L Random Vancomycin 10.4 Misc Test Result Platelets confirmed ABG Interpretation ABG results: 03/30/25 07:35 ABG pH 7.31 L ABG pCO2 21 L ABG pO2 109 H ABG HCO3 11 L ABG O2 Saturation 99 H ABG Base Excess -14 L Quality Measures Quality Measures sepsis Current suspected stage: septic shock (LA >4 and/or hypotension) IVF 30 ml/kg given for lactic acid >4 and/or hypotension: yes Vasopressors initiated: Yes Sepsis reassessment completed at (date): 03/31/25 Sepsis reassessment completed at (time): 15:05 Possible source: GI tract/intra-abdominal Blood cultures ordered: yes Antibiotic ordered: Yes Advance care planning discussed with:: patient and child Assessment & Plan Assessment Current Active Medications: Generic Name Dose Route Start Last Admin Trade Name Freq PRN Reason Stop Dose Admin Acetaminophen 650 mg 03/30/25 15:53 Acetaminophen Carmita 325 Mg/10 Ml Udc PO 04/29/25 15:52 Q4HR PRN Pain Or Fever > 100.3 Citric Acid/Sodium Citrate 30 ml 03/31/25 09:00 03/31/25 08:50 Citric Acid/Sodium Citr 15 Ml Udc (Bicitra) GT 04/30/25 08:59 30 ml BID AMANDA Administration Dextrose 50 ml 03/30/25 17:10 Dextrose 50%-Water Inj 50 Ml Syringe IV 04/29/25 17:09 Q15MIN PRN BG <50 OR BG <70 & pt unresponsive Glucagon 1 mg 03/30/25 17:10 Glucagon Inj 1 Mg Vial IM Q15MIN PRN BG <70, and no IV access Norepinephrine/Dextrose 8 mg in 250 mls @ 3.827 mls/hr 03/30/25 07:38 03/31/25 09:52 Levophed In D5w 8mg/250ml IV 04/29/25 07:37 0.13 mcg/kg/min .Q24H PRN 9.951 mls/hr PER PROTOCOL Titration Protocol 0.05 MCG/KG/MIN Meropenem 500 mg/ Sodium 50 mls @ 100 mls/hr 03/30/25 21:00 03/31/25 08:50 Chloride IV 04/06/25 20:59 100 mls/hr Q12HR AMANDA Administration Vancomycin/Sodium Chloride 750 mg in 150 mls @ 120 mls/hr 03/31/25 10:00 Vancomycin/Ns 750 Mg Ivpb IV 03/31/25 11:14 X1 ONE Insulin Human Lispro 0 unit 03/30/25 18:00 03/31/25 05:29 Insulin Lispro (Admelog) 1 Unit/0.01 Ml Unit SC 04/29/25 17:59 Not Given Q6HR [facility] Protocol Multivitamins/Minerals 15 ml 03/31/25 10:00 Multivitamin 15 Ml Udc GT 04/30/25 09:59 QDAY [facility] Ondansetron HCl 4 mg 03/30/25 12:15 Ondansetron Inj 2 Mg/Ml Inj 2 Ml IVP 04/29/25 12:14 Q6H PRN NAUSEA OR VOMITING Protocol Pharmacy Consult 1 each 03/30/25 12:15 Pharmacy Renal Dose Adjustment 1 Ea XX 04/29/25 12:14 PRN PRN CONSULT Thiamine HCl 100 mg 03/31/25 10:00 Thiamine Inj 100 Mg/Ml Vial 2 Ml IVP 04/30/25 09:59 QDAY [facility] Plan 80-year-old male with past medical history of BPH with indwelling barrios catheter, primary hypertension, CKD stage IIIb, NIDDM type 2, hyperlipidemia, depression,peripheral artery disease (right lower extremity AKA) and PEG tube insitu presenting with left flank pain. Patient will be admitted to the ICU for treatment of management of urosepsis requiring IV vasopressors. NEURO Likely Dementia Dx: Patient oriented to person and place, but appears confused at times Rx: General measures to prevent hospital induced delirium. History of Depression Not on any medication at home CVS Septic shock?resolving Dx: MAP less than 65 requiring vasopressors and source of infection pyelonephritis, bacteremia. Lactic acid 5.2?>2.8 Rx: Titrate norepinephrine for MAP >65, meropenem 500 Mg IV every 12 hourly [renally dosed] started on [03/30? RRx: If norepinephrine requirements increase, will consider adding vasopressin for resistant shock History of primary hypertension Antihypertensives on hold in setting of shock. PULM No acute problems GI/Hep Protein calorie malnutrition s/p PEG tube Dx: Albumin 2.4. Patient chronically on tube feeds Rx: To resume tube feeds at 20 mL/hour from 10 and to advance 10 mL every 8 hours to achieve goal of 50 mL/h x 24 hours. Water flushes 30 mL/h. As per dietitian recommendations. RENAL Obstructive uropathy s/p left nephrostomy on 03/30 DDx: Secondary to sludgelike calculi proximal left ureter Dx: CT abdomen pelvis fluids solitary calculus proximal left ureter. Normal sanguinous/pus like discharge from nephrostomy over past 24 hours Rx: For left nephrostogram as per urology recommendations. RRX: Dependent on nephrostogram results, for possible left ureteral anterograde stent placement as per urology. Urology, Dr. Parham consulted. Appreciate recommendations ENOC on CKD stage IIIb DDx: Secondary to obstructive uropathy Dx: Baseline CR 1.9?2.1. On admission CR 3.4?>3.9 Rx: 500 cc LR IVF bolus. Nephrology, Dr Shay consulted. Appreciate recommendations Lactic acidosis?resolved NAGMA?resolving DDx: Sepsis, laxative use, large-volume IVF Dx: Lactic acid 5.2 down trended to 2.8. pH 7.31, pCO2 21, bicarb 11?>15.5 Rx: Bicitra 30 mL GT twice daily as per nephrology recommendations RRX: Monitor on renal panel? HEME/ONC Normocytic Anemia DDx: CHARBEL, malnutrition, anemia of chronic disease Dx: Hb 8?>9.2 Rx: Monitor for signs of bleeding on CBC Thrombocytopenia DDx: Chronic inflammation, sepsis Dx: Plt 72?>40 Rx: Monitor for signs of bleeding and CBC ENDO T2 IDDM Rx: Sliding scale q6hrly HLD Rx: Medication on hold as patient NPO ID GNR bacteremia DDx: Secondary to pyelonephritis Dx: Blood culture grew GNR preliminary Rx: Continue renal dosed Meropenem 500 mg IV Q12 hourly started on [03/30? Septic Shock secondary to pyelonephritis, bacteremia See CVS and renal MSK/DERM Gluteal ulcer Rx: Wound care as per wound care nurse. ICU Health maintenance: Dispo: Admit to ICU for septic shock secondary to GNR bacteremia and pyelonephritis Diet: To resume tube feeds from Dinner DVT ppx: SCDs GI ppx: Protonix 40mg qD IV lines: 2 pIV Central line: Left IJ [ placed on 03/30/25 Arterial line: No Barrios: Yes Code status: FULL CODE Plan of care discussed with Attending Dr. Julia Acevedo MD PGY 1
[2025-03-31] MEDS: VANCOMYCIN/NS 750 MG IVPB 750 MG/150 ML BAG 120 MG IV (10:33)
[2025-03-31] MEDS: THIAMINE INJ 100 MG/ML VIAL 2 ML IVP (10:33)
[2025-03-31] MEDS: MULTIVITAMIN 15 ML UDC GT (10:33)
--- NOTE | 2025-03-31 11:32 | PC.DIETICIAN ---
Nutrition prescription Glucerna 1.2 at 20 ml/hr via PEG tube by pump. Advance 10 ml every 8 hrs to goal rate of 50 ml/hr x 24 hrs. If no IV fluids, water flushes of 30 ml/hr (or per MD).
[2025-03-31 11:38] LABS: Slide Review Platelets confirmed
[2025-03-31] MEDS: RINGERS LACTATED 1000 ML 500 ML 999 ML IV (11:38)
--- NOTE | 2025-03-31 13:02 | ESCONSULT_ITS ---
HPI Data of Consult Consult date: 03/31/25 Requesting Physician: Kimo Acevedo MD Admitting Provider: Kimo Acevedo MD Attending Provider: Kimo Acevedo MD Primary Care Provider: Physician No Primary/Family Consult Narrative Reason for consult: ENOC History of present illness: HPI is limited as patient is poor historian at this time-chart review done. Currently seen ICU. Erick is a 80 y/o male with PMHx of BPH with indwelling barrios catheter, primary hypertension, CKD stage IIIb, NIDDM type 2, hyperlipidemia, depression,peripheral artery disease (right lower extremity AKA) and PEG tube who is currently in the ICU requiring vasopressors for shock. Pt was recently hospitalized in August for failure to thrive and had PEG placement by Dr. Raymond. Pt sees Dr. Parham, urology, outpatient for BPH management and pt has chronic indwelling barrios. Pt currently had nephrostomy placement during this admission for postobstructive uropathy 2/2 possible calculus in L proximal ureter. ED Course: Pt presented with a BP 121/65, pulse 1 1, RR 20, temp 101.6 F, SpO2 96% on room air. He was worked up and was found to have a Hgb 8, PLT 72, BUN 46, CR 3.4, lactic acid 5.2, Pro-Jeffy 33.94. Urinalysis significant for cloudy, brown, 3+ blood, leukocyte esterase +9-82 WBC. Abdomen x-ray showed abundant stool in colon and small bowel ileus. Abdomen/pelvis CT showed mild to moderate left hydronephrosis with sludge like calculi in proximal left ureter. In the ED patient received Ringer's lactate 2L IVF bolus, acetaminophen 1.53 p.o. x 1, magnesium citrate 300 mL p.o. x 1, Zosyn 4.5G IV x 1, vancomycin 750 Mg IV x 1 and norepinephrine infusion. Pt was then admitted to ICU for shock. PMHx: As above Surgeries: G tube placement, L BKA Meds: Pending Med Rec Allergies: NKDA Family Hx: Limited at this time Social Hx: Coming from [facility], no significant EtOH or IV/PO drug use, unsure of smoking hx cc:: cc: Kimo Acevedo MD Review of Systems Review of Systems Narrative Review of Systems: 12 Point ROS is limited at this time due to patient being poor historian Past Medical History Past Medical History NEUROLOGIC: Negative Neurological Disorders or Seizures CARDIAC: Positive Cardiac Disorders, Peripheral Vascular Disease, Hypercholesterolemia, Aneurysm and Hypertension; Negative Congestive Heart Failure RESPIRATORY: Negative Chronic Obstructive Pulmonary Disease (COPD) or Asthma GASTROINTESTINAL: Positive Gastrointestinal Disorders and Gastroesophageal Reflux Disease GENITOURINARY: Positive Genitourinary Disorders, Renal Disease and Benign Prostatic Hyperplasia MUSCULOSKELETAL: Positive Musculoskeletal Disorders, Arthritis and Osteomyelitis ENDOCRINE: Positive Endocrine Disorders and Diabetes Mellitus Type 2; Negative Diabetes Mellitus Type 1 HEMATOLOGIC: Positive Anemia; Negative Sickle Cell Disease PSYCHO/SOCIAL: Positive Depression OTHER HISTORY: Negative Blood Transfusions, Blood Transfusion Reaction or Anesthesia Reactions Family History FAMILY HISTORY: Negative Family Cardiac Disorders Surgical History SURGICAL: Positive Amputation Social History SMOKING STATUS: Former smoker SUBSTANCE USE: does not use Exam Vital Signs Temp Pulse Resp BP Pulse Ox O2 Del Method 98.6 F 92 29 H 104/48 L 91 L Room Air 03/31/25 12:00 03/31/25 12:30 03/31/25 12:30 03/31/25 12:30 03/31/25 12:30 03/31/25 08:00 Narrative Exam General: AAOx3, NAD, anorexic, emirati speaking male, weak, frail-in ICU HEENT: dry mucous membranes, conjunctiva clear, EOMI, PERRLA, Cardiovascular: S1, S2, radial pulses +2 bilat, RRR, ESM heard possible MARC Pulmonary: CTAB bilat no cough, no wheezing GI: No tenderness to light or deep palpitation, no guarding, rigidity, rebound tenderness or distension. PEG tube Extremities: L BKA, weak musculature, no pitting edema in RLE , dorsalis pedis pulses +2 bilaterally Left nephrostomy tube, Barrios catheter Neuro: Awake. Psych: Good judgement, thought and behavior Results Labs 03/31/25 04:39 03/31/25 04:48 Labs: Short CBC 03/31/25 Range/Units 04:39 WBC 33.6 H D (3.8-10.6) Thou/mm3 Hgb 9.2 L (13.5-16.0) g/dL Hct 27.8 L (41.0-53.0) % Plt Count 40 L D (140-440) Thou/mm3 BMP 03/31/25 04:48 Sodium 139 Potassium 4.5 Chloride 112 H Carbon Dioxide 15.5 L BUN 52 H Creatinine 3.9 H D Glucose 68 L Calcium 7.5 L Liver Function 03/31/25 Range/Units 04:48 Total Bilirubin 0.5 (0.3-1.2) mg/dL AST 41 H (0-34) U/L ALT 16 (10-49) U/L Alkaline Phosphatase 65 (46-116) U/L Albumin 2.6 L (3.4-4.8) gm/dL ABG Interpretation ABG results: 03/30/25 07:35 ABG pH 7.31 L ABG pCO2 21 L ABG pO2 109 H ABG HCO3 11 L ABG O2 Saturation 99 H ABG Base Excess -14 L Quality Measures Quality Measures sepsis Current suspected stage: sepsis Possible source: GI tract/intra-abdominal Blood cultures ordered: yes Antibiotic ordered: Yes Advance care planning discussed with:: patient Medications Home Medications and Allergies Home Medications ?Medication ?Instructions ?Recorded ?Confirmed ?Type linagliptin 5 mg tablet (Tradjenta) 5 mg PO QDAY 11/0603/30/25 History bisacodyl 10 mg rectal suppository 10 mg PA QDAY PRN C onstipation 11/25/23 03/30/25 History (Dulcolax (bisacodyl)) ferrous sulfate 325 mg (65 mg 325 mg PO BID 11/25/23 0 03/30/25 History iron) tablet glucagon HCl 1 mg solution for 1 mg subcut Q15M PRN Hy poglycemia 11/25/23 03/30/25 History injection (Glucagon (HCl) Emergency Kit) mirtazapine 30 mg tablet (Remeron) 30 mg PO HS appetit e stimulant 09/06/24 03/30/25 History ondansetron HCl 4 mg tablet 4 mg PO Q6H PRN Nausea And Vomiting 09/06/24 03/30/25 History Allergies Allergy/AdvReac Type Severity Reaction Status Date / Time No Known Allergies Allergy Verified 11/24/24 13:12 Visit Medications Acetaminophen (Acetaminophen Carmita 325 Mg/10 Ml Udc) 650 mg PO Q4HR PRN PRN Reason: Pain Or Fever > 100.3 Stop: 04/29/25 15:52 Citric Acid/Sodium Citrate (Citric Acid/Sodium Citr 15 Ml Udc (Bicitra)) 30 ml GT BID AMANDA Stop: 04/30/25 08:59 Last Admin: 03/31/25 08:50 Dose: 30 ml Dextrose (Dextrose 50%-Water Inj 50 Ml Syringe) 50 ml IV Q15MIN PRN PRN Reason: BG <50 OR BG <70 & pt unresponsive Stop: 04/29/25 17:09 Glucagon (Glucagon Inj 1 Mg Vial) 1 mg IM Q15MIN PRN PRN Reason: BG <70, and no IV access Norepinephrine/Dextrose (Levophed In D5w 8mg/250ml) 8 mg in 250 mls @ 3.827 mls/hr IV .Q24H PRN; Protocol PRN Reason: PER PROTOCOL Stop: 04/29/25 07:37 Last Titration: 03/31/25 10:30 Dose: 0.15 mcg/kg/min, 11.481 mls/hr Meropenem 500 mg/ Sodium (Chloride) 50 mls @ 100 mls/hr IV Q12HR COUNTS INCLUDE 234 BEDS AT THE [facility] Stop: 04/06/25 20:59 Last Admin: 03/31/25 08:50 Dose: 100 mls/hr Insulin Human Lispro (Insulin Lispro (Admelog) 1 Unit/0.01 Ml Unit) 0 unit SC Q6HR AMANDA; Protocol Stop: 04/29/25 17:59 Last Admin: 03/31/25 11:40 Dose: Not Given Multivitamins/Minerals (Multivitamin 15 Ml Udc) 15 ml GT QDAY COUNTS INCLUDE 234 BEDS AT THE [facility] Stop: 04/30/25 09:59 Last Admin: 03/31/25 10:33 Dose: 15 ml Ondansetron HCl (Ondansetron Inj 2 Mg/Ml Inj 2 Ml) 4 mg IVP Q6H PRN; Protocol PRN Reason: NAUSEA OR VOMITING Stop: 04/29/25 12:14 Pharmacy Consult (Pharmacy Renal Dose Adjustment 1 Ea) 1 each XX PRN PRN PRN Reason: CONSULT Stop: 04/29/25 12:14 Thiamine HCl (Thiamine Inj 100 Mg/Ml Vial 2 Ml) 100 mg IVP QDAY COUNTS INCLUDE 234 BEDS AT THE [facility] Stop: 04/30/25 09:59 Last Admin: 03/31/25 10:33 Dose: 100 mg Discontinued Medications Acetaminophen (Acetaminophen 500 Mg Tablet) 500 mg PO X1 ONE Stop: 03/30/25 02:25 Last Admin: 03/30/25 02:44 Dose: 500 mg Acetaminophen (Acetaminophen 500 Mg Tablet) 1,000 mg PO X1 ONE Stop: 03/30/25 04:21 Last Admin: 03/30/25 05:38 Dose: 1,000 mg Dextrose (Dextrose 50%-Water Inj 50 Ml Syringe) 50 ml IVP X1 ONE Stop: 03/30/25 18:32 Last Admin: 03/30/25 18:42 Dose: 50 ml Dextrose (Dextrose 50%-Water Inj 50 Ml Syringe) 50 ml IVP X1 ONE Stop: 03/31/25 05:40 Last Admin: 03/31/25 05:51 Dose: 50 ml Lactated Ringer's (Lactated Ringers) 500 mls @ 500 mls/hr IV .Q1H ONE Stop: 03/29/25 22:47 Last Infusion: 03/29/25 23:35 Dose: Infused Lactated Ringer's (Lactated Ringers) 500 mls @ 500 mls/hr IV .Q1H ONE Stop: 03/30/25 00:13 Last Infusion: 03/30/25 00:40 Dose: Infused Ceftriaxone Sodium/Dextrose (Rocephin/D5w 1gm Iv Premix) 1 gm in 50 mls @ 100 mls/hr IV NOW ONE Stop: 03/30/25 02:26 Last Infusion: 03/30/25 03:14 Dose: Infused Lactated Ringer's (Lactated Ringers) 1,000 mls @ 999 mls/hr IV .Q1H1M ONE Stop: 03/30/25 03:24 Last Infusion: 03/30/25 03:46 Dose: Infused Piperacillin Sod/Tazobactam (Sod 4.5 gm/ Sodium Chloride) 100 mls @ 200 mls/hr IV NOW ONE Stop: 03/30/25 05:42 Last Infusion: 03/30/25 07:00 Dose: Infused Lactated Ringer's (Lactated Ringers) 1,000 mls @ 125 mls/hr IV .Q8H ONE Stop: 03/30/25 13:14 Last Infusion: 03/30/25 11:21 Dose: Infused Vancomycin HCl 500 mg/ Sodium (Chloride) 250 mls @ 250 mls/hr IV X1 ONE Stop: 03/30/25 06:44 Last Admin: 03/30/25 10:01 Dose: Not Given Vancomycin/Sodium Chloride (Vancomycin/Ns 750 Mg Ivpb) 750 mg in 150 mls @ 120 mls/hr IV X1 ONE Stop: 03/30/25 07:44 Last Infusion: 03/30/25 08:05 Dose: Infused Norepinephrine/Dextrose (Levophed In D5w 8mg/250ml) 8 mg in 250 mls @ 3.827 mls/hr IV .Q24H PRN; Protocol PRN Reason: PER PROTOCOL Stop: 04/29/25 06:47 Lactated Ringer's (Lactated Ringers) 1,000 mls @ 150 mls/hr IV .Q6H40M AMANDA Stop: 04/29/25 12:14 Last Admin: 03/30/25 15:14 Dose: 150 mls/hr Norepinephrine Bitartrate (Levophed In Ns 16mg/250ml) 16 mg in 250 mls @ 1.914 mls/hr IV .Q24H PRN; Protocol PRN Reason: PER PROTOCOL Stop: 04/29/25 12:18 Lactated Ringer's (Lactated Ringers) 1,000 mls @ 999 mls/hr IV .Q1H1M ONE Stop: 03/30/25 18:11 Last Admin: 03/30/25 18:30 Dose: Not Given Lactated Ringer's (Lactated Ringers) 500 mls @ 999 mls/hr IV .Q31M ONE Stop: 03/30/25 17:45 Last Admin: 03/30/25 18:29 Dose: 999 mls/hr Vancomycin/Sodium Chloride (Vancomycin/Ns 750 Mg Ivpb) 750 mg in 150 mls @ 120 mls/hr IV X1 ONE Stop: 03/31/25 11:14 Last Admin: 03/31/25 10:33 Dose: 120 mls/hr Lactated Ringer's (Lactated Ringers) 500 mls @ 999 mls/hr IV .Q31M ONE Stop: 03/31/25 11:21 Last Admin: 03/31/25 11:38 Dose: 999 mls/hr Lidocaine HCl (Lidocaine Inj Pf 1% 30 Ml Vial) 3 ml INFL X1 ONE Stop: 03/30/25 13:31 Last Admin: 03/30/25 13:48 Dose: 3 ml Magnesium Citrate (Magnesium Citrate 300 Ml Btl) 300 ml PO X1 ONE Stop: 03/30/25 04:27 Last Admin: 03/30/25 06:05 Dose: 300 ml Ondansetron HCl (Ondansetron Inj 2 Mg/Ml Inj 2 Ml) 4 mg IVP X1 ONE; Protocol Stop: 03/30/25 07:39 Last Admin: 03/30/25 07:45 Dose: 4 mg Pharmacy Consult (Vancomycin Pharmacy To Dose 1 Each Each) 1 each IV X1 PRN PRN Reason: PROTOCOL Stop: 04/29/25 05:14 Assessment & Plan Plan Assessment 80-year-old male with past medical history of BPH with indwelling barrios catheter, primary hypertension, CKD stage IIIb, NIDDM type 2, hyperlipidemia, depression,peripheral artery disease (right lower extremity AKA) and PEG tube insitu presenting with left flank pain. Patient will be admitted to the ICU for treatment of management of urosepsis requiring IV vasopressors. #ENOC on CKD stage IIIb #Obstructive uropathy #Lactic acidosis #NAGMA #GNR bacteremia #Oliguria # ? Mixed acid base disorder Secondary to sludgelike calculi proximal left ureter Percutaneous nephrostomy placement by IR. Previous urine cultures have shown Pseudomonas, E. coli, Proteus, Enterococcus Patient has also been MRSA positive in the past Current blood cultures show GNR bacteremia 2 out of 2 bottles Urine output less than 400 cc BUN/creatinine of 52 and 3.9 -> Postrenal Last Lactate 2.8 Metabolic acidosis likely related to lactate despite no anion gap on labs but lactate strongly suggests AG Pt is not having significant compensation from a respiratory stand point Expected PCO2 compensation should be 27-31 despite it only being 21 on ABG Plan: ? Urology consulted, appreciate recs ? Monitor UOP ? Urine lytes and creatinine ? Trend CMP and lytes ? Follow-up urine culture ? Follow-up blood cultures ? Avoid nephrotoxic agents ? Renally dose medicines ? Recommend 1 L bolus if pt is fluid responsive based on NICOM ? Bicitra 30 mL BID GT #Normocytic Anemia #Thrombocytopenia #T2 IDDM #HLD #Septic Shock secondary to UTI #Gluteal ulcer #Likely Dementia #History of Depression #Septic shock #History of primary hypertension #Protein calorie malnutrition s/p PEG tube #Failure to thrive #Anorexic Patient seen and care discussed with my attending physician, Dr. Jaspal Hutchison, PGY-1 Attending Provider Attestation/Addendum Patient seen and examined with resident physician Dr. Pennington, Note reviewed, agree with findings and recommendations. Patient with ENOC secondary to sepsis//obstructive uropathy. Patient had left nephrostomy tube. Dr. Munguia on the case. He has a feeding tube for failure to thrive. Continue with free water flushes, fluids. Will follow him closely. No need for dialysis. Thank you Dr. Dumont for allowing me to participate in the care of Mr. Denton
[2025-03-31 14:11] LABS: Chloride,Urine Random 34.3 mMol/L (55.0-125.0); Creatinine,Random Urine 71 mg/dL (30-125); Potassium,Urine Random 40 mMol/L (12-62); Sodium,Urine Random 35.8 mMol/L (20.0-110.0)
--- NOTE | 2025-03-31 14:38 | PC.SS ---
SS follow up note; Patient is medically cleared, however pending [facility] clearance to discharge back home.
--- NOTE | 2025-03-31 15:14 | PC.SS ---
RACKMAN conducted bedside contact with the patient conduct initial assessment and to discuss discharge planning.? At bedside with patient was son, Elias Rodriguez .? Son provided information for assessment and discharge planning.? 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 Patient utilizes a wheelchair to assist with mobility. ?Patient does not utilize oxygen at the facility.? Patient requires assistance with the completion of ADL?s.? Patient?s medical surrogate decision maker is son, Elias Rodriguez.? Facility PCP is Dr. Jeff.? The patient does not participate with dialysis.? Discharge plan is for the patient to return to [facility] at the time of discharge.? Patient does possess coverage for transport.? registered nurse surgical services to assist arranging transportation at the time of discharge.? No further intervention required at this time, social organization professor will be available to address any further concerns.? Next of Kin: Elias Rodriguez D/C Plan: SNF
--- NOTE | 2025-03-31 15:15 | PC.SS ---
POWER GENERATION EQUIPMENT REPAIRER informed by ICU resident that patient might be a candidate for dialysis. Decision pending. Nephrology consulting, Dr. Shay.
[2025-04-01] VITALS (123 sets, daily range): BP systolic 77–135; BP diastolic 36–77; PULSE 85–124; RESP 11–98; TEMP 36.2–36.9; O2SAT 71–100
[2025-04-01 05:34] LABS: Basophils # (Auto) 0.2 Thou/mm3 (0.0-0.2); Basophils % (Auto) 1 % (0-2.5); Eosinophils % (Auto) 0 % (0-10); Hematocrit 23.8 % (41.0-53.0); Immature Granulocytes % (Auto) 34 % (0-0); Immature Granulocytes Auto 10.87 Thou/mm3 (0.00-0.00); Lymphocytes # (Auto) 0.9 Thou/mm3 (1.0-4.8); Lymphocytes % (Auto) 3 % (10-50); Mean Corpuscular HGB Conc 34.9 g/dl (31.0-37.0); Mean Corpuscular Hemoglobin 29.5 pg (25.0-35.0); Mean Corpuscular Volume 85 fL (80-100); Monocytes # (Auto) 0.4 Thou/mm3 (0.0-0.8); Monocytes % (Auto) 1 % (0-12); Neutrophils # (Auto) 19.7 Thou/mm3 (1.8-7.7); Neutrophils % (Auto) 62 % (37-80); Nucleated Red Blood Cell % 0 /100 WBC (0); RDW Standard Deviation 48.1 fL (35.1-43.9); Red Blood Count 2.81 Miln/mm3 (4.50-5.90)
[2025-04-01 06:02] LABS: Hemoglobin 8.3 g/dL (13.5-16.0)
[2025-04-01 06:06] LABS: Alanine Aminotransferase 17 U/L (10-49); Albumin, Serum 2.4 gm/dL (3.4-4.8); Alkaline Phosphatase 90 U/L (46-116); Anion Gap 8 (7-16); Aspartate Amino Transferase 32 U/L (0-34); BUN/Creatinine Ratio 15 Ratio (12-20); Bilirubin,Total 0.5 mg/dL (0.3-1.2); Blood Urea Nitrogen 58 mg/dL (9-23); Calcium 7.4 mg/dL (8.3-10.6); Calcium (Corrected) 8.7 mg/dL (8.5-10.1); Carbon Dioxide 17.7 mMol/L (20.0-31.0); Chloride 110 mMol/L (98-107); Creatinine (Component) 3.9 mg/dL (0.6-1.3); Estimated Creatinine Clearance 8.9 mL/min (>60); Globulin 2.3 gm/dL (2.3-3.5); Glucose 101 mg/dL (74-106); Magnesium 1.9 mg/dL (1.6-2.6); Osmolality,Calculated 288 (275-295); Potassium 4.2 mMol/L (3.4-5.1); Sodium 136 mMol/L (136-145); Total Protein 4.7 gm/dL (5.7-8.2); eGFR 15 See Note
[2025-04-01 06:07] LABS: Platelet Count 28 Thou/mm3 (140-440)
--- NOTE | 2025-04-01 07:48 | ESCONSULT_ITS ---
RE: DASIA ALEXIS : 1945 DATE OF CONSULTATION: 03/31/2025 CHIEF COMPLAINT: 1. Weakness. 2. Tremors. 3. Urosepsis. 4. Status post perineal urethrostomy done by another urologist. 5. Chronic kidney disease. 6. Left hydronephrosis, status post placement of percutaneous nephrostomy. HISTORY OF PRESENT ILLNESS: This is an 80-year-old gentleman. He has a history of chronic kidney disease, BPH with Tracy catheter, diabetes mellitus, according to from [facility], came to the emergency room with the chief complaint of left uriel pain. He denies any nausea, vomiting, fever, chills, and any associated symptoms. Past medical history, family history, review of the systems, personal history, please refer to patient's history form dated 03/29/2025. On examination, the patient is not verbal, unable to give the answers. I have reviewed his records from his previous admissions and I have also reviewed emergency room records. PHYSICAL EXAMINATION: VITAL SIGNS: Stable. Pulse oximetry is 96% on room air. GENERAL APPEARANCE: The patient is awake and alert. HEENT: Normocephalic, atraumatic. Eyes: No anemia or jaundice. NECK: Supple. Trachea is central. CHEST: Symmetrical. HEART: Regular rate and rhythm. ABDOMEN: Soft and nontender. No masses. Liver, spleen, and kidney not palpable. He has left upper cutaneous nephrostomy, which is not draining. GENITALIA: Status post perineal urethrostomy. The patient had CAT scan of the abdomen and pelvis done, reviewed by me. He has hydronephrosis, mild to moderate left with sludge like calculus in the proximal left ureter. The patient had placement of percutaneous nephrostomy, left. It is not draining. It was irrigated. There was some sludge coming. VARIOUS LABS: WBC is 9, hemoglobin 9. Serum sodium is 139, BUN is 11, creatinine is 3.4, GFR is 18. RECOMMENDATION: 1. Treat with antibiotics according to the culture and sensitivity. 2. Nephrostogram. 3. Followup appointment in Urology office. The patient is going to have consultation with the double corner cutter. At this time from urology point of view is nephrostomy, if the patient is stable, then he is going to be scheduled for cystoscopy, possible placement of left ureteral stent as an outpatient basis. I will review his nephrostogram. If the nephrostomy tube is not in a proper position, he may need repositioning of nephrostomy tube. DT: 10:11:55 TT: 12:38:00 Ref: - TID: [id number] MTDD
--- NOTE | 2025-04-01 08:31 | PD.RESPRO ---
Documentation for date of: 04/01/25 Subjective Subjective Interval history: Patient is Andorran-speaking and history facilitated by registered healthcare interpreter and translator. 80-year-old male with past medical history of BPH with indwelling barrios catheter, primary hypertension, CKD stage IIIb, NIDDM type 2, hyperlipidemia, depression,peripheral artery disease (right lower extremity AKA) and PEG tube insitu presenting with left flank pain. Patient is a resident at [facility]. According to patient yesterday night he began having left flank pain 9/10, constant, no radiation, and no relief with Tylenol. Denied any fever, sick contacts, recent travel, vomiting, diarrhea, chest pain/pressure and palpitations. He has monthly barrios catheter changes at Dr. Parham's office Patient was hospitalized August last year for failure to thrive and PEG tube was placed for nutritional needs. ED course: BP 121/65, pulse 1 1, RR 20, temp 101.6 F, SpO2 96% on room air Labs significant for Hb 8, PLT 72, BUN 46, CR 3.4, lactic acid 5.2, Pro-Jeffy 33.94. Urinalysis significant for cloudy, brown, 3+ blood, leukocyte esterase +9-82 WBC. Abdomen x-ray showed abundant stool in colon and small bowel ileus. Abdomen/pelvis CT showed mild to moderate left hydronephrosis with sludge like calculi in proximal left ureter. In the ED patient received Ringer's lactate 2L IVF bolus, acetaminophen 1.53 p.o. x 1, magnesium citrate 300 mL p.o. x 1, Zosyn 4.5G IV x 1, vancomycin 750 Mg IV x 1 and norepinephrine infusion. Patient will be admitted to the ICU for treatment of management of urosepsis requiring IV vasopressors. 03/31/2025: No events overnight. Levophed infusion ongoing. This morning patient alert and oriented x 3, denies any flank pain, nausea, vomiting. WBC increased to 33.6 from 6.7, PLT decreased to 40 from 72, bicarb improved to 15.5 from 13.8, LA downtrended to 2.8 from 4, CR increased to 3.9 from 3.3. Blood culture grew GNR preliminary, urine culture pending. Minimal output from left nephrostomy in past 24 hours. Started on Bicitra 30 mL GT twice daily, Ringer's lactate 500 cc IVF bolus, continue meropenem 500 Mg IV twice daily, continue to wean Levophed as tolerated, for left nephrostogram as per urology recommendations. 04/01/2025: Overnight patient had diarrhea. Currently on Norel at 0.03, tube feeds at 50 cc/hour with free water flushes at 75 cc/12. Urine output 60 cc from Barrios/24 hours, 100 cc from nephrostomy/24 hours. Today patient only complained of diarrhea, however desatted into the 70s and had to be placed on HFNC and 25L, FiO2 40%. WBC decreased to 32 from 33.6, Hb decreased to 8.3 from 9.2, PLT decreased to 28 from 40, Cr. stabe at 3.9, Bun increased to 58 from 52, Bicarb increased to 17.7 from 15.2, Phos decreased to 2 from 3.5, globulin 2.3. Blood culture grew E. coli pansensitive to all tested antibiotics. Chest x-ray showed bilateral flash pulmonary edema. Repleted with K-Phos 15 mm x 1, de-escalated meropenem to ceftriaxone 2 g IV daily, emergent placement of right femoral dialysis catheter and hemodialysis. Patient's son, Elias Rodriguez updated about today's events. Exam Vital Signs Temp Pulse Resp BP Pulse Ox O2 Del Method O2 Flow Rate 98.1 F 121 H 32 H 99/52 L 90 L Oxy Mask 4 04/01/25 04:00 04/01/25 07:43 04/01/25 07:43 04/01/25 06:15 04/01/25 06:15 04/01/25 04:00 04/01/25 04:00 Narrative Exam Constitutional Alert, oriented x 3, Person and place and comfortable. Elderly male, bitemporal wasting, cachectic. HEENT Vision grossly intact. Patent nares. Trachea midline Respiratory Chest normal on inspection and bilateral crackles On anterior and posterior chest wall. Left IJ catheter. Exit site clean Cardiovascular S1 and S2 audible, RRR. No murmurs carotid bruit. No gross JVD. Abdominal Soft and non tender to palpation in all quadrants. BS + PEG tube in situ, exit site clean. Genitourinary No bladder tenderness, no flank pain. Normal to palpation. Left nephrostomy tube in situ, minimal purulent/sanguinous drainage. Right hemodialysis catheter in situ. Exit site clean Musculoskeletal. Extremities tone within normal limits. No LE edema. Right AKA noted Neurological CN II - XII grossly intact. Extremity motor and sensation grossly intact. Skin Warm, dry and intact. Right buttock pressure ulcer. Psychiatric Patient has good affect, is cooperative Objective Labs 04/03/25 04:55 04/03/25 04:55 Labs: Laboratory Results - last 24 hr 03/31/25 03/31/25 04/01/25 04:39 13:20 04:20 WBC 32.0 H RBC 2.81 L Hgb 8.3 L Hct 23.8 L MCV 85 MCH 29.5 MCHC 34.9 RDW Std Deviation 48.1 H Plt Count 28 L* D Neut % (Auto) 62 Lymph % (Auto) 3 L [place] % (Auto) 1 Eos % (Auto) 0 Baso % (Auto) 1 Neut # (Auto) 19.7 H Lymph # (Auto) 0.9 L [place] # (Auto) 0.4 Eos # (Auto) 0.0 Baso # (Auto) 0.2 Immature Gran # (Auto) 10.87 H Absolute Nucleated RBC 0.00 Immature Gran % 34 H Nucleated RBC % 0 Sodium 136 Potassium 4.2 Chloride 110 H Carbon Dioxide 17.7 L Anion Gap 8 BUN 58 H Creatinine 3.9 H Estim Creat Clear Calc 8.9 L eGFR 15 L BUN/Creatinine Ratio 15 Glucose 101 Calculated Osmolality 288 Calcium 7.4 L Corrected Calcium 8.7 Phosphorus 2.0 L Magnesium 1.9 Total Bilirubin 0.5 AST 32 ALT 17 Alkaline Phosphatase 90 D Total Protein 4.7 L Albumin 2.4 L Globulin 2.3 Albumin/Globulin Ratio 1.0 L Ur Random Creatinine 71 Ur Random Sodium 35.8 Ur Random Potassium 40 Ur Random Chloride 34.3 L Misc Test Result Platelets confirmed ABG Interpretation ABG results: 03/30/25 07:35 ABG pH 7.31 L ABG pCO2 21 L ABG pO2 109 H ABG HCO3 11 L ABG O2 Saturation 99 H ABG Base Excess -14 L Quality Measures Quality Measures sepsis Current suspected stage: septic shock (LA >4 and/or hypotension) IVF 30 ml/kg given for lactic acid >4 and/or hypotension: yes Vasopressors initiated: Yes Sepsis reassessment completed at (date): 04/01/25 Sepsis reassessment completed at (time): 17:19 Possible source: GI tract/intra-abdominal Blood cultures ordered: yes Antibiotic ordered: Yes Advance care planning discussed with:: patient and child Assessment & Plan Assessment Current Active Medications: Generic Name Dose Route Start Last Admin Trade Name Freq PRN Reason Stop Dose Admin Acetaminophen 650 mg 03/30/25 15:53 Acetaminophen Carmita 325 Mg/10 Ml Udc PO 04/29/25 15:52 Q4HR PRN Pain Or Fever > 100.3 Citric Acid/Sodium Citrate 30 ml 03/31/25 09:00 03/31/25 20:51 Citric Acid/Sodium Citr 15 Ml Udc (Bicitra) GT 04/30/25 08:59 30 ml BID AMANDA Administration Dextrose 50 ml 03/30/25 17:10 Dextrose 50%-Water Inj 50 Ml Syringe IV 04/29/25 17:09 Q15MIN PRN BG <50 OR BG <70 & pt unresponsive Glucagon 1 mg 03/30/25 17:10 Glucagon Inj 1 Mg Vial IM Q15MIN PRN BG <70, and no IV access Norepinephrine/Dextrose 8 mg in 250 mls @ 3.827 mls/hr 03/30/25 07:38 04/01/25 06:00 Levophed In D5w 8mg/250ml IV 04/29/25 07:37 0.03 mcg/kg/min .Q24H PRN 2.296 mls/hr PER PROTOCOL Titration Protocol 0.05 MCG/KG/MIN Ceftriaxone Sodium 2 gm/ 50 mls @ 100 mls/hr 04/01/25 09:00 Sodium Chloride IV 04/08/25 08:59 QDAY [facility] Sodium Phosphate 15 mmol/ 255 mls @ 62.5 mls/hr 04/01/25 07:22 Sodium Chloride IV 04/01/25 11:26 X1 ONE Insulin Human Lispro 0 unit 03/30/25 18:00 04/01/25 06:15 Insulin Lispro (Admelog) 1 Unit/0.01 Ml Unit SC 04/29/25 17:59 Not Given Q6HR [facility] Protocol Multivitamins/Minerals 15 ml 03/31/25 10:00 03/31/25 10:33 Multivitamin 15 Ml Udc GT 04/30/25 09:59 15 ml QDAY AMANDA Administration Ondansetron HCl 4 mg 03/30/25 12:15 Ondansetron Inj 2 Mg/Ml Inj 2 Ml IVP 04/29/25 12:14 Q6H PRN NAUSEA OR VOMITING Protocol Pharmacy Consult 1 each 03/30/25 12:15 Pharmacy Renal Dose Adjustment 1 Ea XX 04/29/25 12:14 PRN PRN CONSULT Thiamine HCl 100 mg 03/31/25 10:00 03/31/25 10:33 Thiamine Inj 100 Mg/Ml Vial 2 Ml IVP 04/30/25 09:59 100 mg QDAY AMANDA Administration Plan 80-year-old male with past medical history of BPH with indwelling barrios catheter, primary hypertension, CKD stage IIIb, NIDDM type 2, hyperlipidemia, depression,peripheral artery disease (right lower extremity AKA) and PEG tube insitu presenting with left flank pain. Patient will be admitted to the ICU for treatment of management of urosepsis requiring IV vasopressors. NEURO Likely Dementia Dx: Patient oriented to person and place, but appears confused at times Rx: General measures to prevent hospital induced delirium. History of Depression Not on any medication at home CVS Septic shock?resolving Dx: MAP less than 65 requiring vasopressors and source of infection pyelonephritis, bacteremia. Lactic acid 5.2?>2.8.Blood culture grew E. coli pansensitive to all tested antibiotics Rx: Titrate norepinephrine for MAP >65, meropenem 500 Mg IV every 12 hourly [renally dosed] [03/30?04/01]. De-escalated antibiotics to ceftriaxone gram IV daily [04/01?. Blood culture grew E. coli pansensitive to all antibiotics RRx: For Left nephrostogram to assess functioning of drain History of primary hypertension Antihypertensives on hold in setting of shock. PULM Acute respiratory failure with hypoxia secondary to flash pulmonary edema DDx: Secondary to excessive IV fluids and obstructive uropathy Dx: Chest x-ray showed bilateral/pulmonary edema Rx: HFNC, titrate as necessary. Emergent hemodialysis RRx: Titrate HFNC after hemodialysis. Repeat CXR tomorrow GI/Hep Protein calorie malnutrition s/p PEG tube Dx: Albumin 2.4. Patient chronically on tube feeds Rx: COntinue tube feeds at 50 mL/h x 24 hours. Water flushes 75 mL/h. As per dietitian recommendations. RENAL Obstructive uropathy s/p left nephrostomy on 03/30 DDx: Secondary to sludgelike calculi proximal left ureter Dx: CT abdomen pelvis fluids solitary calculus proximal left ureter. Normal sanguinous/pus like discharge from nephrostomy over past 24 hours Rx: For left nephrostogram as per urology recommendations. Nephrostogram scheduled for tomorrow as per Dr. Moore. Dr. Moore also requested platelet transfusion prior to procedure. RRX: Dependent on nephrostogram results, for possible left ureteral anterograde stent placement as per urology. Urology, Dr. Parham consulted. Appreciate recommendations ENOC on CKD stage IIIb DDx: Secondary to obstructive uropathy, ATN Dx: Baseline CR 1.9?2.1. On admission CR 3.4?>3.9 ->3.9 Rx: Nephrology, Dr Shay consulted. Appreciate recommendations RRx: For emergent hemodialysis due to acute respiratory failure with hypoxia secondary to flash pulmonary edema and patient unable to produce urine. NAGMA?resolving DDx: Sepsis, large-volume IVF Dx: Lactic acid 5.2 down trended to 2.8. pH 7.31, pCO2 21, bicarb 11?>15.5 Rx: Bicitra 30 mL GT twice daily as per nephrology recommendations RRX: Monitor on renal panel Hypophosphatemia DDx: Early signs of refeeding syndrome Tx: Phos 2, Mg 1.9 Rx: Repleted with K-Phos 15 mmol x 1 RRx: Follow potassium tomorrow HEME/ONC Normocytic Anemia DDx: CHARBEL, malnutrition, anemia of chronic disease, Multiple myeloma, CLL Dx: Hb 8?>9.2 Rx: Monitor for signs of bleeding on CBC RRx: If patient improves from this acute illness, for outpatient workup of anemia Thrombocytopenia DDx: Chronic inflammation, sepsis, Multiple myeloma, MDS Dx: Plt 72?>40 -> 38 Rx: Monitor for signs of bleeding and CBC RRx: If patient improves from this acute illness, for outpatient workup of thrombocytopenia ENDO T2 IDDM Rx: Sliding scale q6hrly HLD Rx: Medication on hold as patient NPO ID E. coli bacteremia DDx: Secondary to pyelonephritis Dx: Blood culture grew E. coli pansensitive to tested antibiotics Rx: Meropenem 500 mg IV Q12 hourly started on [03/30?04/01]. De-escalated to ceftriaxone 2 g IV daily on [04/01? Septic Shock secondary to pyelonephritis, bacteremia?resolving See CVS and renal MSK/DERM Gluteal ulcer Rx: Wound care as per wound care nurse. ICU Health maintenance: Dispo: Admit to ICU for septic shock secondary to E. coli bacteremia and pyelonephritis. Emergent hemodialysis Diet: Tube feeds as per dietitian DVT ppx: SCDs GI ppx: Protonix 40mg qD IV lines: 2 pIV Central line: Left IJ [ placed on 03/30/25, right , femoral HD catheter [placed on 04/01/2025 Arterial line: No Barrios: Yes Code status: FULL CODE Plan of care discussed with Attending Dr. Kiera Acevedo MD PGY 1 Attending Provider Attestation/Addendum Patient seen and examined with the above resident, Kimo Acevedo MD. I agree with the findings, assessment, and plan of care as documented except for any differences below. Patient with worsening renal failure superimposed on septic shock. Additional fluid challenge failed, barrios flushed, and likely reflection of reduced GFR. He had continued decline overnight in respiratory status which progressed through the day. Chest film completed this AM shows bilateral worsening infiltrates, favor fluid overload given inability of renal clearance. Renal contacted for HD for pulmonary edema/ volume overload. Nephrostomy drain to be exchanged today potentially as likely source of shock. Remains on stable antibiotic regimen at this time. Patient placed on HHHFNC and will monitor closely after HD for need for intubation/ MV. Patient remains decisional and though he is aware of need for HD, he remains adamant on pursuing any care that could be helpful for him even in the short term. His son Elias is primary surrogate in case of worsening. Will continue to wean off low dose vasopressors as tolerated. Patient gave verbal understanding of ongoing plan of care and remains agreeable at this time. Total critical care time: I personally spent 45 minutes for review of physiologic parameters, directing plan of care, coordination of care with other specialists, and counseling patient at bedside. This is exclusive of time spent teaching housestaff or performing any separate billable procedures. Patient remains at high risk for further morbidity and mortality warranting close monitoring and care only available in the ICU. Critical care services required for acute renal failure, septic shock, and acute hypoxic respiratory failure.
[2025-04-01 08:42] LABS: Slide Review Platelets confirmed
--- NOTE | 2025-04-01 08:49 | XR_ITS ---
Examination: AP chest single view TECHNIQUE: AP portable upright chest single view Date and time: April 01, 2025 0900 hours Comparison March 30, 2025 INDICATIONS: Hypoxia shortness of breath today FINDINGS: Interval significant bilateral pneumonia Mild enlargement cardiac contour with prominent vascular congestion Left internal jugular central line tip SVC Layered right pleural disease Severe osteopenia IMPRESSION: Interval extensive bilateral pneumonia Mild associated heart failure
[2025-04-01] MEDS: Norepinephrine/D5W 8mg/250ml 8 MG/250 ML BAG 2.296 MG IV (09:09)
[2025-04-01] MEDS: SOD PHOS ADDITIVE 15 MMOL in SODIUM CHLORIDE 0.9% 250 ML 250 ML 62.5 MMOL IV (09:39)
[2025-04-01] MEDS: cefTRIAXone 2 GM in SODIUM CHLORIDE 0.9% (Popper) 50 ML IV (09:40)
[2025-04-01] MEDS: CITRIC ACID/SODIUM CITR 15 ML UDC (BICITRA) 30 ML GT ×2 (09:41→21:33)
[2025-04-01] MEDS: MULTIVITAMIN 15 ML UDC GT (09:41)
[2025-04-01] MEDS: THIAMINE INJ 100 MG/ML VIAL 2 ML IVP (09:41)
[2025-04-01] MEDS: SODIUM CHLORIDE 0.9% 1000 ML 1,000 ML 999 ML IV (09:44)
[2025-04-01 10:15] LABS: INR 1.3 (0.9-1.3); Partial Thromboplastin Time 48.3 Seconds (22.0-36.0)
[2025-04-01] MEDS: ONDANSETRON INJ 2 MG/ML INJ 2 ML 4 MG IVP (10:31)
[2025-04-01 12:55] LABS: Path Review Blood Smear Sent to Pathologist
--- NOTE | 2025-04-01 15:28 | ESPR_ITS ---
Documentation for date of: 04/01/25 Subjective Subjective Interval history: Patient examined at bedside today. No acute overnight events. Patient reports he is doing well and needs to get changed. His sodium today is 136, potassium 4.2, BUN/creatinine 58 and 3.9 respectively, bicarb 18, white count 32, hemoglobin 8.3, platelet 28. Urine output 60 mL. Phosphorus 2.0, magnesium 1.9, calcium 8.7. No complaints at this time. Exam Vital Signs Temp Pulse Resp BP Pulse Ox O2 Del Method O2 Flow Rate 98.5 F 104 H 35 H 99/57 L 91 L Oxy Mask 40 04/01/25 11:45 04/01/25 15:09 04/01/25 15:09 04/01/25 15:00 04/01/25 15:09 04/01/25 04:00 04/01/25 15:09 FiO2 100 04/01/25 15:09 Narrative Exam General: AAOx3, NAD, anorexic, dutch speaking male, weak, frail-in ICU HEENT: dry mucous membranes, conjunctiva clear, EOMI, PERRLA, Cardiovascular: S1, S2, radial pulses +2 bilat, RRR, ESM heard possible MARC Pulmonary: CTAB bilat no cough, no wheezing GI: No tenderness to light or deep palpitation, no guarding, rigidity, rebound tenderness or distension. PEG tube Extremities: L BKA, weak musculature, no pitting edema in RLE , dorsalis pedis pulses +2 bilaterally Left nephrostomy tube, Barrios catheter Neuro: Awake. Psych: Good judgement, thought and behavior Objective Labs 04/01/25 20:55 04/01/25 04:20 Labs: Laboratory Results - last 24 hr 04/01/25 04:20 WBC 32.0 H RBC 2.81 L Hgb 8.3 L Hct 23.8 L MCV 85 MCH 29.5 MCHC 34.9 RDW Std Deviation 48.1 H Plt Count 28 L* D Neut % (Auto) 62 Lymph % (Auto) 3 L [place] % (Auto) 1 Eos % (Auto) 0 Baso % (Auto) 1 Neut # (Auto) 19.7 H Lymph # (Auto) 0.9 L [place] # (Auto) 0.4 Eos # (Auto) 0.0 Baso # (Auto) 0.2 Immature Gran # (Auto) 10.87 H Absolute Nucleated RBC 0.00 Immature Gran % 34 H Nucleated RBC % 0 Smear Path Review Sent to Pathologist PT 14.0 H INR 1.3 APTT 48.3 H D Sodium 136 Potassium 4.2 Chloride 110 H Carbon Dioxide 17.7 L Anion Gap 8 BUN 58 H Creatinine 3.9 H Estim Creat Clear Calc 8.9 L eGFR 15 L BUN/Creatinine Ratio 15 Glucose 101 Calculated Osmolality 288 Calcium 7.4 L Corrected Calcium 8.7 Phosphorus 2.0 L Magnesium 1.9 Total Bilirubin 0.5 AST 32 ALT 17 Alkaline Phosphatase 90 D Total Protein 4.7 L Albumin 2.4 L Globulin 2.3 Albumin/Globulin Ratio 1.0 L Misc Test Result Platelets confirmed ABG Interpretation ABG results: 03/30/25 07:35 ABG pH 7.31 L ABG pCO2 21 L ABG pO2 109 H ABG HCO3 11 L ABG O2 Saturation 99 H ABG Base Excess -14 L Quality Measures Quality Measures sepsis Current suspected stage: sepsis Possible source: GI tract/intra-abdominal Blood cultures ordered: yes Antibiotic ordered: Yes Advance care planning discussed with:: patient Assessment & Plan Assessment Current Active Medications: Generic Name Dose Route Start Last Admin Trade Name Freq PRN Reason Stop Dose Admin Acetaminophen 650 mg 03/30/25 15:53 Acetaminophen Carmita 325 Mg/10 Ml Udc PO 04/29/25 15:52 Q4HR PRN Pain Or Fever > 100.3 Citric Acid/Sodium Citrate 30 ml 03/31/25 09:00 04/01/25 09:41 Citric Acid/Sodium Citr 15 Ml Udc (Bicitra) GT 04/30/25 08:59 30 ml BID AMANDA Administration Dextrose 50 ml 03/30/25 17:10 Dextrose 50%-Water Inj 50 Ml Syringe IV 04/29/25 17:09 Q15MIN PRN BG <50 OR BG <70 & pt unresponsive Epoetin Kishore 10,000 unit 04/01/25 17:00 Epoetin Kishore-Epbx Inj 10,000 Unit/Ml Vial (Non-Esrd) SC 04/01/25 17:01 X1 ONE Glucagon 1 mg 03/30/25 17:10 Glucagon Inj 1 Mg Vial IM Q15MIN PRN BG <70, and no IV access Norepinephrine/Dextrose 8 mg in 250 mls @ 3.827 mls/hr 03/30/25 07:38 04/01/25 15:00 Levophed In D5w 8mg/250ml IV 04/29/25 07:37 0.03 mcg/kg/min .Q24H PRN 2.296 mls/hr PER PROTOCOL Titration Protocol 0.05 MCG/KG/MIN Ceftriaxone Sodium 2 gm/ 50 mls @ 100 mls/hr 04/01/25 09:00 04/01/25 09:40 Sodium Chloride IV 04/08/25 08:59 100 mls/hr QDAY AMANDA Administration Albumin Human 25 gm in 100 mls @ 100 mls/min 04/01/25 15:21 Albuminar-25 Ivpb IV 04/04/25 15:20 PRN PRN DIALYSIS Insulin Human Lispro 0 unit 03/30/25 18:00 04/01/25 11:44 Insulin Lispro (Admelog) 1 Unit/0.01 Ml Unit SC 04/29/25 17:59 Not Given Q6HR AMANDA Protocol Multivitamins/Minerals 15 ml 03/31/25 10:00 04/01/25 09:41 Multivitamin 15 Ml Udc GT 04/30/25 09:59 15 ml QDAY AMANDA Administration Ondansetron HCl 4 mg 03/30/25 12:15 04/01/25 10:31 Ondansetron Inj 2 Mg/Ml Inj 2 Ml IVP 04/29/25 12:14 4 mg Q6H PRN Administration NAUSEA OR VOMITING Protocol Pharmacy Consult 1 each 03/30/25 12:15 Pharmacy Renal Dose Adjustment 1 Ea XX 04/29/25 12:14 PRN PRN CONSULT Thiamine HCl 100 mg 03/31/25 10:00 04/01/25 09:41 Thiamine Inj 100 Mg/Ml Vial 2 Ml IVP 04/30/25 09:59 100 mg QDAY AMANDA Administration Plan Assessment 80-year-old male with past medical history of BPH with indwelling barrios catheter, primary hypertension, CKD stage IIIb, NIDDM type 2, hyperlipidemia, depression,peripheral artery disease (right lower extremity AKA) and PEG tube insitu presenting with left flank pain. Patient will be admitted to the ICU for treatment of management of urosepsis requiring IV vasopressors. #ENOC on CKD stage IIIb #Obstructive uropathy #Lactic acidosis #NAGMA #E coli bacteremia #Anuric #Hypophosphatemia Secondary to sludgelike calculi proximal left ureter Percutaneous nephrostomy placement by IR. Previous urine cultures have shown Pseudomonas, E. coli, Proteus, Enterococcus Patient has also been MRSA positive in the past Current blood cultures show GNR bacteremia 2 out of 2 bottles Urine output less than 400 cc BUN/creatinine of 52 and 3.9 -> Postrenal Last Lactate 2.8 Metabolic acidosis likely related to lactate despite no anion gap on labs but lactate strongly suggests AG Pt is not having significant compensation from a respiratory stand point Expected PCO2 compensation should be 27-31 despite it only being 21 on ABG 04/01/2025: Urine output 60 mL Nephrostomy bag not draining Patient may need nephrostogram for evaluation of nephrostomy tube FeNa: 1.4 Patient will need 14 days of antibiotics for bacteremia as it is E. coli, which has some resistance We will wait to see if patient will improve before considering dialysis Plan: ? Urology consulted, appreciate recs ? Monitor UOP ? Trend CMP and lytes ? Avoid nephrotoxic agents ? Renally dose medicines ? Bicitra 30 mL BID GT #Normocytic Anemia #Thrombocytopenia #T2 IDDM #HLD #Septic Shock secondary to UTI #Gluteal ulcer #Likely Dementia #History of Depression #Septic shock #History of primary hypertension #Protein calorie malnutrition s/p PEG tube #Failure to thrive #Anorexic Patient seen and care discussed with my attending physician, Dr. Jaspal Hutchison, PGY-1 Attending Provider Attestation/Addendum Patient seen and examined with resident physician Dr. Pennington. Note reviewed, agree with findings and recommendations. Patient currently seen in ICU. Did not make any urine. Went into fluid overload. Decided to proceed with dialysis. Vas-Cath placed by ICU team. Hemodialysis for 2 hours,qb 200m 2K, ultrafiltration 1 L, Epogen 6000, no heparin ordered. Plan of care discussed with the dialysis nurse. Please see dialysis flowsheet for further details. Next dialysis scheduled for tomorrow
--- NOTE | 2025-04-01 16:52 | ESOP_ITS ---
<Statement entered by Boaz Qureshi MD - 04/03/25 18:58> Attending Attestation: I was present for the entire procedure. No acute complications. Patient tolerated procedure well. Minimal blood loss. Procedures Procedure Date / Time 04/01/251651 Procedure Narrative Procedure Narrative: INDICATION: Emergent Hemodialysis PROCEDURE VEHICLE DETAILER: Dr. Acevedo ATTENDING PHYSICIAN: Dr. Qureshi Ultrasound Used: Y CONSENT: From Son, Elias Rodriguez During the informed consent discussion regarding the procedure, or treatment, I explained the following to the designee: a. Nature of the procedure or treatment and who will perform the procedure or treatment. b. Necessity for procedure and the possible benefits. c. Risks and complications (most common and serious). d. Alternative treatments and the risks, benefits and side effects of each (including no treatment). e. Likelihood of the patient achieving his/her goals without this procedure and surgery treatment. f. Problems that might occur during the recuperation. g. Conflicts of interest, if any PROCEDURE SUMMARY: The [facility] Central Line Insertion Practices form was completed by an independent observer (RN) starting with the first handwash prior to starting sterile technique. A time out was performed. My hands were washed immediately prior to the procedure. I wore a surgical cap, mask with protective eyewear, sterile gown and sterile gloves throughout the procedure. The RIGHT inguinal region was prepped using chlorhexidine scrub and draped in sterile fashion using a full drape and sterile probe cover and sterile gel employed. The femoral pulse was identified. Anesthesia was achieved using 1% lidocaine. Using ultrasound guidance throughout the procedure, the introducer needle was inserted medial to the femoral artery, inferior to the inguinal crease and into the femoral vein. Venous blood was withdrawn. The syringe was removed and a guidewire was advanced into the introducer needle. A small incision was made at the skin surface with a scalpel and the introducer needle was exchanged for a dilator over the guidewire. After appropriate dilation was obtained, the dilator was exchanged over the wire for a 20cm hemodialysis catheter. The wire was removed and the catheter was sutured in place at skin. A sterile sorbaview shield was placed over the catheter at the insertion site. The patient tolerated the procedure without any hemodynamic compromise. At time of procedure completion, all ports aspirated and flushed properly. Estimated blood loss is 10ml. Supervised by Attending Acid Treater Dr. Kiera Acevedo MD PGY 1
--- NOTE | 2025-04-01 17:16 | PC.NURSE ---
BP TRENDING DOWN, PT DENIES ALL S/S OF HYPOTENSIUON. WILL ADMIN PRN ALBUMIN PER MD ORDERS AND CONT. TO MONITOR
[2025-04-01] MEDS: ALBUMIN HUMAN 25% IVPB 25 GM/100 ML BTL IV (17:17)
[2025-04-01 17:38] LABS: Hepatitis A Antibody IgM Non Reactive (Non React); Hepatitis B Core Antibody IgM Non Reactive (Non React); Hepatitis B Surface Ab NonReact(Not Immune) (Immune); Hepatitis B Surface Antigen Non Reactive (Non React); Hepatitis C Antibody Non Reactive (Non React)
[2025-04-01] MEDS: EPOETIN ALFA-EPBX INJ 10,000 UNIT/ML VIAL (NON-ESRD) 10000 UNIT SC (17:49)
[2025-04-01] MEDS: HEPARIN SOD INJ 1000 UNIT/ML VIAL 10 ML 3000 UNIT INDWELLCAT (19:03)
[2025-04-01 20:51] LABS: Base Excess -2 (-3-3); HCO3 21 mEq/L (20-26); Inspired Oxygen, FIO2 100 %; O2 Saturation 92 % (91-98); PCO2 28 mmHg (32.0-48.0); pH, Arterial 7.49 (7.35-7.45)
[2025-04-01 20:56] LABS: Allen Test Not Performed; Puncture Site Right Brachial
[2025-04-01 20:57] LABS: PO2 58 mmHg (83-108)
[2025-04-01] MEDS: MethylPREDNISolone SOD SUCC 62.5 MG/ML 2ML VIAL 125 MG IVP (20:58)
[2025-04-01] MEDS: SODIUM CHLORIDE 0.9% 500 ML 500 ML 100 ML IV (21:08)
[2025-04-01] MEDS: CEFEPIME INJ 1 GM in SODIUM CHLORIDE 0.9% (Popper) 50 ML IV (21:11)
[2025-04-01 21:23] LABS: Basophils % (Auto) 0 % (0-2.5); Eosinophils % (Auto) 0 % (0-10); Hematocrit 21.5 % (41.0-53.0); Immature Granulocytes % (Auto) 0 % (0-0); Immature Granulocytes Auto 0.12 Thou/mm3 (0.00-0.00); Lymphocytes # (Auto) 0.8 Thou/mm3 (1.0-4.8); Lymphocytes % (Auto) 2 % (10-50); Mean Corpuscular HGB Conc 34.9 g/dl (31.0-37.0); Mean Corpuscular Hemoglobin 28.4 pg (25.0-35.0); Mean Corpuscular Volume 81 fL (80-100); Monocytes # (Auto) 0.4 Thou/mm3 (0.0-0.8); Monocytes % (Auto) 1 % (0-12); Neutrophils # (Auto) 37.2 Thou/mm3 (1.8-7.7); Neutrophils % (Auto) 96 % (37-80); Nucleated Red Blood Cell % 0 /100 WBC (0); RDW Standard Deviation 46.4 fL (35.1-43.9); Red Blood Count 2.64 Miln/mm3 (4.50-5.90)
[2025-04-01 21:30] LABS: Hemoglobin 7.5 g/dL (13.5-16.0); Platelet Count 24 Thou/mm3 (140-440); White Blood Count 38.6 Thou/mm3 (3.8-10.6)
[2025-04-01 21:41] LABS: Path Review Blood Smear Sent to Pathologist; Slide Review Platelets confirmed
[2025-04-01 21:46] LABS: B-Type Natriuretic Peptide 1586 pg/mL (0-100)
[2025-04-01 21:56] LABS: Alanine Aminotransferase 17 U/L (10-49); Albumin, Serum 2.7 gm/dL (3.4-4.8); Albumin/Globulin Ratio 1.2 (1.2-2.2); Alkaline Phosphatase 132 U/L (46-116); Anion Gap 12 (7-16); Aspartate Amino Transferase 28 U/L (0-34); BUN/Creatinine Ratio 14 Ratio (12-20); Bilirubin,Total 0.8 mg/dL (0.3-1.2); Blood Urea Nitrogen 34 mg/dL (9-23); Calcium 7.7 mg/dL (8.3-10.6); Calcium (Corrected) 8.7 mg/dL (8.5-10.1); Chloride 105 mMol/L (98-107); Creatinine (Component) 2.5 mg/dL (0.6-1.3); Estimated Creatinine Clearance 13.8 mL/min (>60); Globulin 2.2 gm/dL (2.3-3.5); Glucose 141 mg/dL (74-106); Osmolality,Calculated 287 (275-295); Potassium 3.4 mMol/L (3.4-5.1); Sodium 139 mMol/L (136-145); Total Protein 4.9 gm/dL (5.7-8.2); eGFR 25 See Note
[2025-04-01 22:31] LABS: C-Reactive Protein 18.4 mg/dL (0.0-0.9); Procalcitonin 85.88 ng/ml (0.0-0.49)
[2025-04-01] MEDS: VANCOMYCIN/NS 1 GM IVPB 200 ML IV (22:31)
[2025-04-02] VITALS (123 sets, daily range): BP systolic 71–173; BP diastolic 41–81; PULSE 66–134; RESP 17–27; TEMP 35.9–36.7; O2SAT 85–100; BMI 14.5
[2025-04-02] MEDS: ETOMIDATE INJ 2 MG/ML VIAL 10 ML 12 MG IV (00:11)
--- NOTE | 2025-04-02 00:11 | XR_ITS ---
Examination: AP chest single view Technique one AP portable semiupright chest single view Date and time: April 02, 2025 0024 hours Comparison April 01, 2025 INDICATIONS: Pneumonia ARDS this week, hypoxic respiratory failure postintubation FINDINGS: Worsening extensive bilateral lung opacity Endotracheal tube tip 4.6 cm above [place]. Left internal jugular central line tip SVC satisfactory position Mild prominence left ventricle Layered right pleural fluid Gastrostomy tube overlies the stomach IMPRESSION: Significant worsening of pneumonia ARDS pattern Endotracheal tube tip 4.6 cm above rosal[place]
[2025-04-02] MEDS: ROCURONIUM INJ 10 MG/ML VIAL 10 ML 40 MG IVP (00:12)
[2025-04-02] MEDS: PROPOFOL 1,000 MG IVPB 1,000 MG/100 ML VIAL 1.239 MG IV (00:24)
[2025-04-02] MEDS: fentaNYL 2,500 MCG/250 ML BAG 2,500 MCG/250 ML BAG IV (00:25)
--- NOTE | 2025-04-02 00:47 | ESOP_ITS ---
Procedures Procedure Date / Time 04/02/25 0015 Procedural Time Out Time out performed: yes Intubation Indication(s): acute Resp Failure Informed consent obtained: procedure done urgently Time out done, and the following verified: correct patient, side and site, procedure, patient position and implants and/or equipment Sedative: etomidate Mg given: 12 Paralytic: rocuronium Mg given: 40 Laryngoscope: fiber optic video scope Assist device used: fiber optic device ET tube size: 7.5 ET tube uncuffed: No Tube secured depth (cm): 23 Tube secured location: lips Tube placement confirmation: visualized tube passing through cords, equal breath sounds bilaterally, no breath sounds over epigastrium and confirmation by capnometry Patient tolerated procedure: well and no complications EBL(ml): 0 Intubation complications: none Additional comments: Rapid Sequence Intubation was conducted. The patient received 12 mg of etomidate for induction and 40mg of rocuronium for adequate paralysis. Cricoid pressure was applied during intubation. Using a fiberoptic videoscope and a size 7.5 endotracheal tube with stylet, the patient was intubated on the 1 attempt. The stylet was removed and cuff balloon was inflated. Appropriate endotracheal tube position was confirmed by direct visualization of vocal cord passage, fogging of the tube, CO2 colormetric indicator and symmetric breath sounds. The tube was secured at 23 cm at the lips. Post intubation chest x-ray was taken and showed good positioning of endotracheal tube. Case disclosed with Attending Dr. Kirstin Talbert PGY1 Disclaimer: Even though this this note was dictated by speech recognition and even though it was carefully revised there may still be minor errors in sales executive insurance due to voice recognition software.
--- NOTE | 2025-04-02 00:47 | PD.EVENT ---
Documentation for date of: 04/02/25 Event Note Event Note: Assessment & Plan: An 80-year-old M with Hx of urinary obstruction, CKD now on hemodialysis, PAD admitted to the hospital with septic shock secondary to pyelonephritis and E. coli bacteremia had progressively deteriorated respiratory status requiring HFNC> BiPAP therapy with resultant hypoxemia. ABG did reveal PaO2 58 with SpO2 ranging in mid 80s despite BiPAP therapy. Plan to intubate with mechanical ventilation for hypoxia to prevent organ dysfunction. CXR did reveal extensive bilateral infiltrates consistent with ARDS. In the setting of persistent septic shock with newly developing infiltrates and patient's deteriorating condition will escalate the antibiotic coverage to cefepime 2 g every 12 hours, add vancomycin and metronidazole. Will repeat blood urine and sputum cultures. Continue Levophed for vasopressor support. Goals of care were discussed with patient and his family at bedside and decided to proceed with mechanical intubation for acute hypoxemic respiratory failure.
[2025-04-02 01:20] LABS: Base Excess -5 (-3-3); HCO3 22 mEq/L (20-26); O2 Saturation 90 % (91-98); PCO2 53 mmHg (32.0-48.0); PO2 69 mmHg (83-108); pH, Arterial 7.23 (7.35-7.45)
[2025-04-02 01:43] LABS: Allen Test Performed/OK; Inspired Oxygen, FIO2 100 %; Puncture Site Right Radial
[2025-04-02 04:03] LABS: Lactate (Lactic Acid) 1.3 mMol/L (0.4-2.0)
[2025-04-02 04:06] LABS: Basophils # (Auto) 0.1 Thou/mm3 (0.0-0.2); Basophils % (Auto) 1 % (0-2.5); Eosinophils % (Auto) 0 % (0-10); Hematocrit 21.4 % (41.0-53.0); Immature Granulocytes % (Auto) 0 % (0-0); Immature Granulocytes Auto 0.01 Thou/mm3 (0.00-0.00); Lymphocytes # (Auto) 0.3 Thou/mm3 (1.0-4.8); Lymphocytes % (Auto) 1 % (10-50); Mean Corpuscular HGB Conc 33.6 g/dl (31.0-37.0); Mean Corpuscular Hemoglobin 28.3 pg (25.0-35.0); Mean Corpuscular Volume 84 fL (80-100); Monocytes # (Auto) 0.5 Thou/mm3 (0.0-0.8); Monocytes % (Auto) 2 % (0-12); Neutrophils # (Auto) 27.9 Thou/mm3 (1.8-7.7); Neutrophils % (Auto) 97 % (37-80); Nucleated Red Blood Cell % 0 /100 WBC (0); RDW Standard Deviation 49.1 fL (35.1-43.9); Red Blood Count 2.54 Miln/mm3 (4.50-5.90); White Blood Count 28.8 Thou/mm3 (3.8-10.6)
--- NOTE | 2025-04-02 04:19 | PD.EDADDENDU ---
Emergency Room Addendum Addendum Narrative: [id number]: Asked to supervise intubation in ICU Room 251 for a patient with BL PNA who is now hypoxic due to respiratory failure. Patient is new to dialysis and decompensated very quckly during treatment. Patient responds well to positive pressure. Intubation successfully performed by resident at 0014. Refer to resident's procedure note for full procedure details.
[2025-04-02 04:39] LABS: Base Excess -5 (-3-3); HCO3 22 mEq/L (20-26); Inspired Oxygen, FIO2 100 %; O2 Saturation 100 % (91-98); PCO2 48 mmHg (32.0-48.0); PO2 130 mmHg (83-108); pH, Arterial 7.27 (7.35-7.45)
[2025-04-02 04:47] LABS: Allen Test Performed/OK; Puncture Site Right Radial
--- NOTE | 2025-04-02 05:00 | XR_ITS ---
Examination: AP chest single view Technique one AP portable semiupright chest single view Date and time: 2024, 0651 hours Comparison April 05, 2025, 0024 hours INDICATIONS: Hypoxia, hypoxic respiratory failure, pneumonia or ARDS on earlier chest films this week FINDINGS: Severe bilateral lung opacity Layering right pleural fluid Endotracheal tube tip 4.3 cm above [place] Left internal jugular central line tip SVC satisfactory position, no pneumothorax Prominent osteopenia No significant cardiac enlargement IMPRESSION: Severe bilateral pneumonia/ARDS pattern again noted
[2025-04-02 05:03] LABS: Hemoglobin 7.2 g/dL (13.5-16.0)
[2025-04-02 05:04] LABS: Platelet Count 22 Thou/mm3 (140-440)
[2025-04-02 05:11] LABS: Slide Review Platelets confirmed
[2025-04-02 05:24] LABS: Alanine Aminotransferase 17 U/L (10-49); Albumin, Serum 2.4 gm/dL (3.4-4.8); Albumin/Globulin Ratio 1.2 (1.2-2.2); Alkaline Phosphatase 136 U/L (46-116); Anion Gap 13 (7-16); Aspartate Amino Transferase 24 U/L (0-34); BUN/Creatinine Ratio 16 Ratio (12-20); Bilirubin,Total 0.4 mg/dL (0.3-1.2); Blood Urea Nitrogen 44 mg/dL (9-23); Calcium 7.2 mg/dL (8.3-10.6); Calcium (Corrected) 8.5 mg/dL (8.5-10.1); Carbon Dioxide 19.1 mMol/L (20.0-31.0); Chloride 107 mMol/L (98-107); Creatinine (Component) 2.7 mg/dL (0.6-1.3); Estimated Creatinine Clearance 12.7 mL/min (>60); Glucose 236 mg/dL (74-106); Osmolality,Calculated 296 (275-295); Phosphorous 3.6 mg/dL (2.4-5.1); Potassium 3.6 mMol/L (3.4-5.1); Sodium 139 mMol/L (136-145); Total Protein 4.4 gm/dL (5.7-8.2); eGFR 23 See Note
[2025-04-02] MEDS: INSULIN LISPRO (AdmeLOG) 1 UNIT/0.01 ML UNIT SC ×2 (06:44→18:40)
[2025-04-02 06:58] LABS: Vancomycin,Random 23.2 mcg/mL
--- NOTE | 2025-04-02 07:00 | XR_ITS ---
Examination: IR fluoroscopically guided left nephrostomy tube placement Ultrasound-guided needle axis right renal collecting system Fluoroscopy AP abdomen single view Nephrostogram Exam date and time: April 02, 2025 1528 hours INDICATIONS: Patient's nephrostomy drainage tube has been pulled out of the renal collecting system and needs to be replaced, obstruction left kidney secondary to stones in the proximal left ureter, sepsis TECHNIQUE AND FINDINGS: Informed consent provided. Timeout performed. Skin prepped over the left flank and sterile drape applied maximum barrier sterile technique and hygiene ultrasound sterile technique 1% lidocaine administered for local anesthesia The patient's partially pulled out nephrostomy tube is completely removed Ultrasound utilized to confirm mildly dilated left renal collecting system Ultrasound images recorded and stored Utilizing ultrasonographic guidance successful 21-gauge needle puncture into the left renal collecting system 0.18 wire guide introduced through the needle followed by a 5 [place] catheter, 0.35 wire guide several dilators and a 10 [place] nephrostomy drainage tube in proper position Hand injection of 10 cc Cystografin demonstrate satisfactory position of the nephrostomy catheter within the left renal collecting system Estimated blood loss 7 cc Patient in stable condition at completion procedure Fluoroscopy 0.2 minute radiation dose 28.86 mg 1 spot fluoroscopic abdomen film IMPRESSION: Successful IR fluoroscopically guided left nephrostomy drainage tube placement
--- NOTE | 2025-04-02 08:04 | XR_ITS ---
Examination: Nuclear medicine kidney imaging flow and function multiple studies Date and time: April 02, 2025 1536 hours INDICATIONS: 80-year-old male with benign prostatic hypertrophy chronic kidney disease stage III B, peripheral artery disease TECHNIQUE AND FINDINGS: Intravenous administration 9.0 mCi technetium 99m MAG3 Flow to the right and left kidneys but no renal function IMPRESSION: No right or left renal function
[2025-04-02] MEDS: CITRIC ACID/SODIUM CITR 15 ML UDC (BICITRA) 30 ML GT ×2 (09:04→21:34)
[2025-04-02] MEDS: VASOPRESSIN IN NS IVPB 20 UNIT/100 ML BAG 9 UNIT IV (09:05)
[2025-04-02] MEDS: THIAMINE INJ 100 MG/ML VIAL 2 ML IVP (09:05)
[2025-04-02] MEDS: MULTIVITAMIN 15 ML UDC GT (09:05)
[2025-04-02] MEDS: HYDROCORTISONE SOD SUCC INJ 100 MG VIAL IV (09:08)
--- NOTE | 2025-04-02 10:35 | ESPR_ITS ---
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 80-year-old male with past medical history of BPH with indwelling barrios catheter, primary hypertension, CKD stage IIIb, NIDDM type 2, hyperlipidemia, depression,peripheral artery disease (right lower extremity AKA) and PEG tube insitu presenting with left flank pain. Patient is a resident at [facility]. According to patient yesterday night he began having left flank pain 9/10, constant, no radiation, and no relief with Tylenol. Denied any fever, sick contacts, recent travel, vomiting, diarrhea, chest pain/pressure and palpitations. He has monthly barrios catheter changes at Dr. Parham's office Patient was hospitalized August last year for failure to thrive and PEG tube was placed for nutritional needs. ED course: BP 121/65, pulse 1 1, RR 20, temp 101.6 F, SpO2 96% on room air Labs significant for Hb 8, PLT 72, BUN 46, CR 3.4, lactic acid 5.2, Pro-Jeffy 33.94. Urinalysis significant for cloudy, brown, 3+ blood, leukocyte esterase +9-82 WBC. Abdomen x-ray showed abundant stool in colon and small bowel ileus. Abdomen/pelvis CT showed mild to moderate left hydronephrosis with sludge like calculi in proximal left ureter. In the ED patient received Ringer's lactate 2L IVF bolus, acetaminophen 1.53 p.o. x 1, magnesium citrate 300 mL p.o. x 1, Zosyn 4.5G IV x 1, vancomycin 750 Mg IV x 1 and norepinephrine infusion. Patient will be admitted to the ICU for treatment of management of urosepsis requiring IV vasopressors. 03/31/2025: No events overnight. Levophed infusion ongoing. This morning patient alert and oriented x 3, denies any flank pain, nausea, vomiting. WBC increased to 33.6 from 6.7, PLT decreased to 40 from 72, bicarb improved to 15.5 from 13.8, LA downtrended to 2.8 from 4, CR increased to 3.9 from 3.3. Blood culture grew GNR preliminary, urine culture pending. Minimal output from left nephrostomy in past 24 hours. Started on Bicitra 30 mL GT twice daily, Ringer's lactate 500 cc IVF bolus, continue meropenem 500 Mg IV twice daily, continue to wean Levophed as tolerated, for left nephrostogram as per urology recommendations. 04/01/2025: Overnight patient had diarrhea. Currently on Norel at 0.03, tube feeds at 50 cc/hour with free water flushes at 75 cc/12. Urine output 60 cc from Barrios/24 hours, 100 cc from nephrostomy/24 hours. Today patient only complained of diarrhea, however desatted into the 70s and had to be placed on HFNC and 25L, FiO2 40%. WBC decreased to 32 from 33.6, Hb decreased to 8.3 from 9.2, PLT decreased to 28 from 40, Cr. stabe at 3.9, Bun increased to 58 from 52, Bicarb increased to 17.7 from 15.2, Phos decreased to 2 from 3.5, globulin 2.3. Blood culture grew E. coli pansensitive to all tested antibiotics. Chest x-ray showed bilateral flash pulmonary edema. Repleted with K-Phos 15 mm x 1, de-escalated meropenem to ceftriaxone 2 g IV daily, emergent placement of right femoral dialysis catheter and hemodialysis. Patient's son, Elias Rodriguez updated about today's events. 04/02/2025: Overnight patient became hypoxic on BiPAP, on ABG pH 7.49, pCO2 28, pO2 58. NO urine output in past 24hours. Subsequently was intubated and mechanically ventillated. Sedation with Fentanyl and Propofol, Levophed at 0.05. This morning patient seen and examined in ICU. Repeat ABG pH 7.27, pCO2 48, PaO2 135. WBC decreased to 28.8 from 38.6 , Hb decreased to 7.2 from 7.5, plt decreased to 22 from 28, bicarb decreased to 19.1 from 22, BNP 1586, Procal 85.8. Chest X-ray showed B/L pulmonary consolidation and flash pulmonary edema. Scheduled for IR Lt Nephrostogram today, NM Renal scan, Switched antibiotics to Cefepime and Vancomycin x 1. Discontinued Propofol. Hemodialysis today with 1L UF. Exam Vital Signs Temp Pulse Resp BP Pulse Ox O2 Del Method O2 Flow Rate 97.1 F 82 22 H 91/55 L 99 Mechanical Ventilation 40 04/02/25 10:33 04/02/25 10:33 04/02/25 10:33 04/02/25 10:33 04/02/25 10:33 04/02/25 08:00 04/01/25 19:36 FiO2 60 04/02/25 09:49 Narrative Exam Constitutional Se Elderly male, bitemporal wasting, cachectic. HEENT Vision grossly intact. Patent nares. Trachea midline Respiratory Chest normal on inspection and bilateral crackles On anterior and posterior chest wall. Left IJ catheter. Exit site clean Cardiovascular S1 and S2 audible, RRR. No murmurs carotid bruit. No gross JVD. Abdominal Soft and non tender to palpation in all quadrants. BS + PEG tube in situ, exit site clean. Genitourinary No bladder tenderness, no flank pain. Normal to palpation. Left nephrostomy tube in situ, no drainage. Right hemodialysis catheter in situ. Exit site clean Musculoskeletal. Extremities tone within normal limits. No LE edema. Right AKA noted Neurological CN II - XII grossly intact. Extremity motor and sensation grossly intact. Skin Warm, dry and intact. Right buttock pressure ulcer. Psychiatric Patient has good affect, is cooperative Objective Labs 04/04/25 04:27 04/04/25 04:27 Labs: Laboratory Results - last 24 hr 04/01/25 04/01/25 04/01/25 04:20 20:42 20:55 WBC 38.6 H* D RBC 2.64 L Hgb 7.5 L Hct 21.5 L* MCV 81 MCH 28.4 MCHC 34.9 RDW Std Deviation 46.4 H Plt Count 24 L* Neut % (Auto) 96 H Lymph % (Auto) 2 L [place] % (Auto) 1 Eos % (Auto) 0 Baso % (Auto) 0 Neut # (Auto) 37.2 H Lymph # (Auto) 0.8 L [place] # (Auto) 0.4 Eos # (Auto) 0.0 Baso # (Auto) 0.0 Immature Gran # (Auto) 0.12 H Absolute Nucleated RBC 0.00 Immature Gran % 0 Nucleated RBC % 0 Smear Path Review Sent to Pathologist Sent to Pathologist Puncture Site Right Brachial ABG pH 7.49 H D ABG pCO2 28 L ABG pO2 58 L* D ABG HCO3 21 ABG O2 Saturation 92 ABG Base Excess -2 FiO2 100 Sodium 139 Potassium 3.4 D Chloride 105 Carbon Dioxide 22.0 Anion Gap 12 BUN 34 H Creatinine 2.5 H D Estim Creat Clear Calc 13.8 L eGFR 25 L BUN/Creatinine Ratio 14 Glucose 141 H Calculated Osmolality 287 Lactic Acid 2.0 Calcium 7.7 L Corrected Calcium 8.7 Phosphorus Magnesium Total Bilirubin 0.8 AST 28 ALT 17 Alkaline Phosphatase 132 H D C-Reactive Prot, Quant 18.4 H B-Natriuretic Peptide 1586 H* Total Protein 4.9 L Albumin 2.7 L Globulin 2.2 L Albumin/Globulin Ratio 1.2 Procalcitonin 85.88 H Random Vancomycin Hepatitis A IgM Ab Non Reactive Hep Bs Antigen Non Reactive Hep Bs Antibody NonReact(Not Immune) L Hep B Core IgM Ab Non Reactive Hepatitis C Antibody Non Reactive Misc Test Result Platelets confirmed Blood Type Antibody Screen Crossmatch Blood Bank Wristband ID Blood Bank Comment 04/02/25 04/02/25 04/02/25 00:13 03:55 04:23 WBC 28.8 H D RBC 2.54 L Hgb 7.2 L Hct 21.4 L* MCV 84 MCH 28.3 MCHC 33.6 RDW Std Deviation 49.1 H Plt Count 22 L* Neut % (Auto) 97 H Lymph % (Auto) 1 L [place] % (Auto) 2 Eos % (Auto) 0 Baso % (Auto) 1 Neut # (Auto) 27.9 H Lymph # (Auto) 0.3 L [place] # (Auto) 0.5 Eos # (Auto) 0.0 Baso # (Auto) 0.1 Immature Gran # (Auto) 0.01 H Absolute Nucleated RBC 0.00 Immature Gran % 0 Nucleated RBC % 0 Smear Path Review Puncture Site Right Radial Right Radial ABG pH 7.23 L D 7.27 L ABG pCO2 53 H D 48 ABG pO2 69 L 130 H D ABG HCO3 22 22 ABG O2 Saturation 90 L 100 H ABG Base Excess -5 L -5 L FiO2 100 100 Sodium 139 Potassium 3.6 Chloride 107 Carbon Dioxide 19.1 L Anion Gap 13 BUN 44 H Creatinine 2.7 H Estim Creat Clear Calc 12.7 L eGFR 23 L BUN/Creatinine Ratio 16 Glucose 236 H D Calculated Osmolality 296 H Lactic Acid 1.3 Calcium 7.2 L Corrected Calcium 8.5 Phosphorus 3.6 Magnesium 2.0 Total Bilirubin 0.4 AST 24 ALT 17 Alkaline Phosphatase 136 H C-Reactive Prot, Quant B-Natriuretic Peptide Total Protein 4.4 L Albumin 2.4 L Globulin 2.0 L Albumin/Globulin Ratio 1.2 Procalcitonin Random Vancomycin 23.2 Hepatitis A IgM Ab Hep Bs Antigen Hep Bs Antibody Hep B Core IgM Ab Hepatitis C Antibody Misc Test Result Platelets confirmed Blood Type A Positive Antibody Screen NEGATIVE Crossmatch See Detail Blood Bank Wristband ID Yes Blood Bank Comment PLATP Ready ABG Interpretation ABG results: 03/30/25 04/01/25 04/02/25 07:35 20:42 00:13 ABG pH 7.31 L 7.49 H D 7.23 L D ABG pCO2 21 L 28 L 53 H D ABG pO2 109 H 58 L* D 69 L ABG HCO3 11 L 21 22 ABG O2 Saturation 99 H 92 90 L ABG Base Excess -14 L -2 -5 L 04/02/25 04:23 ABG pH 7.27 L ABG pCO2 48 ABG pO2 130 H D ABG HCO3 22 ABG O2 Saturation 100 H ABG Base Excess -5 L Quality Measures Quality Measures sepsis Current suspected stage: septic shock (LA >4 and/or hypotension) IVF 30 ml/kg given for lactic acid >4 and/or hypotension: yes Vasopressors initiated: Yes Sepsis reassessment completed at (date): 04/02/25 Sepsis reassessment completed at (time): 17:29 Possible source: GI tract/intra-abdominal Blood cultures ordered: yes Antibiotic ordered: Yes Advance care planning discussed with:: patient and child Assessment & Plan Assessment Current Active Medications: Generic Name Dose Route Start Last Admin Trade Name Freq PRN Reason Stop Dose Admin Acetaminophen 650 mg 03/30/25 15:53 Acetaminophen Carmita 325 Mg/10 Ml Udc PO 04/29/25 15:52 Q4HR PRN Pain Or Fever > 100.3 Citric Acid/Sodium Citrate 30 ml 03/31/25 09:00 04/02/25 09:04 Citric Acid/Sodium Citr 15 Ml Udc (Bicitra) GT 04/30/25 08:59 30 ml BID AMANDA Administration Dextrose 50 ml 03/30/25 17:10 Dextrose 50%-Water Inj 50 Ml Syringe IV 04/29/25 17:09 Q15MIN PRN BG <50 OR BG <70 & pt unresponsive Epoetin Kishore 10,000 unit 04/02/25 13:00 Epoetin Kishore-Epbx Inj 10,000 Unit/Ml Vial (Non-Esrd) IV 04/02/25 13:01 X1 ONE Glucagon 1 mg 03/30/25 17:10 Glucagon Inj 1 Mg Vial IM Q15MIN PRN BG <70, and no IV access Heparin Sodium (Porcine) 3,000 unit 04/01/25 18:09 04/01/25 19:03 Heparin Sod Inj 1000 Unit/Ml Vial 10 Ml INDWELLCAT 04/15/25 18:08 3,000 unit PRN PRN Administration DIALYSIS Hydrocortisone Sodium Succinate 50 mg 04/02/25 12:00 Hydrocortisone Sod Succ Inj 100 Mg Vial IV 05/02/25 11:59 Q6HR AMANDA Norepinephrine/Dextrose 8 mg in 250 mls @ 3.827 mls/hr 03/30/25 07:38 04/02/25 07:00 Levophed In D5w 8mg/250ml IV 04/29/25 07:37 0.05 mcg/kg/min .Q24H PRN 3.827 mls/hr PER PROTOCOL Titration Protocol 0.05 MCG/KG/MIN Albumin Human 25 gm in 100 mls @ 100 mls/min 04/01/25 15:21 04/01/25 17:17 Albuminar-25 Ivpb IV 04/04/25 15:20 100 mls/min PRN PRN Administration DIALYSIS Cefepime HCl 1 gm/ Sodium 50 mls @ 100 mls/hr 04/01/25 20:57 04/01/25 21:11 Chloride IV 04/08/25 20:53 100 mls/hr Q24H AMANDA Administration Protocol Fentanyl Citrate 2,500 mcg in 250 mls @ 2.5 mls/hr 04/02/25 00:15 04/02/25 07:00 Sublimaze Inj 2,500 Mcg/250 Ml Bag IV 04/07/25 00:14 125 mcg/hr .Q24H PRN 12.5 mls/hr PER PROTOCOL Titration Protocol 25 MCG/HR Vasopressin/Sodium Chloride 20 unit in 100 mls @ 9 mls/hr 04/02/25 08:00 04/02/25 09:05 Vasostrict/Ns Ivpb IV 05/02/25 07:59 0.03 unit/min .Q11H7M PRN 9 mls/hr PER PROTOCOL Administration Protocol 0.03 UNIT/MIN Insulin Human Lispro 0 unit 03/30/25 18:00 04/02/25 06:44 Insulin Lispro (Admelog) 1 Unit/0.01 Ml Unit SC 04/29/25 17:59 2 unit Q6HR AMANDA Administration Protocol Multivitamins/Minerals 15 ml 03/31/25 10:00 04/02/25 09:05 Multivitamin 15 Ml Udc GT 04/30/25 09:59 15 ml QDAY AMANDA Administration Ondansetron HCl 4 mg 03/30/25 12:15 04/01/25 10:31 Ondansetron Inj 2 Mg/Ml Inj 2 Ml IVP 04/29/25 12:14 4 mg Q6H PRN Administration NAUSEA OR VOMITING Protocol Pharmacy Consult 1 each 03/30/25 12:15 Pharmacy Renal Dose Adjustment 1 Ea XX 04/29/25 12:14 PRN PRN CONSULT Pharmacy Consult 1 each 04/02/25 09:00 04/02/25 09:05 Vancomycin Pharmacy To Dose 1 Each Each IV 05/02/25 08:59 Not Given QDAY AMANDA Thiamine HCl 100 mg 03/31/25 10:00 04/02/25 09:05 Thiamine Inj 100 Mg/Ml Vial 2 Ml IVP 04/30/25 09:59 100 mg QDAY AMANDA Administration Plan 80-year-old male with past medical history of BPH with indwelling barrios catheter, primary hypertension, CKD stage IIIb, NIDDM type 2, hyperlipidemia, depression,peripheral artery disease (right lower extremity AKA) and PEG tube insitu presenting with left flank pain. Patient will be admitted to the ICU for treatment of management of urosepsis requiring IV vasopressors. NEURO Chemical sedation Rx: Discontinued propofol infusion. Continue with fentanyl RASS -2 RRx: For SAT in am Likely Dementia Dx: Patient oriented to person and place, but appears confused at times Rx: General measures to prevent hospital induced delirium. History of Depression Not on any medication at home CVS Septic shock?resolving Dx: MAP less than 65 requiring vasopressors and source of infection pyelonephritis, bacteremia. Lactic acid 5.2?>2.8.Blood culture grew E. coli pansensitive to all tested antibiotics Rx: Titrate norepinephrine for MAP >65, meropenem 500 Mg IV every 12 hourly [renally dosed] [03/30?04/01]. De-escalated antibiotics to ceftriaxone gram IV daily [04/01]. Started on cefepime 1 g IV daily on [04/01? RRx: For Left nephrostogram to assess functioning of drain History of primary hypertension Antihypertensives on hold in setting of shock. PULM Acute respiratory failure with hypoxia secondary to flash pulmonary edema on mechanical ventilation. DDx: Secondary to excessive IV fluids and obstructive uropathy Dx: Chest x-ray showed bilateral/pulmonary edema. On ACMV, TV 450, RR 22, PEEP 8, FiO2 60% Rx: For Hemodialysis as per Nephrology. RRx: ABG and Chest X-ray in AM GI/Hep Protein calorie malnutrition s/p PEG tube Dx: Albumin 2.4. Patient chronically on tube feeds Rx: COntinue tube feeds at 50 mL/h x 24 hours. Water flushes 30 mL/h. As per dietitian recommendations. RENAL Obstructive uropathy s/p left nephrostomy on 03/30 DDx: Secondary to sludgelike calculi proximal left ureter Dx: CT abdomen pelvis fluids solitary calculus proximal left ureter. Normal sanguinous/pus like discharge from nephrostomy over past 24 hours Rx: For left nephrostogram as per urology recommendations. For platelet transfusion then left nephrostogram. RRX: Dependent on nephrostogram results, for possible left ureteral anterograde stent placement as per urology. Urology, Dr. Parham consulted. Appreciate recommendations ENOC on CKD stage IIIb DDx: Secondary to obstructive uropathy, ATN Dx: Baseline CR 1.9?2.1. On admission CR 3.4?>3.9 ->3.9. NO urine output in 24 hours Rx: Nephrology, Dr Shay consulted. Appreciate recommendations RRx: For hemodialysis today with 1L ultrafiltration. NM renal perfusion scan NAGMA?resolving DDx: Sepsis, large-volume IVF Dx: Lactic acid 5.2 down trended to 2.8. pH 7.31, pCO2 21, bicarb 11?>15.5 - >19.1 Rx: Bicitra 30 mL GT twice daily as per nephrology recommendations RRX: Monitor on renal panel HEME/ONC Normocytic Anemia DDx: CHARBEL, malnutrition, anemia of chronic disease, Multiple myeloma, CLL Dx: Hb 8?>9.2 Rx: Monitor for signs of bleeding on CBC RRx: If patient improves from this acute illness, for outpatient workup of anemia Thrombocytopenia DDx: Chronic inflammation, sepsis, Multiple myeloma, MDS Dx: Plt 72?>40 -> 38 ->22 Rx: Monitor for signs of bleeding and CBC RRx: If patient improves from this acute illness, for outpatient workup of thrombocytopenia Leukokcytosis DDx: See ID Dx: Wbc 38.6 -> 28.8 ->28.4 ENDO T2 IDDM Rx: Sliding scale q6hrly HLD Rx: Medication on hold as patient NPO ID E. coli bacteremia DDx: Secondary to pyelonephritis Dx: Blood culture grew E. coli pansensitive to tested antibiotics Rx: Meropenem 500 mg IV Q12 hourly started on [03/30?04/01]. De-escalated to ceftriaxone 2 g IV daily on [04/01?04/01]. Started on cefepime 1 g IV daily on [04/01? Septic Shock secondary to pyelonephritis, bacteremia?resolving See CVS and renal MSK/DERM Gluteal ulcer Rx: Wound care as per wound care nurse. ICU Health maintenance: Dispo: Admit to ICU for septic shock secondary to E. coli bacteremia and pyelonephritis. Pending NM renal scan Diet: Tube feeds as per dietitian DVT ppx: SCDs GI ppx: Protonix 40mg qD Mechanical ventilattion: Yes, Mode: ACVC, VT 450, R 26, PEEP8, FiO2 60% Sedation: Yes, Fentanyl (RAAS - 2) IV lines: 2 pIV Central line: Left IJ [ placed on 03/30/25, right , femoral HD catheter [placed on 04/01/2025 Arterial line: No Barrios: Yes Code status: FULL CODE Plan of care discussed with Attending Dr. Kiera Acevedo MD PGY 1 Attending Provider Attestation/Addendum Patient seen and examined with above resident, Kimo Acevedo MD. I agree with the findings, assessment, and plan of care as documented except for any differences below. Patient with continued decompensation overnight despite emergent hemodialysis for volume removal. Patient subsequently required mechanical ventilation overnight with intubation. We did adjust parameters including PEEP to optimize recruitment to compensate for pulmonary edema. Plan will be to repeat hemodialysis with more aggressive fluid removal. Discussion with nephrology determined that the patient is not an outpatient candidate for long-term hemodialysis and this has been explained to the patient's family at bedside though in the acute phase we will continue to push to try to optimize him for potential recovery in the short-term. Patient's family is aware that they may need to discuss alternative outcomes and allow patient's family to come and visit if he does not show progress in the next 24 to 48 hours. Patient has been started on empiric antibiotics though favor pulmonary edema given rapid response to therapy with positive pressure ventilation. Though this may be early evolving ARDS which remains to be seen. Patient's hemodynamics continue to improve and he is no longer requiring vasopressor support. Patient is tolerating tube feeds. We did consider aspiration as a potential etiology though there is no evidence of this by report of choking or gurgling or other inability to protect his airway. He was appropriately speaking in full sentences and maintained his normal voice yesterday suggesting adequate protection of his airway prior to decompensation of his respiratory status. Renal function unfortunately seems to be permanent. Significant fluid shows no significant flow. We will request IR to change nephrostomy tube today to ensure that there is adequate drainage of any potential fluid collection within the renal pelvis that may be the source of his ongoing infection and septic shock. Will reassess in the next 24 hours for ability to begin weaning from mechanical relation as patient is successfully dialyzed and optimized from an infectious standpoint as well. Total critical care time: I personally spent 50 minutes for review of physiologic parameters, directing plan of care throughout the day, coordination of care with other subspecialist, and counseling patient's family at bedside. This is exclusive of time spent teaching housestaff performing any separate billable procedures. Patient continues to require close monitoring and care only available in the ICU with increased risk for further morbidity and mortality. Critical care services required for acute hypoxic respiratory failure, acute renal failure, and healthcare associated pneumonia.
--- NOTE | 2025-04-02 12:43 | PC.SS ---
SS follow up note; Patient is medically cleared, however is pending [facility] clearance. Patient will discharge home when medically cleared.
--- NOTE | 2025-04-02 15:08 | PC.SS ---
SS received call from Angie at [facility] who was requesting updated information. SS has sent updated inquiry using [employer].
[2025-04-02] MEDS: HEPARIN SOD LOCK SYR 100 UNIT/ML 500 UNIT STFIELD (15:30)
--- NOTE | 2025-04-02 15:44 | ESPR_ITS ---
Documentation for date of: 04/02/25 Subjective Subjective Interval history: 04/01/2025 patient examined at bedside today. No acute overnight events. Patient reports he is doing well and needs to get changed. His sodium today is 136, potassium 4.2, BUN/creatinine 58 and 3.9 respectively, bicarb 18, white count 32, hemoglobin 8.3, platelet 28. Urine output 60 mL. Phosphorus 2.0, magnesium 1.9, calcium 8.7. No complaints at this time. 04/02/2025 patient evaluated in ICU, currently intubated, patient was intubated due to worsening acute hypoxic respiratory failure secondary ARDS/pneumonia. Currently requiring pressors, nephrostomy tube in place, but patient has produced minimal urine output, either in the nephrostomy tube or in the Barrios's, collectively amounting to 100 cc over last 24 hours. ICU team plans to do pyelogram, will order NM renal scan to evaluate renal function. Sodium 139, potassium 3.6, carbon oxide 19.1, BUN 44, creatinine 2.7. Exam Vital Signs Temp Pulse Resp BP Pulse Ox O2 Del Method O2 Flow Rate 96.8 F 82 22 H 109/58 L 98 Mechanical Ventilation 40 04/02/25 12:00 04/02/25 14:22 04/02/25 10:33 04/02/25 14:22 04/02/25 14:22 04/02/25 12:00 04/01/25 19:36 FiO2 60 04/02/25 14:22 Narrative Exam General: Currently intubated and mechanically ventilated, on sedation HEENT: dry mucous membranes, conjunctiva clear, EOMI, PERRLA, Cardiovascular: S1, S2, radial pulses +2 bilat, RRR, ESM heard possible MARC Pulmonary: CTAB bilat no cough, no wheezing GI: No tenderness to light or deep palpitation, no guarding, rigidity, rebound tenderness or distension. PEG tube Extremities: L BKA, weak musculature, no pitting edema in RLE , dorsalis pedis pulses +2 bilaterally Left nephrostomy tube, Barrios catheter Neuro: Unable to assess due to sedation Psych: Unable to assess Objective Labs 04/04/25 04:27 04/04/25 04:27 Labs: Laboratory Results - last 24 hr 04/01/25 04/01/25 04/01/25 04:20 20:42 20:55 WBC 38.6 H* D RBC 2.64 L Hgb 7.5 L Hct 21.5 L* MCV 81 MCH 28.4 MCHC 34.9 RDW Std Deviation 46.4 H Plt Count 24 L* Neut % (Auto) 96 H Lymph % (Auto) 2 L Garvin % (Auto) 1 Eos % (Auto) 0 Baso % (Auto) 0 Neut # (Auto) 37.2 H Lymph # (Auto) 0.8 L Garvin # (Auto) 0.4 Eos # (Auto) 0.0 Baso # (Auto) 0.0 Immature Gran # (Auto) 0.12 H Absolute Nucleated RBC 0.00 Immature Gran % 0 Nucleated RBC % 0 Smear Path Review Sent to Pathologist Puncture Site Right Brachial ABG pH 7.49 H D ABG pCO2 28 L ABG pO2 58 L* D ABG HCO3 21 ABG O2 Saturation 92 ABG Base Excess -2 FiO2 100 Sodium 139 Potassium 3.4 D Chloride 105 Carbon Dioxide 22.0 Anion Gap 12 BUN 34 H Creatinine 2.5 H D Estim Creat Clear Calc 13.8 L eGFR 25 L BUN/Creatinine Ratio 14 Glucose 141 H Calculated Osmolality 287 Lactic Acid 2.0 Calcium 7.7 L Corrected Calcium 8.7 Phosphorus Magnesium Total Bilirubin 0.8 AST 28 ALT 17 Alkaline Phosphatase 132 H D C-Reactive Prot, Quant 18.4 H B-Natriuretic Peptide 1586 H* Total Protein 4.9 L Albumin 2.7 L Globulin 2.2 L Albumin/Globulin Ratio 1.2 Procalcitonin 85.88 H Random Vancomycin Hepatitis A IgM Ab Non Reactive Hep Bs Antigen Non Reactive Hep Bs Antibody NonReact(Not Immune) L Hep B Core IgM Ab Non Reactive Hepatitis C Antibody Non Reactive Misc Test Result Platelets confirmed Blood Type Antibody Screen Crossmatch Blood Bank Wristband ID Blood Bank Comment 04/02/25 04/02/25 04/02/25 00:13 03:55 04:23 WBC 28.8 H D RBC 2.54 L Hgb 7.2 L Hct 21.4 L* MCV 84 MCH 28.3 MCHC 33.6 RDW Std Deviation 49.1 H Plt Count 22 L* Neut % (Auto) 97 H Lymph % (Auto) 1 L Garvin % (Auto) 2 Eos % (Auto) 0 Baso % (Auto) 1 Neut # (Auto) 27.9 H Lymph # (Auto) 0.3 L Garvin # (Auto) 0.5 Eos # (Auto) 0.0 Baso # (Auto) 0.1 Immature Gran # (Auto) 0.01 H Absolute Nucleated RBC 0.00 Immature Gran % 0 Nucleated RBC % 0 Smear Path Review Puncture Site Right Radial Right Radial ABG pH 7.23 L D 7.27 L ABG pCO2 53 H D 48 ABG pO2 69 L 130 H D ABG HCO3 22 22 ABG O2 Saturation 90 L 100 H ABG Base Excess -5 L -5 L FiO2 100 100 Sodium 139 Potassium 3.6 Chloride 107 Carbon Dioxide 19.1 L Anion Gap 13 BUN 44 H Creatinine 2.7 H Estim Creat Clear Calc 12.7 L eGFR 23 L BUN/Creatinine Ratio 16 Glucose 236 H D Calculated Osmolality 296 H Lactic Acid 1.3 Calcium 7.2 L Corrected Calcium 8.5 Phosphorus 3.6 Magnesium 2.0 Total Bilirubin 0.4 AST 24 ALT 17 Alkaline Phosphatase 136 H C-Reactive Prot, Quant B-Natriuretic Peptide Total Protein 4.4 L Albumin 2.4 L Globulin 2.0 L Albumin/Globulin Ratio 1.2 Procalcitonin Random Vancomycin 23.2 Hepatitis A IgM Ab Hep Bs Antigen Hep Bs Antibody Hep B Core IgM Ab Hepatitis C Antibody Misc Test Result Platelets confirmed Blood Type A Positive Antibody Screen NEGATIVE Crossmatch See Detail Blood Bank Wristband ID Yes Blood Bank Comment PLATP Ready ABG Interpretation ABG results: 03/30/25 04/01/25 04/02/25 07:35 20:42 00:13 ABG pH 7.31 L 7.49 H D 7.23 L D ABG pCO2 21 L 28 L 53 H D ABG pO2 109 H 58 L* D 69 L ABG HCO3 11 L 21 22 ABG O2 Saturation 99 H 92 90 L ABG Base Excess -14 L -2 -5 L 04/02/25 04:23 ABG pH 7.27 L ABG pCO2 48 ABG pO2 130 H D ABG HCO3 22 ABG O2 Saturation 100 H ABG Base Excess -5 L Quality Measures Quality Measures sepsis Current suspected stage: sepsis Possible source: GI tract/intra-abdominal Blood cultures ordered: yes Antibiotic ordered: Yes Advance care planning discussed with:: patient Assessment & Plan Assessment Current Active Medications: Generic Name Dose Route Start Last Admin Trade Name Freq PRN Reason Stop Dose Admin Acetaminophen 650 mg 03/30/25 15:53 Acetaminophen Carmita 325 Mg/10 Ml Udc PO 04/29/25 15:52 Q4HR PRN Pain Or Fever > 100.3 Citric Acid/Sodium Citrate 30 ml 03/31/25 09:00 04/02/25 09:04 Citric Acid/Sodium Citr 15 Ml Udc (Bicitra) GT 04/30/25 08:59 30 ml BID AMANDA Administration Dextrose 50 ml 03/30/25 17:10 Dextrose 50%-Water Inj 50 Ml Syringe IV 04/29/25 17:09 Q15MIN PRN BG <50 OR BG <70 & pt unresponsive Glucagon 1 mg 03/30/25 17:10 Glucagon Inj 1 Mg Vial IM Q15MIN PRN BG <70, and no IV access Heparin Sodium (Porcine) 3,000 unit 04/01/25 18:09 04/01/25 19:03 Heparin Sod Inj 1000 Unit/Ml Vial 10 Ml INDWELLCAT 04/15/25 18:08 3,000 unit PRN PRN Administration DIALYSIS Hydrocortisone Sodium Succinate 50 mg 04/02/25 12:00 Hydrocortisone Sod Succ Inj 100 Mg Vial IV 05/02/25 11:59 Q6HR AMANDA Norepinephrine/Dextrose 8 mg in 250 mls @ 3.827 mls/hr 03/30/25 07:38 04/02/25 13:00 Levophed In D5w 8mg/250ml IV 04/29/25 07:37 0.05 mcg/kg/min .Q24H PRN 3.827 mls/hr PER PROTOCOL Titration Protocol 0.05 MCG/KG/MIN Albumin Human 25 gm in 100 mls @ 100 mls/min 04/01/25 15:21 04/01/25 17:17 Albuminar-25 Ivpb IV 04/04/25 15:20 100 mls/min PRN PRN Administration DIALYSIS Cefepime HCl 1 gm/ Sodium 50 mls @ 100 mls/hr 04/01/25 20:57 04/01/25 21:11 Chloride IV 04/08/25 20:53 100 mls/hr Q24H AMANDA Administration Protocol Fentanyl Citrate 2,500 mcg in 250 mls @ 2.5 mls/hr 04/02/25 00:15 04/02/25 13:00 Sublimaze Inj 2,500 Mcg/250 Ml Bag IV 04/07/25 00:14 125 mcg/hr .Q24H PRN 12.5 mls/hr PER PROTOCOL Titration Protocol 25 MCG/HR Vasopressin/Sodium Chloride 20 unit in 100 mls @ 9 mls/hr 04/02/25 08:00 04/02/25 09:05 Vasostrict/Ns Ivpb IV 05/02/25 07:59 0.03 unit/min .Q11H7M PRN 9 mls/hr PER PROTOCOL Administration Protocol 0.03 UNIT/MIN Insulin Human Lispro 0 unit 03/30/25 18:00 04/02/25 06:44 Insulin Lispro (Admelog) 1 Unit/0.01 Ml Unit SC 04/29/25 17:59 2 unit Q6HR AMANDA Administration Protocol Multivitamins/Minerals 15 ml 03/31/25 10:00 04/02/25 09:05 Multivitamin 15 Ml Udc GT 04/30/25 09:59 15 ml QDAY AMANDA Administration Ondansetron HCl 4 mg 03/30/25 12:15 04/01/25 10:31 Ondansetron Inj 2 Mg/Ml Inj 2 Ml IVP 04/29/25 12:14 4 mg Q6H PRN Administration NAUSEA OR VOMITING Protocol Pharmacy Consult 1 each 03/30/25 12:15 Pharmacy Renal Dose Adjustment 1 Ea XX 04/29/25 12:14 PRN PRN CONSULT Pharmacy Consult 1 each 04/02/25 09:00 04/02/25 09:05 Vancomycin Pharmacy To Dose 1 Each Each IV 05/02/25 08:59 Not Given QDAY AMANDA Thiamine HCl 100 mg 03/31/25 10:00 04/02/25 09:05 Thiamine Inj 100 Mg/Ml Vial 2 Ml IVP 04/30/25 09:59 100 mg QDAY AMANDA Administration Plan Assessment 80-year-old male with past medical history of BPH with indwelling barrios catheter, primary hypertension, CKD stage IIIb, NIDDM type 2, hyperlipidemia, depression,peripheral artery disease (right lower extremity AKA) and PEG tube insitu presenting with left flank pain. Patient will be admitted to the ICU for treatment of management of urosepsis requiring IV vasopressors. #ENOC on CKD stage IIIb #Obstructive uropathy #Lactic acidosis #NAGMA #E coli bacteremia #Anuric #Hypophosphatemia Secondary to sludgelike calculi proximal left ureter Percutaneous nephrostomy placement by JI. Previous urine cultures have shown Pseudomonas, E. coli, Proteus, Enterococcus Patient has also been MRSA positive in the past Current blood cultures show GNR bacteremia 2 out of 2 bottles Urine output less than 400 cc BUN/creatinine of 52 and 3.9 -> Postrenal Last Lactate 2.8 Metabolic acidosis likely related to lactate despite no anion gap on labs but lactate strongly suggests AG Pt is not having significant compensation from a respiratory stand point Expected PCO2 compensation should be 27-31 despite it only being 21 on ABG 04/01/2025: Urine output 60 mL Nephrostomy bag not draining Patient may need nephrostogram for evaluation of nephrostomy tube FeNa: 1.4 Patient will need 14 days of antibiotics for bacteremia as it is E. coli, which has some resistance We will wait to see if patient will improve before considering dialysis 04/02/2025 patient evaluated in ICU, currently intubated, patient was intubated due to worsening acute hypoxic respiratory failure secondary ARDS/pneumonia. Currently requiring pressors, nephrostomy tube in place, but patient has produced minimal urine output, either in the nephrostomy tube or in the Barrios's, collectively amounting to 100 cc over last 24 hours. ICU team plans to do pyelogram, will order NM renal scan to evaluate renal function. Sodium 139, potassium 3.6, carbon oxide 19.1, BUN 44, creatinine 2.7. Plan: ? Urology consulted, appreciate recs ? Monitor UOP ? Trend CMP and lytes ? Avoid nephrotoxic agents ? Renally dose medicines ? Bicitra 30 mL BID GT ? Follow-up nuclear medicine renal scan #Normocytic Anemia #Thrombocytopenia #T2 IDDM #HLD #Septic Shock secondary to UTI #Gluteal ulcer #Likely Dementia #History of Depression #Septic shock #History of primary hypertension #Protein calorie malnutrition s/p PEG tube #Failure to thrive #Anorexic Patient seen and care discussed with my attending physician, Dr. Jaspal Suárez PGY 2 Attending Provider Attestation/Addendum Patient seen and examined with resident physician Dr. Suárez. Note reviewed, agree with findings and recommendations. Patient currently seen in ICU. Did not make any urine. Went into fluid overload. Decided to proceed with dialysis. Vas-Cath placed by ICU team. This is his second session. Hemodialysis for 2.5 hours,qb 200m 2K, ultrafiltration 1-2 L, Epogen 6000, no heparin ordered. Plan of care discussed with the dialysis nurse. Please see dialysis flowsheet for further details. Next dialysis scheduled for tomorrow Plan of care discussed with ICU team
[2025-04-02] MEDS: LIDOCAINE INJ PF 1% 5 ML VIAL 2 ML INFL (15:54)
[2025-04-02] MEDS: fentaNYL 2,500 MCG/250 ML BAG 2,500 MCG/250 ML BAG 30 MCG IV (18:36)
[2025-04-02] MEDS: HYDROCORTISONE SOD SUCC INJ 100 MG VIAL 50 MG IV (18:40)
[2025-04-02] MEDS: EPOETIN ALFA-EPBX INJ 10,000 UNIT/ML VIAL (NON-ESRD) 10000 UNIT IV (19:14)
[2025-04-02] MEDS: HEPARIN SOD INJ 1000 UNIT/ML VIAL 10 ML 3000 UNIT INDWELLCAT (21:22)
[2025-04-02] MEDS: CEFEPIME INJ 1 GM in SODIUM CHLORIDE 0.9% (Popper) 50 ML IV (21:34)
[2025-04-03] VITALS (85 sets, daily range): BP systolic 85–168; BP diastolic 51–85; PULSE 68–109; RESP 4–24; TEMP 36.2–37.6; O2SAT 87–100
[2025-04-03] MEDS: HYDROCORTISONE SOD SUCC INJ 100 MG VIAL 50 MG IV ×5 (00:18→23:22)
[2025-04-03 04:36] LABS: Base Excess 5 (-3-3); HCO3 27 mEq/L (20-26); Inspired Oxygen, FIO2 50 %; O2 Saturation 101 % (91-98); PCO2 30 mmHg (32.0-48.0); PO2 179 mmHg (83-108); pH, Arterial 7.56 (7.35-7.45)
[2025-04-03 04:38] LABS: Allen Test Performed/OK; Puncture Site Right Radial
--- NOTE | 2025-04-03 05:00 | XR_ITS ---
Examination: AP chest single view TECHNIQUE: AP portable semiupright chest single view Date and time: April 03, 2025 0711 hours Comparison April 02, 2025 INDICATIONS: Hypoxic respiratory failure, pneumonia and ARDS this week FINDINGS: Again noted is severe bilateral lung opacity No significant cardiac enlargement Endotracheal tube tip 4.3 cm above Twyla Left internal jugular central line tip SVC satisfactory position No pneumothorax IMPRESSION: No significant change in severe pneumonia/ARDS pattern
[2025-04-03] MEDS: fentaNYL 2,500 MCG/250 ML BAG 2,500 MCG/250 ML BAG 10 MCG IV (05:12)
[2025-04-03] MEDS: INSULIN LISPRO (AdmeLOG) 1 UNIT/0.01 ML UNIT SC ×4 (05:55→23:22)
[2025-04-03 06:13] LABS: Basophils # (Auto) 0.2 Thou/mm3 (0.0-0.2); Basophils % (Auto) 1 % (0-2.5); Eosinophils # (Auto) 0.1 Thou/mm3 (0.0-0.5); Eosinophils % (Auto) 0 % (0-10); Hematocrit 25.2 % (41.0-53.0); Hemoglobin 8.9 g/dL (13.5-16.0); Immature Granulocytes % (Auto) 1 % (0-0); Immature Granulocytes Auto 0.27 Thou/mm3 (0.00-0.00); Lymphocytes # (Auto) 0.5 Thou/mm3 (1.0-4.8); Lymphocytes % (Auto) 2 % (10-50); Mean Corpuscular HGB Conc 35.3 g/dl (31.0-37.0); Mean Corpuscular Hemoglobin 28.7 pg (25.0-35.0); Mean Corpuscular Volume 81 fL (80-100); Monocytes # (Auto) 0.7 Thou/mm3 (0.0-0.8); Monocytes % (Auto) 2 % (0-12); Neutrophils # (Auto) 26.7 Thou/mm3 (1.8-7.7); Neutrophils % (Auto) 94 % (37-80); Nucleated Red Blood Cell # 0.03 Thou/mm3 (0.00-0.00); Nucleated Red Blood Cell % 0 /100 WBC (0); RDW Standard Deviation 44.1 fL (35.1-43.9); White Blood Count 28.4 Thou/mm3 (3.8-10.6)
[2025-04-03 06:23] LABS: Platelet Count 32 Thou/mm3 (140-440)
[2025-04-03 06:43] LABS: Alanine Aminotransferase 15 U/L (10-49); Albumin, Serum 2.5 gm/dL (3.4-4.8); Albumin/Globulin Ratio 1.1 (1.2-2.2); Alkaline Phosphatase 135 U/L (46-116); Anion Gap 10 (7-16); Aspartate Amino Transferase 15 U/L (0-34); BUN/Creatinine Ratio 12 Ratio (12-20); Bilirubin,Total 0.8 mg/dL (0.3-1.2); Blood Urea Nitrogen 26 mg/dL (9-23); Calcium 7.6 mg/dL (8.3-10.6); Calcium (Corrected) 8.8 mg/dL (8.5-10.1); Carbon Dioxide 27.7 mMol/L (20.0-31.0); Chloride 101 mMol/L (98-107); Creatinine (Component) 2.1 mg/dL (0.6-1.3); Estimated Creatinine Clearance 17.3 mL/min (>60); Globulin 2.2 gm/dL (2.3-3.5); Glucose 175 mg/dL (74-106); Magnesium 1.9 mg/dL (1.6-2.6); Osmolality,Calculated 286 (275-295); Phosphorous 1.6 mg/dL (2.4-5.1); Potassium 3.4 mMol/L (3.4-5.1); Sodium 139 mMol/L (136-145); Total Protein 4.7 gm/dL (5.7-8.2); Vancomycin,Random 20.3 mcg/mL; eGFR 31 See Note
[2025-04-03 06:55] LABS: Slide Review Platelets confirmed
--- NOTE | 2025-04-03 07:20 | PD.RESPRO ---
Documentation for date of: 04/03/25 Subjective Subjective Interval history: Patient is [place]-speaking and history facilitated by registered healthcare hourly sign language interpreter. 80-year-old male with past medical history of BPH with indwelling barrios catheter, primary hypertension, CKD stage IIIb, NIDDM type 2, hyperlipidemia, depression,peripheral artery disease (right lower extremity AKA) and PEG tube insitu presenting with left flank pain. Patient is a resident at [facility]. According to patient yesterday night he began having left flank pain 9/10, constant, no radiation, and no relief with Tylenol. Denied any fever, sick contacts, recent travel, vomiting, diarrhea, chest pain/pressure and palpitations. He has monthly barrios catheter changes at Dr. Parham's office Patient was hospitalized August last year for failure to thrive and PEG tube was placed for nutritional needs. ED course: BP 121/65, pulse 1 1, RR 20, temp 101.6 F, SpO2 96% on room air Labs significant for Hb 8, PLT 72, BUN 46, CR 3.4, lactic acid 5.2, Pro-Jeffy 33.94. Urinalysis significant for cloudy, brown, 3+ blood, leukocyte esterase +9-82 WBC. Abdomen x-ray showed abundant stool in colon and small bowel ileus. Abdomen/pelvis CT showed mild to moderate left hydronephrosis with sludge like calculi in proximal left ureter. In the ED patient received Ringer's lactate 2L IVF bolus, acetaminophen 1.53 p.o. x 1, magnesium citrate 300 mL p.o. x 1, Zosyn 4.5G IV x 1, vancomycin 750 Mg IV x 1 and norepinephrine infusion. Patient will be admitted to the ICU for treatment of management of urosepsis requiring IV vasopressors. 03/31/2025: No events overnight. Levophed infusion ongoing. This morning patient alert and oriented x 3, denies any flank pain, nausea, vomiting. WBC increased to 33.6 from 6.7, PLT decreased to 40 from 72, bicarb improved to 15.5 from 13.8, LA downtrended to 2.8 from 4, CR increased to 3.9 from 3.3. Blood culture grew GNR preliminary, urine culture pending. Minimal output from left nephrostomy in past 24 hours. Started on Bicitra 30 mL GT twice daily, Ringer's lactate 500 cc IVF bolus, continue meropenem 500 Mg IV twice daily, continue to wean Levophed as tolerated, for left nephrostogram as per urology recommendations. 04/01/2025: Overnight patient had diarrhea. Currently on Norel at 0.03, tube feeds at 50 cc/hour with free water flushes at 75 cc/12. Urine output 60 cc from Barrios/24 hours, 100 cc from nephrostomy/24 hours. Today patient only complained of diarrhea, however desatted into the 70s and had to be placed on HFNC and 25L, FiO2 40%. WBC decreased to 32 from 33.6, Hb decreased to 8.3 from 9.2, PLT decreased to 28 from 40, Cr. stabe at 3.9, Bun increased to 58 from 52, Bicarb increased to 17.7 from 15.2, Phos decreased to 2 from 3.5, globulin 2.3. Blood culture grew E. coli pansensitive to all tested antibiotics. Chest x-ray showed bilateral flash pulmonary edema. Repleted with K-Phos 15 mm x 1, de-escalated meropenem to ceftriaxone 2 g IV daily, emergent placement of right femoral dialysis catheter and hemodialysis. Patient's son, Elias Rodriguez updated about today's events. 04/02/2025: Overnight patient became hypoxic on BiPAP, on ABG pH 7.49, pCO2 28, pO2 58. NO urine output in past 24hours. Subsequently was intubated and mechanically ventillated. Sedation with Fentanyl and Propofol, Levophed at 0.05. This morning patient seen and examined in ICU. Repeat ABG pH 7.27, pCO2 48, PaO2 135. WBC decreased to 28.8 from 38.6 , Hb decreased to 7.2 from 7.5, plt decreased to 22 from 28, bicarb decreased to 19.1 from 22, BNP 1586, Procal 85.8. Chest X-ray showed B/L pulmonary consolidation and flash pulmonary edema. Scheduled for IR Lt Nephrostogram today, NM Renal scan, Switched antibiotics to Cefepime and Vancomycin x 1. Discontinued Propofol. Hemodialysis today with 1L UF. 04/03/2025: Overnight patient was weaned off of Levophed, fentanyl was titrated to 100 mcg/hour, hemodialysis with 1.5L UF and 1 PRBC infusion. This morning SAT was successful and patient weaned off of fentanyl infusion, following commands, cough and gag reflex intact. Also had SBT on pressure support, subsequently switched back to ACMV. Hb improved to 8.9 from 7.2, WBC improved to 28.4 from 28.8, PLT increased to 32 from 22, K3.4, Phos 1.6, CR improved to 2.1 from 2.7, BUN improved to 26 from 44. ABG this a.m. pH 7.56, [id number], PO2 179. Chest x-ray this morning showed bilateral pulmonary edema with some areas of consolidation?minimal improvement from yesterday. Plan for today to attempt SBT again after hemodialysis. Exam Vital Signs Temp Pulse Resp BP Pulse Ox O2 Del Method O2 Flow Rate 98.2 F 85 22 H 116/62 100 Mechanical Ventilation 40 04/03/25 03:15 04/03/25 06:00 04/02/25 21:37 04/03/25 06:00 04/03/25 06:00 04/03/25 03:15 04/02/25 21:37 FiO2 50 04/03/25 05:59 Narrative Exam Constitutional Alert, following commands, tracking. Elderly male, bitemporal wasting, cachectic. HEENT Vision grossly intact. Patent nares. Trachea midline Respiratory Chest normal on inspection and bilateral crackles On anterior and posterior chest wall. Left IJ catheter. Exit site clean. On ACMV VT 450, PEEP 6, FiO2 45, RR 16 Cardiovascular S1 and S2 audible, RRR. No murmurs carotid bruit. No gross JVD. Abdominal Soft and non tender to palpation in all quadrants. BS + PEG tube in situ, exit site clean. Genitourinary No bladder tenderness, no flank pain. Normal to palpation. Stage 1 pressure ulcer on right groin. Left nephrostomy tube in situ, no drainage. Right hemodialysis catheter in situ. Exit site clean Musculoskeletal. Extremities tone within normal limits. No LE edema. Right AKA noted Neurological CN II - XII grossly intact. Extremity motor and sensation grossly intact. Skin Warm, dry and intact. Right buttock pressure ulcer. Objective Labs 04/04/25 04:27 04/04/25 04:27 Labs: Laboratory Results - last 24 hr 04/02/25 04/03/25 04/03/25 03:55 04:25 04:55 WBC 28.4 H RBC 3.10 L Hgb 8.9 L D Hct 25.2 L MCV 81 MCH 28.7 MCHC 35.3 RDW Std Deviation 44.1 H Plt Count 32 L D Neut % (Auto) 94 H Lymph % (Auto) 2 L Waller % (Auto) 2 Eos % (Auto) 0 Baso % (Auto) 1 Neut # (Auto) 26.7 H Lymph # (Auto) 0.5 L Waller # (Auto) 0.7 Eos # (Auto) 0.1 Baso # (Auto) 0.2 Immature Gran # (Auto) 0.27 H Absolute Nucleated RBC 0.03 H Immature Gran % 1 H Nucleated RBC % 0 Puncture Site Right Radial ABG pH 7.56 H D ABG pCO2 30 L D ABG pO2 179 H D ABG HCO3 27 H ABG O2 Saturation 101 H ABG Base Excess 5 H FiO2 50 Sodium 139 Potassium 3.4 Chloride 101 Carbon Dioxide 27.7 Anion Gap 10 BUN 26 H Creatinine 2.1 H D Estim Creat Clear Calc 17.3 L eGFR 31 L BUN/Creatinine Ratio 12 Glucose 175 H D Calculated Osmolality 286 Calcium 7.6 L Corrected Calcium 8.8 Phosphorus 1.6 L Magnesium 1.9 Total Bilirubin 0.8 AST 15 ALT 15 Alkaline Phosphatase 135 H Total Protein 4.7 L Albumin 2.5 L Globulin 2.2 L Albumin/Globulin Ratio 1.1 L Random Vancomycin 20.3 Misc Test Result Platelets confirmed Blood Type A Positive Antibody Screen NEGATIVE Crossmatch See Detail Blood Bank Wristband ID Yes Blood Bank Comment PLATP Ready ABG Interpretation ABG results: 03/30/25 04/01/25 04/02/25 07:35 20:42 00:13 ABG pH 7.31 L 7.49 H D 7.23 L D ABG pCO2 21 L 28 L 53 H D ABG pO2 109 H 58 L* D 69 L ABG HCO3 11 L 21 22 ABG O2 Saturation 99 H 92 90 L ABG Base Excess -14 L -2 -5 L 04/02/25 04/03/25 04:23 04:25 ABG pH 7.27 L 7.56 H D ABG pCO2 48 30 L D ABG pO2 130 H D 179 H D ABG HCO3 22 27 H ABG O2 Saturation 100 H 101 H ABG Base Excess -5 L 5 H Quality Measures Quality Measures sepsis Current suspected stage: sepsis Possible source: GI tract/intra-abdominal Blood cultures ordered: yes Antibiotic ordered: Yes Advance care planning discussed with:: patient and child Assessment & Plan Assessment Current Active Medications: Generic Name Dose Route Start Last Admin Trade Name Freq PRN Reason Stop Dose Admin Acetaminophen 650 mg 04/03/25 07:14 Acetaminophen Carmita 325 Mg/10 Ml Udc GT 04/29/25 15:52 Q4HR PRN Pain Or Fever > 100 Dextrose 50 ml 03/30/25 17:10 Dextrose 50%-Water Inj 50 Ml Syringe IV 04/29/25 17:09 Q15MIN PRN BG <50 OR BG <70 & pt unresponsive Glucagon 1 mg 03/30/25 17:10 Glucagon Inj 1 Mg Vial IM Q15MIN PRN BG <70, and no IV access Heparin Sodium (Porcine) 3,000 unit 04/01/25 18:09 04/02/25 21:22 Heparin Sod Inj 1000 Unit/Ml Vial 10 Ml INDWELLCAT 04/15/25 18:08 3,000 unit PRN PRN Administration DIALYSIS Hydrocortisone Sodium Succinate 50 mg 04/02/25 12:00 04/03/25 05:12 Hydrocortisone Sod Succ Inj 100 Mg Vial IV 05/02/25 11:59 50 mg Q6HR AMANDA Administration Norepinephrine/Dextrose 8 mg in 250 mls @ 3.827 mls/hr 03/30/25 07:38 04/03/25 04:33 Levophed In D5w 8mg/250ml IV 04/29/25 07:37 0 mcg/kg/min .Q24H PRN 0 mls/hr PER PROTOCOL Titration Protocol 0.05 MCG/KG/MIN Albumin Human 25 gm in 100 mls @ 100 mls/min 04/01/25 15:21 04/02/25 20:00 Albuminar-25 Ivpb IV 04/04/25 15:20 Infused PRN PRN Infusion DIALYSIS Cefepime HCl 1 gm/ Sodium 50 mls @ 100 mls/hr 04/01/25 20:57 04/02/25 21:34 Chloride IV 04/08/25 20:53 100 mls/hr Q24H AMANDA Administration Protocol Fentanyl Citrate 2,500 mcg in 250 mls @ 2.5 mls/hr 04/02/25 00:15 04/03/25 06:00 Sublimaze Inj 2,500 Mcg/250 Ml Bag IV 04/07/25 00:14 100 mcg/hr .Q24H PRN 10 mls/hr PER PROTOCOL Titration Protocol 25 MCG/HR Potassium Phosphate 15 mmol in 250 mls @ 62.5 mls/hr 04/03/25 07:14 Pot Phos 15 Mmol In Ns 250 Ml IV 04/03/25 15:13 Q4H AMANDA Insulin Human Lispro 0 unit 03/30/25 18:00 04/03/25 05:55 Insulin Lispro (Admelog) 1 Unit/0.01 Ml Unit SC 04/29/25 17:59 1 unit Q6HR AMANDA Administration Protocol Multivitamins/Minerals 15 ml 03/31/25 10:00 04/02/25 09:05 Multivitamin 15 Ml Udc GT 04/30/25 09:59 15 ml QDAY AMANDA Administration Ondansetron HCl 4 mg 03/30/25 12:15 04/01/25 10:31 Ondansetron Inj 2 Mg/Ml Inj 2 Ml IVP 04/29/25 12:14 4 mg Q6H PRN Administration NAUSEA OR VOMITING Protocol Pharmacy Consult 1 each 03/30/25 12:15 Pharmacy Renal Dose Adjustment 1 Ea XX 04/29/25 12:14 PRN PRN CONSULT Pharmacy Consult 1 each 04/02/25 09:00 04/02/25 09:05 Vancomycin Pharmacy To Dose 1 Each Each IV 05/02/25 08:59 Not Given QDAY AMANDA Thiamine HCl 100 mg 03/31/25 10:00 04/02/25 09:05 Thiamine Inj 100 Mg/Ml Vial 2 Ml IVP 04/30/25 09:59 100 mg QDAY AMANDA Administration Plan 80-year-old male with past medical history of BPH with indwelling barrios catheter, primary hypertension, CKD stage IIIb, NIDDM type 2, hyperlipidemia, depression,peripheral artery disease (right lower extremity AKA) and PEG tube insitu presenting with left flank pain. Patient will be admitted to the ICU for treatment of management of urosepsis requiring IV vasopressors. NEURO Chemical sedation discontinued Rx: Completely discontinued fentanyl Likely Dementia Dx: Oriented and following commands. Rx: General measures to prevent hospital induced delirium. History of Depression Not on any medication at home CVS Septic shock?resolved Dx: Currently MAP in the 70s off of norepinephrine Rx: Levophed discontinued overnight. Meropenem 500 Mg IV every 12 hourly [renally dosed] [03/30?04/01]. De-escalated antibiotics to ceftriaxone gram IV daily [04/01]. Continue cefepime 1 g IV daily on [04/01? History of primary hypertension Antihypertensives on hold in setting of shock. PULM Acute respiratory failure with hypoxia secondary to flash pulmonary edema on mechanical ventilation. DDx: Secondary to excessive IV fluids and obstructive uropathy Dx: Chest x-ray showed bilateral/pulmonary edema, repeat chest x-ray showed minimal change. On ACMV, TV 450, RR 22, PEEP 8, FiO2 60%. SBT today after dialysis Rx: For Hemodialysis as per Nephrology. To reattempt SBT after dialysis RRx: After HD to attempt SBT and possible extubation GI/Hep Protein calorie malnutrition s/p PEG tube Dx: Albumin 2.4. Patient chronically on tube feeds Rx: COntinue tube feeds at 50 mL/h x 24 hours. Water flushes 30 mL/h. As per dietitian recommendations. RENAL Obstructive uropathy s/p left nephrostomy on 03/30 DDx: Secondary to sludgelike calculi proximal left ureter Dx: CT abdomen pelvis fluids solitary calculus proximal left ureter. No drainage from nephrostomy over 24 hours. On 04/02 patient had left nephrostogram which showed displaced nephrostomy tube, a new tube was subsequently placed. Rx: For outpatient ureteral stent as per urology RRX: Urology, Dr. Parham consulted. Appreciate recommendations ENOC on CKD stage IIIb on hemodialysis DDx: Secondary to obstructive uropathy, ATN Dx: Baseline CR 1.9?2.1. On admission CR 3.4?>3.9 ->3.9->2.1. NO urine output in 24 hours. Nuclear medicine renal scan showed absent renal function and bilateral kidneys. Rx: Nephrology, Dr Shay consulted. Appreciate recommendations RRx: For hemodialysis today with 1L ultrafiltration. HEME/ONC Normocytic Anemia DDx: CHARBEL, malnutrition, anemia of chronic disease, Multiple myeloma, CLL Dx: Hb 8?>9.2 - >7.2 -> 8.9. 1 unit PRBC infusion on 04/02 Rx: Monitor for signs of bleeding on CBC RRx: If patient improves from this acute illness, for outpatient workup of anemia Thrombocytopenia DDx: Chronic inflammation, sepsis, Multiple myeloma, MDS Dx: Plt 72?>40 -> 38 ->22 -> 32. 1 unit PLT infusion on 04/02 Rx: Monitor for signs of bleeding and CBC RRx: If patient improves from this acute illness, for outpatient workup of thrombocytopenia Leukokcytosis DDx: See ID Dx: Wbc 38.6 -> 28.8 ->28.4-> 28.4 ENDO T2 IDDM Rx: Sliding scale q6hrly HLD Rx: Medication on hold as patient NPO ID E. coli bacteremia DDx: Secondary to pyelonephritis Dx: Blood culture grew E. coli pansensitive to tested antibiotics Rx: Meropenem 500 mg IV Q12 hourly started on [03/30?04/01]. De-escalated to ceftriaxone 2 g IV daily on [04/01?04/01]. Continue cefepime 1 g IV daily on [04/01? Septic Shock secondary to pyelonephritis, bacteremia?resolving See CVS and renal MSK/DERM Gluteal ulcer Rx: Wound care as per wound care nurse. ICU Health maintenance: Dispo: Admit to ICU for septic shock secondary to E. coli bacteremia and pyelonephritis. HD as per nephro, for SBT and possible extubation this afternoon Diet: Tube feeds as per dietitian DVT ppx: SCDs GI ppx: Protonix 40mg qD Mechanical ventilattion: Yes, Mode: ACVC, VT 450, R 26, PEEP6, FiO2 45% Sedation: No IV lines: 2 pIV Central line: Left IJ [ placed on 03/30/25, right , femoral HD catheter [placed on 04/01/2025 Arterial line: No Barrios: Yes , Left Nephrostomy Code status: FULL CODE Plan of care discussed with Attending Dr. Kiera Acevedo MD PGY 1 Attending Provider Attestation/Addendum Patient seen and examined with the above resident, Kimo Acevedo MD. I agree with the findings, assessment, and plan of care as documented separately differences below. Patient progressing well with improved gas change and able to be weaned down and tolerated spontaneous breathing trial today. However will await additional fluid removal and optimization of electrolytes and acid-base post hemodialysis for potential extubation. Dialysis well-tolerated on vasopressors with continued plan of greater than 1 L. However later in the day and we will defer extubation to tomorrow after repeat SBT. Patient remains off sedation and appears comfortable he is tolerating tube feeds. Patient with no other events overnight. He will need to be considered for long-term remote hemodialysis, will coordinate this with renal as whether or not this is option for the family to consider at this point. Patient does have significant chronic comorbidities and limited quality of life and this would further complicate his situation with need for regular hemodialysis in outpatient setting which may not be safe for staff and the patient likewise. Will continue to try to optimize to wean from mechanical ventilation/we can have a uriel discussion with the patient and his family altogether in the coming days. Chest x-ray does show improvement but continues to have significant pulmonary edema warranting ongoing dialysis and ultrafiltration. In interim, we will continue to maintain on empiric antibiotics with placement on cefepime for both E. coli bacteremia possible superimposed bacterial pneumonia with healthcare associated organisms such as Pseudomonas. Total critical care time: I personally spent 40 minutes for review of physiologic parameters, directing plan of care throughout the day, coordination of care with other subspecialists, and counseling patient's family at bedside. This is exclusive of time spent teaching housestaff performing any separate billable procedures. Patient remains at significant risk for further morbidity and mortality warranting close monitoring and care only available in the ICU. Critical care services required for acute hypoxic respiratory failure, healthcare associated pneumonia, E. coli bacteremia secondary to pyelonephritis status post nephrostomy drain, and acute renal failure.
[2025-04-03] MEDS: THIAMINE INJ 100 MG/ML VIAL 2 ML IVP (09:15)
[2025-04-03] MEDS: MULTIVITAMIN 15 ML UDC GT (09:15)
[2025-04-03] MEDS: POT PHOS 15 mMol in NS 250 ML 15 MMOL/250 ML BAG 62.5 MMOL IV ×2 (09:15→12:30)
--- NOTE | 2025-04-03 09:36 | PD.RESPRO ---
Documentation for date of: 04/03/25 Subjective Subjective Interval history: 04/01/2025 patient examined at bedside today. No acute overnight events. Patient reports he is doing well and needs to get changed. His sodium today is 136, potassium 4.2, BUN/creatinine 58 and 3.9 respectively, bicarb 18, white count 32, hemoglobin 8.3, platelet 28. Urine output 60 mL. Phosphorus 2.0, magnesium 1.9, calcium 8.7. No complaints at this time. 04/02/2025 patient evaluated in ICU, currently intubated, patient was intubated due to worsening acute hypoxic respiratory failure secondary ARDS/pneumonia. Currently requiring pressors, nephrostomy tube in place, but patient has produced minimal urine output, either in the nephrostomy tube or in the Barrios's, collectively amounting to 100 cc over last 24 hours. ICU team plans to do pyelogram, will order NM renal scan to evaluate renal function. Sodium 139, potassium 3.6, carbon oxide 19.1, BUN 44, creatinine 2.7. 04/03/2025, patient seen in ICU, currently sedated and mechanically ventilated, critical care team plans to extubate the patient in the afternoon. Nuclear medical scan yesterday showed absence of renal function in the right and left kidney. Urine output only 75 mL, initiate renal replacement therapy, dialysis orders placed. Sodium 139, potassium 3.4, BUN 26, creatinine 2.1 Exam Vital Signs Temp Pulse Resp BP Pulse Ox O2 Del Method O2 Flow Rate 97.7 F 97 22 H 135/71 H 92 L Mechanical Ventilation 40 04/03/25 07:00 04/03/25 09:30 04/02/25 21:37 04/03/25 09:30 04/03/25 09:30 04/03/25 07:00 04/02/25 21:37 FiO2 45 04/03/25 08:00 Narrative Exam General: Currently intubated and mechanically ventilated, on sedation HEENT: dry mucous membranes, conjunctiva clear, EOMI, PERRLA, Cardiovascular: S1, S2, radial pulses +2 bilat, RRR, ESM heard possible MARC Pulmonary: CTAB bilat no cough, no wheezing GI: No tenderness to light or deep palpitation, no guarding, rigidity, rebound tenderness or distension. PEG tube Extremities: L BKA, weak musculature, no pitting edema in RLE , dorsalis pedis pulses +2 bilaterally Left nephrostomy tube, Barrios catheter Neuro: Unable to assess due to sedation Psych: Unable to assess Objective Labs 04/04/25 04:27 04/04/25 04:27 Labs: Laboratory Results - last 24 hr 04/02/25 04/03/25 04/03/25 03:55 04:25 04:55 WBC 28.4 H RBC 3.10 L Hgb 8.9 L D Hct 25.2 L MCV 81 MCH 28.7 MCHC 35.3 RDW Std Deviation 44.1 H Plt Count 32 L D Neut % (Auto) 94 H Lymph % (Auto) 2 L [place] % (Auto) 2 Eos % (Auto) 0 Baso % (Auto) 1 Neut # (Auto) 26.7 H Lymph # (Auto) 0.5 L [place] # (Auto) 0.7 Eos # (Auto) 0.1 Baso # (Auto) 0.2 Immature Gran # (Auto) 0.27 H Absolute Nucleated RBC 0.03 H Immature Gran % 1 H Nucleated RBC % 0 Puncture Site Right Radial ABG pH 7.56 H D ABG pCO2 30 L D ABG pO2 179 H D ABG HCO3 27 H ABG O2 Saturation 101 H ABG Base Excess 5 H FiO2 50 Sodium 139 Potassium 3.4 Chloride 101 Carbon Dioxide 27.7 Anion Gap 10 BUN 26 H Creatinine 2.1 H D Estim Creat Clear Calc 17.3 L eGFR 31 L BUN/Creatinine Ratio 12 Glucose 175 H D Calculated Osmolality 286 Calcium 7.6 L Corrected Calcium 8.8 Phosphorus 1.6 L Magnesium 1.9 Total Bilirubin 0.8 AST 15 ALT 15 Alkaline Phosphatase 135 H Total Protein 4.7 L Albumin 2.5 L Globulin 2.2 L Albumin/Globulin Ratio 1.1 L Random Vancomycin 20.3 Misc Test Result Platelets confirmed Blood Type A Positive Antibody Screen NEGATIVE Crossmatch See Detail Blood Bank Wristband ID Yes Blood Bank Comment PLATP Ready ABG Interpretation ABG results: 03/30/25 04/01/25 04/02/25 07:35 20:42 00:13 ABG pH 7.31 L 7.49 H D 7.23 L D ABG pCO2 21 L 28 L 53 H D ABG pO2 109 H 58 L* D 69 L ABG HCO3 11 L 21 22 ABG O2 Saturation 99 H 92 90 L ABG Base Excess -14 L -2 -5 L 04/02/25 04/03/25 04:23 04:25 ABG pH 7.27 L 7.56 H D ABG pCO2 48 30 L D ABG pO2 130 H D 179 H D ABG HCO3 22 27 H ABG O2 Saturation 100 H 101 H ABG Base Excess -5 L 5 H Quality Measures Quality Measures sepsis Current suspected stage: sepsis Possible source: GI tract/intra-abdominal Blood cultures ordered: yes Antibiotic ordered: Yes Advance care planning discussed with:: patient Assessment & Plan Assessment Current Active Medications: Generic Name Dose Route Start Last Admin Trade Name Freq PRN Reason Stop Dose Admin Acetaminophen 650 mg 04/03/25 07:14 Acetaminophen Carmita 325 Mg/10 Ml Udc GT 04/29/25 15:52 Q4HR PRN Pain Or Fever > 100 Dextrose 50 ml 03/30/25 17:10 Dextrose 50%-Water Inj 50 Ml Syringe IV 04/29/25 17:09 Q15MIN PRN BG <50 OR BG <70 & pt unresponsive Epoetin Kishore 10,000 unit 04/03/25 13:00 Epoetin Kishore-Epbx Inj 10,000 Unit/Ml Vial (Esrd) IV 04/03/25 13:01 X1 ONE Glucagon 1 mg 03/30/25 17:10 Glucagon Inj 1 Mg Vial IM Q15MIN PRN BG <70, and no IV access Heparin Sodium (Porcine) 3,000 unit 04/01/25 18:09 04/02/25 21:22 Heparin Sod Inj 1000 Unit/Ml Vial 10 Ml INDWELLCAT 04/15/25 18:08 3,000 unit PRN PRN Administration DIALYSIS Hydrocortisone Sodium Succinate 50 mg 04/02/25 12:00 04/03/25 05:12 Hydrocortisone Sod Succ Inj 100 Mg Vial IV 05/02/25 11:59 50 mg Q6HR AMANDA Administration Norepinephrine/Dextrose 8 mg in 250 mls @ 3.827 mls/hr 03/30/25 07:38 04/03/25 04:33 Levophed In D5w 8mg/250ml IV 04/29/25 07:37 0 mcg/kg/min .Q24H PRN 0 mls/hr PER PROTOCOL Titration Protocol 0.05 MCG/KG/MIN Albumin Human 25 gm in 100 mls @ 100 mls/min 04/01/25 15:21 04/02/25 20:00 Albuminar-25 Ivpb IV 04/04/25 15:20 Infused PRN PRN Infusion DIALYSIS Cefepime HCl 1 gm/ Sodium 50 mls @ 100 mls/hr 04/01/25 20:57 04/02/25 21:34 Chloride IV 04/08/25 20:53 100 mls/hr Q24H AMANDA Administration Protocol Potassium Phosphate 15 mmol in 250 mls @ 62.5 mls/hr 04/03/25 07:14 04/03/25 09:15 Pot Phos 15 Mmol In Ns 250 Ml IV 04/03/25 15:13 62.5 mls/hr Q4H AMANDA Administration Fentanyl Citrate 2,500 mcg in 250 mls @ 2.5 mls/hr 04/03/25 07:35 Sublimaze Inj 2,500 Mcg/250 Ml Bag IV 04/07/25 00:14 .Q24H PRN PER PROTOCOL Protocol 25 MCG/HR Insulin Human Lispro 0 unit 03/30/25 18:00 04/03/25 05:55 Insulin Lispro (Admelog) 1 Unit/0.01 Ml Unit SC 04/29/25 17:59 1 unit Q6HR AMANDA Administration Protocol Multivitamins/Minerals 15 ml 03/31/25 10:00 04/03/25 09:15 Multivitamin 15 Ml Udc GT 04/30/25 09:59 15 ml QDAY AMANDA Administration Ondansetron HCl 4 mg 03/30/25 12:15 04/01/25 10:31 Ondansetron Inj 2 Mg/Ml Inj 2 Ml IVP 04/29/25 12:14 4 mg Q6H PRN Administration NAUSEA OR VOMITING Protocol Pharmacy Consult 1 each 03/30/25 12:15 Pharmacy Renal Dose Adjustment 1 Ea XX 04/29/25 12:14 PRN PRN CONSULT Pharmacy Consult 1 each 04/02/25 09:00 04/02/25 09:05 Vancomycin Pharmacy To Dose 1 Each Each IV 05/02/25 08:59 Not Given QDAY AMANDA Thiamine HCl 100 mg 03/31/25 10:00 04/03/25 09:15 Thiamine Inj 100 Mg/Ml Vial 2 Ml IVP 04/30/25 09:59 100 mg QDAY AMANDA Administration Plan Assessment 80-year-old male with past medical history of BPH with indwelling barrios catheter, primary hypertension, CKD stage IIIb, NIDDM type 2, hyperlipidemia, depression,peripheral artery disease (right lower extremity AKA) and PEG tube insitu presenting with left flank pain. Patient will be admitted to the ICU for treatment of management of urosepsis requiring IV vasopressors. # Acute tubular necrosis #Obstructive uropathy #Lactic acidosis #NAGMA #E coli bacteremia #Anuric #Hypophosphatemia Secondary to sludgelike calculi proximal left ureter Percutaneous nephrostomy placement by IR. Previous urine cultures have shown Pseudomonas, E. coli, Proteus, Enterococcus Patient has also been MRSA positive in the past Current blood cultures show GNR bacteremia 2 out of 2 bottles Urine output less than 400 cc BUN/creatinine of 52 and 3.9 -> Postrenal Last Lactate 2.8 Metabolic acidosis likely related to lactate despite no anion gap on labs but lactate strongly suggests AG Pt is not having significant compensation from a respiratory stand point Expected PCO2 compensation should be 27-31 despite it only being 21 on ABG Absent renal function right and left kidney on nuclear medical scan Plan: ? Urology consulted, appreciate recs ? Monitor UOP ? Trend CMP and lytes ? Avoid nephrotoxic agents ? Renally dose medicines ? Bicitra 30 mL BID GT ? Follow-up nuclear medicine renal scan #Normocytic Anemia #Thrombocytopenia #T2 IDDM #HLD #Septic Shock secondary to UTI #Gluteal ulcer #Likely Dementia #History of Depression #Septic shock #History of primary hypertension #Protein calorie malnutrition s/p PEG tube #Failure to thrive #Anorexic Patient seen and care discussed with my attending physician, Dr. Jaspal Suárez PGY 2 Attending Provider Attestation/Addendum Patient seen and examined with resident physician Dr. Suárez. Note reviewed, agree with findings and recommendations. Patient currently seen in ICU. Did not make any urine. Went into fluid overload. Decided to proceed with dialysis. Vas-Cath placed by ICU team. This is his third session. Hemodialysis for 3 hours,qb 200m 2K, ultrafiltration 1-2 L, Epogen 6000, no heparin ordered. Plan of care discussed with the dialysis nurse. Please see dialysis flowsheet for further details. Renal scan showed ATN. Next dialysis scheduled for Saturday. Plan of care discussed with ICU team
[2025-04-03] MEDS: PANTOPRAZOLE INJ 40 MG VIAL IVP (12:31)
[2025-04-03] MEDS: EPOETIN ALFA-EPBX INJ 10,000 UNIT/ML VIAL (ESRD) 10000 UNIT IV (12:33)
[2025-04-03] MEDS: ALBUMIN HUMAN 25% IVPB 25 GM/100 ML BTL IV (15:49)
[2025-04-03] MEDS: HEPARIN SOD INJ 1000 UNIT/ML VIAL 10 ML 3000 UNIT INDWELLCAT (16:34)
[2025-04-03] MEDS: CEFEPIME INJ 1 GM in SODIUM CHLORIDE 0.9% (Popper) 50 ML IV (20:38)
[2025-04-03] MEDS: DEXMEDETOMIDINE 400 MCG IVPB 400 MCG/100 ML BAG IV (23:17)
[2025-04-04] VITALS (67 sets, daily range): BP systolic 95–136; BP diastolic 54–69; PULSE 71–94; RESP 14–32; TEMP 37–37.4; O2SAT 89–100
--- NOTE | 2025-04-04 05:00 | XR_ITS ---
Examination: AP chest single view Technique one AP portable semiupright chest single view Date and time: April 04, 2025 at 0521 hours Comparison April 03, 2025 INDICATIONS: Hypoxia, hypoxic respiratory failure, extensive pneumonia or ARDS pattern on earlier chest films FINDINGS: Severe bilateral lung opacity Layering right pleural fluid Mild enlargement cardiac contour. Tracheal tube tip 21 mm above the rosalina Left internal jugular central line tip SVC satisfactory position IMPRESSION: No significant change in severe bilateral pneumonia ARDS pattern
[2025-04-04 05:11] LABS: Base Excess 4 (-3-3); HCO3 27 mEq/L (20-26); Inspired Oxygen, FIO2 65 %; O2 Saturation 97 % (91-98); PCO2 33 mmHg (32.0-48.0); PO2 71 mmHg (83-108); pH, Arterial 7.51 (7.35-7.45)
[2025-04-04 05:12] LABS: Puncture Site Right Brachial
[2025-04-04 05:14] LABS: Allen Test Performed/OK
[2025-04-04] MEDS: HYDROCORTISONE SOD SUCC INJ 100 MG VIAL 50 MG IV ×4 (05:45→23:42)
[2025-04-04] MEDS: INSULIN LISPRO (AdmeLOG) 1 UNIT/0.01 ML UNIT SC ×4 (05:45→23:50)
[2025-04-04 06:05] LABS: Basophils # (Auto) 0.2 Thou/mm3 (0.0-0.2); Basophils % (Auto) 1 % (0-2.5); Eosinophils % (Auto) 0 % (0-10); Hematocrit 26.5 % (41.0-53.0); Immature Granulocytes % (Auto) 2 % (0-0); Lymphocytes # (Auto) 0.8 Thou/mm3 (1.0-4.8); Lymphocytes % (Auto) 3 % (10-50); Mean Corpuscular Hemoglobin 28.9 pg (25.0-35.0); Mean Corpuscular Volume 85 fL (80-100); Monocytes # (Auto) 0.7 Thou/mm3 (0.0-0.8); Monocytes % (Auto) 3 % (0-12); Neutrophils # (Auto) 24.2 Thou/mm3 (1.8-7.7); Neutrophils % (Auto) 92 % (37-80); Nucleated Red Blood Cell # 0.11 Thou/mm3 (0.00-0.00); Nucleated Red Blood Cell % 0 /100 WBC (0); RDW Standard Deviation 47.9 fL (35.1-43.9); Red Blood Count 3.11 Miln/mm3 (4.50-5.90); White Blood Count 26.2 Thou/mm3 (3.8-10.6)
[2025-04-04 06:06] LABS: Platelet Count 31 Thou/mm3 (140-440)
[2025-04-04 06:14] LABS: Alanine Aminotransferase 12 U/L (10-49); Albumin, Serum 2.8 gm/dL (3.4-4.8); Albumin/Globulin Ratio 1.3 (1.2-2.2); Alkaline Phosphatase 139 U/L (46-116); Anion Gap 8 (7-16); Aspartate Amino Transferase 14 U/L (0-34); BUN/Creatinine Ratio 14 Ratio (12-20); Bilirubin,Total 0.7 mg/dL (0.3-1.2); Blood Urea Nitrogen 27 mg/dL (9-23); Carbon Dioxide 29.1 mMol/L (20.0-31.0); Chloride 101 mMol/L (98-107); Estimated Creatinine Clearance 20.8 mL/min (>60); Globulin 2.1 gm/dL (2.3-3.5); Glucose 181 mg/dL (74-106); Magnesium 1.9 mg/dL (1.6-2.6); Osmolality,Calculated 285 (275-295); Phosphorous 2.7 mg/dL (2.4-5.1); Potassium 3.8 mMol/L (3.4-5.1); Sodium 138 mMol/L (136-145); Total Protein 4.9 gm/dL (5.7-8.2); Vancomycin,Random 15.9 mcg/mL; eGFR 33 See Note
[2025-04-04 06:46] LABS: Slide Review Platelets confirmed
--- NOTE | 2025-04-04 07:31 | PD.NEPHPROG ---
Documentation for date of: 04/04/25 Subjective Subjective Interval history: Erick is a 80 y/o male with PMHx of BPH with indwelling barrios catheter, primary hypertension, CKD stage IIIb, NIDDM type 2, hyperlipidemia, depression,peripheral artery disease (right lower extremity AKA) and PEG tube who is currently in the ICU requiring vasopressors for shock. Pt was recently hospitalized in August for failure to thrive and had PEG placement by Dr. Raymond. Pt sees Dr. Parham, urology, outpatient for BPH management and pt has chronic indwelling barrios. Pt currently had nephrostomy placement during this admission for postobstructive uropathy 2/2 possible calculus in L proximal ureter. 04/01/2025 patient examined at bedside today. No acute overnight events. Patient reports he is doing well and needs to get changed. His sodium today is 136, potassium 4.2, BUN/creatinine 58 and 3.9 respectively, bicarb 18, white count 32, hemoglobin 8.3, platelet 28. Urine output 60 mL. Phosphorus 2.0, magnesium 1.9, calcium 8.7. No complaints at this time. 04/02/2025 patient evaluated in ICU, currently intubated, patient was intubated due to worsening acute hypoxic respiratory failure secondary ARDS/pneumonia. Currently requiring pressors, nephrostomy tube in place, but patient has produced minimal urine output, either in the nephrostomy tube or in the Barrios's, collectively amounting to 100 cc over last 24 hours. ICU team plans to do pyelogram, will order NM renal scan to evaluate renal function. Sodium 139, potassium 3.6, carbon oxide 19.1, BUN 44, creatinine 2.7. 04/03/2025, patient seen in ICU, currently sedated and mechanically ventilated, critical care team plans to extubate the patient in the afternoon. Nuclear medical scan yesterday showed absence of renal function in the right and left kidney. Urine output only 75 mL, initiate renal replacement therapy, dialysis orders placed. Sodium 139, potassium 3.4, BUN 26, creatinine 2.1 04/04/2025 patient currently seen in ICU. Remains on the ventilator. Did discuss with ICU team that patient is not a candidate for outpatient dialysis and goals of care needs to be discussed. He has failure to thrive with feeding tube, contractures and is mostly bedbound. Cannot sit in the dialysis unit chair 3 times weekly 3 hours. Next dialysis scheduled for tomorrow. Review of Systems Review of Systems ROS Unobtainable: unobtainable due to medical condition and due to endotracheal tube Exam Vital Signs Temp Pulse Resp BP Pulse Ox O2 Del Method O2 Flow Rate 37.4 C 91 16 103/55 L 92 L Mechanical Ventilation 40 04/04/25 00:00 04/04/25 06:16 04/03/25 16:59 04/04/25 06:16 04/04/25 06:16 04/03/25 16:00 04/03/25 16:59 FiO2 65 04/04/25 06:16 Narrative Exam General: Currently intubated and mechanically ventilated, on sedation HEENT: dry mucous membranes, conjunctiva clear, EOMI, PERRLA, Cardiovascular: S1, S2, radial pulses +2 bilat, RRR, ESM heard possible MARC Pulmonary: CTAB bilat no cough, no wheezing GI: No tenderness to light or deep palpitation, no guarding, rigidity, rebound tenderness or distension. PEG tube Extremities: L BKA, weak musculature, no pitting edema in RLE , dorsalis pedis pulses +2 bilaterally Left nephrostomy tube, Barrios catheter Neuro: Unable to assess due to sedation Psych: Unable to assess Objective Labs 04/07/25 05:09 04/07/25 05:09 Labs: Laboratory Results - last 24 hr 04/04/25 04/04/25 04:27 04:59 WBC 26.2 H RBC 3.11 L Hgb 9.0 L Hct 26.5 L MCV 85 MCH 28.9 MCHC 34.0 RDW Std Deviation 47.9 H Plt Count 31 L Neut % (Auto) 92 H Lymph % (Auto) 3 L [place] % (Auto) 3 Eos % (Auto) 0 Baso % (Auto) 1 Neut # (Auto) 24.2 H Lymph # (Auto) 0.8 L [place] # (Auto) 0.7 Eos # (Auto) 0.0 Baso # (Auto) 0.2 Immature Gran # (Auto) 0.40 H Absolute Nucleated RBC 0.11 H Immature Gran % 2 H Nucleated RBC % 0 Puncture Site Right Brachial ABG pH 7.51 H ABG pCO2 33 ABG pO2 71 L D ABG HCO3 27 H ABG O2 Saturation 97 ABG Base Excess 4 H FiO2 65 Sodium 138 Potassium 3.8 Chloride 101 Carbon Dioxide 29.1 Anion Gap 8 BUN 27 H Creatinine 2.0 H Estim Creat Clear Calc 20.8 L eGFR 33 L BUN/Creatinine Ratio 14 Glucose 181 H Calculated Osmolality 285 Calcium 8.0 L Corrected Calcium 9.0 Phosphorus 2.7 Magnesium 1.9 Total Bilirubin 0.7 AST 14 ALT 12 Alkaline Phosphatase 139 H Total Protein 4.9 L Albumin 2.8 L Globulin 2.1 L Albumin/Globulin Ratio 1.3 Random Vancomycin 15.9 Misc Test Result Platelets confirmed ABG Interpretation ABG results: 03/30/25 04/01/25 04/02/25 07:35 20:42 00:13 ABG pH 7.31 L 7.49 H D 7.23 L D ABG pCO2 21 L 28 L 53 H D ABG pO2 109 H 58 L* D 69 L ABG HCO3 11 L 21 22 ABG O2 Saturation 99 H 92 90 L ABG Base Excess -14 L -2 -5 L 04/02/25 04/03/25 04/04/25 04:23 04:25 04:59 ABG pH 7.27 L 7.56 H D 7.51 H ABG pCO2 48 30 L D 33 ABG pO2 130 H D 179 H D 71 L D ABG HCO3 22 27 H 27 H ABG O2 Saturation 100 H 101 H 97 ABG Base Excess -5 L 5 H 4 H Assessment & Plan Additional Assessment & Plan Additional Plan: 80-year-old male with past medical history of BPH with indwelling barrios catheter, primary hypertension, CKD stage IIIb, NIDDM type 2, hyperlipidemia, depression,peripheral artery disease (right lower extremity AKA) and PEG tube insitu presenting with left flank pain. Patient will be admitted to the ICU for treatment of management of urosepsis requiring IV vasopressors. # Acute tubular necrosis #Obstructive uropathy #Lactic acidosis #NAGMA #E coli bacteremia #Anuric #Hypophosphatemia Secondary to sludgelike calculi proximal left ureter Percutaneous nephrostomy placement by IR. Previous urine cultures have shown Pseudomonas, E. coli, Proteus, Enterococcus Patient has also been MRSA positive in the past Current blood cultures show GNR bacteremia 2 out of 2 bottles Urine output less than 400 cc BUN/creatinine of 52 and 3.9 -> Postrenal Last Lactate 2.8 Metabolic acidosis likely related to lactate despite no anion gap on labs but lactate strongly suggests AG Pt is not having significant compensation from a respiratory stand point Expected PCO2 compensation should be 27-31 despite it only being 21 on ABG Absent renal function right and left kidney on nuclear medical scan Plan: ? Urology consulted, appreciate recs ? Monitor UOP ? Trend CMP and lytes ? Avoid nephrotoxic agents ? Renally dose medicines ? Bicitra 30 mL BID GT ? nuclear medicine renal scan--ATN Next dialysis scheduled for tomorrow. Outpatient dialysis not a candidate- #Normocytic Anemia #Thrombocytopenia #T2 IDDM #HLD #Septic Shock secondary to UTI #Gluteal ulcer #Likely Dementia #History of Depression #Septic shock #History of primary hypertension #Protein calorie malnutrition s/p PEG tube #Failure to thrive #Anorexic
[2025-04-04] MEDS: PANTOPRAZOLE INJ 40 MG VIAL IVP (10:01)
[2025-04-04] MEDS: THIAMINE INJ 100 MG/ML VIAL 2 ML IVP (10:01)
[2025-04-04] MEDS: MULTIVITAMIN 15 ML UDC GT (10:01)
--- NOTE | 2025-04-04 13:15 | ESPR_ITS ---
Documentation for date of: 04/04/25 Subjective Subjective Interval history: Patient is Mold[place]-speaking and history facilitated by registered healthcare triple valve mechanic. 80-year-old male with past medical history of BPH with indwelling barrios catheter, primary hypertension, CKD stage IIIb, NIDDM type 2, hyperlipidemia, depression,peripheral artery disease (right lower extremity AKA) and PEG tube insitu presenting with left flank pain. Patient is a resident at [facility]. According to patient yesterday night he began having left flank pain 9/10, constant, no radiation, and no relief with Tylenol. Denied any fever, sick contacts, recent travel, vomiting, diarrhea, chest pain/pressure and palpitations. He has monthly barrios catheter changes at Dr. Parham's office. Patient was hospitalized August last year for failure to thrive and PEG tube was placed for nutritional needs. ED course: BP 121/65, pulse 1 1, RR 20, temp 101.6 F, SpO2 96% on room air Labs significant for Hb 8, PLT 72, BUN 46, CR 3.4, lactic acid 5.2, Pro-Jeffy 33.94. Urinalysis significant for cloudy, brown, 3+ blood, leukocyte esterase +9-82 WBC. Abdomen x-ray showed abundant stool in colon and small bowel ileus. Abdomen/pelvis CT showed mild to moderate left hydronephrosis with sludge like calculi in proximal left ureter. In the ED patient received Ringer's lactate 2L IVF bolus, acetaminophen 1.53 p.o. x 1, magnesium citrate 300 mL p.o. x 1, Zosyn 4.5G IV x 1, vancomycin 750 Mg IV x 1 and norepinephrine infusion. Patient will be admitted to the ICU for treatment of management of urosepsis requiring IV vasopressors. 03/31/2025: No events overnight. Levophed infusion ongoing. This morning patient alert and oriented x 3, denies any flank pain, nausea, vomiting. WBC increased to 33.6 from 6.7, PLT decreased to 40 from 72, bicarb improved to 15.5 from 13.8, LA downtrended to 2.8 from 4, CR increased to 3.9 from 3.3. Blood culture grew GNR preliminary, urine culture pending. Minimal output from left nephrostomy in past 24 hours. Started on Bicitra 30 mL GT twice daily, Ringer's lactate 500 cc IVF bolus, continue meropenem 500 Mg IV twice daily, continue to wean Levophed as tolerated, for left nephrostogram as per urology recommendations. 04/01/2025: Overnight patient had diarrhea. Currently on Norel at 0.03, tube feeds at 50 cc/hour with free water flushes at 75 cc/12. Urine output 60 cc from Barrios/24 hours, 100 cc from nephrostomy/24 hours. Today patient only complained of diarrhea, however desatted into the 70s and had to be placed on HFNC and 25L, FiO2 40%. WBC decreased to 32 from 33.6, Hb decreased to 8.3 from 9.2, PLT decreased to 28 from 40, Cr. stabe at 3.9, Bun increased to 58 from 52, Bicarb increased to 17.7 from 15.2, Phos decreased to 2 from 3.5, globulin 2.3. Blood culture grew E. coli pansensitive to all tested antibiotics. Chest x-ray showed bilateral flash pulmonary edema. Repleted with K-Phos 15 mm x 1, de-escalated meropenem to ceftriaxone 2 g IV daily, emergent placement of right femoral dialysis catheter and hemodialysis. Patient's son, Elias Rodriguez updated about today's events. 04/02/2025: Overnight patient became hypoxic on BiPAP, on ABG pH 7.49, pCO2 28, pO2 58. NO urine output in past 24hours. Subsequently was intubated and mechanically ventillated. Sedation with Fentanyl and Propofol, Levophed at 0.05. This morning patient seen and examined in ICU. Repeat ABG pH 7.27, pCO2 48, PaO2 135. WBC decreased to 28.8 from 38.6 , Hb decreased to 7.2 from 7.5, plt decreased to 22 from 28, bicarb decreased to 19.1 from 22, BNP 1586, Procal 85.8. Chest X-ray showed B/L pulmonary consolidation and flash pulmonary edema. Scheduled for IR Lt Nephrostogram today, NM Renal scan, Switched antibiotics to Cefepime and Vancomycin x 1. Discontinued Propofol. Hemodialysis today with 1L UF. 04/03/2025: Overnight patient was weaned off of Levophed, fentanyl was titrated to 100 mcg/hour, hemodialysis with 1.5L UF and 1 PRBC infusion. This morning SAT was successful and patient weaned off of fentanyl infusion, following commands, cough and gag reflex intact. Also had SBT on pressure support, subsequently switched back to ACMV. Hb improved to 8.9 from 7.2, WBC improved to 28.4 from 28.8, PLT increased to 32 from 22, K3.4, Phos 1.6, CR improved to 2.1 from 2.7, BUN improved to 26 from 44. ABG this a.m. pH 7.56, [id number], PO2 179. Chest x-ray this morning showed bilateral pulmonary edema with some areas of consolidation?minimal improvement from yesterday. Plan for today to attempt SBT again after hemodialysis. 04/04/2025: Patient was seen and examined at bedside this AM. No acute events overnight. PSV spontaneous breathing trial today after ~4L fluid removal with HD over last 3 days. Dialysis well-tolerated on vasopressors. Patient remains off sedation and appears comfortable, and tolerating tube feeds. Chest x-ray does shows significant pulmonary edema despite ongoing dialysis and ultrafiltration, possible underlying ARDS vs. alveolar hemorrhage. Holding off bronchoscopy for now until final decision from family. Per Nephrology, patient is not a candidate for long-term remote hemodialysis, will coordinate this with son/family. Son shows full comprehension of poor prognosis and that patient has significant chronic comorbidities and limited quality of life. In interim, we will continue to treat with cefepime for both E. coli bacteremia possible superimposed bacterial pneumonia with healthcare associated organisms such as Pseudomonas, as well as try to optimize to wean from mechanical ventilation. Exam Vital Signs Temp Pulse Resp BP Pulse Ox O2 Del Method O2 Flow Rate 99.3 F 84 16 116/65 93 L Mechanical Ventilation 40 04/04/25 00:00 04/04/25 12:00 04/03/25 16:59 04/04/25 12:00 04/04/25 12:00 04/04/25 08:00 04/03/25 16:59 FiO2 70 04/04/25 12:00 Narrative Exam Constitutional Alert, following commands, tracking. Elderly male, bitemporal wasting, cachectic. HEENT Vision grossly intact. Patent nares. Trachea midline Respiratory Chest normal on inspection and bilateral crackles On anterior and posterior chest wall. Left IJ catheter. Exit site clean. On ACMV VT 450, PEEP 6, FiO2 45, RR 16 Cardiovascular S1 and S2 audible, RRR. No murmurs carotid bruit. No gross JVD. Abdominal Soft and non tender to palpation in all quadrants. BS + PEG tube in situ, exit site clean. Genitourinary No bladder tenderness, no flank pain. Normal to palpation. Stage 1 pressure ulcer on right groin. Left nephrostomy tube in situ, no drainage. Right hemodialysis catheter in situ. Exit site clean Musculoskeletal. Extremities tone within normal limits. No LE edema. Right AKA noted Neurological CN II - XII grossly intact. Extremity motor and sensation grossly intact. Skin Warm, dry and intact. Right buttock pressure ulcer. Objective Labs 04/04/25 04:27 04/04/25 04:27 Labs: Laboratory Results - last 24 hr 04/04/25 04/04/25 04:27 04:59 WBC 26.2 H RBC 3.11 L Hgb 9.0 L Hct 26.5 L MCV 85 MCH 28.9 MCHC 34.0 RDW Std Deviation 47.9 H Plt Count 31 L Neut % (Auto) 92 H Lymph % (Auto) 3 L [place] % (Auto) 3 Eos % (Auto) 0 Baso % (Auto) 1 Neut # (Auto) 24.2 H Lymph # (Auto) 0.8 L [place] # (Auto) 0.7 Eos # (Auto) 0.0 Baso # (Auto) 0.2 Immature Gran # (Auto) 0.40 H Absolute Nucleated RBC 0.11 H Immature Gran % 2 H Nucleated RBC % 0 Puncture Site Right Brachial ABG pH 7.51 H ABG pCO2 33 ABG pO2 71 L D ABG HCO3 27 H ABG O2 Saturation 97 ABG Base Excess 4 H FiO2 65 Sodium 138 Potassium 3.8 Chloride 101 Carbon Dioxide 29.1 Anion Gap 8 BUN 27 H Creatinine 2.0 H Estim Creat Clear Calc 20.8 L eGFR 33 L BUN/Creatinine Ratio 14 Glucose 181 H Calculated Osmolality 285 Calcium 8.0 L Corrected Calcium 9.0 Phosphorus 2.7 Magnesium 1.9 Total Bilirubin 0.7 AST 14 ALT 12 Alkaline Phosphatase 139 H Total Protein 4.9 L Albumin 2.8 L Globulin 2.1 L Albumin/Globulin Ratio 1.3 Random Vancomycin 15.9 Misc Test Result Platelets confirmed ABG Interpretation ABG results: 03/30/25 04/01/25 04/02/25 07:35 20:42 00:13 ABG pH 7.31 L 7.49 H D 7.23 L D ABG pCO2 21 L 28 L 53 H D ABG pO2 109 H 58 L* D 69 L ABG HCO3 11 L 21 22 ABG O2 Saturation 99 H 92 90 L ABG Base Excess -14 L -2 -5 L 04/02/25 04/03/25 04/04/25 04:23 04:25 04:59 ABG pH 7.27 L 7.56 H D 7.51 H ABG pCO2 48 30 L D 33 ABG pO2 130 H D 179 H D 71 L D ABG HCO3 22 27 H 27 H ABG O2 Saturation 100 H 101 H 97 ABG Base Excess -5 L 5 H 4 H Quality Measures Quality Measures sepsis Current suspected stage: sepsis Possible source: GI tract/intra-abdominal Blood cultures ordered: yes Antibiotic ordered: Yes Advance care planning discussed with:: patient and child Assessment & Plan Assessment Current Active Medications: Generic Name Dose Route Start Last Admin Trade Name Freq PRN Reason Stop Dose Admin Acetaminophen 650 mg 04/03/25 07:14 Acetaminophen Carmita 325 Mg/10 Ml Udc GT 04/29/25 15:52 Q4HR PRN Pain Or Fever > 100 Dextrose 50 ml 03/30/25 17:10 Dextrose 50%-Water Inj 50 Ml Syringe IV 04/29/25 17:09 Q15MIN PRN BG <50 OR BG <70 & pt unresponsive Glucagon 1 mg 03/30/25 17:10 Glucagon Inj 1 Mg Vial IM Q15MIN PRN BG <70, and no IV access Heparin Sodium (Porcine) 3,000 unit 04/01/25 18:09 04/03/25 16:34 Heparin Sod Inj 1000 Unit/Ml Vial 10 Ml INDWELLCAT 04/15/25 18:08 3,000 unit PRN PRN Administration DIALYSIS Hydrocortisone Sodium Succinate 50 mg 04/02/25 12:00 04/04/25 12:55 Hydrocortisone Sod Succ Inj 100 Mg Vial IV 05/02/25 11:59 50 mg Q6HR AMANDA Administration Norepinephrine/Dextrose 8 mg in 250 mls @ 3.827 mls/hr 03/30/25 07:38 04/03/25 04:33 Levophed In D5w 8mg/250ml IV 04/29/25 07:37 0 mcg/kg/min .Q24H PRN 0 mls/hr PER PROTOCOL Titration Protocol 0.05 MCG/KG/MIN Albumin Human 25 gm in 100 mls @ 100 mls/min 04/01/25 15:21 04/03/25 15:52 Albuminar-25 Ivpb IV 04/04/25 15:20 Infused PRN PRN Infusion DIALYSIS Cefepime HCl 1 gm/ Sodium 50 mls @ 100 mls/hr 04/01/25 20:57 04/03/25 20:38 Chloride IV 04/08/25 20:53 100 mls/hr Q24H AMANDA Administration Protocol Dexmedetomidine/Sodium Chloride 400 mcg in 100 mls @ 2.18 mls/hr 04/03/25 22:59 04/04/25 07:00 Precedex Ivpb IV 05/03/25 22:58 0 mcg/kg/hr .Q24H PRN 0 mls/hr Per PROTOCOL Titration Protocol 0.2 MCG/KG/HR Insulin Human Lispro 0 unit 03/30/25 18:00 04/04/25 12:56 Insulin Lispro (Admelog) 1 Unit/0.01 Ml Unit SC 04/29/25 17:59 1 unit Q6HR AMANDA Administration Protocol Multivitamins/Minerals 15 ml 03/31/25 10:00 04/04/25 10:01 Multivitamin 15 Ml Udc GT 04/30/25 09:59 15 ml QDAY AMANDA Administration Ondansetron HCl 4 mg 03/30/25 12:15 04/01/25 10:31 Ondansetron Inj 2 Mg/Ml Inj 2 Ml IVP 04/29/25 12:14 4 mg Q6H PRN Administration NAUSEA OR VOMITING Protocol Pantoprazole Sodium 40 mg 04/03/25 10:45 04/04/25 10:01 Pantoprazole Inj 40 Mg Vial IVP 05/03/25 10:44 40 mg QDAY AMANDA Administration Pharmacy Consult 1 each 03/30/25 12:15 Pharmacy Renal Dose Adjustment 1 Ea XX 04/29/25 12:14 PRN PRN CONSULT Thiamine HCl 100 mg 03/31/25 10:00 04/04/25 10:01 Thiamine Inj 100 Mg/Ml Vial 2 Ml IVP 04/30/25 09:59 100 mg QDAY AMANDA Administration Plan Mr Rodriguez is a 80-year-old male with past medical history of BPH with indwelling barrios catheter, primary hypertension, CKD stage IIIb, NIDDM type 2, hyperlipidemia, depression,peripheral artery disease (right lower extremity AKA) and PEG tube insitu presenting with left flank pain. Patient will be admitted to the ICU for treatment of management of acute hypoxic respiratory failure, healthcare associated pneumonia, E. coli bacteremia secondary to pyelonephritis status post nephrostomy drain, and acute renal failure. NEURO Age-related Dementia History of Depression Dx: Oriented and following commands. Rx: - General measures to prevent hospital induced delirium. - PRN precedex for agitation CVS Septic shock?resolved Dx: Currently MAP in the 70s off of norepinephrine Meropenem 500 Mg IV every 12 hourly [renally dosed] [03/30?04/01]. Rx: - Levophed discontinued - Continue cefepime 1 g IV daily on [04/01? History of primary hypertension Antihypertensives on hold in setting of shock. PULM Acute respiratory failure with hypoxia secondary to flash pulmonary edema on mechanical ventilation. Dx: - Chest x-ray showed bilateral/pulmonary edema - 04/03 Repeat chest x-ray : minimal change. On ACMV, TV 450, RR 22, PEEP 8, FiO2 60%. SBT today after dialysis - 04/04 CXR : significant pulmonary edema despite ongoing dialysis and ultrafiltration, possible underlying ARDS vs. alveolar hemorrhage. Rx: - HD as per Nephrology. Patient requires pressors for HD, is not a candidate for outpatient HD, per Dr Shay - Failed SBT on PSV today - Will repeat HD session tomorrow 04/05 - Holding off bronchoscopy for now until final decision from family. - Family informed of poor prognosis. Pending final decision re: transitioning to comfort, as patient is not a candidate for long-term remote HD. GI/Hep Protein calorie malnutrition s/p PEG tube Dx: Albumin 2.4. Patient chronically on tube feeds Rx: - Continue tube feeds at 50 mL/h x 24 hours. - Water flushes 30 mL/h. As per dietitian recommendations. RENAL Obstructive uropathy s/p left nephrostomy on 03/30 Acute renal failure CKD IIIb -> ESRD on hemodialysis DDx: - Secondary to sludgelike calculi proximal left ureter - CT abdomen pelvis fluids solitary calculus proximal left ureter. No drainage from nephrostomy over 24 hours. - Baseline CR 1.9?2.1. On admission CR 3.4?>3.9 ->3.9->2.1. NO urine output in 24 hours. - On 04/02 patient had left nephrostogram which showed displaced nephrostomy tube, a new tube was subsequently placed. Rx: - Minimal drainage in the nephrostomy tube, will continue to flush and monitor for any output - Dr. Parham consulted. Appreciate recommendations . Per Urology, outpatient ureteral stent will be needed - Nuclear medicine renal scan showed absent renal function and bilateral kidneys. - Nephrology Dr Shay following, appreciate recommendations re: HD, patient is not a candidate for outpatient dialysis. Son and family informed, pending final decision regarding transitioning to comfort. HEME/ONC Normocytic Anemia Dx: - Multifactorial: CHARBEL, malnutrition, anemia of chronic disease, Multiple myeloma, CLL - MCV 80s and Hb 8?> 9.2 - >7.2 -> 8.9 -> 9 Rx: - Monitor for signs of bleeding on CBC - Likely exacerbated by acute illness, underlying chronic anemia of malnutrition. - Patient did receive EPO x 1 during HD (04/02) + 1 unit PRBC (04/02). Will continue to monitor CBC closely Thrombocytopenia Dx: - Chronic inflammation, sepsis, Multiple myeloma, MDS - Plt 72?>40 -> 38 ->22 -> 32. 1 unit PLT infusion on 04/02 Rx: - Monitor for signs of bleeding and CBC - Platelets trending in the 30s, possible alveolar hemorrhage on chest x-ray, will monitor CBC closely Leukocytosis Dx: - Wbc 38 -> 28 - -> 26 Rx: Likely in the setting of sepsis from E. coli bacteremia Continue cefepime ENDO T2 IDDM Rx: Sliding scale q6hrly HLD Rx: Medication on hold as patient NPO ID E. coli bacteremia DDx: Secondary to pyelonephritis Dx: Blood culture grew E. coli pansensitive to tested antibiotics Rx: Meropenem 500 mg IV Q12 hourly started on [03/30?04/01]. De-escalated to ceftriaxone 2 g IV daily on [04/01?04/01]. Continue cefepime 1 g IV daily on [04/01? Septic Shock secondary to pyelonephritis, bacteremia?resolving See CVS and renal MSK/DERM Gluteal ulcer Rx: Wound care as per wound care nurse. ICU Health maintenance: Dispo: Admit to ICU for septic shock, renal failure. Not a candidate for HD. Pending final decision by family re: switching to comfort care Diet: Tube feeds as per dietitian DVT ppx: SCDs GI ppx: Protonix 40mg qD Mechanical ventilattion: Yes, Mode: ACVC, VT 450, R 26, PEEP6, FiO2 45% Sedation: No IV lines: 2 pIV Central line: Left IJ [ placed on 03/30/25, right , femoral HD catheter [placed on 04/01/2025 Arterial line: No Barrios: Yes , Left Nephrostomy Code status: FULL CODE Plan of care discussed with attending Dr Qureshi, - Elías Reyes M.D. PGY2 Disclaimer: Minor errors in education site manager may be present as this note was dictated using voice recognition software. Attending Provider Attestation/Addendum Patient seen and examined with above resident, Elías Reyes MD. I agree with the findings, assessment, and plan of care as documented except for any differences below. Patient with worsening bilateral infiltrates on chest x-ray this morning. Appears to be recurrent despite aggressive volume removal with hemodialysis. PEEP was increased to optimize driving pressures and ensure adequate rate recruitment. Suspicion however of potential alternate etiologies including aspiration or diffuse alveolar hemorrhage in setting of thrombocytopenia. However, at this point patient remains a poor candidate for long-term renal replacement therapy even at patient. This was extensively discussed with nephrology given his significant comorbidities he would not be an ideal candidate to continue to pursue this despite surviving acute hospitalization. Patient is on scheduled for hemodialysis tomorrow with hopes that aggressive fluid removal and continue antibiotics with resolution of his septic shock and improvement in pulmonary edema may lead to ability to wean/extubate. However, family has been contacted with his son Elias, as the primary decision-maker who has been updated on plan of care including both short-term and long-term goals. With this in mind, he will contact additional family members in town to help determine ultimate goals of care as far as desired to pursue short-term use of renal replacement therapy for aggressive weaning from mechanical ventilation with no anticipation the patient will likely still demise as an outpatient without renal therapy versus placement into long- term acute care which will also limit his quality of life further from the sharp decline he has had due to his underlying comorbidities. We will await his response before proceeding, we will consider bronchoscopy should they pursue continued aggressive means. Total critical care time: I personally spent 40 minutes for review of physiologic parameters, direct the plan of care throughout the day, coordination of care with other subspecialists, and counseling patient's family. This is exclusive of time spent teaching and started performing any separate billable procedures. Patient requires critical care services for acute hypoxic respiratory failure, septic shock, pyelonephritis secondary to ureteral obstruction from renal calculi status post nephrostomy, and acute renal failure. Patient remains at significant risk for further morbidity and mortality warranting close monitoring care only available in the intensive care unit.
[2025-04-04] MEDS: CEFEPIME INJ 1 GM in SODIUM CHLORIDE 0.9% (Popper) 50 ML IV (20:49)
[2025-04-05] VITALS (48 sets, daily range): BP systolic 100–153; BP diastolic 50–76; PULSE 67–105; RESP 7–30; TEMP 36.2–37.2; O2SAT 87–100; BMI 17.2
[2025-04-05 04:26] LABS: Base Excess 4 (-3-3); HCO3 28 mEq/L (20-26); Inspired Oxygen, FIO2 45 %; O2 Saturation 99 % (91-98); PCO2 36 mmHg (32.0-48.0); PO2 100 mmHg (83-108)
[2025-04-05 04:27] LABS: Allen Test Performed/OK; Puncture Site Right Radial
--- NOTE | 2025-04-05 05:00 | XR_ITS ---
Examination: AP chest single view TECHNIQUE: AP portable semiupright chest single view Date and time: April 05, 2025 0513 hours Comparison April 04, 2025 INDICATIONS: Hypoxic respiratory failure, pneumonia or ARDS pattern this week post intubation FINDINGS: Severe bilateral lung opacity Endotracheal tube tip approximately 24 mm above the rosalina Mildly large cardiac contour Left internal jugular central line tip SVC, no pneumothorax IMPRESSION: No significant change in severe pneumonia/ARDS pattern
[2025-04-05 05:45] LABS: Basophils # (Auto) 0.1 Thou/mm3 (0.0-0.2); Basophils % (Auto) 0 % (0-2.5); Eosinophils % (Auto) 0 % (0-10); Hematocrit 26.4 % (41.0-53.0); Hemoglobin 9.2 g/dL (13.5-16.0); Immature Granulocytes % (Auto) 3 % (0-0); Immature Granulocytes Auto 0.64 Thou/mm3 (0.00-0.00); Lymphocytes # (Auto) 0.9 Thou/mm3 (1.0-4.8); Lymphocytes % (Auto) 4 % (10-50); Mean Corpuscular HGB Conc 34.8 g/dl (31.0-37.0); Mean Corpuscular Hemoglobin 29.1 pg (25.0-35.0); Mean Corpuscular Volume 84 fL (80-100); Monocytes # (Auto) 0.4 Thou/mm3 (0.0-0.8); Monocytes % (Auto) 2 % (0-12); Neutrophils # (Auto) 23.1 Thou/mm3 (1.8-7.7); Neutrophils % (Auto) 92 % (37-80); Nucleated Red Blood Cell # 0.13 Thou/mm3 (0.00-0.00); Nucleated Red Blood Cell % 1 /100 WBC (0); RDW Standard Deviation 47.5 fL (35.1-43.9); Red Blood Count 3.16 Miln/mm3 (4.50-5.90); White Blood Count 25.1 Thou/mm3 (3.8-10.6)
[2025-04-05] MEDS: HYDROCORTISONE SOD SUCC INJ 100 MG VIAL 50 MG IV ×3 (05:48→17:21)
[2025-04-05] MEDS: INSULIN LISPRO (AdmeLOG) 1 UNIT/0.01 ML UNIT SC ×3 (05:48→17:19)
[2025-04-05 05:54] LABS: Platelet Count 34 Thou/mm3 (140-440)
[2025-04-05 06:05] LABS: Alanine Aminotransferase 13 U/L (10-49); Albumin, Serum 2.6 gm/dL (3.4-4.8); Albumin/Globulin Ratio 1.2 (1.2-2.2); Alkaline Phosphatase 167 U/L (46-116); Anion Gap 10 (7-16); Aspartate Amino Transferase 18 U/L (0-34); BUN/Creatinine Ratio 18 Ratio (12-20); Bilirubin,Total 0.8 mg/dL (0.3-1.2); Blood Urea Nitrogen 48 mg/dL (9-23); Calcium (Corrected) 9.1 mg/dL (8.5-10.1); Carbon Dioxide 27.5 mMol/L (20.0-31.0); Chloride 99 mMol/L (98-107); Creatinine (Component) 2.6 mg/dL (0.6-1.3); Estimated Creatinine Clearance 15.5 mL/min (>60); Globulin 2.2 gm/dL (2.3-3.5); Glucose 212 mg/dL (74-106); Magnesium 1.9 mg/dL (1.6-2.6); Osmolality,Calculated 290 (275-295); Phosphorous 3.2 mg/dL (2.4-5.1); Potassium 4.2 mMol/L (3.4-5.1); Sodium 136 mMol/L (136-145); Total Protein 4.8 gm/dL (5.7-8.2); eGFR 24 See Note
[2025-04-05 06:47] LABS: Slide Review Platelets confirmed
--- NOTE | 2025-04-05 07:57 | PD.RESPRO ---
Documentation for date of: 04/05/25 Subjective Subjective Interval history: Patient is Nauruan-speaking and history facilitated by registered healthcare diplomatic interpreter/translator. 80-year-old male with past medical history of BPH with indwelling barrios catheter, primary hypertension, CKD stage IIIb, NIDDM type 2, hyperlipidemia, depression,peripheral artery disease (right lower extremity AKA) and PEG tube insitu presenting with left flank pain. Patient is a resident at [facility]. According to patient yesterday night he began having left flank pain 9/10, constant, no radiation, and no relief with Tylenol. Denied any fever, sick contacts, recent travel, vomiting, diarrhea, chest pain/pressure and palpitations. He has monthly barrios catheter changes at Dr. Parham's office. Patient was hospitalized August last year for failure to thrive and PEG tube was placed for nutritional needs. ED course: BP 121/65, pulse 1 1, RR 20, temp 101.6 F, SpO2 96% on room air Labs significant for Hb 8, PLT 72, BUN 46, CR 3.4, lactic acid 5.2, Pro-Jeffy 33.94. Urinalysis significant for cloudy, brown, 3+ blood, leukocyte esterase +9-82 WBC. Abdomen x-ray showed abundant stool in colon and small bowel ileus. Abdomen/pelvis CT showed mild to moderate left hydronephrosis with sludge like calculi in proximal left ureter. In the ED patient received Ringer's lactate 2L IVF bolus, acetaminophen 1.53 p.o. x 1, magnesium citrate 300 mL p.o. x 1, Zosyn 4.5G IV x 1, vancomycin 750 Mg IV x 1 and norepinephrine infusion. Patient will be admitted to the ICU for treatment of management of urosepsis requiring IV vasopressors. 03/31/2025: No events overnight. Levophed infusion ongoing. This morning patient alert and oriented x 3, denies any flank pain, nausea, vomiting. WBC increased to 33.6 from 6.7, PLT decreased to 40 from 72, bicarb improved to 15.5 from 13.8, LA downtrended to 2.8 from 4, CR increased to 3.9 from 3.3. Blood culture grew GNR preliminary, urine culture pending. Minimal output from left nephrostomy in past 24 hours. Started on Bicitra 30 mL GT twice daily, Ringer's lactate 500 cc IVF bolus, continue meropenem 500 Mg IV twice daily, continue to wean Levophed as tolerated, for left nephrostogram as per urology recommendations. 04/01/2025: Overnight patient had diarrhea. Currently on Norel at 0.03, tube feeds at 50 cc/hour with free water flushes at 75 cc/12. Urine output 60 cc from Barrios/24 hours, 100 cc from nephrostomy/24 hours. Today patient only complained of diarrhea, however desatted into the 70s and had to be placed on HFNC and 25L, FiO2 40%. WBC decreased to 32 from 33.6, Hb decreased to 8.3 from 9.2, PLT decreased to 28 from 40, Cr. stabe at 3.9, Bun increased to 58 from 52, Bicarb increased to 17.7 from 15.2, Phos decreased to 2 from 3.5, globulin 2.3. Blood culture grew E. coli pansensitive to all tested antibiotics. Chest x-ray showed bilateral flash pulmonary edema. Repleted with K-Phos 15 mm x 1, de-escalated meropenem to ceftriaxone 2 g IV daily, emergent placement of right femoral dialysis catheter and hemodialysis. Patient's son, Elias Rodriguez updated about today's events. 04/02/2025: Overnight patient became hypoxic on BiPAP, on ABG pH 7.49, pCO2 28, pO2 58. NO urine output in past 24hours. Subsequently was intubated and mechanically ventillated. Sedation with Fentanyl and Propofol, Levophed at 0.05. This morning patient seen and examined in ICU. Repeat ABG pH 7.27, pCO2 48, PaO2 135. WBC decreased to 28.8 from 38.6 , Hb decreased to 7.2 from 7.5, plt decreased to 22 from 28, bicarb decreased to 19.1 from 22, BNP 1586, Procal 85.8. Chest X-ray showed B/L pulmonary consolidation and flash pulmonary edema. Scheduled for IR Lt Nephrostogram today, NM Renal scan, Switched antibiotics to Cefepime and Vancomycin x 1. Discontinued Propofol. Hemodialysis today with 1L UF. 04/03/2025: Overnight patient was weaned off of Levophed, fentanyl was titrated to 100 mcg/hour, hemodialysis with 1.5L UF and 1 PRBC infusion. This morning SAT was successful and patient weaned off of fentanyl infusion, following commands, cough and gag reflex intact. Also had SBT on pressure support, subsequently switched back to ACMV. Hb improved to 8.9 from 7.2, WBC improved to 28.4 from 28.8, PLT increased to 32 from 22, K3.4, Phos 1.6, CR improved to 2.1 from 2.7, BUN improved to 26 from 44. ABG this a.m. pH 7.56, FVX650, PO2 179. Chest x-ray this morning showed bilateral pulmonary edema with some areas of consolidation?minimal improvement from yesterday. Plan for today to attempt SBT again after hemodialysis. 04/04/2025: Patient was seen and examined at bedside this AM. No acute events overnight. PSV spontaneous breathing trial today after ~4L fluid removal with HD over last 3 days. Dialysis well-tolerated on vasopressors. Patient remains off sedation and appears comfortable, and tolerating tube feeds. Chest x-ray does shows significant pulmonary edema despite ongoing dialysis and ultrafiltration, possible underlying ARDS vs. alveolar hemorrhage. Holding off bronchoscopy for now until final decision from family. Per Nephrology, patient is not a candidate for long-term remote hemodialysis, will coordinate this with son/family. Son shows full comprehension of poor prognosis and that patient has significant chronic comorbidities and limited quality of life. In interim, we will continue to treat with cefepime for both E. coli bacteremia possible superimposed bacterial pneumonia with healthcare associated organisms such as Pseudomonas, as well as try to optimize to wean from mechanical ventilation. 04/04/2025: Overnight patient had 1+ bowel movement, 10 cc output from nephrostomy. Patient seen and examined at bedside this morning, responsive to voice and following commands. SBT with successful extubation and 12.01. Labs showed Hb 9.2, WBC 25.1, PLT 34, chest x-ray showed bilateral fluffy opacities, most likely pulmonary edema and some aspect of ARDS. Goals of care had with SonElias this morning who agreed to switch patient to DNR/DNI after extubation and final session of hemodialysis today. WIll continue Cefepime for E.coli bacteremia and coverage for pseudomonas. Tube feeds stopped at 1300, will resume in 6 hours. Exam Vital Signs Temp Pulse Resp BP Pulse Ox O2 Del Method O2 Flow Rate 98.6 F 89 16 153/75 H 100 Mechanical Ventilation 45 04/05/25 04:00 04/05/25 06:16 04/03/25 16:59 04/05/25 06:00 04/05/25 06:16 04/05/25 04:00 04/05/25 00:00 FiO2 35 04/05/25 07:00 Narrative Exam Constitutional Alert, following commands, tracking. Elderly male, bitemporal wasting, cachectic. HEENT Vision grossly intact. Patent nares. Trachea midline Respiratory Chest normal on inspection and bilateral crackles On anterior and posterior chest wall. Left IJ catheter. Exit site clean. On 6L oxymask Cardiovascular S1 and S2 audible, RRR. No murmurs carotid bruit. No gross JVD. Abdominal Soft and non tender to palpation in all quadrants. BS + PEG tube in situ, exit site clean. Genitourinary No bladder tenderness, no flank pain. Normal to palpation. Stage 1 pressure ulcer on right groin. Left nephrostomy tube in situ, no drainage. Right hemodialysis catheter in situ. Exit site clean Musculoskeletal. Extremities tone within normal limits. No LE edema. Right AKA noted Neurological CN II - XII grossly intact. Extremity motor and sensation grossly intact. Skin Warm, dry and intact. Right buttock pressure ulcer. Objective Labs 04/07/25 05:09 04/07/25 05:09 Labs: Laboratory Results - last 24 hr 04/05/25 04/05/25 04:20 05:08 WBC 25.1 H RBC 3.16 L Hgb 9.2 L Hct 26.4 L MCV 84 MCH 29.1 MCHC 34.8 RDW Std Deviation 47.5 H Plt Count 34 L Neut % (Auto) 92 H Lymph % (Auto) 4 L Mcdonough % (Auto) 2 Eos % (Auto) 0 Baso % (Auto) 0 Neut # (Auto) 23.1 H Lymph # (Auto) 0.9 L Mcdonough # (Auto) 0.4 Eos # (Auto) 0.0 Baso # (Auto) 0.1 Immature Gran # (Auto) 0.64 H Absolute Nucleated RBC 0.13 H Immature Gran % 3 H Nucleated RBC % 1 H Puncture Site Right Radial ABG pH 7.50 H ABG pCO2 36 ABG pO2 100 D ABG HCO3 28 H ABG O2 Saturation 99 H ABG Base Excess 4 H FiO2 45 Sodium 136 Potassium 4.2 Chloride 99 Carbon Dioxide 27.5 Anion Gap 10 BUN 48 H Creatinine 2.6 H D Estim Creat Clear Calc 15.5 L eGFR 24 L BUN/Creatinine Ratio 18 Glucose 212 H Calculated Osmolality 290 Calcium 8.0 L Corrected Calcium 9.1 Phosphorus 3.2 Magnesium 1.9 Total Bilirubin 0.8 AST 18 ALT 13 Alkaline Phosphatase 167 H D Total Protein 4.8 L Albumin 2.6 L Globulin 2.2 L Albumin/Globulin Ratio 1.2 Misc Test Result Platelets confirmed ABG Interpretation ABG results: 03/30/25 04/01/25 04/02/25 07:35 20:42 00:13 ABG pH 7.31 L 7.49 H D 7.23 L D ABG pCO2 21 L 28 L 53 H D ABG pO2 109 H 58 L* D 69 L ABG HCO3 11 L 21 22 ABG O2 Saturation 99 H 92 90 L ABG Base Excess -14 L -2 -5 L 04/02/25 04/03/25 04/04/25 04:23 04:25 04:59 ABG pH 7.27 L 7.56 H D 7.51 H ABG pCO2 48 30 L D 33 ABG pO2 130 H D 179 H D 71 L D ABG HCO3 22 27 H 27 H ABG O2 Saturation 100 H 101 H 97 ABG Base Excess -5 L 5 H 4 H 04/05/25 04:20 ABG pH 7.50 H ABG pCO2 36 ABG pO2 100 D ABG HCO3 28 H ABG O2 Saturation 99 H ABG Base Excess 4 H Quality Measures Quality Measures sepsis Current suspected stage: sepsis (resolved) Possible source: GI tract/intra-abdominal Blood cultures ordered: yes Antibiotic ordered: Yes Advance care planning discussed with:: patient and child Assessment & Plan Assessment Current Active Medications: Generic Name Dose Route Start Last Admin Trade Name Freq PRN Reason Stop Dose Admin Acetaminophen 650 mg 04/03/25 07:14 Acetaminophen Carmita 325 Mg/10 Ml Udc GT 04/29/25 15:52 Q4HR PRN Pain Or Fever > 100 Dextrose 50 ml 03/30/25 17:10 Dextrose 50%-Water Inj 50 Ml Syringe IV 04/29/25 17:09 Q15MIN PRN BG <50 OR BG <70 & pt unresponsive Epoetin Kishore 10,000 unit 04/05/25 13:00 Epoetin Kishore-Epbx Inj 10,000 Unit/Ml Vial (Esrd) IV 04/05/25 13:01 X1 ONE Glucagon 1 mg 03/30/25 17:10 Glucagon Inj 1 Mg Vial IM Q15MIN PRN BG <70, and no IV access Heparin Sodium (Porcine) 3,000 unit 04/01/25 18:09 04/03/25 16:34 Heparin Sod Inj 1000 Unit/Ml Vial 10 Ml INDWELLCAT 04/15/25 18:08 3,000 unit PRN PRN Administration DIALYSIS Hydrocortisone Sodium Succinate 50 mg 04/02/25 12:00 04/05/25 05:48 Hydrocortisone Sod Succ Inj 100 Mg Vial IV 05/02/25 11:59 50 mg Q6HR AMANDA Administration Norepinephrine/Dextrose 8 mg in 250 mls @ 3.827 mls/hr 03/30/25 07:38 04/03/25 04:33 Levophed In D5w 8mg/250ml IV 04/29/25 07:37 0 mcg/kg/min .Q24H PRN 0 mls/hr PER PROTOCOL Titration Protocol 0.05 MCG/KG/MIN Cefepime HCl 1 gm/ Sodium 50 mls @ 100 mls/hr 04/01/25 20:57 04/04/25 21:30 Chloride IV 04/08/25 20:53 Infused Q24H AMANDA Infusion Protocol Dexmedetomidine/Sodium Chloride 400 mcg in 100 mls @ 2.18 mls/hr 04/03/25 22:59 04/04/25 07:00 Precedex Ivpb IV 05/03/25 22:58 0 mcg/kg/hr .Q24H PRN 0 mls/hr Per PROTOCOL Titration Protocol 0.2 MCG/KG/HR Insulin Human Lispro 0 unit 03/30/25 18:00 04/05/25 05:48 Insulin Lispro (Admelog) 1 Unit/0.01 Ml Unit SC 04/29/25 17:59 1 unit Q6HR AMANDA Administration Protocol Multivitamins/Minerals 15 ml 03/31/25 10:00 04/04/25 10:01 Multivitamin 15 Ml Udc GT 04/30/25 09:59 15 ml QDAY AMANDA Administration Ondansetron HCl 4 mg 03/30/25 12:15 04/01/25 10:31 Ondansetron Inj 2 Mg/Ml Inj 2 Ml IVP 04/29/25 12:14 4 mg Q6H PRN Administration NAUSEA OR VOMITING Protocol Pantoprazole Sodium 40 mg 04/03/25 10:45 04/04/25 10:01 Pantoprazole Inj 40 Mg Vial IVP 05/03/25 10:44 40 mg QDAY AMANDA Administration Pharmacy Consult 1 each 03/30/25 12:15 Pharmacy Renal Dose Adjustment 1 Ea XX 04/29/25 12:14 PRN PRN CONSULT Thiamine HCl 100 mg 03/31/25 10:00 04/04/25 10:01 Thiamine Inj 100 Mg/Ml Vial 2 Ml IVP 04/30/25 09:59 100 mg QDAY AMANDA Administration Plan Mr Rodriguez is a 80-year-old male with past medical history of BPH with indwelling barrios catheter, primary hypertension, CKD stage IIIb, NIDDM type 2, hyperlipidemia, depression,peripheral artery disease (right lower extremity AKA) and PEG tube insitu presenting with left flank pain. Patient will be admitted to the ICU for treatment of management of acute hypoxic respiratory failure, healthcare associated pneumonia, E. coli bacteremia secondary to pyelonephritis status post nephrostomy drain, and acute renal failure. NEURO Age-related Dementia History of Depression Dx: Oriented and following commands. Rx: - General measures to prevent hospital induced delirium. - PRN precedex for agitation CVS History of primary hypertension Antihypertensives on hold due to normotension PULM Acute respiratory failure with hypoxia secondary to flash pulmonary edema and possible ARDS Dx: - Chest x-ray showed bilateral/pulmonary edema - 04/03 Repeat chest x-ray : minimal change. On ACMV, TV 450, RR 22, PEEP 8, FiO2 60%. SBT today after dialysis - 04/04 CXR : significant pulmonary edema despite ongoing dialysis and ultrafiltration, possible underlying ARDS vs. alveolar hemorrhage. - 04/05 CXR: Significant bilateral fluffy opacities in bilateral lung [place], central more than peripheral?improved from previous film ? A/a gradient 104.5, P/F ratio 285.7?mild ARDS Rx: - HD as per Nephrology. Patient requires pressors for HD, is not a candidate for outpatient HD, per Dr Shay - For final session of HD today after extubation. Inpatient hospice measures to be started after discussion with family GI/Hep Protein calorie malnutrition s/p PEG tube Dx: Albumin 2.4. Patient chronically on tube feeds Rx: - Discontinued tube feeds at 1300, to resume at 1900. RENAL Obstructive uropathy s/p left nephrostomy on 03/30 Acute renal failure CKD IIIb -> ESRD on hemodialysis DDx: - Secondary to sludgelike calculi proximal left ureter - CT abdomen pelvis fluids solitary calculus proximal left ureter. No drainage from nephrostomy over 24 hours. - Baseline CR 1.9?2.1. On admission CR 3.4?>3.9 ->3.9->2.1. NO urine output in 24 hours. - On 04/02 patient had left nephrostogram which showed displaced nephrostomy tube, a new tube was subsequently placed. Rx: - Minimal drainage in the nephrostomy tube, will continue to flush and monitor for any output - Dr. Parham consulted. Appreciate recommendations . Per Urology, outpatient ureteral stent will be needed - Nuclear medicine renal scan showed absent renal function and bilateral kidneys. - Nephrology Dr Shay following, appreciate recommendations re: HD, patient is not a candidate for outpatient dialysis. Son and family agreed for final session of dialysis today before switching to comfort measures HEME/ONC Normocytic Anemia Dx: - Multifactorial: CHARBEL, malnutrition, anemia of chronic disease, Multiple myeloma, CLL - MCV 80s and Hb 8?> 9.2 - >7.2 -> 8.9 -> 9 Rx: - Monitor for signs of bleeding on CBC - Likely exacerbated by acute illness, underlying chronic anemia of malnutrition. - Patient did receive EPO x 1 during HD (04/02) + 1 unit PRBC (04/02). Will continue to monitor CBC closely Thrombocytopenia Dx: - Chronic inflammation, sepsis, Multiple myeloma, MDS - Plt 72?>40 -> 38 ->22 -> 32. 1 unit PLT infusion on 04/02 Rx: - Monitor for signs of bleeding and CBC - Platelets trending in the 30s, possible alveolar hemorrhage on chest x-ray, will monitor CBC closely Leukocytosis Dx: - Wbc 38 -> 28 - -> 26 -> 25.1 Rx: Likely in the setting of sepsis from E. coli bacteremia Continue cefepime ENDO T2 IDDM Rx: Sliding scale q6hrly HLD Rx: Medication on hold as patient NPO ID E. coli bacteremia DDx: Secondary to pyelonephritis Dx: Blood culture grew E. coli pansensitive to tested antibiotics Rx: Meropenem 500 mg IV Q12 hourly started on [03/30?04/01]. De-escalated to ceftriaxone 2 g IV daily on [04/01?04/01]. D5 cefepime 1 g IV daily on [04/01? Septic Shock secondary to pyelonephritis, bacteremia?resolving See CVS and renal MSK/DERM Gluteal ulcer Rx: Wound care as per wound care nurse. ICU Health maintenance: Dispo: Admit to ICU for septic shock, renal failure. For final session of HD today before switching to comfort care Diet: Tube feeds as per dietitian DVT ppx: SCDs GI ppx: Protonix 40mg qD Mechanical ventilattion: No Sedation: No IV lines: 2 pIV Central line: Left IJ [ placed on 03/30/25, right , femoral HD catheter [placed on 04/01/2025 Arterial line: No Barrios: Yes , Left Nephrostomy Code status: FULL CODE Plan of care discussed with Attending Dr. Kiera Acevedo MD PGY 1 Disclaimer: This note was dictated by speech recognition. Minor errors in workers compensation claims supervisor may be present due to voice recognition software. Attending Provider Attestation/Addendum Patient seen and examined with above resident, Kimo Acevedo MD. I agree with the findings, assessment, and plan of care as document except for any differences below. Patient with slow gradual improvement. However limitation of his care with is likely due to need for hemodialysis for which she is unfortunately not an outpatient candidate. The likelihood of recovery seems very limited based on nuclear med scan showing no renal function at this time. He has not been making urine. Nephrostomy drainage has been minimal and likely related to infection edema. This has been explained extensively to the patient's son Elias who is a surrogate decision maker. Be transition to DNI/DNR we have now determined with the family that the patient will after extubation. Possible need for transition to hospice should the patient survive. Remain available for transition to comfort care as needed. He is following commands and but is unable to communicate initially we will extubate him today around to discuss goals of care with his family and determine final plan of care. Patient's pressor requirements have resolved. Remains on appropriate antibiotics. Will monitor closely with final HD session today. We have been holding his antihypertensives and he has yet to require midodrine or resumption of pressors during dialysis this afternoon. This will likely buy him a few days to week and should he continue to do well as it did postextubation, will need to talk to family about potential discharge with hospice tomorrow. Total critical care time: I personally spent 40 minutes for review of physiologic parameters, directing plan of care throughout the day, coordination of care with other subspecialists, and counseling patient family at bedside. This is exclusive of time spent teaching house staff or performing any separate billable procedures. Patient continues to be at significant risk for further morbidity and mortality warranting close monitoring and care only available in the ICU. Patient required critical care services for acute renal failure on hemodialysis, acute hypoxic respiratory failure secondary to E. coli bacteremia and probable pyelonephritis status post nephrostomy drain, and resolved septic shock.
--- NOTE | 2025-04-05 08:44 | ESPR_ITS ---
Documentation for date of: 04/05/25 Subjective Subjective Interval history: 04/01/2025 patient examined at bedside today. No acute overnight events. Patient reports he is doing well and needs to get changed. His sodium today is 136, potassium 4.2, BUN/creatinine 58 and 3.9 respectively, bicarb 18, white count 32, hemoglobin 8.3, platelet 28. Urine output 60 mL. Phosphorus 2.0, magnesium 1.9, calcium 8.7. No complaints at this time. 04/02/2025 patient evaluated in ICU, currently intubated, patient was intubated due to worsening acute hypoxic respiratory failure secondary ARDS/pneumonia. Currently requiring pressors, nephrostomy tube in place, but patient has produced minimal urine output, either in the nephrostomy tube or in the Barrios's, collectively amounting to 100 cc over last 24 hours. ICU team plans to do pyelogram, will order NM renal scan to evaluate renal function. Sodium 139, potassium 3.6, carbon oxide 19.1, BUN 44, creatinine 2.7. 04/03/2025, patient seen in ICU, currently sedated and mechanically ventilated, critical care team plans to extubate the patient in the afternoon. Nuclear medical scan yesterday showed absence of renal function in the right and left kidney. Urine output only 75 mL, initiate renal replacement therapy, dialysis orders placed. Sodium 139, potassium 3.4, BUN 26, creatinine 2.1 04/05/2025 patient evaluated with bedside, off sedation but stays intubated and mechanically ventilated, able to respond with eye movement. Patient will receive hemodialysis today, pending goals of care per critical care team, as patient is a poor candidate for outpatient hemodialysis unable to sit in chair for 3 hours. Exam Vital Signs Temp Pulse Resp BP Pulse Ox O2 Del Method O2 Flow Rate 97.1 F 84 16 130/64 100 Mechanical Ventilation 45 04/05/25 08:00 04/05/25 08:00 04/03/25 16:59 04/05/25 08:00 04/05/25 08:00 04/05/25 04:00 04/05/25 00:00 FiO2 35 04/05/25 07:00 Narrative Exam General: Currently intubated and mechanically ventilated, off sedation HEENT: dry mucous membranes, conjunctiva clear, EOMI, PERRLA, Cardiovascular: S1, S2, radial pulses +2 bilat, RRR, ESM heard possible MARC Pulmonary: CTAB bilat no cough, no wheezing GI: No tenderness to light or deep palpitation, no guarding, rigidity, rebound tenderness or distension. PEG tube Extremities: L BKA, weak musculature, no pitting edema in RLE , dorsalis pedis pulses +2 bilaterally Left nephrostomy tube, Barrios catheter Neuro: Unable to assess Psych: Unable to assess Objective Labs 04/07/25 05:09 04/06/25 07:56 Labs: Laboratory Results - last 24 hr 04/05/25 04/05/25 04:20 05:08 WBC 25.1 H RBC 3.16 L Hgb 9.2 L Hct 26.4 L MCV 84 MCH 29.1 MCHC 34.8 RDW Std Deviation 47.5 H Plt Count 34 L Neut % (Auto) 92 H Lymph % (Auto) 4 L [place] % (Auto) 2 Eos % (Auto) 0 Baso % (Auto) 0 Neut # (Auto) 23.1 H Lymph # (Auto) 0.9 L [place] # (Auto) 0.4 Eos # (Auto) 0.0 Baso # (Auto) 0.1 Immature Gran # (Auto) 0.64 H Absolute Nucleated RBC 0.13 H Immature Gran % 3 H Nucleated RBC % 1 H Puncture Site Right Radial ABG pH 7.50 H ABG pCO2 36 ABG pO2 100 D ABG HCO3 28 H ABG O2 Saturation 99 H ABG Base Excess 4 H FiO2 45 Sodium 136 Potassium 4.2 Chloride 99 Carbon Dioxide 27.5 Anion Gap 10 BUN 48 H Creatinine 2.6 H D Estim Creat Clear Calc 15.5 L eGFR 24 L BUN/Creatinine Ratio 18 Glucose 212 H Calculated Osmolality 290 Calcium 8.0 L Corrected Calcium 9.1 Phosphorus 3.2 Magnesium 1.9 Total Bilirubin 0.8 AST 18 ALT 13 Alkaline Phosphatase 167 H D Total Protein 4.8 L Albumin 2.6 L Globulin 2.2 L Albumin/Globulin Ratio 1.2 Misc Test Result Platelets confirmed ABG Interpretation ABG results: 03/30/25 04/01/25 04/02/25 07:35 20:42 00:13 ABG pH 7.31 L 7.49 H D 7.23 L D ABG pCO2 21 L 28 L 53 H D ABG pO2 109 H 58 L* D 69 L ABG HCO3 11 L 21 22 ABG O2 Saturation 99 H 92 90 L ABG Base Excess -14 L -2 -5 L 04/02/25 04/03/25 04/04/25 04:23 04:25 04:59 ABG pH 7.27 L 7.56 H D 7.51 H ABG pCO2 48 30 L D 33 ABG pO2 130 H D 179 H D 71 L D ABG HCO3 22 27 H 27 H ABG O2 Saturation 100 H 101 H 97 ABG Base Excess -5 L 5 H 4 H 04/05/25 04:20 ABG pH 7.50 H ABG pCO2 36 ABG pO2 100 D ABG HCO3 28 H ABG O2 Saturation 99 H ABG Base Excess 4 H Quality Measures Quality Measures sepsis Current suspected stage: sepsis Possible source: GI tract/intra-abdominal Blood cultures ordered: yes Antibiotic ordered: Yes Advance care planning discussed with:: patient Assessment & Plan Assessment Current Active Medications: Generic Name Dose Route Start Last Admin Trade Name Freq PRN Reason Stop Dose Admin Acetaminophen 650 mg 04/03/25 07:14 Acetaminophen Carmita 325 Mg/10 Ml Udc GT 04/29/25 15:52 Q4HR PRN Pain Or Fever > 100 Dextrose 50 ml 03/30/25 17:10 Dextrose 50%-Water Inj 50 Ml Syringe IV 04/29/25 17:09 Q15MIN PRN BG <50 OR BG <70 & pt unresponsive Epoetin Kishore 10,000 unit 04/05/25 13:00 Epoetin Kishore-Epbx Inj 10,000 Unit/Ml Vial (Esrd) IV 04/05/25 13:01 X1 ONE Glucagon 1 mg 03/30/25 17:10 Glucagon Inj 1 Mg Vial IM Q15MIN PRN BG <70, and no IV access Heparin Sodium (Porcine) 3,000 unit 04/01/25 18:09 04/03/25 16:34 Heparin Sod Inj 1000 Unit/Ml Vial 10 Ml INDWELLCAT 04/15/25 18:08 3,000 unit PRN PRN Administration DIALYSIS Hydrocortisone Sodium Succinate 50 mg 04/02/25 12:00 04/05/25 05:48 Hydrocortisone Sod Succ Inj 100 Mg Vial IV 05/02/25 11:59 50 mg Q6HR AMANDA Administration Norepinephrine/Dextrose 8 mg in 250 mls @ 3.827 mls/hr 03/30/25 07:38 04/03/25 04:33 Levophed In D5w 8mg/250ml IV 04/29/25 07:37 0 mcg/kg/min .Q24H PRN 0 mls/hr PER PROTOCOL Titration Protocol 0.05 MCG/KG/MIN Cefepime HCl 1 gm/ Sodium 50 mls @ 100 mls/hr 04/01/25 20:57 04/04/25 21:30 Chloride IV 04/08/25 20:53 Infused Q24H AMANDA Infusion Protocol Dexmedetomidine/Sodium Chloride 400 mcg in 100 mls @ 2.18 mls/hr 04/03/25 22:59 04/04/25 07:00 Precedex Ivpb IV 05/03/25 22:58 0 mcg/kg/hr .Q24H PRN 0 mls/hr Per PROTOCOL Titration Protocol 0.2 MCG/KG/HR Insulin Human Lispro 0 unit 03/30/25 18:00 04/05/25 05:48 Insulin Lispro (Admelog) 1 Unit/0.01 Ml Unit SC 04/29/25 17:59 1 unit Q6HR AMANDA Administration Protocol Multivitamins/Minerals 15 ml 03/31/25 10:00 04/04/25 10:01 Multivitamin 15 Ml Udc GT 04/30/25 09:59 15 ml QDAY AMANDA Administration Ondansetron HCl 4 mg 03/30/25 12:15 04/01/25 10:31 Ondansetron Inj 2 Mg/Ml Inj 2 Ml IVP 04/29/25 12:14 4 mg Q6H PRN Administration NAUSEA OR VOMITING Protocol Pantoprazole Sodium 40 mg 04/03/25 10:45 04/04/25 10:01 Pantoprazole Inj 40 Mg Vial IVP 05/03/25 10:44 40 mg QDAY AMANDA Administration Pharmacy Consult 1 each 03/30/25 12:15 Pharmacy Renal Dose Adjustment 1 Ea XX 04/29/25 12:14 PRN PRN CONSULT Thiamine HCl 100 mg 03/31/25 10:00 04/04/25 10:01 Thiamine Inj 100 Mg/Ml Vial 2 Ml IVP 04/30/25 09:59 100 mg QDAY AMANDA Administration Plan Assessment 80-year-old male with past medical history of BPH with indwelling barrios catheter, primary hypertension, CKD stage IIIb, NIDDM type 2, hyperlipidemia, depression,peripheral artery disease (right lower extremity AKA) and PEG tube insitu presenting with left flank pain. Patient will be admitted to the ICU for treatment of management of urosepsis requiring IV vasopressors. # Acute tubular necrosis #Obstructive uropathy #Lactic acidosis #NAGMA #E coli bacteremia #Anuric #Hypophosphatemia Secondary to sludgelike calculi proximal left ureter Percutaneous nephrostomy placement by IR. Previous urine cultures have shown Pseudomonas, E. coli, Proteus, Enterococcus Patient has also been MRSA positive in the past Current blood cultures show GNR bacteremia 2 out of 2 bottles Urine output less than 400 cc BUN/creatinine of 52 and 3.9 -> Postrenal Last Lactate 2.8 Metabolic acidosis likely related to lactate despite no anion gap on labs but lactate strongly suggests AG Pt is not having significant compensation from a respiratory stand point Expected PCO2 compensation should be 27-31 despite it only being 21 on ABG Absent renal function right and left kidney on nuclear medical scan Plan: ? Urology consulted, appreciate recs ? Monitor UOP ? Trend CMP and lytes ? Avoid nephrotoxic agents ? Renally dose medicines ? Bicitra 30 mL BID GT ? Nuclear medical scan showed no renal function in the right or left kidney. ? Hemodialysis initiated ? Patient will receive hemodialysis today, pending goals of care per critical care team, as patient is a poor candidate for outpatient hemodialysis unable to sit in chair for 3 hours. #Normocytic Anemia #Thrombocytopenia #T2 IDDM #HLD #Septic Shock secondary to UTI #Gluteal ulcer #Likely Dementia #History of Depression #Septic shock #History of primary hypertension #Protein calorie malnutrition s/p PEG tube #Failure to thrive #Anorexic Patient seen and care discussed with my attending physician, Dr. Jaspal Suárez PGY 2 Attending Provider Attestation/Addendum Patient seen and examined with resident physician Dr. Suárez. Note reviewed, agree with findings and recommendations. Patient currently seen in ICU. On ventilator. Patient currently seen on dialysis. Tolerating dialysis without any problems. Hemodialysis for 3 hours, 2K, ultrafiltration 2-3 L, Epogen 6000, no heparin ordered. Plan of care discussed with the dialysis nurse. Please see dialysis flowsheet for further details. Had a long conversation with primary team-patient not a outpatient dialysis candidate. Goals of care to be discussed with family. Noted yesterday family agreed for DNR. Overall prognosis poor. Patient with failure to thrive and feeding tube and practically bedbound with contractures in the lower EXTR.
[2025-04-05] MEDS: PANTOPRAZOLE INJ 40 MG VIAL IVP (08:55)
[2025-04-05] MEDS: THIAMINE INJ 100 MG/ML VIAL 2 ML IVP (08:56)
[2025-04-05] MEDS: MULTIVITAMIN 15 ML UDC GT (08:57)
--- NOTE | 2025-04-05 11:58 | EVENTNT_ITS ---
Documentation for date of: 04/05/25 Event Note Event Note: Discussion was held with SonElias at bedside about patient's overall poor prognosis and high risk of deterioration and after extubation and hemodialysis is discontinued. Son agreed to change patient to DNR/DNI after extubation and to not pursue any aggressive measures. Plan of care discussed with Attending Dr. Kiera Acevedo MD PGY 1 Disclaimer: This note was dictated by speech recognition. Minor errors in line assembly utility worker may be present due to voice recognition software.
--- NOTE | 2025-04-05 15:21 | PC.SS ---
Update: Patient extubated today. On oxymask 8L. Dialysis session today. Patient will not be receiving outpatient dialysis. Code status changed to DNR/DNI.
--- NOTE | 2025-04-05 15:23 | PC.SS ---
BUSBOY informed by ICU resident that patient will not be a candidate for outpatient dialysis. ICU resident informed BUSBOY that decision to transition patient to comfort care vs hospice pending. Patient from SNF.
[2025-04-05] MEDS: EPOETIN ALFA-EPBX INJ 10,000 UNIT/ML VIAL (ESRD) 10000 UNIT IV (17:19)
[2025-04-05] MEDS: HEPARIN SOD INJ 1000 UNIT/ML VIAL 10 ML 3000 UNIT INDWELLCAT (17:24)
[2025-04-05] MEDS: CEFEPIME INJ 1 GM in SODIUM CHLORIDE 0.9% (Popper) 50 ML IV (21:03)
[2025-04-06] VITALS (18 sets, daily range): BP systolic 132–166; BP diastolic 55–82; PULSE 75–95; RESP 17–29; TEMP 36.3–36.9; O2SAT 91–100; BMI 16.9
[2025-04-06] MEDS: HYDROCORTISONE SOD SUCC INJ 100 MG VIAL 50 MG IV ×3 (01:00→21:12)
[2025-04-06] MEDS: INSULIN LISPRO (AdmeLOG) 1 UNIT/0.01 ML UNIT SC (07:09)
--- NOTE | 2025-04-06 07:19 | XR_ITS ---
Examination: AP chest single view TECHNIQUE: Portable AP sitting chest single view Date and time: April 06, 2025 0734 hours Comparison April 05, 2025 INDICATIONS: Hypoxia today. FINDINGS: The patient has been extubated Severe bilateral lung opacity remains with layered right pleural fluid Left internal jugular central line tip satisfactory position Mild prominence left ventricle IMPRESSION: Severe bilateral pneumonia/ARDS remains
--- NOTE | 2025-04-06 07:24 | PD.RESPRO ---
Documentation for date of: 04/06/25 Subjective Subjective Interval history: Patient is [place]an-speaking and history facilitated by registered healthcare motor vehicle parts interpreter. 80-year-old male with past medical history of BPH with indwelling barrios catheter, primary hypertension, CKD stage IIIb, NIDDM type 2, hyperlipidemia, depression,peripheral artery disease (right lower extremity AKA) and PEG tube insitu presenting with left flank pain. Patient is a resident at [facility]. According to patient yesterday night he began having left flank pain 9/10, constant, no radiation, and no relief with Tylenol. Denied any fever, sick contacts, recent travel, vomiting, diarrhea, chest pain/pressure and palpitations. He has monthly barrios catheter changes at Dr. Parham's office. Patient was hospitalized August last year for failure to thrive and PEG tube was placed for nutritional needs. ED course: BP 121/65, pulse 1 1, RR 20, temp 101.6 F, SpO2 96% on room air Labs significant for Hb 8, PLT 72, BUN 46, CR 3.4, lactic acid 5.2, Pro-Jeffy 33.94. Urinalysis significant for cloudy, brown, 3+ blood, leukocyte esterase +9-82 WBC. Abdomen x-ray showed abundant stool in colon and small bowel ileus. Abdomen/pelvis CT showed mild to moderate left hydronephrosis with sludge like calculi in proximal left ureter. In the ED patient received Ringer's lactate 2L IVF bolus, acetaminophen 1.53 p.o. x 1, magnesium citrate 300 mL p.o. x 1, Zosyn 4.5G IV x 1, vancomycin 750 Mg IV x 1 and norepinephrine infusion. Patient will be admitted to the ICU for treatment of management of urosepsis requiring IV vasopressors. 03/31/2025: No events overnight. Levophed infusion ongoing. This morning patient alert and oriented x 3, denies any flank pain, nausea, vomiting. WBC increased to 33.6 from 6.7, PLT decreased to 40 from 72, bicarb improved to 15.5 from 13.8, LA downtrended to 2.8 from 4, CR increased to 3.9 from 3.3. Blood culture grew GNR preliminary, urine culture pending. Minimal output from left nephrostomy in past 24 hours. Started on Bicitra 30 mL GT twice daily, Ringer's lactate 500 cc IVF bolus, continue meropenem 500 Mg IV twice daily, continue to wean Levophed as tolerated, for left nephrostogram as per urology recommendations. 04/01/2025: Overnight patient had diarrhea. Currently on Norel at 0.03, tube feeds at 50 cc/hour with free water flushes at 75 cc/12. Urine output 60 cc from Barrios/24 hours, 100 cc from nephrostomy/24 hours. Today patient only complained of diarrhea, however desatted into the 70s and had to be placed on HFNC and 25L, FiO2 40%. WBC decreased to 32 from 33.6, Hb decreased to 8.3 from 9.2, PLT decreased to 28 from 40, Cr. stabe at 3.9, Bun increased to 58 from 52, Bicarb increased to 17.7 from 15.2, Phos decreased to 2 from 3.5, globulin 2.3. Blood culture grew E. coli pansensitive to all tested antibiotics. Chest x-ray showed bilateral flash pulmonary edema. Repleted with K-Phos 15 mm x 1, de-escalated meropenem to ceftriaxone 2 g IV daily, emergent placement of right femoral dialysis catheter and hemodialysis. Patient's son, Elias Rodriguez updated about today's events. 04/02/2025: Overnight patient became hypoxic on BiPAP, on ABG pH 7.49, pCO2 28, pO2 58. NO urine output in past 24hours. Subsequently was intubated and mechanically ventillated. Sedation with Fentanyl and Propofol, Levophed at 0.05. This morning patient seen and examined in ICU. Repeat ABG pH 7.27, pCO2 48, PaO2 135. WBC decreased to 28.8 from 38.6 , Hb decreased to 7.2 from 7.5, plt decreased to 22 from 28, bicarb decreased to 19.1 from 22, BNP 1586, Procal 85.8. Chest X-ray showed B/L pulmonary consolidation and flash pulmonary edema. Scheduled for IR Lt Nephrostogram today, NM Renal scan, Switched antibiotics to Cefepime and Vancomycin x 1. Discontinued Propofol. Hemodialysis today with 1L UF. 04/03/2025: Overnight patient was weaned off of Levophed, fentanyl was titrated to 100 mcg/hour, hemodialysis with 1.5L UF and 1 PRBC infusion. This morning SAT was successful and patient weaned off of fentanyl infusion, following commands, cough and gag reflex intact. Also had SBT on pressure support, subsequently switched back to ACMV. Hb improved to 8.9 from 7.2, WBC improved to 28.4 from 28.8, PLT increased to 32 from 22, K3.4, Phos 1.6, CR improved to 2.1 from 2.7, BUN improved to 26 from 44. ABG this a.m. pH 7.56, QGL170, PO2 179. Chest x-ray this morning showed bilateral pulmonary edema with some areas of consolidation?minimal improvement from yesterday. Plan for today to attempt SBT again after hemodialysis. 04/04/2025: Patient was seen and examined at bedside this AM. No acute events overnight. PSV spontaneous breathing trial today after ~4L fluid removal with HD over last 3 days. Dialysis well-tolerated on vasopressors. Patient remains off sedation and appears comfortable, and tolerating tube feeds. Chest x-ray does shows significant pulmonary edema despite ongoing dialysis and ultrafiltration, possible underlying ARDS vs. alveolar hemorrhage. Holding off bronchoscopy for now until final decision from family. Per Nephrology, patient is not a candidate for long-term remote hemodialysis, will coordinate this with son/family. Son shows full comprehension of poor prognosis and that patient has significant chronic comorbidities and limited quality of life. In interim, we will continue to treat with cefepime for both E. coli bacteremia possible superimposed bacterial pneumonia with healthcare associated organisms such as Pseudomonas, as well as try to optimize to wean from mechanical ventilation. 04/04/2025: Overnight patient had 1+ bowel movement, 10 cc output from nephrostomy. Patient seen and examined at bedside this morning, responsive to voice and following commands. SBT with successful extubation and 12.01. Labs showed Hb 9.2, WBC 25.1, PLT 34, chest x-ray showed bilateral fluffy opacities, most likely pulmonary edema and some aspect of ARDS. Goals of care had with SonElias this morning who agreed to switch patient to DNR/DNI after extubation and final session of hemodialysis today. WIll continue Cefepime for E.coli bacteremia and coverage for pseudomonas. Tube feeds stopped at 1300, will resume in 6 hours. 04/05/2025: Overnight no events. Urine output 60 cc between Barrios catheter and nephrostomy drain. Patient seen and examined in ICU this a.m., says she feels well. Denies any chest pain, SOB, palpitations. WBC 21.9, Hb 9.5, PLT 54, BUN 66, CR 3.2, albumin 2.7. Transition cefepime 2 g IV Q8 hourly to ceftriaxone 2 g IV daily. Weaned hydrocortisone to twice daily from every 6 hours. Plan to further wean hydrocortisone to once daily from tomorrow and then subsequently discontinue. Goals of care discussion again had with patient's son, Elias today and gave him the options of LTAC for hemodialysis, SNF with hospice or home with hospice. structural iron worker Dwain on board, currently awaiting decision from patient and his son. His prognosis is very poor and high risk of deterioration and is likely even with hemodialysis. Will remove left IJ and right femoral catheter today. Patient is not a candidate for outpatient hemodialysis. Currently patient clinically stable and fit for downgrade to telemetry. Exam Vital Signs Temp Pulse Resp BP Pulse Ox O2 Del Method O2 Flow Rate 98.4 F 86 22 H 158/74 H 100 Mechanical Ventilation 1.5 04/06/25 04:00 04/06/25 07:00 04/06/25 07:00 04/06/25 07:00 04/06/25 07:00 04/05/25 04:00 04/06/25 06:14 FiO2 35 04/05/25 17:59 Narrative Exam Constitutional Alert, following commands, tracking. Elderly male, bitemporal wasting, cachectic. HEENT Vision grossly intact. Patent nares. Trachea midline Respiratory Chest normal on inspection and bilateral crackles On anterior and posterior chest wall. Cardiovascular S1 and S2 audible, RRR. No murmurs carotid bruit. No gross JVD. Abdominal Soft and non tender to palpation in all quadrants. BS + PEG tube in situ, exit site clean. Genitourinary No bladder tenderness, no flank pain. Normal to palpation. Stage 1 pressure ulcer on right groin. Left nephrostomy tube in situ, bloody drainage. Musculoskeletal. Extremities tone within normal limits. No LE edema. Right AKA noted Neurological CN II - XII grossly intact. Extremity motor and sensation grossly intact. Skin Warm, dry and intact. Right buttock pressure ulcer. Objective Labs 04/07/25 05:09 04/07/25 05:09 Labs: Laboratory Results - last 24 hr 04/02/25 03:55 Crossmatch See Detail ABG Interpretation ABG results: 03/30/25 04/01/25 04/02/25 07:35 20:42 00:13 ABG pH 7.31 L 7.49 H D 7.23 L D ABG pCO2 21 L 28 L 53 H D ABG pO2 109 H 58 L* D 69 L ABG HCO3 11 L 21 22 ABG O2 Saturation 99 H 92 90 L ABG Base Excess -14 L -2 -5 L 04/02/25 04/03/25 04/04/25 04:23 04:25 04:59 ABG pH 7.27 L 7.56 H D 7.51 H ABG pCO2 48 30 L D 33 ABG pO2 130 H D 179 H D 71 L D ABG HCO3 22 27 H 27 H ABG O2 Saturation 100 H 101 H 97 ABG Base Excess -5 L 5 H 4 H 04/05/25 04:20 ABG pH 7.50 H ABG pCO2 36 ABG pO2 100 D ABG HCO3 28 H ABG O2 Saturation 99 H ABG Base Excess 4 H Quality Measures Quality Measures sepsis Current suspected stage: ruled out Possible source: GI tract/intra-abdominal Blood cultures ordered: yes Antibiotic ordered: Yes Advance care planning discussed with:: patient Assessment & Plan Assessment Current Active Medications: Generic Name Dose Route Start Last Admin Trade Name Freq PRN Reason Stop Dose Admin Acetaminophen 650 mg 04/03/25 07:14 Acetaminophen Carmita 325 Mg/10 Ml Udc GT 04/29/25 15:52 Q4HR PRN Pain Or Fever > 100 Dextrose 50 ml 03/30/25 17:10 Dextrose 50%-Water Inj 50 Ml Syringe IV 04/29/25 17:09 Q15MIN PRN BG <50 OR BG <70 & pt unresponsive Glucagon 1 mg 03/30/25 17:10 Glucagon Inj 1 Mg Vial IM Q15MIN PRN BG <70, and no IV access Heparin Sodium (Porcine) 3,000 unit 04/01/25 18:09 04/05/25 17:24 Heparin Sod Inj 1000 Unit/Ml Vial 10 Ml INDWELLCAT 04/15/25 18:08 3,000 unit PRN PRN Administration DIALYSIS Hydrocortisone Sodium Succinate 50 mg 04/06/25 21:00 Hydrocortisone Sod Succ Inj 100 Mg Vial IV 05/06/25 20:59 BID AMANDA Norepinephrine/Dextrose 8 mg in 250 mls @ 3.827 mls/hr 03/30/25 07:38 04/03/25 04:33 Levophed In D5w 8mg/250ml IV 04/29/25 07:37 0 mcg/kg/min .Q24H PRN 0 mls/hr PER PROTOCOL Titration Protocol 0.05 MCG/KG/MIN Cefepime HCl 1 gm/ Sodium 50 mls @ 100 mls/hr 04/01/25 20:57 04/05/25 21:03 Chloride IV 04/08/25 20:53 100 mls/hr Q24H AMANDA Administration Protocol Dexmedetomidine/Sodium Chloride 400 mcg in 100 mls @ 2.18 mls/hr 04/03/25 22:59 04/04/25 07:00 Precedex Ivpb IV 05/03/25 22:58 0 mcg/kg/hr .Q24H PRN 0 mls/hr Per PROTOCOL Titration Protocol 0.2 MCG/KG/HR Insulin Human Lispro 0 unit 03/30/25 18:00 04/06/25 07:09 Insulin Lispro (Admelog) 1 Unit/0.01 Ml Unit SC 04/29/25 17:59 2 unit Q6HR AMANDA Administration Protocol Morphine Sulfate 1 mg 04/05/25 18:31 Morphine Sulf Inj 10 Mg/Ml Vial IVP 04/10/25 18:30 Q4H PRN agitation/dyspnea Multivitamins/Minerals 15 ml 03/31/25 10:00 04/05/25 08:57 Multivitamin 15 Ml Udc GT 04/30/25 09:59 15 ml QDAY AMANDA Administration Ondansetron HCl 4 mg 03/30/25 12:15 04/01/25 10:31 Ondansetron Inj 2 Mg/Ml Inj 2 Ml IVP 04/29/25 12:14 4 mg Q6H PRN Administration NAUSEA OR VOMITING Protocol Pantoprazole Sodium 40 mg 04/03/25 10:45 04/05/25 08:55 Pantoprazole Inj 40 Mg Vial IVP 05/03/25 10:44 40 mg QDAY AMANDA Administration Pharmacy Consult 1 each 03/30/25 12:15 Pharmacy Renal Dose Adjustment 1 Ea XX 04/29/25 12:14 PRN PRN CONSULT Thiamine HCl 100 mg 03/31/25 10:00 04/05/25 08:56 Thiamine Inj 100 Mg/Ml Vial 2 Ml IVP 04/30/25 09:59 100 mg QDAY AMANDA Administration Plan Mr Rodriguez is a 80-year-old male with past medical history of BPH with indwelling barrios catheter, primary hypertension, CKD stage IIIb, NIDDM type 2, hyperlipidemia, depression,peripheral artery disease (right lower extremity AKA) and PEG tube insitu presenting with left flank pain. Patient will be admitted to the ICU for treatment of management of acute hypoxic respiratory failure, healthcare associated pneumonia, E. coli bacteremia secondary to pyelonephritis status post nephrostomy drain, and acute renal failure. NEURO Age-related Dementia History of Depression Dx: Oriented and following commands. Rx: - General measures to prevent hospital induced delirium. - PRN precedex for agitation CVS History of primary hypertension Antihypertensives on hold due to normotension PULM Acute respiratory failure with hypoxia secondary to flash pulmonary edema and possible ARDS - resolving Dx: - Chest x-ray showed bilateral/pulmonary edema - 04/03 Repeat chest x-ray : minimal change. On ACMV, TV 450, RR 22, PEEP 8, FiO2 60%. SBT today after dialysis - 04/04 CXR : significant pulmonary edema despite ongoing dialysis and ultrafiltration, possible underlying ARDS vs. alveolar hemorrhage. - 04/05 CXR: Significant bilateral fluffy opacities in bilateral lung [place], central more than peripheral?improved from previous film ? A/a gradient 104.5, P/F ratio 285.7?mild ARDS Rx: - HD as per Nephrology. Patient requires pressors for HD, is not a candidate for outpatient HD, per Dr Shay - Inpatient hospice measures with transition to outpatient hospice to be started after discussion with family - Weaned hydrocortisone to 50 Mg IV twice daily from every 6 hourly. To further wean to hydrocortisone 50 Mg IV daily tomorrow and then discontinue. GI/Hep Protein calorie malnutrition s/p PEG tube Dx: Albumin 2.4. Patient chronically on tube feeds Rx: - Tube feeds on hold as per patient's wishes. RENAL Obstructive uropathy s/p left nephrostomy on 03/30 Acute renal failure CKD IIIb -> ESRD on hemodialysis DDx: - Secondary to sludgelike calculi proximal left ureter - CT abdomen pelvis fluids solitary calculus proximal left ureter. No drainage from nephrostomy over 24 hours. - Baseline CR 1.9?2.1. On admission CR 3.4?>3.9 ->3.9->2.1. NO urine output in 24 hours. - On 04/02 patient had left nephrostogram which showed displaced nephrostomy tube, a new tube was subsequently placed. Rx: - Minimal drainage in the nephrostomy tube, will continue to monitor for any output - Dr. Parham consulted. Appreciate recommendations . Per Urology, outpatient ureteral stent will be needed - Nuclear medicine renal scan showed absent renal function and bilateral kidneys. - Nephrology Dr Shay following, appreciate recommendations re: HD, patient is not a candidate for outpatient dialysis. - For family meeting at 5 PM today for final goals of care discussion before switching patient to hospice. HEME/ONC Normocytic Anemia Dx: - Multifactorial: CHARBEL, malnutrition, anemia of chronic disease, Multiple myeloma, CLL - MCV 80s and Hb 8?> 9.2 - >7.2 -> 8.9 -> 9 Rx: - Monitor for signs of bleeding on CBC - Likely exacerbated by acute illness, underlying chronic anemia of malnutrition. - Patient did receive EPO x 1 during HD (04/02) + 1 unit PRBC (04/02). Will continue to monitor CBC closely Thrombocytopenia Dx: - Chronic inflammation, sepsis, Multiple myeloma, MDS - Plt 72?>40 -> 38 ->22 -> 32 -> 50 1 unit PLT infusion on 04/02 Rx: - Monitor for signs of bleeding and CBC Leukocytosis Dx: - Wbc 38 -> 28 - -> 26 -> 25.1 -> 21.9 Rx: Likely in the setting of sepsis from E. coli bacteremia ENDO T2 IDDM Rx: Sliding scale q6hrly HLD Rx: Medication on hold as patient NPO ID E. coli bacteremia DDx: Secondary to pyelonephritis Dx: Blood culture grew E. coli pansensitive to tested antibiotics Rx: Meropenem 500 mg IV Q12 hourly started on [03/30?04/01]. De-escalated to ceftriaxone 2 g IV daily on [04/01?04/01]. D6 cefepime 1 g IV daily on [04/01?04/06]. De-escalated to ceftriaxone 2 g IV daily on [04/06?will need to complete 5 more days of antibiotics to complete a 14-day course for E. coli bacteremia and pyelonephritis, last day on 04/10/2025. Septic Shock secondary to pyelonephritis, bacteremia?resolved See CVS and renal MSK/DERM Gluteal ulcer Rx: Wound care as per wound care nurse. ICU Health maintenance: Dispo: Clinically stable for downgrade to telemetry today. For likely outpatient hospice after family discussion Diet: Tube feeds as per dietitian DVT ppx: SCDs GI ppx: Protonix 40mg qD Mechanical ventilattion: No Sedation: No IV lines: 2 pIV Central line: Removed Left IJ [ placed on 03/30/25 - 04/06/2025] , right femoral HD catheter [placed on 04/01/2025- 04/06/2025] Arterial line: No Barrios: Yes , Left Nephrostomy Code status: FULL CODE Plan of care discussed with Attending Dr. Kiera Acevedo MD PGY 1 Disclaimer: This note was dictated by speech recognition. Minor errors in wire roller may be present due to voice recognition software. Attending Provider Attestation/Addendum Patient seen and examined with above resident, Kimo Acevedo MD. I agree with the findings, assessment, plan of care as documented except for any differences below. Patient successfully extubated yesterday and transition to nasal cannula gradually continue to improve to room air. Notably did make some urine though he remains a poor candidate for long-term hemodialysis as deemed by nephrology. Will transition cefepime to ceftriaxone to complete course of therapy. Plan to wean off hydrocortisone to minimize his regimen. Patient's continued good response may be short-term improvement but long-term he continues to have a high risk for deterioration given his inability to receive hemodialysis as an outpatient. Will remove to minimize risk of further infection. Given minimal urine, will be advised to remove Barrios as well. Does have nephrostomy drain in place with minimal output though this will be left in place for palliation given he does have a significant stone is not a surgical candidate. Patient's son was notified about possibility of considering LTAC hemodialysis though this would limit his placement. Patient surrounded by multiple family members who have discussed this assignment and they have continued to elect for transition to home with as per the patient's wishes. Patient is able to participate in conversation with his family helping them and himself formulate final goals of care. While the patient awaits discharge with placement likely to facility with hospice care, patient can be transitioned to telemetry for ongoing monitoring and antibiotic course prior to discharge. Total critical care time: I personally spent 35 minutes for review of physiologic parameters, directing plan of care throughout the day, coordination of care with other subspecialists, and counseling patient's family at bedside. This is exclusive of time spent teaching staff or performing any separate billable procedures. Patient with significant risk for further morbidity and mortality warranting close monitoring care only available in the ICU. Patient requires critical care services for acute renal failure, healthcare associated pneumonia, and acute hypoxic respiratory failure.
[2025-04-06] MEDS: THIAMINE INJ 100 MG/ML VIAL 2 ML IVP (08:25)
[2025-04-06] MEDS: MULTIVITAMIN 15 ML UDC GT (08:25)
[2025-04-06] MEDS: PANTOPRAZOLE INJ 40 MG VIAL IVP (08:25)
--- NOTE | 2025-04-06 08:25 | PD.RESPRO ---
Documentation for date of: 04/06/25 Subjective Subjective Interval history: 04/01/2025 patient examined at bedside today. No acute overnight events. Patient reports he is doing well and needs to get changed. His sodium today is 136, potassium 4.2, BUN/creatinine 58 and 3.9 respectively, bicarb 18, white count 32, hemoglobin 8.3, platelet 28. Urine output 60 mL. Phosphorus 2.0, magnesium 1.9, calcium 8.7. No complaints at this time. 04/02/2025 patient evaluated in ICU, currently intubated, patient was intubated due to worsening acute hypoxic respiratory failure secondary ARDS/pneumonia. Currently requiring pressors, nephrostomy tube in place, but patient has produced minimal urine output, either in the nephrostomy tube or in the Barrios's, collectively amounting to 100 cc over last 24 hours. ICU team plans to do pyelogram, will order NM renal scan to evaluate renal function. Sodium 139, potassium 3.6, carbon oxide 19.1, BUN 44, creatinine 2.7. 04/03/2025, patient seen in ICU, currently sedated and mechanically ventilated, critical care team plans to extubate the patient in the afternoon. Nuclear medical scan yesterday showed absence of renal function in the right and left kidney. Urine output only 75 mL, initiate renal replacement therapy, dialysis orders placed. Sodium 139, potassium 3.4, BUN 26, creatinine 2.1 04/05/2025 patient evaluated with bedside, off sedation but stays intubated and mechanically ventilated, able to respond with eye movement. Patient will receive hemodialysis today, pending goals of care per critical care team, as patient is a poor candidate for outpatient hemodialysis unable to sit in chair for 3 hours. 04/06/2025, patient evaluated at bedside, for goals of care discussion with family by ICU team, will be holding off on any aggressive intervention, primary team anticipates hospice referral and discharge to home. Exam Vital Signs Temp Pulse Resp BP Pulse Ox O2 Del Method O2 Flow Rate 98.4 F 86 22 H 158/74 H 100 Mechanical Ventilation 1.5 04/06/25 04:00 04/06/25 07:00 04/06/25 07:00 04/06/25 07:00 04/06/25 07:00 04/05/25 04:00 04/06/25 06:14 FiO2 35 04/05/25 17:59 Narrative Exam General: Off sedation, patient is extubated HEENT: dry mucous membranes, conjunctiva clear, EOMI, PERRLA, Cardiovascular: S1, S2, radial pulses +2 bilat, RRR, ESM heard possible MARC Pulmonary: CTAB bilat no cough, no wheezing GI: No tenderness to light or deep palpitation, no guarding, rigidity, rebound tenderness or distension. PEG tube Extremities: L BKA, weak musculature, no pitting edema in RLE , dorsalis pedis pulses +2 bilaterally Left nephrostomy tube, Barrios catheter Neuro: Drowsy, able to move his head and follow people in the room with eye movement. Psych: Unable to assess Objective Labs 04/07/25 05:09 04/06/25 07:56 Labs: Laboratory Results - last 24 hr 04/02/25 03:55 Crossmatch See Detail ABG Interpretation ABG results: 03/30/25 04/01/25 04/02/25 07:35 20:42 00:13 ABG pH 7.31 L 7.49 H D 7.23 L D ABG pCO2 21 L 28 L 53 H D ABG pO2 109 H 58 L* D 69 L ABG HCO3 11 L 21 22 ABG O2 Saturation 99 H 92 90 L ABG Base Excess -14 L -2 -5 L 04/02/25 04/03/25 04/04/25 04:23 04:25 04:59 ABG pH 7.27 L 7.56 H D 7.51 H ABG pCO2 48 30 L D 33 ABG pO2 130 H D 179 H D 71 L D ABG HCO3 22 27 H 27 H ABG O2 Saturation 100 H 101 H 97 ABG Base Excess -5 L 5 H 4 H 04/05/25 04:20 ABG pH 7.50 H ABG pCO2 36 ABG pO2 100 D ABG HCO3 28 H ABG O2 Saturation 99 H ABG Base Excess 4 H Quality Measures Quality Measures sepsis Current suspected stage: sepsis Possible source: GI tract/intra-abdominal Blood cultures ordered: yes Antibiotic ordered: Yes Advance care planning discussed with:: patient Assessment & Plan Assessment Current Active Medications: Generic Name Dose Route Start Last Admin Trade Name Freq PRN Reason Stop Dose Admin Acetaminophen 650 mg 04/03/25 07:14 Acetaminophen Carmita 325 Mg/10 Ml Udc GT 04/29/25 15:52 Q4HR PRN Pain Or Fever > 100 Dextrose 50 ml 03/30/25 17:10 Dextrose 50%-Water Inj 50 Ml Syringe IV 04/29/25 17:09 Q15MIN PRN BG <50 OR BG <70 & pt unresponsive Glucagon 1 mg 03/30/25 17:10 Glucagon Inj 1 Mg Vial IM Q15MIN PRN BG <70, and no IV access Heparin Sodium (Porcine) 3,000 unit 04/01/25 18:09 04/05/25 17:24 Heparin Sod Inj 1000 Unit/Ml Vial 10 Ml INDWELLCAT 04/15/25 18:08 3,000 unit PRN PRN Administration DIALYSIS Hydrocortisone Sodium Succinate 50 mg 04/06/25 21:00 Hydrocortisone Sod Succ Inj 100 Mg Vial IV 05/06/25 20:59 BID AMANDA Norepinephrine/Dextrose 8 mg in 250 mls @ 3.827 mls/hr 03/30/25 07:38 04/03/25 04:33 Levophed In D5w 8mg/250ml IV 04/29/25 07:37 0 mcg/kg/min .Q24H PRN 0 mls/hr PER PROTOCOL Titration Protocol 0.05 MCG/KG/MIN Cefepime HCl 1 gm/ Sodium 50 mls @ 100 mls/hr 04/01/25 20:57 04/05/25 21:03 Chloride IV 04/08/25 20:53 100 mls/hr Q24H AMANDA Administration Protocol Dexmedetomidine/Sodium Chloride 400 mcg in 100 mls @ 2.18 mls/hr 04/03/25 22:59 04/04/25 07:00 Precedex Ivpb IV 05/03/25 22:58 0 mcg/kg/hr .Q24H PRN 0 mls/hr Per PROTOCOL Titration Protocol 0.2 MCG/KG/HR Insulin Human Lispro 0 unit 03/30/25 18:00 04/06/25 07:09 Insulin Lispro (Admelog) 1 Unit/0.01 Ml Unit SC 04/29/25 17:59 2 unit Q6HR AMANDA Administration Protocol Morphine Sulfate 1 mg 04/05/25 18:31 Morphine Sulf Inj 10 Mg/Ml Vial IVP 04/10/25 18:30 Q4H PRN agitation/dyspnea Multivitamins/Minerals 15 ml 03/31/25 10:00 04/05/25 08:57 Multivitamin 15 Ml Udc GT 04/30/25 09:59 15 ml QDAY AMANDA Administration Ondansetron HCl 4 mg 03/30/25 12:15 04/01/25 10:31 Ondansetron Inj 2 Mg/Ml Inj 2 Ml IVP 04/29/25 12:14 4 mg Q6H PRN Administration NAUSEA OR VOMITING Protocol Pantoprazole Sodium 40 mg 04/03/25 10:45 04/05/25 08:55 Pantoprazole Inj 40 Mg Vial IVP 05/03/25 10:44 40 mg QDAY AMANDA Administration Pharmacy Consult 1 each 03/30/25 12:15 Pharmacy Renal Dose Adjustment 1 Ea XX 04/29/25 12:14 PRN PRN CONSULT Thiamine HCl 100 mg 03/31/25 10:00 04/05/25 08:56 Thiamine Inj 100 Mg/Ml Vial 2 Ml IVP 04/30/25 09:59 100 mg QDAY AMANDA Administration Plan Assessment 80-year-old male with past medical history of BPH with indwelling barrios catheter, primary hypertension, CKD stage IIIb, NIDDM type 2, hyperlipidemia, depression,peripheral artery disease (right lower extremity AKA) and PEG tube insitu presenting with left flank pain. Patient will be admitted to the ICU for treatment of management of urosepsis requiring IV vasopressors. # Acute tubular necrosis #Obstructive uropathy #Lactic acidosis #NAGMA #E coli bacteremia #Anuric #Hypophosphatemia Secondary to sludgelike calculi proximal left ureter Percutaneous nephrostomy placement by IR. Previous urine cultures have shown Pseudomonas, E. coli, Proteus, Enterococcus Patient has also been MRSA positive in the past Current blood cultures show GNR bacteremia 2 out of 2 bottles Urine output less than 400 cc BUN/creatinine of 52 and 3.9 -> Postrenal Last Lactate 2.8 Metabolic acidosis likely related to lactate despite no anion gap on labs but lactate strongly suggests AG Pt is not having significant compensation from a respiratory stand point Expected PCO2 compensation should be 27-31 despite it only being 21 on ABG Absent renal function right and left kidney on nuclear medical scan Plan: ? Urology consulted, appreciate recs ? Monitor UOP ? Trend CMP and lytes ? Avoid nephrotoxic agents ? Renally dose medicines ? Bicitra 30 mL BID GT ? Nuclear medical scan showed no renal function in the right or left kidney. ? Hemodialysis initiated ? Patient will receive hemodialysis today, pending goals of care per critical care team, as patient is a poor candidate for outpatient hemodialysis unable to sit in chair for 3 hours. ?Holding off on further hemodialysis sessions, as patient plans to go hospice. #Normocytic Anemia #Thrombocytopenia #T2 IDDM #HLD #Septic Shock secondary to UTI #Gluteal ulcer #Likely Dementia #History of Depression #Septic shock #History of primary hypertension #Protein calorie malnutrition s/p PEG tube #Failure to thrive #Anorexic Patient seen and care discussed with my attending physician, Dr. Jaspal Suárez PGY 2 Attending Provider Attestation/Addendum Patient seen and examined with resident physician Dr. Suárez. Note reviewed, agree with findings and recommendations. Patient currently seen in ICU. Extubated. Still altered. Hold off on dialysis. Noted family decision of home hospice. Seems to be reasonable. If planning to take him home-DC dialysis catheter. Care discussed with ICU team.
[2025-04-06 08:30] LABS: Basophils # (Auto) 0.1 Thou/mm3 (0.0-0.2); Basophils % (Auto) 0 % (0-2.5); Eosinophils % (Auto) 0 % (0-10); Hematocrit 27.8 % (41.0-53.0); Hemoglobin 9.5 g/dL (13.5-16.0); Immature Granulocytes % (Auto) 3 % (0-0); Immature Granulocytes Auto 0.64 Thou/mm3 (0.00-0.00); Lymphocytes # (Auto) 0.7 Thou/mm3 (1.0-4.8); Lymphocytes % (Auto) 3 % (10-50); Mean Corpuscular HGB Conc 34.2 g/dl (31.0-37.0); Mean Corpuscular Hemoglobin 28.8 pg (25.0-35.0); Mean Corpuscular Volume 84 fL (80-100); Monocytes # (Auto) 0.2 Thou/mm3 (0.0-0.8); Monocytes % (Auto) 1 % (0-12); Neutrophils # (Auto) 20.2 Thou/mm3 (1.8-7.7); Neutrophils % (Auto) 92 % (37-80); Nucleated Red Blood Cell # 0.07 Thou/mm3 (0.00-0.00); Nucleated Red Blood Cell % 0 /100 WBC (0); RDW Standard Deviation 47.5 fL (35.1-43.9); White Blood Count 21.9 Thou/mm3 (3.8-10.6)
[2025-04-06 08:35] LABS: Platelet Count 54 Thou/mm3 (140-440)
[2025-04-06 08:49] LABS: Alanine Aminotransferase 13 U/L (10-49); Albumin, Serum 2.7 gm/dL (3.4-4.8); Albumin/Globulin Ratio 1.1 (1.2-2.2); Alkaline Phosphatase 137 U/L (46-116); Anion Gap 12 (7-16); Aspartate Amino Transferase 16 U/L (0-34); BUN/Creatinine Ratio 21 Ratio (12-20); Bilirubin,Total 0.7 mg/dL (0.3-1.2); Blood Urea Nitrogen 66 mg/dL (9-23); Calcium 8.2 mg/dL (8.3-10.6); Calcium (Corrected) 9.2 mg/dL (8.5-10.1); Carbon Dioxide 24.7 mMol/L (20.0-31.0); Chloride 100 mMol/L (98-107); Creatinine (Component) 3.2 mg/dL (0.6-1.3); Estimated Creatinine Clearance 12.5 mL/min (>60); Globulin 2.4 gm/dL (2.3-3.5); Glucose 153 mg/dL (74-106); Magnesium 2.1 mg/dL (1.6-2.6); Osmolality,Calculated 295 (275-295); Phosphorous 4.6 mg/dL (2.4-5.1); Potassium 3.9 mMol/L (3.4-5.1); Sodium 137 mMol/L (136-145); Total Protein 5.1 gm/dL (5.7-8.2); eGFR 19 See Note
[2025-04-06 09:11] LABS: Slide Review Platelets confirmed
[2025-04-06] MEDS: cefTRIAXone/D5w 2gm 2 GM/50 ML BAG IV (11:52)
--- NOTE | 2025-04-06 13:34 | PC.SS ---
NEWSROOM INTERN conducted phone contact with patient?s son, Elias Rodriguez ; to discuss transitioning patient to comfort care.? NEWSROOM INTERN explained that transition will focus on pain management and will entail not pursuing life prolonging measures.? Discussed that comfort care can be initiated on inpatient basis and if patient is assessed as medically stable for transport the patient can return to [facility] with hospice services in place.? NEWSROOM INTERN explained that hospice will focus on pain management and not pursuing life prolonging measures.? Patient?s son informed NEWSROOM INTERN that he will be present at 05:00 pm tonight to provide decision to medical team.? In addition, patient?s son requested obtaining additional services regarding hospice services.? NEWSROOM INTERN informed patient?s son that assigned hospice agency for today is [facility].? Patient receptive to having [facility] hospice staff reach out.? NEWSROOM INTERN updated bedside nurse, ICU resident and [facility] staff.?
--- NOTE | 2025-04-06 17:04 | ESPR_ITS ---
Documentation for date of: 04/06/25 Subjective Subjective Interval history: 80-year-old male with past medical history of BPH with indwelling barrios catheter, primary hypertension, CKD stage IIIb, NIDDM type 2, hyperlipidemia, depression,peripheral artery disease (right lower extremity AKA) and PEG tube insitu presented with left flank pain. He is a resident at [facility]. Endorsed 9/10 flank pain, monthly Barrios catheter changes at Dr. Parham's office. In ED CT abdomen pelvis showed mild to moderate left hydronephrosis with sludge like calculi in proximal left ureter. Blood pressure was dropping even after receiving fluids and upgraded to ICU for vasopressor support. On second day of ICU, respiratory status worsened due to flash pulmonary edema. He had a right femoral dialysis catheter placed underwent emergent hemodialysis due to fluid overload status. With worsening hypoxia and no improvement on BiPAP, patient was intubated on 04/02. A nuclear medical scan of kidneys showed complete absence of renal function. He has undergone a total of 3 dialysis sessions. Blood cultures positive for E. coli bacteremia and currently receiving treatment with IV ceftriaxone. Will need additional 5 more days for total 14-day course. On 04/04 he passed SBT and successfully extubated. Has remained alert and oriented x 3 but has mild difficulty in speaking. There have been multiple goals of care discussion with the family about his poor prognosis. Son is main point of contact was given options of LTAC for hemodialysis, SNF with hospice, or home with hospice. [employer] worker Dwain on board, currently awaiting decision from patient and his son. His prognosis is very poor and high risk of deterioration and is likely even with hemodialysis. Patient is not a candidate for outpatient hemodialysis. He was downgraded to telemetry today. Exam Vital Signs Temp Pulse Resp BP Pulse Ox O2 Del Method O2 Flow Rate 98.5 F 86 20 140/62 H 92 L Room Air 1 04/06/25 16:04/06/25 16:04/06/25 16:04/06/25 16:04/06/25 16:04/06/25 16:04/06/25 08:00 FiO2 35 04/05/25 17:59 Narrative Exam General: Elderly male, cachectic, No acute distress, cooperative HEENT: NCAT, No JVD noted. Mucosa moist. Pupils are equal and reactive to light bilaterally Cardiovascular: Normal S1 and S2. Regular rate and rhythm. Respiratory: b/L crackles Abdomen: Soft, nontender, not distended, normal bowel sounds. PEG tube in situ, exit site clean. : no CVA tenderness, Left nephrostomy tube in situ, Stage 1 pressure ulcer on right groin Skin: Warm to touch, dry, no rashes noted Musculoskeletal: Right AKA, moves other extremities, No pitting edema Neuro: Alert and oriented x3. No focal neuro deficits. Psych: Normal affect and mood Objective Labs 04/07/25 05:09 04/07/25 05:09 Labs: Laboratory Results - last 24 hr 04/06/25 07:56 WBC 21.9 H RBC 3.30 L Hgb 9.5 L Hct 27.8 L MCV 84 MCH 28.8 MCHC 34.2 RDW Std Deviation 47.5 H Plt Count 54 L D Neut % (Auto) 92 H Lymph % (Auto) 3 L [place] % (Auto) 1 Eos % (Auto) 0 Baso % (Auto) 0 Neut # (Auto) 20.2 H Lymph # (Auto) 0.7 L [place] # (Auto) 0.2 Eos # (Auto) 0.0 Baso # (Auto) 0.1 Immature Gran # (Auto) 0.64 H Absolute Nucleated RBC 0.07 H Immature Gran % 3 H Nucleated RBC % 0 Sodium 137 Potassium 3.9 Chloride 100 Carbon Dioxide 24.7 Anion Gap 12 BUN 66 H Creatinine 3.2 H D Estim Creat Clear Calc 12.5 L eGFR 19 L BUN/Creatinine Ratio 21 H Glucose 153 H D Calculated Osmolality 295 Calcium 8.2 L Corrected Calcium 9.2 Phosphorus 4.6 Magnesium 2.1 Total Bilirubin 0.7 AST 16 ALT 13 Alkaline Phosphatase 137 H D Total Protein 5.1 L Albumin 2.7 L Globulin 2.4 Albumin/Globulin Ratio 1.1 L Misc Test Result Platelets confirmed ABG Interpretation ABG results: 03/30/25 04/01/25 04/02/25 07:35 20:42 00:13 ABG pH 7.31 L 7.49 H D 7.23 L D ABG pCO2 21 L 28 L 53 H D ABG pO2 109 H 58 L* D 69 L ABG HCO3 11 L 21 22 ABG O2 Saturation 99 H 92 90 L ABG Base Excess -14 L -2 -5 L 04/02/25 04/03/25 04/04/25 04:23 04:25 04:59 ABG pH 7.27 L 7.56 H D 7.51 H ABG pCO2 48 30 L D 33 ABG pO2 130 H D 179 H D 71 L D ABG HCO3 22 27 H 27 H ABG O2 Saturation 100 H 101 H 97 ABG Base Excess -5 L 5 H 4 H 04/05/25 04:20 ABG pH 7.50 H ABG pCO2 36 ABG pO2 100 D ABG HCO3 28 H ABG O2 Saturation 99 H ABG Base Excess 4 H Quality Measures Quality Measures sepsis Current suspected stage: ruled out Possible source: GI tract/intra- abdominal Blood cultures ordered: yes Antibiotic ordered: Yes Advance care planning discussed with:: child Assessment & Plan Assessment Current Active Medications: Generic Name Dose Route Start Last Admin Trade Name Freq PRN Reason Stop Dose Admin Acetaminophen 650 mg 04/03/25 07:14 Acetaminophen Carmita 325 Mg/10 Ml Udc GT 04/29/25 15:52 Q4HR PRN Pain Or Fever > 100 Dextrose 50 ml 03/30/25 17:10 Dextrose 50%-Water Inj 50 Ml Syringe IV 04/29/25 17:09 Q15MIN PRN BG <50 OR BG <70 & pt unresponsive Glucagon 1 mg 03/30/25 17:10 Glucagon Inj 1 Mg Vial IM Q15MIN PRN BG <70, and no IV access Hydrocortisone Sodium Succinate 50 mg 04/06/25 21:00 Hydrocortisone Sod Succ Inj 100 Mg Vial IV 05/06/25 20:59 BID AMANDA Ceftriaxone Sodium/Dextrose 2 gm in 50 mls @ 100 mls/hr 04/06/25 09:00 04/06/25 11:52 Rocephin/D5w 2gm IV 04/14/25 08:49 100 mls/hr QDAY AMANDA Administration Insulin Human Lispro 0 unit 03/30/25 18:00 04/06/25 11:58 Insulin Lispro (Admelog) 1 Unit/0.01 Ml Unit SC 04/29/25 17:59 Not Given Q6HR AMANDA Protocol Morphine Sulfate 1 mg 04/05/25 18:31 Morphine Sulf Inj 10 Mg/Ml Vial IVP 04/10/25 18:30 Q4H PRN agitation/dyspnea Multivitamins/Minerals 15 ml 03/31/25 10:00 06/24/25 08:25 Multivitamin 15 Ml Udc GT 04/30/25 09:59 15 ml QDAY AMANDA Administration Ondansetron HCl 4 mg 03/30/25 12:15 04/01/25 10:31 Ondansetron Inj 2 Mg/Ml Inj 2 Ml IVP 04/29/25 12:14 4 mg Q6H PRN Administration NAUSEA OR VOMITING Protocol Pantoprazole Sodium 40 mg 04/03/25 10:45 04/06/25 08:25 Pantoprazole Inj 40 Mg Vial IVP 05/03/25 10:44 40 mg QDAY AMANDA Administration Pharmacy Consult 1 each 03/30/25 12:15 Pharmacy Renal Dose Adjustment 1 Ea XX 04/29/25 12:14 PRN PRN CONSULT Thiamine HCl 100 mg 03/31/25 10:00 04/06/25 08:25 Thiamine Inj 100 Mg/Ml Vial 2 Ml IVP 04/30/25 09:59 100 mg QDAY AMANDA Administration Plan 80-year-old male with past medical history of BPH with indwelling barrios catheter, primary hypertension, CKD stage IIIb, NIDDM type 2, hyperlipidemia, depression,peripheral artery disease (right lower extremity AKA) and PEG tube insitu presented with left flank pain. He is a resident at [facility]. Endorsed 06/23 flank pain, monthly Barrios catheter changes at Dr. Parham's office. Blood pressure was dropping even after receiving fluids and upgraded to ICU 03/30 for vasopressor support. E coli bacteremia 2/2 pyelonephritis. Pending goals of care discussion with family for possible comfort care or home hospice. #E coli bacteremia #Pyelonephritis -ceftriaxone 2 g IV daily on [04/06?will need to complete 5 more days of antibiotics to complete a 14-day course #AHRF 2/2 flash pulmonary edema #Mild ARDS Status is improving. Intubated on 04/02 due to worsening hypoxia on Bipap. On 04/04 he passed SBT and successfully extubated. A/a gradient 104.5, P/F ratio 285.7?mild ARDS - HD as per Nephrology. Patient requires pressors for HD, is not a candidate for outpatient HD, per Dr Shay -also unable to sit during HD duration - Weaned hydrocortisone to 50 Mg IV twice daily from every 6 hourly. To further wean to hydrocortisone 50 Mg IV daily tomorrow and then discontinue #Protein calorie malnutrition s/p PEG tube - Tube feeds on hold as per patient's wishes since one day -small sips of water -continue to hold pedning family decision for hospice or comfort care #Obstructive uropathy s/p left nephrostomy #ENOC on CKD 3B CT abdomen pelvis fluids solitary calculus proximal left ureter. No drainage from nephrostomy over 24 hours. Cr slowly downtrending. On 04/02 patient had left nephrostogram which showed displaced nephrostomy tube, a new tube was subsequently placed. Dr. Parham consulted. Appreciate recommendations . Per Urology, outpatient ureteral stent will be needed. Nuclear medicine renal scan showed absent renal function and bilateral kidneys. -not candidate for outpatient dialysis #Normocytic Anemia Hb 8-9, received EPO x 1 during HD (04/02) + 1 unit PRBC (04/02). -daily CBC #Thrombocytopenia Slowly downtrending since admission, received 1 unit platelets on 04/02 ? Monitor with daily CBC #[id number] type 2 diabetes, well-controlled ? Sliding scale q6hr -glucose checks q6hr #Hypertension Home medications not resumed in setting of shock. Does not look like he takes any antihypertensives per chart review. #Septic Shock 2/2 ecoli baceteremia-resolved Health maintenance: Dispo: Downgraded to telemetry today, IV ceftriaxone for E. coli bacteremia, pending goals of care discussion FEN: PEG feeds which she is currently denying DVT prophylaxis: SCDs CODE STATUS: Full code The patient's management plan was discussed with my attending physician Dr. Brandon. Lydia Hartley, PGY-1 Attending Provider Attestation/Addendum I have examined the patient, reviewed labs and imaging findings, discussed the case with the resident(s), and reviewed entered orders. I agree with the plan of care as outlined in this note. Dr. Aleksandr MD
[2025-04-07] VITALS: BP 140/65; PULSE 84; PULSE 85; RESP 17; TEMP 36.6; O2SAT 95
[2025-04-07] MEDS: INSULIN LISPRO (AdmeLOG) 1 UNIT/0.01 ML UNIT SC ×3 (00:55→11:53)
[2025-04-07 00:59] VITALS: PULSE 85; RESP 24; RESP 93
[2025-04-07 04:00] VITALS: BP 146/63; PULSE 85; PULSE 92; RESP 22; TEMP 37.2; O2SAT 95
[2025-04-07 06:00] LABS: Basophils % (Auto) 0 % (0-2.5); Eosinophils % (Auto) 0 % (0-10); Hematocrit 26.8 % (41.0-53.0); Immature Granulocytes % (Auto) 3 % (0-0); Immature Granulocytes Auto 0.58 Thou/mm3 (0.00-0.00); Lymphocytes % (Auto) 6 % (10-50); Mean Corpuscular HGB Conc 33.6 g/dl (31.0-37.0); Mean Corpuscular Hemoglobin 28.4 pg (25.0-35.0); Mean Corpuscular Volume 85 fL (80-100); Monocytes # (Auto) 0.6 Thou/mm3 (0.0-0.8); Monocytes % (Auto) 3 % (0-12); Neutrophils # (Auto) 16.5 Thou/mm3 (1.8-7.7); Neutrophils % (Auto) 88 % (37-80); Nucleated Red Blood Cell % 1 /100 WBC (0); Platelet Count 90 Thou/mm3 (140-440); RDW Standard Deviation 48.1 fL (35.1-43.9); Red Blood Count 3.17 Miln/mm3 (4.50-5.90); White Blood Count 18.7 Thou/mm3 (3.8-10.6)
[2025-04-07 06:35] LABS: Alanine Aminotransferase 14 U/L (10-49); Albumin, Serum 2.6 gm/dL (3.4-4.8); Albumin/Globulin Ratio 1.1 (1.2-2.2); Alkaline Phosphatase 139 U/L (46-116); Anion Gap 14 (7-16); Aspartate Amino Transferase 17 U/L (0-34); BUN/Creatinine Ratio 21 Ratio (12-20); Bilirubin,Total 0.6 mg/dL (0.3-1.2); Blood Urea Nitrogen 75 mg/dL (9-23); Calcium 7.8 mg/dL (8.3-10.6); Calcium (Corrected) 8.9 mg/dL (8.5-10.1); Carbon Dioxide 24.1 mMol/L (20.0-31.0); Chloride 102 mMol/L (98-107); Creatinine (Component) 3.6 mg/dL (0.6-1.3); Estimated Creatinine Clearance 11.1 mL/min (>60); Globulin 2.3 gm/dL (2.3-3.5); Glucose 177 mg/dL (74-106); Osmolality,Calculated 305 (275-295); Potassium 3.7 mMol/L (3.4-5.1); Sodium 140 mMol/L (136-145); Total Protein 4.9 gm/dL (5.7-8.2); eGFR 16 See Note
[2025-04-07 08:00] VITALS: BP 134/61; PULSE 80; PULSE 87; RESP 17; TEMP 36.3; O2SAT 94
[2025-04-07] MEDS: PANTOPRAZOLE INJ 40 MG VIAL IVP (08:18)
[2025-04-07] MEDS: THIAMINE INJ 100 MG/ML VIAL 2 ML IVP (08:18)
[2025-04-07] MEDS: HYDROCORTISONE SOD SUCC INJ 100 MG VIAL 50 MG IV (08:20)
[2025-04-07] MEDS: MULTIVITAMIN 15 ML UDC GT (08:20)
[2025-04-07] MEDS: cefTRIAXone/D5w 2gm 2 GM/50 ML BAG IV (09:09)
--- NOTE | 2025-04-07 09:40 | PD.RESPRO ---
Documentation for date of: 04/07/25 Subjective Subjective Interval history: 04/01/2025 patient examined at bedside today. No acute overnight events. Patient reports he is doing well and needs to get changed. His sodium today is 136, potassium 4.2, BUN/creatinine 58 and 3.9 respectively, bicarb 18, white count 32, hemoglobin 8.3, platelet 28. Urine output 60 mL. Phosphorus 2.0, magnesium 1.9, calcium 8.7. No complaints at this time. 04/02/2025 patient evaluated in ICU, currently intubated, patient was intubated due to worsening acute hypoxic respiratory failure secondary ARDS/pneumonia. Currently requiring pressors, nephrostomy tube in place, but patient has produced minimal urine output, either in the nephrostomy tube or in the Barrios's, collectively amounting to 100 cc over last 24 hours. ICU team plans to do pyelogram, will order NM renal scan to evaluate renal function. Sodium 139, potassium 3.6, carbon oxide 19.1, BUN 44, creatinine 2.7. 04/03/2025, patient seen in ICU, currently sedated and mechanically ventilated, critical care team plans to extubate the patient in the afternoon. Nuclear medical scan yesterday showed absence of renal function in the right and left kidney. Urine output only 75 mL, initiate renal replacement therapy, dialysis orders placed. Sodium 139, potassium 3.4, BUN 26, creatinine 2.1 04/05/2025 patient evaluated with bedside, off sedation but stays intubated and mechanically ventilated, able to respond with eye movement. Patient will receive hemodialysis today, pending goals of care per critical care team, as patient is a poor candidate for outpatient hemodialysis unable to sit in chair for 3 hours. 04/06/2025, patient evaluated at bedside, for goals of care discussion with family by ICU team, will be holding off on any aggressive intervention, primary team anticipates hospice referral and discharge to home. 04/07/2025, patient evaluated at bedside, family agreed to continue with hospice at SNF, no aggressive intervention at this point. Urine output 570 mL. Sodium 140, K3.7, BUN 75, creatinine 3.6 Exam Vital Signs Temp Pulse Resp BP Pulse Ox O2 Del Method O2 Flow Rate 97.4 F 87 17 134/61 H 94 L Room Air 1 04/07/25 08:00 04/07/25 08:00 04/07/25 08:00 04/07/25 08:00 04/07/25 08:00 04/07/25 08:00 04/06/25 08:00 FiO2 35 04/05/25 17:59 Narrative Exam General: Elderly male, cachectic, No acute distress, cooperative HEENT: NCAT, No JVD noted. Mucosa moist. Pupils are equal and reactive to light bilaterally Cardiovascular: Normal S1 and S2. Regular rate and rhythm. Respiratory: b/L crackles Abdomen: Soft, nontender, not distended, normal bowel sounds. PEG tube in situ, exit site clean. : no CVA tenderness, Left nephrostomy tube in situ, Stage 1 pressure ulcer on right groin Skin: Warm to touch, dry, no rashes noted Musculoskeletal: Right AKA, moves other extremities, No pitting edema Neuro: Alert and oriented x3. No focal neuro deficits. Psych: Normal affect and mood Objective Labs 04/07/25 05:09 04/07/25 05:09 Labs: Laboratory Results - last 24 hr 04/07/25 05:09 WBC 18.7 H RBC 3.17 L Hgb 9.0 L Hct 26.8 L MCV 85 MCH 28.4 MCHC 33.6 RDW Std Deviation 48.1 H Plt Count 90 L D Neut % (Auto) 88 H Lymph % (Auto) 6 L [place] % (Auto) 3 Eos % (Auto) 0 Baso % (Auto) 0 Neut # (Auto) 16.5 H Lymph # (Auto) 1.0 [place] # (Auto) 0.6 Eos # (Auto) 0.0 Baso # (Auto) 0.0 Immature Gran # (Auto) 0.58 H Absolute Nucleated RBC 0.10 H Immature Gran % 3 H Nucleated RBC % 1 H Sodium 140 Potassium 3.7 Chloride 102 Carbon Dioxide 24.1 Anion Gap 14 BUN 75 H Creatinine 3.6 H Estim Creat Clear Calc 11.1 L eGFR 16 L BUN/Creatinine Ratio 21 H Glucose 177 H Calculated Osmolality 305 H Calcium 7.8 L Corrected Calcium 8.9 Total Bilirubin 0.6 AST 17 ALT 14 Alkaline Phosphatase 139 H Total Protein 4.9 L Albumin 2.6 L Globulin 2.3 Albumin/Globulin Ratio 1.1 L ABG Interpretation ABG results: 03/30/25 04/01/25 04/02/25 07:35 20:42 00:13 ABG pH 7.31 L 7.49 H D 7.23 L D ABG pCO2 21 L 28 L 53 H D ABG pO2 109 H 58 L* D 69 L ABG HCO3 11 L 21 22 ABG O2 Saturation 99 H 92 90 L ABG Base Excess -14 L -2 -5 L 04/02/25 04/03/25 04/04/25 04:23 04:25 04:59 ABG pH 7.27 L 7.56 H D 7.51 H ABG pCO2 48 30 L D 33 ABG pO2 130 H D 179 H D 71 L D ABG HCO3 22 27 H 27 H ABG O2 Saturation 100 H 101 H 97 ABG Base Excess -5 L 5 H 4 H 04/05/25 04:20 ABG pH 7.50 H ABG pCO2 36 ABG pO2 100 D ABG HCO3 28 H ABG O2 Saturation 99 H ABG Base Excess 4 H Quality Measures Quality Measures sepsis Current suspected stage: sepsis Possible source: GI tract/intra-abdominal Blood cultures ordered: yes Antibiotic ordered: Yes Advance care planning discussed with:: patient Assessment & Plan Assessment Current Active Medications: Generic Name Dose Route Start Last Admin Trade Name Freq PRN Reason Stop Dose Admin Acetaminophen 650 mg 04/03/25 07:14 Acetaminophen Carmita 325 Mg/10 Ml Udc GT 04/29/25 15:52 Q4HR PRN Pain Or Fever > 100 Dextrose 50 ml 03/30/25 17:10 Dextrose 50%-Water Inj 50 Ml Syringe IV 04/29/25 17:09 Q15MIN PRN BG <50 OR BG <70 & pt unresponsive Glucagon 1 mg 03/30/25 17:10 Glucagon Inj 1 Mg Vial IM Q15MIN PRN BG <70, and no IV access Hydrocortisone Sodium Succinate 50 mg 04/07/25 09:00 04/07/25 08:42 Hydrocortisone Sod Succ Inj 100 Mg Vial IV 05/07/25 08:59 Not Given DAILY AMANDA Ceftriaxone Sodium/Dextrose 2 gm in 50 mls @ 100 mls/hr 04/06/25 09:00 04/07/25 09:09 Rocephin/D5w 2gm IV 04/14/25 08:49 100 mls/hr QDAY AMANDA Administration Insulin Human Lispro 0 unit 03/30/25 18:00 04/07/25 05:15 Insulin Lispro (Admelog) 1 Unit/0.01 Ml Unit SC 04/29/25 17:59 1 unit Q6HR AMANDA Administration Protocol Morphine Sulfate 1 mg 04/05/25 18:31 Morphine Sulf Inj 10 Mg/Ml Vial IVP 04/10/25 18:30 Q4H PRN agitation/dyspnea Multivitamins/Minerals 15 ml 03/31/25 10:00 04/07/25 08:20 Multivitamin 15 Ml Udc GT 04/30/25 09:59 15 ml QDAY AMANDA Administration Ondansetron HCl 4 mg 03/30/25 12:15 04/01/25 10:31 Ondansetron Inj 2 Mg/Ml Inj 2 Ml IVP 04/29/25 12:14 4 mg Q6H PRN Administration NAUSEA OR VOMITING Protocol Pantoprazole Sodium 40 mg 04/03/25 10:45 04/07/25 08:18 Pantoprazole Inj 40 Mg Vial IVP 05/03/25 10:44 40 mg QDAY AMANDA Administration Pharmacy Consult 1 each 03/30/25 12:15 Pharmacy Renal Dose Adjustment 1 Ea XX 04/29/25 12:14 PRN PRN CONSULT Thiamine HCl 100 mg 03/31/25 10:00 04/07/25 08:18 Thiamine Inj 100 Mg/Ml Vial 2 Ml IVP 04/30/25 09:59 100 mg QDAY AMANDA Administration Plan Assessment 80-year-old male with past medical history of BPH with indwelling barrios catheter, primary hypertension, CKD stage IIIb, NIDDM type 2, hyperlipidemia, depression,peripheral artery disease (right lower extremity AKA) and PEG tube insitu presenting with left flank pain. Patient will be admitted to the ICU for treatment of management of urosepsis requiring IV vasopressors. # Acute tubular necrosis #Obstructive uropathy #Lactic acidosis #NAGMA #E coli bacteremia #Anuric #Hypophosphatemia Secondary to sludgelike calculi proximal left ureter Percutaneous nephrostomy placement by IR. Previous urine cultures have shown Pseudomonas, E. coli, Proteus, Enterococcus Patient has also been MRSA positive in the past Current blood cultures show GNR bacteremia 2 out of 2 bottles Urine output less than 400 cc BUN/creatinine of 52 and 3.9 -> Postrenal Last Lactate 2.8 Metabolic acidosis likely related to lactate despite no anion gap on labs but lactate strongly suggests AG Pt is not having significant compensation from a respiratory stand point Expected PCO2 compensation should be 27-31 despite it only being 21 on ABG Absent renal function right and left kidney on nuclear medical scan Plan: ? Urology consulted, appreciate recs ? Monitor UOP ? Trend CMP and lytes ? Avoid nephrotoxic agents ? Renally dose medicines ? Bicitra 30 mL BID GT ? Nuclear medical scan showed no renal function in the right or left kidney. ? Hemodialysis was initiated, but given patient's poor overall prognosis, inability to continue outpatient hemodialysis, patient unable to sit in a dialysis chair for 3 hours, goals of care discussion was held by primary team, patient/family decided against any aggressive interventions, plan to discharge patient to SNF on hospice by primary team. Nephrology will continue to follow the patient. #Normocytic Anemia #Thrombocytopenia #T2 IDDM #HLD #Septic Shock secondary to UTI #Gluteal ulcer #Likely Dementia #History of Depression #Septic shock #History of primary hypertension #Protein calorie malnutrition s/p PEG tube #Failure to thrive #Anorexic Patient seen and care discussed with my attending physician, Dr. Jaspal Suárez PGY 2 Attending Provider Attestation/Addendum Patient seen and examined with resident physician Dr. Suárez. Note reviewed, agree with findings and recommendations. Patient currently seen in medical floor. Extubated. Very sleepy although arousable.dialysis, dialysis catheter was removed Agree with hospice. Patient will be transferred back to rehab.
--- NOTE | 2025-04-07 11:26 | PC.SS ---
Addendum entered by Isi Soto 04/07/25 13:47: Wrong patient Original Note: follow up note; Patient is medically cleared. Pending [facility] clearance, patient will discharge home when cleared by [facility].
[2025-04-07 12:00] VITALS: BP 142/69; PULSE 77; PULSE 83; RESP 16; TEMP 36.7; O2SAT 94
--- NOTE | 2025-04-07 13:02 | PC.SS ---
Addendum entered by PAPA Hodge 04/07/25 14:20: SS update: Angie at [facility] confirmed the patient can return to facility with hospice services. Nevaeh with [facility] is aware. Pending is transport. Original Note: SS follow up: spoke with patient?s son, Elias Rodriguez regarding the d/c plan. Elias is agreeable with patient's return to [facility] with hospice services. He informed he spoke to [facility] yesterday and would like the referral sent to them.
--- NOTE | 2025-04-07 14:10 | PD.RESDS ---
Planned Discharge Date 04/07/25 DS: Providers Provider Date of admission: 03/30/25 12:26 Primary care physician: Physician No Primary/Family Admitting Provider: Kimo Acevedo MD Attending Provider on Admission: Kodak Brandon MD Consults: 03/30/25 08:49 Consult to Urology Stat Comment: Left hydro with sludgelike calc left prox ureter Consulting Provider: Charisma Parham 03/30/25 15:45 Referral Wound Care Routine Comment: Pressure injury to R buttock 03/30/25 17:08 Consult to Nephrology Routine Comment: ENOC on CKD Consulting Provider: Sherry Shay 03/30/25 17:26 Referral Registered Dietitian Routine Comment: for tube feeds 03/31/25 08:12 Referral Speech Therapy Routine Comment: 04/05/25 14:50 Referral Hospice Routine Comment: Attending Provider on DC: Kodak Brandon MD Discharging Provider: Kodak Brandon MD DS: Diagnosis Problem List Completed Was Problem List Reviewed/Reconciled?: Yes Hospital Course Hospital Course Hospital course: Reason for hospitalization: Ecoli bacteremia 2/2 pyelonephritis 80-year-old male with past medical history of BPH with indwelling barrios catheter, primary hypertension, CKD stage IIIb, NIDDM type 2, hyperlipidemia, depression,peripheral artery disease (right lower extremity AKA) and PEG tube insitu presented with left flank pain. He is a resident at [facility]. Endorsed 910 flank pain, monthly Barrios catheter changes at Dr. Parham's office. In ED CT abdomen pelvis showed mild to moderate left hydronephrosis with sludge like calculi in proximal left ureter. Blood pressure was dropping even after receiving fluids and upgraded to ICU for vasopressor support. On second day of ICU, respiratory status worsened due to flash pulmonary edema. He had a right femoral dialysis catheter placed underwent emergent hemodialysis due to fluid overload status. With worsening hypoxia and no improvement on BiPAP, patient was intubated on 04/02. A nuclear medical scan of kidneys showed complete absence of renal function. He has undergone a total of 3 dialysis sessions. Blood cultures positive for E. coli bacteremia and currently receiving treatment with IV ceftriaxone. On 04/04 he passed SBT and successfully extubated. Has remained alert and oriented x 3 but has mild difficulty in speaking. There have been multiple goals of care discussion with the family about his poor prognosis. Son is main point of contact was given options of LTAC for hemodialysis, SNF with hospice, or home with hospice. His prognosis is very poor and high risk of deterioration and is likely even with hemodialysis. Patient is not a candidate for outpatient hemodialysis. Goals of care discussion held with son yesterday and all questions were answered to full. He decided to have patient continue on hospice at SNF. Recommendations were given as below. Hospital Diagnoses: #E coli bacteremia #Pyelonephritis #AHRF 2/2 flash pulmonary edema #Mild ARDS #Protein calorie malnutrition s/p PEG tube #Obstructive uropathy s/p left nephrostomy #ENOC on CKD 3B #Normocytic Anemia #Thrombocytopenia #Oid-[id number] type 2 diabetes, well-controlled #Hypertension #Septic Shock 2/2 ecoli baceteremia-resolved The patient's management plan was discussed with my attending physician Dr. Brandon. Lydia Hartley MD, PGY-1 Time Spent with Patient Time attestation: Total time spent providing and/or coordinating discharge services: Time spent: Greater than 30 minutes Quality: Stroke Pt Provided Written Stroke Discharge Instructions: No Exam Vital Signs Temp Pulse Resp BP Pulse Ox O2 Del Method O2 Flow Rate 98.0 F 83 16 142/69 H 94 L Room Air 1 04/07/25 12:00 04/07/25 12:00 04/07/25 12:00 04/07/25 12:00 04/07/25 12:00 04/07/25 12:00 04/06/25 08:00 FiO2 35 04/05/25 17:59 Narrative Exam General: Elderly male, cachectic, No acute distress, cooperative HEENT: NCAT, No JVD noted. Mucosa moist. Pupils are equal and reactive to light bilaterally Cardiovascular: Normal S1 and S2. Regular rate and rhythm. Respiratory: b/L crackles Abdomen: Soft, nontender, not distended, normal bowel sounds. PEG tube in situ, exit site clean. : no CVA tenderness, Left nephrostomy tube in situ, Stage 1 pressure ulcer on right groin Skin: Warm to touch, dry, no rashes noted Musculoskeletal: Right AKA, moves other extremities, No pitting edema Neuro: Alert and oriented x3. No focal neuro deficits. Psych: Normal affect and mood Discharge Plan Plan Patient Disposition: Xfer Skilled Nsg Fac (SNF) Disposition Comment: on hospice care to [facility] Patient condition on transfer: Stable Prescriptions/Referrals Prescriptions/Med Rec: Continued bisacodyl [Dulcolax (bisacodyl)] 10 mg suppository 10 mg MI QDAY PRN (Reason: Constipation) glucagon HCl [Glucagon (HCl) Emergency Kit] 1 mg recon soln 1 mg subcut Q15M PRN (Reason: Hypoglycemia) Rx Instructions: until target blood sugar attained Tradjenta 5 mg tablet 5 mg PO QDAY Patient Comments: take 1 tablet by mouth once daily ondansetron HCl 4 mg Tablet 4 mg PO Q6H PRN (Reason: Nausea And Vomiting) Discontinued ferrous sulfate 325 mg (65 mg iron) tablet 325 mg PO BID mirtazapine [Remeron] 30 mg Tablet 30 mg PO HS ondansetron 4 mg tablet,disintegrating 4 mg PO Q8H PRN (Reason: nausea and vomiting) Qty: 30 0RF Referrals: No Primary/Family,Physician [Primary Care Provider] - Patient/Caregiver Discharge Instructions Other Discharge Activity Instructions:: Continue PEG tube feeds. Talk with hospice company to see if patient can get any liquids for oral satisfaction. Education Materials: What Is Hospice? Print Language: Croatian Stand Alone Forms: [employer] Award Info., Patient Portal Info Letter Discharge Order Discharge Orders: Discharge (Routine); Ordered 04/07/25 Ordered By: Lydia Hartley Quality Discharge Quality Measures VTE prophylaxis Attestestation MD Attestation I have examined the patient, reviewed labs and imaging findings, discussed the case with the resident(s), and reviewed entered orders. I agree with the plan of care as outlined in this note. Time Spent: [address] Aleksandr MD
--- NOTE | 2025-04-07 14:33 | PC.SS ---
Addendum entered by Isi Soto 04/07/25 16:12: SS follow up note; SS also contacted Diana from [facility] and updated her with ETA. Addendum entered by Isi Soto 04/07/25 16:11: SS set up transportation with [facility] for 1730. SS notified patient's nurse as well as patient's son, Elias. SS also notified Angie from [facility]. Original Note: SS follow up note; SS sent Hospice referral to [facility] through [employer]. SS also set up transportation for patient through [facility], reference # [id number].
[2025-04-07 16:00] VITALS: BP 140/57; PULSE 84; RESP 16; TEMP 36.9; O2SAT 93
== END 2025-04-07 17:37 | disposition skilled nursing facility (03) | DRG 871 ==
LOC: SERX 03-30 12:17 → SERHOLD 03-30 12:28 → S2SX 03-30 14:20 → S3NX 04-06 18:31
PROVIDERS: Family Medicine; Internal Medicine; Radiology Diagnostic Radiology; Student in an Organized Health Care Education/Training Program; Emergency Provider Emergency Medicine; Visit Provider Student in an Organized Health Care Education/Training Program
DX: A41.51 Sepsis due to Escherichia coli [E. coli] (principal); J18.9 Pneumonia, unspecified organism; R65.21 Severe sepsis with septic shock; N17.0 Acute kidney failure with tubular necrosis; N18.6 End stage renal disease; J81.0 Acute pulmonary edema; N17.9 Acute kidney failure, unspecified; C90.00 Multiple myeloma not having achieved remission; E46 Unspecified protein-calorie malnutrition; E87.4 Mixed disorder of acid-base balance; I12.0 Hypertensive chronic kidney disease with stage 5 chronic kidney disease or end stage renal disease; C91.10 Chronic lymphocytic leukemia of B-cell type not having achieved remission; K56.7 Ileus, unspecified; N13.2 Hydronephrosis with renal and ureteral calculous obstruction; E11.22 Type 2 diabetes mellitus with diabetic chronic kidney disease; E11.51 Type 2 diabetes mellitus with diabetic peripheral angiopathy without gangrene; N18.9 Chronic kidney disease, unspecified; I12.9 Hypertensive chronic kidney disease with stage 1 through stage 4 chronic kidney disease, or unspecified chronic kidney disease; D63.8 Anemia in other chronic diseases classified elsewhere; D69.6 Thrombocytopenia, unspecified; E78.5 Hyperlipidemia, unspecified; E83.39 Other disorders of phosphorus metabolism; E87.70 Fluid overload, unspecified; F03.90 Unspecified dementia, unspecified severity, without behavioral disturbance, psychotic disturbance, mood disturbance, and anxiety; N40.1 Benign prostatic hyperplasia with lower urinary tract symptoms; R62.7 Adult failure to thrive; T83.022A Displacement of nephrostomy catheter, initial encounter; Y73.2 Prosthetic and other implants, materials and accessory gastroenterology and urology devices associated with adverse incidents; Y95 Nosocomial condition; Z51.5 Encounter for palliative care; Z66 Do not resuscitate; Z74.01 Bed confinement status; Z79.4 Long term (current) use of insulin; Z79.84 Long term (current) use of oral hypoglycemic drugs; L98.419 Non-pressure chronic ulcer of buttock with unspecified severity; Z87.891 Personal history of nicotine dependence; Z89.511 Acquired absence of right leg below knee; Z89.512 Acquired absence of left leg below knee; Z89.611 Acquired absence of right leg above knee; Z93.1 Gastrostomy status; Z99.2 Dependence on renal dialysis
CPT/HCPCS: 36415; 36600; 71045; 74018; 74176; 74425; 76998; 78708; 80053; 80074; 80202; 81001; 82270; 82436; 82570; 82803; 83605; 83735; 83880; 84100; 84133; 84145; 84300; 84484; 85025; 85610; 85730; 86140; 86706; 86850; 86900; 86901; 86923; 86965; 87040; 87077; 87081; 87086; 87186; 87205; 87400; 87811; 92610; 94002; 94003; 96361; 96365; 96367; 96374; 99291; A4314; A9562; C1729; C1769; J0692; J0696; J1642; J1643; J1720; J1815; J2185; J2405; J2470; J2543; J2598; J2704; J2919; J3010; J3370; J3411; J3490; J7030; J7050; J7120; J7999; P9016; P9035; P9047; Q5105; Q5106; Q9958; Q9963; A9270